=== PATIENT | female | born 1945 | race Caucasian/White ===

== ENCOUNTER 2017-03-22 11:34 | Inpatient (IN) ==
[2017-03-22] MEDS ORDERED: Naloxone 0.4 MG/ML INJ IVP PRN (14:52)
[2017-03-22] MEDS ORDERED: Lacri-Lube 3.5 GM TUBE BOTH EYES PRN (14:57)
[2017-03-22] MEDS ORDERED: D5% in Water 1,000 ML IVC PRN (15:07)
[2017-03-22] MEDS ORDERED: *HR* Dextrose 50 % in Water (Syg) 50 ML SYRINGE IVP PRN (15:07)
[2017-03-22] MEDS ORDERED: Dextrose Gel 15 GM/37.5 ML TUBE PO PRN ×2 (15:07)
[2017-03-22 15:11] LABS: ABG Base Excess 12 mEq/L (-2 to 3); ABG HCO3 41 mEq/L (21-27); ABG Oxygen Saturation 94 % (95-98); ABG PCO2 73 mmHg (35-45); ABG PH 7.36 pH Units (7.32-7.45); ABG PO2 76 mmHg (85-104); ABG TCO2 43 mEq/L (20-26); Blood Gas Modality ASSIST CONTROL; Blood Gas PEEP 5 cm H2O; Blood Gas Respiration Rate 14; Blood Gas VT 450 cc
[2017-03-22] MEDS: Lacri-Lube 3.5 GM TUBE BOTH EYES SCH ×3 (15:40→23:48)
[2017-03-22] MEDS: *HR* Heparin 5,000 UNIT/ML VIAL SQ SCH ×2 (15:40→23:48)
[2017-03-22] MEDS: methylPREDNISolone 125 MG/2 ML VIAL IVP SCH ×2 (15:40→23:48)
[2017-03-22] MEDS: Ringers Solution, Lactated 1,000 ML IVC SCH (15:43)
[2017-03-22] MEDS: FentaNYL (PF) 1,000 MCG in 0.9 % Sodium Chloride 80 ML IVC SCH (15:45)
--- NOTE | 2017-03-22 15:46 | Pulmonology History & Physical ---
Date of Encounter: 03/22/17 Time of Encounter: 14:50 Assessment and Plan (1) Acute and chronic respiratory failure Current visit: Yes Status: Acute Currently patient is stable on current ventilatory setting and there is evidence of hypoxia and hypercapnia but for the most part is corrected and I suspect with her underlying disease prognosis could be poor. Continue vent support with sedation until family is not available to obtain more history. Qualifiers: Respiratory failure complication: hypoxia and hypercapnia Qualified Code(s) : J96.21 - Acute and chronic respiratory failure with hypoxia; J96.22 - Acute and chronic respiratory failure with hypercapnia; J96.22 - Acute and chronic respiratory failure with hypercapnia; J96.22 - Acute and chronic respiratory failure with hypercapnia (2) Pulmonary interstitial fibrosis Current visit: Yes Status: Chronic It will be difficult from chest x-ray to know what type of pulmonary fibrosis and she will need a CAT scan hopefully when she is more stable and did not this is IPF exacerbation prognosis is very poor. (3) COPD with exacerbation Current visit: Yes Status: Acute Patient will be on systemic steroid with bronchodilators and vent support. (4) Sepsis Current visit: Yes Status: Acute Patient meets SIRS criteria and so this could be pneumonia and sepsis order initiated. She has received fluid and continue IV fluid for now. Qualifiers: Sepsis type: sepsis due to unspecified organism Qualified Code(s): A41.9 - Sepsis, unspecified organism (5) Decubital ulcer Current visit: Yes Status: Chronic This is presence on admission on the back pressure area seems to be stage I and about half centimeter. Qualifiers: Pressure ulcer location: foot, unspecified location Pressure ulcer stage: stage 1 Laterality: unspecified laterality Qualified Code(s): L89.891 - Pressure ulcer of other site, stage 1 History of Present Illness Chief complaint: Shortness of breath HPI: Ms. Benjamin is a 71 year old female who presented with chief complaint of shortness of breath to [facility] emergency department and this history is taken from the chart patient is on the ventilator and she is sedated and I am not able to reach her daughter. The shortness of breath is has been going on for 2-3 days and she has also cough which was not productive. Patient symptoms worsen with anxiety. It is not clear to me her underlying disease with history of COPD about oxygen use however is documented patient normally on 6 L oxygen for pulmonary fibrosis and when squad arrived they found her on 6 L and her oxygen saturation was 83-84%. Patient was found tachycardic and there is no history of any fevers or chills. Patient was supposed to see a legal specialist. Apparently patient was intubated for respiratory distress secondary was transferred to [facility]. In the ICU patient has been sedated and oxygen saturation is acceptable. I am not sure about social history regarding smoking and also her activity levels. Past Med Surg Social Fam HX - Past Medical History Medical history: GERD, hypertension, other - Social History Smoking Status: Never smoker Smokeless Tobacco Status: No Alcohol use: none Medications and Allergies Levothyroxine 11/14/16 [History] Omeprazole 11/14/16 [History] Pravastatin Sodium 11/14/16 [History] Tizanidine HCl 11/14/16 [History] Vitamin D 11/14/16 [History] 3 Allergy/AdvReac Type Severity Reaction Status Date / Time ciprofloxacin [From Cipro] Allergy Rash Verified 11/14/16 19:58 Hyoscyamine [From Urelle] Allergy Rash Verified 11/14/16 19:58 methenamine [From Urelle] Allergy Rash Verified 11/14/16 19:58 methylene blue [From Urelle] Allergy Rash Verified 11/14/16 19:58 phenazopyridine Allergy Rash Verified 11/14/16 19:58 [From Pyridium] salicylates [From Urelle] Allergy Rash Verified 11/14/16 19:58 Sodium Phosphate Allergy Rash Verified 11/14/16 19:58 [From Urelle] ROS unobtainable: due to mental status All Systems: A 10-system review of systems was performed and is negative for pertinent findings except as documented above in the HPI. Physical Examination Vital Signs: Vital Signs, Last 4 Hours Temp Pulse Resp BP Pulse Ox 03/22/17 15:00 97.4 F L 75 14 97/62 92 03/22/17 14:25 80 03/22/17 14:13 12 94 General appearance: no acute distress Eyes: nonicteric Neck: supple, no lymphadenopathy Effort: normal Inspection: other (Patients on the ventilator) Auscultation: bilateral: other (Crackles bilaterally) Percussion: bilateral: not dull Cardiovascular: regular rate and rhythm Gastrointestinal: normoactive bowel sounds, non-distended, other (Patient has colostomy bag) Extremities: no cyanosis, edema unable to assess due to mental status Results - Laboratory Findings ABG ABG pH 7.36 pH Units (7.32-7.45) 03/22/17 15:05 ABG pCO2 73 mmHg (35-45) H* 03/22/17 15:05 ABG pO2 76 mmHg (85-104) L 03/22/17 15:05 ABG O2 Saturation 94 % (95-98) L 03/22/17 15:05 Abnormal lab findings: Abnormal lab results ABG pCO2 73 mmHg (35-45) H* 03/22/17 15:05 ABG pO2 76 mmHg (85-104) L 03/22/17 15:05 ABG HCO3 41 mEq/L (21-27) H 03/22/17 15:05 ABG Total CO2 43 mEq/L (20-26) H 03/22/17 15:05 ABG O2 Saturation 94 % (95-98) L 03/22/17 15:05 ABG Base Excess 12 mEq/L (-2 to 3) H 03/22/17 15:05 - Diagnostic Findings Chest x-ray: report reviewed, image reviewed
[2017-03-22] MEDS ORDERED: Vancomycin 1,500 MG in D5% in Water 250 ML IVPB SCH (16:00)
[2017-03-22 16:24] LABS: Basophils % 0.1 %; Eosinophils % 0.1 %; Hematocrit 38.2 % (35.3-44.9); Immature Granulocytes % 0.4 % (0-4); Lymphocytes # 0.8 K/mcL (0.6-4.6); Lymphocytes % 7.2 %; Mean Corpuscular HGB Conc 31.4 g/dL (31.6-35.5); Mean Corpuscular Volume 95.5 fL (83.0-100.0); Mean Platelet Volume 9.9 fL (9.4-12.4); Monocytes # 0.1 K/mcL (0.0-1.3); Neutrophils # 10.7 K/mcL (1.6-8.9); Platelet Count 217 K/mcL (140-400); Red Cell Distribution Width 14.2 % (11.5-14.5); Segmented Neutrophils % 91.2 %
[2017-03-22 16:32] LABS: INR 1.3; Prothrombin Time 14.1 Seconds (9.4-12.1)
[2017-03-22 16:33] LABS: Albumin 2.8 g/dL (3.5-5.7); Bilirubin,Direct 0.2 mg/dL (0.0-0.2); Bilirubin,Indirect 0.5 mg/dL (0.0-1.2); Bilirubin,Total 0.7 mg/dL (0.3-1.0); Calcium 9.1 mg/dL (8.6-10.3); Carbon Dioxide 36 mEq/L (23-29); Chloride 96 mEq/L (98-107); Potassium 4.2 mEq/L (3.5-5.1); Sodium 136 mEq/L (136-145)
[2017-03-22 16:35] LABS: Activated Partial Thrombo Time 30.5 Seconds (26.0-36.0)
[2017-03-22 16:39] LABS: Alanine Aminotransferase 20 Units/L (7-52); Albumin/Globulin Ratio 0.8 (1.1-2.2); Alkaline Phosphatase 84 Units/L (34-104); Aspartate Amino Transferase 14 Units/L (13-39); BUN/Creatinine Ratio 29 (6-26); Blood Urea Nitrogen 14 mg/dL (8-23); Globulin 3.3 g/dL (2.4-3.5); Glucose 236 mg/dL (70-105); Osmolality,Calculated 290 (280-300); Total Protein 6.1 g/dL (6.4-8.9); eGFR For African Americans > 60 (> 60); eGFR For Non-African Americans > 60 (> 60)
[2017-03-22] MEDS: Insulin LISPRO 300 UNITS/3 ML VIAL SQ SCH (17:07)
[2017-03-22] MEDS: Chlorhexidine Rinse 15 ML MOUTHWASH MM SCH (21:18)
[2017-03-23] MEDS: Ringers Solution, Lactated 1,000 ML IVC SCH (03:49)
[2017-03-23] MEDS: Lacri-Lube 3.5 GM TUBE BOTH EYES SCH ×6 (03:50→23:32)
[2017-03-23 04:42] LABS: ABG Base Excess 13 mEq/L (-2 to 3); ABG HCO3 41 mEq/L (21-27); ABG Oxygen Saturation 98 % (95-98); ABG PCO2 72 mmHg (35-45); ABG PH 7.37 pH Units (7.32-7.45); ABG PO2 110 mmHg (85-104); ABG TCO2 43 mEq/L (20-26); Blood Gas Modality PRVC; Blood Gas PEEP 5 cm H2O; Blood Gas Respiration Rate 14; Blood Gas VT 450 cc
[2017-03-23 05:17] LABS: Basophils % 0.2 %; Hemoglobin 11.1 g/dL (11.5-15.4); Immature Granulocytes % 0.6 % (0-4); Lymphocytes % 10.7 %; Mean Corpuscular HGB Conc 30.8 g/dL (31.6-35.5); Mean Corpuscular Hemoglobin 29.2 pg (28.0-33.3); Mean Corpuscular Volume 94.7 fL (83.0-100.0); Mean Platelet Volume 9.9 fL (9.4-12.4); Monocytes # 0.3 K/mcL (0.0-1.3); Monocytes % 2.6 %; Neutrophils # 8.2 K/mcL (1.6-8.9); Platelet Count 198 K/mcL (140-400); Red Cell Distribution Width 14.2 % (11.5-14.5); Segmented Neutrophils % 85.9 %
[2017-03-23] MEDS: Insulin LISPRO 300 UNITS/3 ML VIAL SQ SCH ×5 (06:49→23:33)
[2017-03-23] MEDS: Levothyroxine 25 MCG TABLET PO SCH (06:49)
[2017-03-23] MEDS ORDERED: Aminoglycoside Consult 1 EACH MC ONE (08:17)
[2017-03-23] MEDS: Chlorhexidine Rinse 15 ML MOUTHWASH MM SCH ×2 (08:25→20:12)
[2017-03-23] MEDS: methylPREDNISolone 125 MG/2 ML VIAL IVP SCH ×3 (08:25→23:32)
[2017-03-23] MEDS: *HR* Heparin 5,000 UNIT/ML VIAL SQ SCH ×3 (08:25→23:32)
[2017-03-23] MEDS: Pantoprazole 40 MG VIAL IVP SCH (08:25)
--- NOTE | 2017-03-23 08:39 | Pulmonology Progress Note ---
<Raymond Sidhu - Last Filed: 03/23/17 12:03> Date of Encounter: 03/23/17 Time of Encounter: 08:15 Assessment and Plan (1) Acute and chronic respiratory failure Current Visit: Yes Status: Acute Stable on vent settings day 2, not tolerating CPAP weaning. On Vanc/Zosyn prophylaxis. CXR does show diffuse airspace disease likely pulmonary fibrosis over infectious etiology. Holding IV fluids, Giving bronchodilators, steroids, vent support Light diuresis, Creat low normal, Qualifiers: Respiratory failure complication: hypoxia and hypercapnia Qualified Code(s) : J96.21 - Acute and chronic respiratory failure with hypoxia; J96.22 - Acute and chronic respiratory failure with hypercapnia; J96.22 - Acute and chronic respiratory failure with hypercapnia; J96.22 - Acute and chronic respiratory failure with hypercapnia (2) Decubital ulcer Current Visit: Yes Status: Chronic Wound consult for stage 2 decubitous ulcer, 1/2 centimeter deep Qualifiers: Pressure ulcer location: foot, unspecified location Pressure ulcer stage: stage 1 Laterality: unspecified laterality Qualified Code(s): L89.891 - Pressure ulcer of other site, stage 1 (3) Pulmonary interstitial fibrosis Current Visit: Yes Status: Chronic Per medical decision making in (1). Subjective Principal diagnosis: Respiratory failure with hypoxia Interval history: Interval history: 71 year old female, non-smoker, lives at home with her presented 03/22/17 by mansi to [facility] for significant shortness of breath, normally on 4L O2 for pulmonary fibrosis. Squad found her on floor with 6L O2 sat in mid 80s. 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 ABG [place] pH 7.35 (7.32), PCO2 68.9 (77.1), while on BiPaP, prior to transfer to [facility], patient was intubated. ABG [facility] @1500 pH 7.36, PCO2 73. Currently patient is intubated/vent and sedated, stable, CXR shows diffuse airspace disease ddx pulm fibrosis versus consolidations from PNA. On day 2 vanc /zosyn. Sedated with propofol 3mcg/kg/min titration protocol to [place] scale of 4. *CPAP trial: 30 mins before increased work of breathing. Pending Doppler warm lower extremities R>L. Wound consult sacral decubitus ulcer stage 2. Objective PUL Vital signs: Last Vital Signs Temp 97.3 F L 03/23/17 08:25 Pulse 63 03/23/17 06:00 Resp 55 03/23/17 07:35 BP 104/67 03/23/17 07:35 Pulse Ox 96 03/23/17 07:35 General appearance: other (intubated and sedated) Eyes: nonicteric ENT: oropharynx moist Neck: supple Auscultation: bilateral: diminished breath sounds, rales Cardiovascular: regular rate and rhythm Gastrointestinal: soft, non-distended Integumentary: decubitus ulcer (coccygeal stage 2) Extremities: other (R>L lower extremity erythema with warmth) Ventilator Settings Ventilator Settings: Ventilator Settings, Last 8 Hours Ventilator Mode VC+ Ventilator Mode VC+ Ventilator Mode VC+ Ventilator Mode VC+ Ventilator Mode VC+ Ventilator Mode VC+ Ventilator Mode VC+ Ventilator Mode VC+ Ventilator Mode VC+ Ventilator Mode VC+ Ventilator Tidal Volume 450 Setting Ventilator Tidal Volume 450 Setting Ventilator Tidal Volume 450 Setting Ventilator Tidal Volume 450 Setting Ventilator Tidal Volume 451 Setting Ventilator Tidal Volume 451 Setting Ventilator Tidal Volume 450 Setting Ventilator Tidal Volume 450 Setting Ventilator Tidal Volume 450 Setting Ventilator Tidal Volume 450 Setting Ventilator Respiratory Rate 14 Setting Ventilator Respiratory Rate 14 Setting Ventilator Respiratory Rate 14 Setting Ventilator Respiratory Rate 14 Setting Ventilator Respiratory Rate 14 Setting Ventilator Respiratory Rate 14 Setting Ventilator Respiratory Rate 14 Setting Ventilator Respiratory Rate 14 Setting Ventilator Respiratory Rate 14 Setting Ventilator Respiratory Rate 14 Setting Actual Respiratory Rate 14 Actual Respiratory Rate 24 Actual Respiratory Rate 22 Actual Respiratory Rate 14 Actual Respiratory Rate 14 Actual Respiratory Rate 14 Actual Respiratory Rate 14 Actual Respiratory Rate 14 Actual Respiratory Rate 14 Positive End Expiratory 5 Pressure Positive End Expiratory 5 Pressure Positive End Expiratory 5 Pressure Positive End Expiratory 5 Pressure Positive End Expiratory 5 Pressure Positive End Expiratory 5 Pressure Positive End Expiratory 5 Pressure Positive End Expiratory 5 Pressure Positive End Expiratory 5 Pressure Positive End Expiratory 5 Pressure Peak Inspiratory Airway 37 Pressure Peak Inspiratory Airway 46 Pressure Peak Inspiratory Airway 42 Pressure Peak Inspiratory Airway 40 Pressure Peak Inspiratory Airway 38 Pressure Peak Inspiratory Airway 40 Pressure Peak Inspiratory Airway 35 Pressure Peak Inspiratory Airway 36 Pressure Peak Inspiratory Airway 36 Pressure Results - Laboratory Findings CBC and BMP: 03/23/17 05:05 03/22/17 16:12 ABG ABG pH 7.37 pH Units (7.32-7.45) 03/23/17 04:38 ABG pCO2 72 mmHg (35-45) H* 03/23/17 04:38 ABG pO2 110 mmHg (85-104) H 03/23/17 04:38 ABG O2 Saturation 98 % (95-98) 03/23/17 04:38 PT/INR, D-dimer PT 14.1 Seconds (9.4-12.1) H 03/22/17 16:12 Abnormal lab findings: Abnormal lab results RBC 3.80 M/mcL (3.82-4.97) L 03/23/17 05:05 Hgb 11.1 g/dL (11.5-15.4) L 03/23/17 05:05 MCHC 30.8 g/dL (31.6-35.5) L 03/23/17 05:05 PT 14.1 Seconds (9.4-12.1) H 03/22/17 16:12 ABG pCO2 72 mmHg (35-45) H* 03/23/17 04:38 ABG pO2 110 mmHg (85-104) H 03/23/17 04:38 ABG HCO3 41 mEq/L (21-27) H 03/23/17 04:38 ABG Total CO2 43 mEq/L (20-26) H 03/23/17 04:38 ABG Base Excess 13 mEq/L (-2 to 3) H 03/23/17 04:38 Chloride 96 mEq/L (98-107) L 03/22/17 16:12 Carbon Dioxide 36 mEq/L (23-29) H 03/22/17 16:12 Creatinine 0.49 mg/dL (0.60-1.20) L 03/22/17 16:12 BUN/Creatinine Ratio 29 (6-26) H 03/22/17 16:12 Glucose 236 mg/dL (70-105) H 03/22/17 16:12 POC Glucose 194 (58-89) H 03/22/17 23:16 Troponin I 0.04 ng/mL (< 0.04) H* 03/22/17 16:12 Serum Total Protein 6.1 g/dL (6.4-8.9) L 03/22/17 16:12 Albumin 2.8 g/dL (3.5-5.7) L 03/22/17 16:12 Albumin/Globulin Ratio 0.8 (1.1-2.2) L 03/22/17 16:12 - Microbiology Findings Microbiology Findings: Microbiology, Last 48 Hours 03/22/17 21:40 Sputum Culture - Preliminary Sputum - Clinical Findings Intake & Output: Intake & Output 03/22/17 03/23/17 03/23/17 23:59 07:59 15:59 Intake Total 457 / 457 1233 / 1233 458 / 458 Output Total 570 / 570 430 / 430 50 / 50 Balance -113 / -113 803 / 803 408 / 408 Weight 90.8 kg Consult Discharge Plan - Plan Referrals: NONE,PCP [Primary Care Provider] - <Isael Carrera - Last Filed: 03/23/17 12:10> Date of Encounter: 03/23/17 Assessment and Plan (1) Acute and chronic respiratory failure Current Visit: Yes Status: Acute Qualifiers: Respiratory failure complication: hypoxia and hypercapnia Qualified Code(s) : J96.21 - Acute and chronic respiratory failure with hypoxia; J96.22 - Acute and chronic respiratory failure with hypercapnia; J96.22 - Acute and chronic respiratory failure with hypercapnia; J96.22 - Acute and chronic respiratory failure with hypercapnia (2) Pulmonary interstitial fibrosis Current Visit: Yes Status: Chronic (3) COPD with exacerbation Current Visit: Yes Status: Acute (4) Sepsis Current Visit: Yes Status: Acute Qualifiers: Sepsis type: sepsis due to unspecified organism Qualified Code(s): A41.9 - Sepsis, unspecified organism (5) Decubital ulcer Current Visit: Yes Status: Chronic Qualifiers: Pressure ulcer location: foot, unspecified location Pressure ulcer stage: stage 1 Laterality: unspecified laterality Qualified Code(s): L89.891 - Pressure ulcer of other site, stage 1 Objective PUL Vital signs: Last Vital Signs Temp 98.0 F 03/23/17 11:55 Pulse 61 03/23/17 12:00 Resp 22 03/23/17 12:00 BP 107/63 03/23/17 12:00 Pulse Ox 97 03/23/17 12:00 Ventilator Settings Ventilator Settings: Ventilator Settings, Last 8 Hours Ventilator Mode VC+ Ventilator Mode VC+ Ventilator Mode VC+ Ventilator Mode VC+ Ventilator Mode VC+ Ventilator Mode VC+ Ventilator Mode VC+ Ventilator Mode VC+ Ventilator Mode VC+ Ventilator Mode VC+ Ventilator Tidal Volume 450 Setting Ventilator Tidal Volume 450 Setting Ventilator Tidal Volume 450 Setting Ventilator Tidal Volume 450 Setting Ventilator Tidal Volume 450 Setting Ventilator Tidal Volume 450 Setting Ventilator Tidal Volume 450 Setting Ventilator Tidal Volume 450 Setting Ventilator Tidal Volume 450 Setting Ventilator Tidal Volume 450 Setting Ventilator Respiratory Rate 14 Setting Ventilator Respiratory Rate 14 Setting Ventilator Respiratory Rate 14 Setting Ventilator Respiratory Rate 14 Setting Ventilator Respiratory Rate 14 Setting Ventilator Respiratory Rate 14 Setting Ventilator Respiratory Rate 14 Setting Ventilator Respiratory Rate 14 Setting Ventilator Respiratory Rate 14 Setting Ventilator Respiratory Rate 14 Setting Actual Respiratory Rate 22 Actual Respiratory Rate 14 Actual Respiratory Rate 24 Actual Respiratory Rate 14 Actual Respiratory Rate 14 Actual Respiratory Rate 14 Actual Respiratory Rate 14 Actual Respiratory Rate 24 Actual Respiratory Rate 22 Positive End Expiratory 5 Pressure Positive End Expiratory 5 Pressure Positive End Expiratory 5 Pressure Positive End Expiratory 5 Pressure Positive End Expiratory 5 Pressure Positive End Expiratory 5 Pressure Positive End Expiratory 5 Pressure Positive End Expiratory 5 Pressure Positive End Expiratory 5 Pressure Positive End Expiratory 5 Pressure Peak Inspiratory Airway 38 Pressure Peak Inspiratory Airway 38 Pressure Peak Inspiratory Airway 35 Pressure Peak Inspiratory Airway 39 Pressure Peak Inspiratory Airway 39 Pressure Peak Inspiratory Airway 39 Pressure Peak Inspiratory Airway 37 Pressure Peak Inspiratory Airway 46 Pressure Peak Inspiratory Airway 42 Pressure Results - Laboratory Findings CBC and BMP: 03/23/17 05:05 03/22/17 16:12 ABG ABG pH 7.37 pH Units (7.32-7.45) 03/23/17 04:38 ABG pCO2 72 mmHg (35-45) H* 03/23/17 04:38 ABG pO2 110 mmHg (85-104) H 03/23/17 04:38 ABG O2 Saturation 98 % (95-98) 03/23/17 04:38 PT/INR, D-dimer PT 14.1 Seconds (9.4-12.1) H 03/22/17 16:12 Abnormal lab findings: Abnormal lab results RBC 3.80 M/mcL (3.82-4.97) L 03/23/17 05:05 Hgb 11.1 g/dL (11.5-15.4) L 03/23/17 05:05 MCHC 30.8 g/dL (31.6-35.5) L 03/23/17 05:05 PT 14.1 Seconds (9.4-12.1) H 03/22/17 16:12 ABG pCO2 72 mmHg (35-45) H* 03/23/17 04:38 ABG pO2 110 mmHg (85-104) H 03/23/17 04:38 ABG HCO3 41 mEq/L (21-27) H 03/23/17 04:38 ABG Total CO2 43 mEq/L (20-26) H 03/23/17 04:38 ABG Base Excess 13 mEq/L (-2 to 3) H 03/23/17 04:38 Chloride 96 mEq/L (98-107) L 03/22/17 16:12 Carbon Dioxide 36 mEq/L (23-29) H 03/22/17 16:12 Creatinine 0.49 mg/dL (0.60-1.20) L 03/22/17 16:12 BUN/Creatinine Ratio 29 (6-26) H 03/22/17 16:12 Glucose 236 mg/dL (70-105) H 03/22/17 16:12 POC Glucose 194 (58-89) H 03/22/17 23:16 Troponin I 0.04 ng/mL (< 0.04) H* 03/22/17 16:12 Serum Total Protein 6.1 g/dL (6.4-8.9) L 03/22/17 16:12 Albumin 2.8 g/dL (3.5-5.7) L 03/22/17 16:12 Albumin/Globulin Ratio 0.8 (1.1-2.2) L 03/22/17 16:12 - Microbiology Findings Microbiology Findings: Microbiology, Last 48 Hours 03/22/17 21:40 Sputum Culture - Preliminary Sputum - Clinical Findings Intake & Output: Intake & Output 03/22/17 03/23/17 03/23/17 23:59 07:59 15:59 Intake Total 457 / 457 1233 / 1233 593 / 593 Output Total 570 / 570 430 / 430 300 / 300 Balance -113 / -113 803 / 803 293 / 293 Weight 90.8 kg 93.4 kg - Attending Attestation I examined this patient and my medical decision-making was reviewed with the Resident Physician. I agree with the documented findings, disposition and treatment plan as described except to the extent set forth below. Patient seen and examined. Labs, radiology, chart personally reviewed. 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 Pulmonary: Acceptable oxygenation and ventilation, patient failed spontaneous breathing trial and I suspect with her underlying pulmonary disease it might not be easy for patient to come off the ventilator. Diuresis as much as possible. Cardiovascular: stable GI: Nutrition per dietary and GI prophylaxis per routine Heme: DVT prophylaxis per routine ID: Continue antibiotics and plan to de-escalation Renal; urine out put and renal funtion reviewed Endorcine: blood glucose is monitored Lines: all lines checked and no evidence of infections Skin: skin care to prevent pressure ulcers per nursing routine care
[2017-03-23] MEDS ORDERED: D5% in Water 1,000 ML IVC PRN (09:35)
[2017-03-23] MEDS ORDERED: Furosemide 20 MG/2 ML VIAL IVP ONE (09:37)
[2017-03-23] MEDS: Budesonide/Formoterol 160/4.5 MDI IH SCH ×2 (09:43→21:45)
[2017-03-23] MEDS: FentaNYL (PF) 1,000 MCG in 0.9 % Sodium Chloride 80 ML IVC SCH (16:55)
[2017-03-24] MEDS: Lacri-Lube 3.5 GM TUBE BOTH EYES SCH ×6 (04:03→23:24)
[2017-03-24 04:23] LABS: Basophils % 0.1 %; Hematocrit 34.7 % (35.3-44.9); Hemoglobin 10.8 g/dL (11.5-15.4); Immature Granulocytes % 0.6 % (0-4); Lymphocytes # 0.6 K/mcL (0.6-4.6); Lymphocytes % 5.3 %; Mean Corpuscular HGB Conc 31.1 g/dL (31.6-35.5); Mean Corpuscular Hemoglobin 29.8 pg (28.0-33.3); Mean Corpuscular Volume 95.9 fL (83.0-100.0); Mean Platelet Volume 10.4 fL (9.4-12.4); Monocytes # 0.4 K/mcL (0.0-1.3); Monocytes % 3.7 %; Neutrophils # 10.2 K/mcL (1.6-8.9); Platelet Count 222 K/mcL (140-400); Red Blood Count 3.62 M/mcL (3.82-4.97); Segmented Neutrophils % 90.3 %
[2017-03-24 04:38] LABS: BUN/Creatinine Ratio 45 (6-26); Blood Urea Nitrogen 22 mg/dL (8-23); Calcium 8.5 mg/dL (8.6-10.3); Carbon Dioxide 34 mEq/L (23-29); Chloride 98 mEq/L (98-107); Glucose 269 mg/dL (70-105); Osmolality,Calculated 295 (280-300); Potassium 4.1 mEq/L (3.5-5.1); Sodium 136 mEq/L (136-145); eGFR For African Americans > 60 (> 60); eGFR For Non-African Americans > 60 (> 60)
[2017-03-24 04:47] LABS: ABG Base Excess 13 mEq/L (-2 to 3); ABG HCO3 41 mEq/L (21-27); ABG Oxygen Saturation 98 % (95-98); ABG PCO2 71 mmHg (35-45); ABG PH 7.37 pH Units (7.32-7.45); ABG PO2 107 mmHg (85-104); ABG TCO2 43 mEq/L (20-26); Blood Gas Modality ASSIST CONTROL; Blood Gas PEEP 5 cm H2O; Blood Gas Respiration Rate 14; Blood Gas VT 450 cc
[2017-03-24] MEDS: Levothyroxine 25 MCG TABLET PO SCH (04:57)
[2017-03-24] MEDS: Insulin LISPRO 300 UNITS/3 ML VIAL SQ SCH ×4 (05:02→23:23)
[2017-03-24] MEDS: methylPREDNISolone 125 MG/2 ML VIAL IVP SCH ×3 (07:17→23:21)
[2017-03-24] MEDS: *HR* Heparin 5,000 UNIT/ML VIAL SQ SCH ×3 (07:17→23:22)
[2017-03-24] MEDS: Chlorhexidine Rinse 15 ML MOUTHWASH MM SCH ×2 (07:18→19:53)
[2017-03-24] MEDS: Pantoprazole 40 MG VIAL IVP SCH (07:19)
--- NOTE | 2017-03-24 08:27 | Pulmonology Progress Note ---
<Raymond Sidhu - Last Filed: 03/24/17 08:27> Date of Encounter: 03/24/17 Assessment and Plan (1) Acute and chronic respiratory failure Current Visit: Yes Status: Acute Stable on vent settings day 2, not tolerating CPAP weaning. On Vanc/Zosyn prophylaxis. CXR does show diffuse airspace disease likely pulmonary fibrosis over infectious etiology. Holding IV fluids, Giving bronchodilators, steroids, vent support Light diuresis, Creat low normal, Qualifiers: Respiratory failure complication: hypoxia and hypercapnia Qualified Code(s) : J96.21 - Acute and chronic respiratory failure with hypoxia; J96.22 - Acute and chronic respiratory failure with hypercapnia; J96.22 - Acute and chronic respiratory failure with hypercapnia; J96.22 - Acute and chronic respiratory failure with hypercapnia (2) Decubital ulcer Current Visit: Yes Status: Chronic Wound consult for stage 2 decubitous ulcer, 1/2 centimeter deep Qualifiers: Pressure ulcer location: foot, unspecified location Pressure ulcer stage: stage 1 Laterality: unspecified laterality Qualified Code(s): L89.891 - Pressure ulcer of other site, stage 1 (3) Pulmonary interstitial fibrosis Current Visit: Yes Status: Chronic Per medical decision making in (1). Subjective Principal diagnosis: Respiratory failure with hypoxia Interval history: Interval history: 71 year old female, non-smoker, lives at home with her presented 03/22/17 by mansi to [facility] for significant shortness of breath, normally on 4L O2 for pulmonary fibrosis. Squad found her on floor with 6L O2 sat in mid 80s. 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 ABG [place] pH 7.35 (7.32), PCO2 68.9 (77.1), while on BiPaP, prior to transfer to [facility], patient was intubated. ABG [facility] @1500 pH 7.36, PCO2 73. Currently patient is intubated/vent and sedated, stable, CXR shows diffuse airspace disease ddx pulm fibrosis versus consolidations from PNA. On day 2 vanc /zosyn. Sedated with propofol 3mcg/kg/min titration protocol to [place] scale of 4. *CPAP trial: 30 mins before increased work of breathing. Pending Doppler warm lower extremities R>L. Wound consult sacral decubitus ulcer stage 2. Objective PUL Vital signs: Last Vital Signs Temp 97.3 F L 03/24/17 07:00 Pulse 50 03/24/17 07:30 Resp 14 03/24/17 07:00 BP 90/50 03/24/17 07:00 Pulse Ox 96 03/24/17 07:00 Ventilator Settings Ventilator Settings: Ventilator Settings, Last 8 Hours Ventilator Mode VC+ Ventilator Mode VC+ Ventilator Mode VC+ Ventilator Mode VC+ Ventilator Mode VC+ Ventilator Mode VC+ Ventilator Mode VC+ Ventilator Mode VC+ Ventilator Mode VC+ Ventilator Mode VC+ Ventilator Tidal Volume 450 Setting Ventilator Tidal Volume 450 Setting Ventilator Tidal Volume 450 Setting Ventilator Tidal Volume 450 Setting Ventilator Tidal Volume 450 Setting Ventilator Tidal Volume 450 Setting Ventilator Tidal Volume 450 Setting Ventilator Tidal Volume 450 Setting Ventilator Tidal Volume 450 Setting Ventilator Tidal Volume 450 Setting Ventilator Respiratory Rate 14 Setting Ventilator Respiratory Rate 14 Setting Ventilator Respiratory Rate 14 Setting Ventilator Respiratory Rate 14 Setting Ventilator Respiratory Rate 14 Setting Ventilator Respiratory Rate 14 Setting Ventilator Respiratory Rate 14 Setting Ventilator Respiratory Rate 14 Setting Ventilator Respiratory Rate 14 Setting Ventilator Respiratory Rate 14 Setting Actual Respiratory Rate 14 Actual Respiratory Rate 14 Actual Respiratory Rate 14 Actual Respiratory Rate 14 Actual Respiratory Rate 14 Actual Respiratory Rate 14 Actual Respiratory Rate 17 Actual Respiratory Rate 16 Actual Respiratory Rate 21 Positive End Expiratory 5 Pressure Positive End Expiratory 5 Pressure Positive End Expiratory 5 Pressure Positive End Expiratory 5 Pressure Positive End Expiratory 5 Pressure Positive End Expiratory 5 Pressure Positive End Expiratory 5 Pressure Positive End Expiratory 5 Pressure Positive End Expiratory 5 Pressure Positive End Expiratory 5 Pressure Peak Inspiratory Airway 37 Pressure Peak Inspiratory Airway 40 Pressure Peak Inspiratory Airway 40 Pressure Peak Inspiratory Airway 38 Pressure Peak Inspiratory Airway 35 Pressure Peak Inspiratory Airway 38 Pressure Peak Inspiratory Airway 39 Pressure Peak Inspiratory Airway 39 Pressure Peak Inspiratory Airway 39 Pressure Results - Laboratory Findings CBC and BMP: 03/24/17 04:00 03/24/17 04:00 ABG ABG pH 7.37 pH Units (7.32-7.45) 03/24/17 04:43 ABG pCO2 71 mmHg (35-45) H* 03/24/17 04:43 ABG pO2 107 mmHg (85-104) H 03/24/17 04:43 ABG O2 Saturation 98 % (95-98) 03/24/17 04:43 PT/INR, D-dimer PT 14.1 Seconds (9.4-12.1) H 03/22/17 16:12 Abnormal lab findings: Abnormal lab results WBC 11.3 K/mcL (4.3-11.1) H 03/24/17 04:00 RBC 3.62 M/mcL (3.82-4.97) L 03/24/17 04:00 Hgb 10.8 g/dL (11.5-15.4) L 03/24/17 04:00 Hct 34.7 % (35.3-44.9) L 03/24/17 04:00 MCHC 31.1 g/dL (31.6-35.5) L 03/24/17 04:00 Neutrophils # 10.2 K/mcL (1.6-8.9) H 03/24/17 04:00 PT 14.1 Seconds (9.4-12.1) H 03/22/17 16:12 ABG pCO2 71 mmHg (35-45) H* 03/24/17 04:43 ABG pO2 107 mmHg (85-104) H 03/24/17 04:43 ABG HCO3 41 mEq/L (21-27) H 03/24/17 04:43 ABG Total CO2 43 mEq/L (20-26) H 03/24/17 04:43 ABG Base Excess 13 mEq/L (-2 to 3) H 03/24/17 04:43 Carbon Dioxide 34 mEq/L (23-29) H 03/24/17 04:00 Creatinine 0.49 mg/dL (0.60-1.20) L 03/24/17 04:00 BUN/Creatinine Ratio 45 (6-26) H 03/24/17 04:00 Glucose 269 mg/dL (70-105) H 03/24/17 04:00 POC Glucose 267 (58-89) H 03/23/17 23:30 Calcium 8.5 mg/dL (8.6-10.3) L 03/24/17 04:00 Troponin I 0.04 ng/mL (< 0.04) H* 03/22/17 16:12 Serum Total Protein 6.1 g/dL (6.4-8.9) L 03/22/17 16:12 Albumin 2.8 g/dL (3.5-5.7) L 03/22/17 16:12 Albumin/Globulin Ratio 0.8 (1.1-2.2) L 03/22/17 16:12 - Microbiology Findings Microbiology Findings: Microbiology, Last 48 Hours 03/22/17 21:40 Sputum Culture - Preliminary Sputum Gram Negative Diego - Clinical Findings Intake & Output: Intake & Output 03/23/17 03/24/17 03/24/17 23:59 07:59 15:59 Intake Total 805 / 805 484 / 484 Output Total 600 / 600 100 / 100 Balance 205 / 205 384 / 384 Weight 89.5 kg 93.894 kg Consult Discharge Plan - Plan Referrals: NONE,PCP [Primary Care Provider] - <Isael Carrera - Last Filed: 03/24/17 09:48> Date of Encounter: 03/24/17 Time of Encounter: 07:00 Assessment and Plan (1) Acute and chronic respiratory failure Current Visit: Yes Status: Acute Qualifiers: Respiratory failure complication: hypoxia and hypercapnia Qualified Code(s) : J96.21 - Acute and chronic respiratory failure with hypoxia; J96.22 - Acute and chronic respiratory failure with hypercapnia; J96.22 - Acute and chronic respiratory failure with hypercapnia; J96.22 - Acute and chronic respiratory failure with hypercapnia (2) Pulmonary interstitial fibrosis Current Visit: Yes Status: Chronic (3) COPD with exacerbation Current Visit: Yes Status: Acute (4) Sepsis Current Visit: Yes Status: Acute Qualifiers: Sepsis type: sepsis due to unspecified organism Qualified Code(s): A41.9 - Sepsis, unspecified organism (5) Decubital ulcer Current Visit: Yes Status: Chronic Qualifiers: Pressure ulcer location: foot, unspecified location Pressure ulcer stage: stage 1 Laterality: unspecified laterality Qualified Code(s): L89.891 - Pressure ulcer of other site, stage 1 Objective PUL Vital signs: Last Vital Signs Temp 97.3 F L 03/24/17 07:00 Pulse 47 03/24/17 09:00 Resp 14 03/24/17 09:00 BP 89/76 03/24/17 09:00 Pulse Ox 96 03/24/17 09:00 Ventilator Settings Ventilator Settings: Ventilator Settings, Last 8 Hours Ventilator Mode VC+ Ventilator Mode VC+ Ventilator Mode A/C Ventilator Mode VC+ Ventilator Mode VC+ Ventilator Mode VC+ Ventilator Mode VC+ Ventilator Mode VC+ Ventilator Mode VC+ Ventilator Mode VC+ Ventilator Mode VC+ Ventilator Mode VC+ Ventilator Tidal Volume 450 Setting Ventilator Tidal Volume 450 Setting Ventilator Tidal Volume 450 Setting Ventilator Tidal Volume 450 Setting Ventilator Tidal Volume 450 Setting Ventilator Tidal Volume 450 Setting Ventilator Tidal Volume 450 Setting Ventilator Tidal Volume 450 Setting Ventilator Tidal Volume 450 Setting Ventilator Tidal Volume 450 Setting Ventilator Tidal Volume 450 Setting Ventilator Tidal Volume 450 Setting Ventilator Respiratory Rate 14 Setting Ventilator Respiratory Rate 14 Setting Ventilator Respiratory Rate 14 Setting Ventilator Respiratory Rate 14 Setting Ventilator Respiratory Rate 14 Setting Ventilator Respiratory Rate 14 Setting Ventilator Respiratory Rate 14 Setting Ventilator Respiratory Rate 14 Setting Ventilator Respiratory Rate 14 Setting Ventilator Respiratory Rate 14 Setting Ventilator Respiratory Rate 14 Setting Ventilator Respiratory Rate 14 Setting Actual Respiratory Rate 14 Actual Respiratory Rate 14 Actual Respiratory Rate 14 Actual Respiratory Rate 14 Actual Respiratory Rate 14 Actual Respiratory Rate 14 Actual Respiratory Rate 14 Actual Respiratory Rate 14 Actual Respiratory Rate 14 Actual Respiratory Rate 17 Actual Respiratory Rate 16 Positive End Expiratory 5 Pressure Positive End Expiratory 5 Pressure Positive End Expiratory 5 Pressure Positive End Expiratory 5 Pressure Positive End Expiratory 5 Pressure Positive End Expiratory 5 Pressure Positive End Expiratory 5 Pressure Positive End Expiratory 5 Pressure Positive End Expiratory 5 Pressure Positive End Expiratory 5 Pressure Positive End Expiratory 5 Pressure Positive End Expiratory 5 Pressure Peak Inspiratory Airway 36 Pressure Peak Inspiratory Airway 38 Pressure Peak Inspiratory Airway 35 Pressure Peak Inspiratory Airway 37 Pressure Peak Inspiratory Airway 40 Pressure Peak Inspiratory Airway 40 Pressure Peak Inspiratory Airway 38 Pressure Peak Inspiratory Airway 35 Pressure Peak Inspiratory Airway 38 Pressure Peak Inspiratory Airway 39 Pressure Peak Inspiratory Airway 39 Pressure Results - Laboratory Findings CBC and BMP: 03/24/17 04:00 03/24/17 04:00 ABG ABG pH 7.37 pH Units (7.32-7.45) 03/24/17 04:43 ABG pCO2 71 mmHg (35-45) H* 03/24/17 04:43 ABG pO2 107 mmHg (85-104) H 03/24/17 04:43 ABG O2 Saturation 98 % (95-98) 03/24/17 04:43 PT/INR, D-dimer PT 14.1 Seconds (9.4-12.1) H 03/22/17 16:12 Abnormal lab findings: Abnormal lab results WBC 11.3 K/mcL (4.3-11.1) H 03/24/17 04:00 RBC 3.62 M/mcL (3.82-4.97) L 03/24/17 04:00 Hgb 10.8 g/dL (11.5-15.4) L 03/24/17 04:00 Hct 34.7 % (35.3-44.9) L 03/24/17 04:00 MCHC 31.1 g/dL (31.6-35.5) L 03/24/17 04:00 Neutrophils # 10.2 K/mcL (1.6-8.9) H 03/24/17 04:00 PT 14.1 Seconds (9.4-12.1) H 03/22/17 16:12 ABG pCO2 71 mmHg (35-45) H* 03/24/17 04:43 ABG pO2 107 mmHg (85-104) H 03/24/17 04:43 ABG HCO3 41 mEq/L (21-27) H 03/24/17 04:43 ABG Total CO2 43 mEq/L (20-26) H 03/24/17 04:43 ABG Base Excess 13 mEq/L (-2 to 3) H 03/24/17 04:43 Carbon Dioxide 34 mEq/L (23-29) H 03/24/17 04:00 Creatinine 0.49 mg/dL (0.60-1.20) L 03/24/17 04:00 BUN/Creatinine Ratio 45 (6-26) H 03/24/17 04:00 Glucose 269 mg/dL (70-105) H 03/24/17 04:00 POC Glucose 267 (58-89) H 03/23/17 23:30 Calcium 8.5 mg/dL (8.6-10.3) L 03/24/17 04:00 Troponin I 0.04 ng/mL (< 0.04) H* 03/22/17 16:12 Serum Total Protein 6.1 g/dL (6.4-8.9) L 03/22/17 16:12 Albumin 2.8 g/dL (3.5-5.7) L 03/22/17 16:12 Albumin/Globulin Ratio 0.8 (1.1-2.2) L 03/22/17 16:12 - Microbiology Findings Microbiology Findings: Microbiology, Last 48 Hours 03/22/17 21:40 Sputum Culture - Preliminary Sputum Gram Negative Diego - Clinical Findings Intake & Output: Intake & Output 03/23/17 03/24/17 03/24/17 23:59 07:59 15:59 Intake Total 805 / 805 484 / 484 100 / 100 Output Total 600 / 600 100 / 100 100 / 100 Balance 205 / 205 384 / 384 0 / 0 Weight 89.5 kg 93.894 kg - Attending Attestation I examined this patient and my medical decision-making was reviewed with the Resident Physician. I agree with the documented findings, disposition and treatment plan as described except to the extent set forth below. Patient seen and examined. Labs, radiology, chart personally reviewed. Agree with resident's history and physical, assessment, plan with following comments: USED [employer] SALESPERSON: Patient sedated for mechanical invasive ventilation. Pulmonary: Acceptable oxygenation and ventilation on the ventilator, however she failed her spontaneous breathing trial which I suspect secondary to her underlying lung disease. I discussed with the family at the bedside. The history of fibrosis, but is not clear what type and she is on home oxygen and she uses wheelchair. We will have the CT chest and also diuresis as much as possible. Cardiovascular: stable GI: Nutrition per dietary and GI prophylaxis per routine Heme: DVT prophylaxis per routine ID: Continue antibiotics and plan to de-escalation Renal; urine out put and renal funtion reviewed Endorcine: blood glucose is monitored Lines: all lines checked and no evidence of infections Skin: skin care to prevent pressure ulcers per nursing routine care
[2017-03-24] MEDS: FentaNYL (PF) 1,000 MCG in 0.9 % Sodium Chloride 80 ML IVC SCH ×2 (08:40→17:43)
[2017-03-24] MEDS: Budesonide/Formoterol 160/4.5 MDI IH SCH ×2 (09:55→21:52)
[2017-03-24 11:15] LABS: Thyroid Stimulating Hormone 0.928 mcIU/mL (0.340-5.600)
[2017-03-24] MEDS ORDERED: 0.9 % Sodium Chloride 1,000 ML ONE (13:00)
[2017-03-24] MEDS ORDERED: 0.9 % Sodium Chloride 1,000 ML IVC ONE (13:00)
[2017-03-25] MEDS: FentaNYL (PF) 1,000 MCG in 0.9 % Sodium Chloride 80 ML IVC SCH ×3 (02:48→17:40)
[2017-03-25] MEDS: Lacri-Lube 3.5 GM TUBE BOTH EYES SCH ×5 (02:59→19:28)
[2017-03-25 04:27] LABS: ABG Base Excess 10 mEq/L (-2 to 3); ABG HCO3 39 mEq/L (21-27); ABG Oxygen Saturation 97 % (95-98); ABG PCO2 77 mmHg (35-45); ABG PH 7.32 pH Units (7.32-7.45); ABG PO2 98 mmHg (85-104); ABG TCO2 42 mEq/L (20-26)
[2017-03-25] MEDS: Insulin LISPRO 300 UNITS/3 ML VIAL SQ SCH ×3 (05:25→17:44)
[2017-03-25] MEDS: Levothyroxine 25 MCG TABLET PO SCH (05:25)
--- NOTE | 2017-03-25 05:31 | Pulmonology Progress Note ---
<Santino Chatman - Last Filed: 03/25/17 05:35> Date of Encounter: 03/25/17 Time of Encounter: 05:21 Assessment and Plan (1) Acute and chronic respiratory failure Current Visit: Yes Status: Acute Patient stable on vent setting day 3, not tolerating CPAP weaning. The patient did attempt CPAP trial yesterday at which time she was unable to tolerate it due to increased work of breathing and desaturation We will try another CPAP trial later this morning, with her daughter present The patient does indicate that she is feeling all right and is comfortable CT Scan 03/24: Pulmonary findings typical of IPF. Bibasilar honeycomb lung formation is noted. Continue on vent, bronchodilators and steroids Qualifiers: Respiratory failure complication: hypoxia and hypercapnia Qualified Code(s) : J96.21 - Acute and chronic respiratory failure with hypoxia; J96.22 - Acute and chronic respiratory failure with hypercapnia; J96.22 - Acute and chronic respiratory failure with hypercapnia; J96.22 - Acute and chronic respiratory failure with hypercapnia (2) Pulmonary interstitial fibrosis Current Visit: Yes Status: Chronic (3) Decubital ulcer Current Visit: Yes Status: Chronic Decubital ulcer, Likely stage 3 Wound care is consulted, recommends debridement with packing Qualifiers: Pressure ulcer location: foot, unspecified location Pressure ulcer stage: stage 2 Laterality: unspecified laterality Qualified Code(s): L89.892 - Pressure ulcer of other site, stage 2 (4) DVT prophylaxis Current Visit: Yes Status: Acute SQ Heparing q8h Subjective Principal diagnosis: Respiratory failure with hypoxia Objective PUL Vital signs: Last Vital Signs Temp 97.5 F L 03/25/17 00:26 Pulse 42 03/25/17 03:49 Resp 14 03/25/17 03:49 BP 127/71 03/25/17 03:49 Pulse Ox 95 03/25/17 03:49 Gen.: Vitals noted. No acute distress. Alert and responds to commands without hesitation or confusion. She cannot vocalize responses due to ET tube. HEENT: oropharynx clear, Normocephalic, atraumatic Neck: Supple. No adenopathy. Cardiac: RRR, no murmur, +S1/S2 Pulmonary: Diffuse crackles b/l L>R without obvious superimposed rhonchi or wheezes. Challenging to distinguish IPF vs Pulmonary edema on exam Abdomen: soft, nontender, BS noted, no guarding Extremities: 1+ b/l LE edema, nontender calf, no cyanosis or clubbing Neuro: Alert to verbal and responds appropriately to questions with nods, moves all extremities, no focal deficits Ventilator Settings Ventilator Settings: Ventilator Settings, Last 8 Hours Ventilator Mode A/C Ventilator Mode A/C Ventilator Mode A/C Ventilator Mode A/C Ventilator Mode A/C Ventilator Mode A/C Ventilator Mode A/C Ventilator Mode A/C Ventilator Mode A/C Ventilator Mode A/C Ventilator Mode A/C Ventilator Mode A/C Ventilator Tidal Volume 450 Setting Ventilator Tidal Volume 450 Setting Ventilator Tidal Volume 450 Setting Ventilator Tidal Volume 450 Setting Ventilator Tidal Volume 450 Setting Ventilator Tidal Volume 450 Setting Ventilator Tidal Volume 450 Setting Ventilator Tidal Volume 450 Setting Ventilator Tidal Volume 450 Setting Ventilator Tidal Volume 450 Setting Ventilator Tidal Volume 450 Setting Ventilator Tidal Volume 450 Setting Ventilator Respiratory Rate 14 Setting Ventilator Respiratory Rate 14 Setting Ventilator Respiratory Rate 14 Setting Ventilator Respiratory Rate 14 Setting Ventilator Respiratory Rate 14 Setting Ventilator Respiratory Rate 14 Setting Ventilator Respiratory Rate 14 Setting Ventilator Respiratory Rate 14 Setting Ventilator Respiratory Rate 14 Setting Ventilator Respiratory Rate 14 Setting Ventilator Respiratory Rate 14 Setting Ventilator Respiratory Rate 14 Setting Actual Respiratory Rate 14 Actual Respiratory Rate 14 Actual Respiratory Rate 14 Actual Respiratory Rate 14 Actual Respiratory Rate 14 Actual Respiratory Rate 14 Actual Respiratory Rate 14 Actual Respiratory Rate 14 Actual Respiratory Rate 14 Actual Respiratory Rate 14 Actual Respiratory Rate 14 Positive End Expiratory 5 Pressure Positive End Expiratory 5 Pressure Positive End Expiratory 5 Pressure Positive End Expiratory 5 Pressure Positive End Expiratory 5 Pressure Positive End Expiratory 5 Pressure Positive End Expiratory 5 Pressure Positive End Expiratory 5 Pressure Positive End Expiratory 5 Pressure Positive End Expiratory 5 Pressure Positive End Expiratory 5 Pressure Positive End Expiratory 5 Pressure Peak Inspiratory Airway 36 Pressure Peak Inspiratory Airway 38 Pressure Peak Inspiratory Airway 36 Pressure Peak Inspiratory Airway 36 Pressure Peak Inspiratory Airway 36 Pressure Peak Inspiratory Airway 36 Pressure Peak Inspiratory Airway 33 Pressure Peak Inspiratory Airway 33 Pressure Peak Inspiratory Airway 36 Pressure Peak Inspiratory Airway 40 Pressure Peak Inspiratory Airway 37 Pressure Results - Laboratory Findings CBC and BMP: 03/24/17 04:00 03/24/17 04:00 ABG ABG pH 7.32 pH Units (7.32-7.45) 03/25/17 04:14 ABG pCO2 77 mmHg (35-45) H* 03/25/17 04:14 ABG pO2 98 mmHg (85-104) 03/25/17 04:14 ABG O2 Saturation 97 % (95-98) 03/25/17 04:14 PT/INR, D-dimer PT 14.1 Seconds (9.4-12.1) H 03/22/17 16:12 Abnormal lab findings: Abnormal lab results WBC 11.3 K/mcL (4.3-11.1) H 03/24/17 04:00 RBC 3.62 M/mcL (3.82-4.97) L 03/24/17 04:00 Hgb 10.8 g/dL (11.5-15.4) L 03/24/17 04:00 Hct 34.7 % (35.3-44.9) L 03/24/17 04:00 MCHC 31.1 g/dL (31.6-35.5) L 03/24/17 04:00 Neutrophils # 10.2 K/mcL (1.6-8.9) H 03/24/17 04:00 PT 14.1 Seconds (9.4-12.1) H 03/22/17 16:12 ABG pCO2 77 mmHg (35-45) H* 03/25/17 04:14 ABG HCO3 39 mEq/L (21-27) H 03/25/17 04:14 ABG Total CO2 42 mEq/L (20-26) H 03/25/17 04:14 ABG Base Excess 10 mEq/L (-2 to 3) H 03/25/17 04:14 Carbon Dioxide 34 mEq/L (23-29) H 03/24/17 04:00 Creatinine 0.49 mg/dL (0.60-1.20) L 03/24/17 04:00 BUN/Creatinine Ratio 45 (6-26) H 03/24/17 04:00 Glucose 269 mg/dL (70-105) H 03/24/17 04:00 POC Glucose 295 (58-89) H 03/25/17 00:31 Calcium 8.5 mg/dL (8.6-10.3) L 03/24/17 04:00 Troponin I 0.04 ng/mL (< 0.04) H* 03/22/17 16:12 Serum Total Protein 6.1 g/dL (6.4-8.9) L 03/22/17 16:12 Albumin 2.8 g/dL (3.5-5.7) L 03/22/17 16:12 Albumin/Globulin Ratio 0.8 (1.1-2.2) L 03/22/17 16:12 - Microbiology Findings Microbiology Findings: Microbiology, Last 48 Hours 03/22/17 16:12 Blood Culture - Preliminary Peripheral Venipuncture No growth. 03/22/17 21:40 Sputum Culture - Preliminary Sputum Gram Negative Diego - Clinical Findings Intake & Output: Intake & Output 03/24/17 03/24/17 03/25/17 15:59 23:59 07:59 Intake Total 2539 / 2539 672 / 672 401 / 401 Output Total 275 / 275 300 / 300 100 / 100 Balance 2264 / 2264 372 / 372 301 / 301 Weight 94.1 kg Consult Discharge Plan - Plan Referrals: NONE,PCP [Primary Care Provider] - <Isael Carrera - Last Filed: 03/25/17 08:01> Date of Encounter: 03/25/17 Assessment and Plan (1) Acute and chronic respiratory failure Current Visit: Yes Status: Acute Qualifiers: Respiratory failure complication: hypoxia and hypercapnia Qualified Code(s) : J96.21 - Acute and chronic respiratory failure with hypoxia; J96.22 - Acute and chronic respiratory failure with hypercapnia; J96.22 - Acute and chronic respiratory failure with hypercapnia; J96.22 - Acute and chronic respiratory failure with hypercapnia (2) Pulmonary interstitial fibrosis Current Visit: Yes Status: Chronic (3) COPD with exacerbation Current Visit: Yes Status: Acute (4) Sepsis Current Visit: Yes Status: Acute Qualifiers: Sepsis type: sepsis due to unspecified organism Qualified Code(s): A41.9 - Sepsis, unspecified organism (5) Decubital ulcer Current Visit: Yes Status: Chronic Qualifiers: Pressure ulcer location: foot, unspecified location Pressure ulcer stage: stage 2 Laterality: unspecified laterality Qualified Code(s): L89.892 - Pressure ulcer of other site, stage 2 Objective PUL Vital signs: Last Vital Signs Temp 97.5 F L 03/25/17 05:42 Pulse 47 03/25/17 05:42 Resp 16 03/25/17 07:37 BP 109/63 03/25/17 07:37 Pulse Ox 98 03/25/17 07:37 Ventilator Settings Ventilator Settings: Ventilator Settings, Last 8 Hours Ventilator Mode A/C Ventilator Mode A/C Ventilator Mode A/C Ventilator Mode A/C Ventilator Mode A/C Ventilator Mode A/C Ventilator Mode A/C Ventilator Mode A/C Ventilator Mode A/C Ventilator Mode A/C Ventilator Mode A/C Ventilator Tidal Volume 450 Setting Ventilator Tidal Volume 450 Setting Ventilator Tidal Volume 450 Setting Ventilator Tidal Volume 450 Setting Ventilator Tidal Volume 450 Setting Ventilator Tidal Volume 450 Setting Ventilator Tidal Volume 450 Setting Ventilator Tidal Volume 450 Setting Ventilator Tidal Volume 450 Setting Ventilator Tidal Volume 450 Setting Ventilator Tidal Volume 450 Setting Ventilator Respiratory Rate 16 Setting Ventilator Respiratory Rate 16 Setting Ventilator Respiratory Rate 14 Setting Ventilator Respiratory Rate 14 Setting Ventilator Respiratory Rate 14 Setting Ventilator Respiratory Rate 14 Setting Ventilator Respiratory Rate 14 Setting Ventilator Respiratory Rate 14 Setting Ventilator Respiratory Rate 14 Setting Ventilator Respiratory Rate 14 Setting Ventilator Respiratory Rate 14 Setting Actual Respiratory Rate 16 Actual Respiratory Rate 23 Actual Respiratory Rate 14 Actual Respiratory Rate 14 Actual Respiratory Rate 14 Actual Respiratory Rate 14 Actual Respiratory Rate 14 Actual Respiratory Rate 14 Actual Respiratory Rate 14 Actual Respiratory Rate 14 Positive End Expiratory 5 Pressure Positive End Expiratory 5 Pressure Positive End Expiratory 5 Pressure Positive End Expiratory 5 Pressure Positive End Expiratory 5 Pressure Positive End Expiratory 5 Pressure Positive End Expiratory 5 Pressure Positive End Expiratory 5 Pressure Positive End Expiratory 5 Pressure Positive End Expiratory 5 Pressure Positive End Expiratory 5 Pressure Peak Inspiratory Airway 38 Pressure Peak Inspiratory Airway 40 Pressure Peak Inspiratory Airway 36 Pressure Peak Inspiratory Airway 36 Pressure Peak Inspiratory Airway 36 Pressure Peak Inspiratory Airway 38 Pressure Peak Inspiratory Airway 36 Pressure Peak Inspiratory Airway 36 Pressure Peak Inspiratory Airway 36 Pressure Peak Inspiratory Airway 36 Pressure Results - Laboratory Findings CBC and BMP: 03/25/17 05:45 03/25/17 05:45 ABG ABG pH 7.32 pH Units (7.32-7.45) 03/25/17 04:14 ABG pCO2 77 mmHg (35-45) H* 03/25/17 04:14 ABG pO2 98 mmHg (85-104) 03/25/17 04:14 ABG O2 Saturation 97 % (95-98) 03/25/17 04:14 PT/INR, D-dimer PT 14.1 Seconds (9.4-12.1) H 03/22/17 16:12 Abnormal lab findings: Abnormal lab results MCHC 30.3 g/dL (31.6-35.5) L 03/25/17 05:45 PT 14.1 Seconds (9.4-12.1) H 03/22/17 16:12 ABG pCO2 77 mmHg (35-45) H* 03/25/17 04:14 ABG HCO3 39 mEq/L (21-27) H 03/25/17 04:14 ABG Total CO2 42 mEq/L (20-26) H 03/25/17 04:14 ABG Base Excess 10 mEq/L (-2 to 3) H 03/25/17 04:14 Chloride 97 mEq/L (98-107) L 03/25/17 05:45 Carbon Dioxide 35 mEq/L (23-29) H 03/25/17 05:45 BUN 24 mg/dL (8-23) H 03/25/17 05:45 Creatinine 0.51 mg/dL (0.60-1.20) L 03/25/17 05:45 BUN/Creatinine Ratio 47 (6-26) H 03/25/17 05:45 Glucose 280 mg/dL (70-105) H 03/25/17 05:45 POC Glucose 295 (58-89) H 03/25/17 00:31 Troponin I 0.04 ng/mL (< 0.04) H* 03/22/17 16:12 Serum Total Protein 6.1 g/dL (6.4-8.9) L 03/22/17 16:12 Albumin 2.8 g/dL (3.5-5.7) L 03/22/17 16:12 Albumin/Globulin Ratio 0.8 (1.1-2.2) L 03/22/17 16:12 - Microbiology Findings Microbiology Findings: Microbiology, Last 48 Hours 03/22/17 21:40 Sputum Culture - Final Sputum Pseudomonas aeruginosa 03/22/17 16:12 Blood Culture - Preliminary Peripheral Venipuncture No growth. - Clinical Findings Intake & Output: Intake & Output 03/24/17 03/25/17 03/25/17 23:59 07:59 15:59 Intake Total 672 / 672 401 / 401 Output Total 300 / 300 100 / 100 Balance 372 / 372 301 / 301 Weight 94.1 kg - Attending Attestation I examined this patient and my medical decision-making was reviewed with the Resident Physician. I agree with the documented findings, disposition and treatment plan as described except to the extent set forth below. Patient seen and examined. Labs, radiology, chart personally reviewed. 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 Pulmonary: Acceptable oxygenation and ventilation on a ventilator and discussed with the daughter at the bedside that had a CAT scan shows extensive fibrosis and plan diuresis as much as possible and I also explained to her he might be difficult to get her off the ventilator due to her underlying lung disease. Cardiovascular: stable GI: Nutrition per dietary and GI prophylaxis per routine Heme: DVT prophylaxis per routine ID: Continue antibiotics and plan to de-escalation Renal; urine out put and renal funtion reviewed Endorcine: blood glucose is monitored Lines: all lines checked and no evidence of infections Skin: skin care to prevent pressure ulcers per nursing routine care
[2017-03-25 05:56] LABS: Basophils % 0.1 %; Hematocrit 41.2 % (35.3-44.9); Immature Granulocytes % 0.7 % (0-4); Lymphocytes # 0.8 K/mcL (0.6-4.6); Mean Corpuscular HGB Conc 30.3 g/dL (31.6-35.5); Mean Corpuscular Hemoglobin 29.7 pg (28.0-33.3); Mean Corpuscular Volume 97.9 fL (83.0-100.0); Mean Platelet Volume 10.2 fL (9.4-12.4); Monocytes # 0.4 K/mcL (0.0-1.3); Monocytes % 4.6 %; Neutrophils # 8.3 K/mcL (1.6-8.9); Platelet Count 216 K/mcL (140-400); Red Blood Count 4.21 M/mcL (3.82-4.97); Segmented Neutrophils % 86.6 %
[2017-03-25 05:59] LABS: Hemoglobin 12.5 g/dL (11.5-15.4)
[2017-03-25 06:25] LABS: BUN/Creatinine Ratio 47 (6-26); Blood Urea Nitrogen 24 mg/dL (8-23); Calcium 9.7 mg/dL (8.6-10.3); Carbon Dioxide 35 mEq/L (23-29); Chloride 97 mEq/L (98-107); Glucose 280 mg/dL (70-105); Osmolality,Calculated 296 (280-300); Potassium 4.9 mEq/L (3.5-5.1); Sodium 136 mEq/L (136-145); eGFR For African Americans > 60 (> 60); eGFR For Non-African Americans > 60 (> 60)
[2017-03-25] MEDS ORDERED: Furosemide 20 MG/2 ML VIAL IVP ONE ×2 (08:01→16:46)
[2017-03-25] MEDS: Chlorhexidine Rinse 15 ML MOUTHWASH MM SCH ×2 (08:10→19:28)
[2017-03-25] MEDS: Pantoprazole 40 MG VIAL IVP SCH (08:10)
[2017-03-25] MEDS: methylPREDNISolone 125 MG/2 ML VIAL IVP SCH ×2 (08:11→15:54)
[2017-03-25] MEDS: *HR* Heparin 5,000 UNIT/ML VIAL SQ SCH ×2 (08:11→15:54)
[2017-03-25] MEDS: Budesonide/Formoterol 160/4.5 MDI IH SCH ×2 (10:17→22:02)
[2017-03-25 15:36] LABS: BUN/Creatinine Ratio 45 (6-26); Blood Urea Nitrogen 25 mg/dL (8-23); Calcium 9.3 mg/dL (8.6-10.3); Carbon Dioxide 36 mEq/L (23-29); Chloride 97 mEq/L (98-107); Glucose 274 mg/dL (70-105); Osmolality,Calculated 302 (280-300); Potassium 4.3 mEq/L (3.5-5.1); Sodium 139 mEq/L (136-145); eGFR For African Americans > 60 (> 60); eGFR For Non-African Americans > 60 (> 60)
--- NOTE | 2017-03-25 21:28 | Internal Med Progress Note ---
<Delmar Collazo - Last Filed: 03/26/17 07:00> Date of Encounter: 03/26/17 Time of Encounter: 07:00 - Assessment and plan (1) Acute and chronic respiratory failure Current Visit: Yes Status: Acute Assessment and plan: In the setting of pulmonary interstitial fibrosis, puomonary edema, overlying pneumonia. Intubated, sedated. Day 4. CT Scan 03/24: Pulmonary findings typical of IPF. Bibasilar honeycomb lung formation is noted. Continue on vent, bronchodilators and steroids. Continue diuresis with spot dose Lasix, monitoring BMP. Qualifiers: Respiratory failure complication: hypoxia and hypercapnia Qualified Code(s) : J96.21 - Acute and chronic respiratory failure with hypoxia; J96.22 - Acute and chronic respiratory failure with hypercapnia; J96.22 - Acute and chronic respiratory failure with hypercapnia; J96.22 - Acute and chronic respiratory failure with hypercapnia (2) Pulmonary interstitial fibrosis Current Visit: Yes Status: Chronic Assessment and plan: Plan as above. (3) Decubital ulcer Current Visit: Yes Status: Chronic Assessment and plan: Stage 3. Consult wound care: Recommends debridement with packing. Qualifiers: Pressure ulcer location: foot, unspecified location Pressure ulcer stage: stage 2 Laterality: unspecified laterality Qualified Code(s): L89.892 - Pressure ulcer of other site, stage 2 (4) DVT prophylaxis Current Visit: Yes Status: Acute Assessment and plan: SQ heparin Q8hr. - Subjective Interval history: Hospital day 4 No acute events overnight. Patient remains intubated and sedated (day 4). She is not tolerating CPAP trials - increased work of breathing, desaturation. Patient is otherwise comfortable with no complaints. Overall working to diurese the patient while monitoring electrolytes and renal function. - Constitutional Vitals: Temp Pulse Resp BP Pulse Ox 97.5 F L 39 16 105/61 96 03/25/17 16:00 03/25/17 21:00 03/25/17 21:00 03/25/17 21:00 03/25/17 21:00 General appearance: Present: A&O X 3, no acute distress, answers questions appropriately (head nod/shake. No verbal secondary to ET tube.) - Head Head exam: Present: atraumatic, normal inspection - Eye Eye exam: Present: EOMI, PERRL, sclera anicteric - ENT ENT exam: Present: mucous membranes moist - Neck Neck exam general surgery: Present: normal inspection, supple - Expanded Respiratory Exam Location: rales: Left, Right, Upper, Lower - GI/Abdominal GI/Abdominal exam: Present: normal bowel sounds, soft. Absent: firm, guarding, tenderness - Neurological Exam Neurological exam: Present: alert, oriented X3, no focal deficits. Absent: motor sensory deficit Internal Medicine: Result - Labs CBC & Chem 7: 03/26/17 03:30 03/26/17 03:30 Labs: Short CBC 03/25/17 Range/Units 05:45 WBC 9.6 (4.3-11.1) K/mcL Hgb 12.5 D (11.5-15.4) g/dL Hct 41.2 (35.3-44.9) % Plt Count 216 (140-400) K/mcL Neutrophils # 8.3 (1.6-8.9) K/mcL BMP 03/25/17 03/25/17 05:45 13:40 Sodium 136 139 Potassium 4.9 4.3 Chloride 97 L 97 L Carbon Dioxide 35 H 36 H BUN 24 H 25 H Creatinine 0.51 L 0.55 L Glucose 280 H 274 H Calcium 9.7 9.3 - ABG Interpretation ABG results: ABG ABG pH 7.32 pH Units (7.32-7.45) 03/25/17 04:14 ABG pCO2 77 mmHg (35-45) H* 03/25/17 04:14 ABG pO2 98 mmHg (85-104) 03/25/17 04:14 ABG O2 Saturation 97 % (95-98) 03/25/17 04:14 PT/INR, D-dimer PT 14.1 Seconds (9.4-12.1) H 03/22/17 16:12 - VTE Documentation of Mechanical Device: Intermittent pneumatic compression device Consult Discharge Plan - Plan Referrals: NONE,PCP [Primary Care Provider] - <Isael Carrera - Last Filed: 03/26/17 09:52> Date of Encounter: 03/26/17 - Assessment and plan (1) Acute and chronic respiratory failure Current Visit: Yes Status: Acute Qualifiers: Respiratory failure complication: hypoxia and hypercapnia Qualified Code(s) : J96.21 - Acute and chronic respiratory failure with hypoxia; J96.22 - Acute and chronic respiratory failure with hypercapnia; J96.22 - Acute and chronic respiratory failure with hypercapnia; J96.22 - Acute and chronic respiratory failure with hypercapnia (2) Pulmonary interstitial fibrosis Current Visit: Yes Status: Chronic (3) COPD with exacerbation Current Visit: Yes Status: Acute (4) Sepsis Current Visit: Yes Status: Acute Qualifiers: Sepsis type: sepsis due to unspecified organism Qualified Code(s): A41.9 - Sepsis, unspecified organism (5) Decubital ulcer Current Visit: Yes Status: Chronic Qualifiers: Pressure ulcer location: foot, unspecified location Pressure ulcer stage: stage 2 Laterality: unspecified laterality Qualified Code(s): L89.892 - Pressure ulcer of other site, stage 2 - Constitutional Vitals: Temp Pulse Resp BP Pulse Ox 97.1 F L 37 16 148/77 98 03/26/17 08:07 03/26/17 09:00 03/26/17 09:11 03/26/17 09:11 03/26/17 09:11 Internal Medicine: Result - Labs CBC & Chem 7: 03/26/17 03:30 03/26/17 03:30 Labs: Short CBC 03/26/17 Range/Units 03:30 WBC 9.3 (4.3-11.1) K/mcL Hgb 11.8 (11.5-15.4) g/dL Hct 38.7 (35.3-44.9) % Plt Count 206 (140-400) K/mcL BMP 03/25/17 03/26/17 13:40 03:30 Sodium 139 139 Potassium 4.3 4.2 Chloride 97 L 96 L Carbon Dioxide 36 H 39 H BUN 25 H 27 H Creatinine 0.55 L 0.57 L Glucose 274 H 284 H Calcium 9.3 9.3 - ABG Interpretation ABG results: ABG ABG pH 7.39 pH Units (7.32-7.45) 03/26/17 03:58 ABG pCO2 70 mmHg (35-45) H* 03/26/17 03:58 ABG pO2 113 mmHg (85-104) H 03/26/17 03:58 ABG O2 Saturation 98 % (95-98) 03/26/17 03:58 PT/INR, D-dimer PT 14.1 Seconds (9.4-12.1) H 03/22/17 16:12 - Attending Attestation I examined this patient and my medical decision-making was reviewed with the Resident Physician. I agree with the documented findings, disposition and treatment plan as described except to the extent set forth below. Patient seen and examined. Labs, radiology, chart personally reviewed. 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 Continue diuresis. Cardiovascular: stable GI: Nutrition per dietary and GI prophylaxis per routine. Heme: DVT prophylaxis per routine ID: Continue antibiotics and plan to de-escalation Renal; urine out put and renal funtion reviewed Endorcine: blood glucose is monitored Lines: all lines checked and no evidence of infections Skin: skin care to prevent pressure ulcers per nursing routine care
[2017-03-26] MEDS: Insulin LISPRO 300 UNITS/3 ML VIAL SQ SCH ×5 (00:01→23:25)
[2017-03-26] MEDS: *HR* Heparin 5,000 UNIT/ML VIAL SQ SCH ×4 (00:01→23:24)
[2017-03-26] MEDS: Lacri-Lube 3.5 GM TUBE BOTH EYES SCH ×7 (00:02→23:26)
[2017-03-26] MEDS: FentaNYL (PF) 1,000 MCG in 0.9 % Sodium Chloride 80 ML IVC SCH ×4 (02:16→22:50)
[2017-03-26 03:42] LABS: Hematocrit 38.7 % (35.3-44.9); Hemoglobin 11.8 g/dL (11.5-15.4); Mean Corpuscular HGB Conc 30.5 g/dL (31.6-35.5); Mean Corpuscular Hemoglobin 29.5 pg (28.0-33.3); Mean Corpuscular Volume 96.8 fL (83.0-100.0); Mean Platelet Volume 10.5 fL (9.4-12.4); Platelet Count 206 K/mcL (140-400); Red Cell Distribution Width 13.9 % (11.5-14.5)
[2017-03-26 04:04] LABS: ABG Base Excess 14 mEq/L (-2 to 3); ABG HCO3 42 mEq/L (21-27); ABG Oxygen Saturation 98 % (95-98); ABG PCO2 70 mmHg (35-45); ABG PH 7.39 pH Units (7.32-7.45); ABG PO2 113 mmHg (85-104); ABG TCO2 44 mEq/L (20-26); Blood Gas Modality VC; Blood Gas PEEP 5 cm H2O; Blood Gas Respiration Rate 16; Blood Gas VT 450 cc
[2017-03-26 04:09] LABS: BUN/Creatinine Ratio 47 (6-26); Blood Urea Nitrogen 27 mg/dL (8-23); Calcium 9.3 mg/dL (8.6-10.3); Carbon Dioxide 39 mEq/L (23-29); Chloride 96 mEq/L (98-107); Glucose 284 mg/dL (70-105); Osmolality,Calculated 303 (280-300); Potassium 4.2 mEq/L (3.5-5.1); Sodium 139 mEq/L (136-145); eGFR For African Americans > 60 (> 60); eGFR For Non-African Americans > 60 (> 60)
[2017-03-26] MEDS: Levothyroxine 25 MCG TABLET PO SCH (05:43)
[2017-03-26] MEDS ORDERED: Furosemide 20 MG/2 ML VIAL IVP ONE ×2 (08:20→14:56)
[2017-03-26] MEDS ORDERED: Potassium Chloride 20 MEQ, Lidocaine 1% 2 ML in D5% in Water 250 ML IVPB ONE (08:21)
[2017-03-26] MEDS: Pantoprazole 40 MG VIAL IVP SCH (08:43)
[2017-03-26] MEDS: Chlorhexidine Rinse 15 ML MOUTHWASH MM SCH ×2 (08:43→20:05)
[2017-03-26] MEDS: methylPREDNISolone 125 MG/2 ML VIAL IVP SCH ×4 (08:43→23:24)
[2017-03-26] MEDS: Budesonide/Formoterol 160/4.5 MDI IH SCH ×2 (09:15→21:45)
[2017-03-26 17:55] LABS: Calcium 8.9 mg/dL (8.6-10.3); Carbon Dioxide 33 mEq/L (23-29); Chloride 97 mEq/L (98-107); Potassium 5.3 mEq/L (3.5-5.1); Sodium 137 mEq/L (136-145)
[2017-03-26 18:00] LABS: BUN/Creatinine Ratio 51 (6-26); Blood Urea Nitrogen 26 mg/dL (8-23); Glucose 286 mg/dL (70-105); Osmolality,Calculated 299 (280-300); eGFR For African Americans > 60 (> 60); eGFR For Non-African Americans > 60 (> 60)
[2017-03-27] MEDS: Lacri-Lube 3.5 GM TUBE BOTH EYES SCH ×6 (02:58→23:45)
[2017-03-27] MEDS ORDERED: Furosemide 20 MG/2 ML VIAL IVP ONE (03:05)
[2017-03-27 03:18] LABS: Basophils % 0.1 %; Hemoglobin 11.7 g/dL (11.5-15.4); Immature Granulocytes % 0.6 % (0-4); Lymphocytes # 0.6 K/mcL (0.6-4.6); Lymphocytes % 5.2 %; Mean Corpuscular HGB Conc 30.8 g/dL (31.6-35.5); Mean Corpuscular Hemoglobin 29.7 pg (28.0-33.3); Mean Corpuscular Volume 96.4 fL (83.0-100.0); Mean Platelet Volume 10.7 fL (9.4-12.4); Monocytes # 0.4 K/mcL (0.0-1.3); Monocytes % 3.2 %; Neutrophils # 9.9 K/mcL (1.6-8.9); Platelet Count 202 K/mcL (140-400); Red Blood Count 3.94 M/mcL (3.82-4.97); Red Cell Distribution Width 13.9 % (11.5-14.5); Segmented Neutrophils % 90.9 %
[2017-03-27 03:33] LABS: BUN/Creatinine Ratio 48 (6-26); Blood Urea Nitrogen 28 mg/dL (8-23); Calcium 8.9 mg/dL (8.6-10.3); Carbon Dioxide 41 mEq/L (23-29); Chloride 93 mEq/L (98-107); Glucose 322 mg/dL (70-105); Osmolality,Calculated 306 (280-300); Potassium 4.3 mEq/L (3.5-5.1); Sodium 139 mEq/L (136-145); eGFR For African Americans > 60 (> 60); eGFR For Non-African Americans > 60 (> 60)
[2017-03-27 04:13] LABS: ABG Base Excess 16 mEq/L (-2 to 3); ABG HCO3 45 mEq/L (21-27); ABG Oxygen Saturation 97 % (95-98); ABG PCO2 77 mmHg (35-45); ABG PH 7.38 pH Units (7.32-7.45); ABG PO2 100 mmHg (85-104); ABG TCO2 48 mEq/L (20-26); Blood Gas Modality VC; Blood Gas PEEP 5 cm H2O; Blood Gas Respiration Rate 16; Blood Gas VT 450 cc
[2017-03-27] MEDS: Insulin LISPRO 300 UNITS/3 ML VIAL SQ SCH (05:19)
[2017-03-27] MEDS: Levothyroxine 25 MCG TABLET PO SCH (05:24)
--- NOTE | 2017-03-27 05:26 | Pulmonology Progress Note ---
<Delmar Collazo - Last Filed: 03/27/17 08:00> Date of Encounter: 03/27/17 Time of Encounter: 08:01 Assessment and Plan (1) Acute and chronic respiratory failure Current Visit: Yes Status: Acute In the setting of pulmonary interstitial fibrosis, puomonary edema, overlying pneumonia. Intubated, sedated. Day 4. CT Scan 03/24: Pulmonary findings typical of IPF. Bibasilar honeycomb lung formation is noted. Continue on vent, bronchodilators and steroids. Continue diuresis with spot dose Lasix, monitoring BMP. Qualifiers: Respiratory failure complication: hypoxia and hypercapnia Qualified Code(s) : J96.21 - Acute and chronic respiratory failure with hypoxia; J96.22 - Acute and chronic respiratory failure with hypercapnia; J96.22 - Acute and chronic respiratory failure with hypercapnia; J96.22 - Acute and chronic respiratory failure with hypercapnia (2) Pulmonary interstitial fibrosis Current Visit: Yes Status: Chronic Plan as above. (3) Decubital ulcer Current Visit: Yes Status: Chronic Stage 3. Consult wound care: Recommends debridement with packing. Qualifiers: Pressure ulcer location: foot, unspecified location Pressure ulcer stage: stage 2 Laterality: unspecified laterality Qualified Code(s): L89.892 - Pressure ulcer of other site, stage 2 (4) DVT prophylaxis Current Visit: Yes Status: Acute SQ heparin Q8hr. Subjective Principal diagnosis: Respiratory failure with hypoxia Interval history: Hospital day 5 No acute events overnight. Patient remains intubated and sedated (day 5). She continues to not tolerate CPAP trials - increased work of breathing, desaturation. Patient is otherwise comfortable with no complaints. Overall working to diurese the patient with spot dose Lasix while monitoring electrolytes and renal function. Her ABG is in line with those previous on this admission; verly likely baseline for the patient. Objective PUL Vital signs: Last Vital Signs Temp 97.6 F 03/27/17 04:59 Pulse 54 03/27/17 05:00 Resp 16 03/27/17 05:00 BP 104/66 03/27/17 05:00 Pulse Ox 97 03/27/17 05:00 General appearance: no acute distress Eyes: nonicteric ENT: oropharynx moist Neck: supple Effort: normal Auscultation: bilateral: diminished breath sounds, other (pleural friction rub) Cardiovascular: regular rate and rhythm Gastrointestinal: normoactive bowel sounds, soft, non-tender, non-distended Integumentary: normal Extremities: no cyanosis, no edema, no clubbing, pink and warm, pulses normal Musculoskeletal: no deformities unable to assess due to mental status mood appropriate Ventilator Settings Ventilator Settings: Ventilator Settings, Last 8 Hours Ventilator Mode VC+ Ventilator Mode VC+ Ventilator Mode VC+ Ventilator Mode VC+ Ventilator Mode VC+ Ventilator Mode VC+ Ventilator Mode VC+ Ventilator Mode VC+ Ventilator Mode VC+ Ventilator Mode VC+ Ventilator Mode VC+ Ventilator Mode VC+ Ventilator Tidal Volume 450 Setting Ventilator Tidal Volume 450 Setting Ventilator Tidal Volume 450 Setting Ventilator Tidal Volume 450 Setting Ventilator Tidal Volume 450 Setting Ventilator Tidal Volume 450 Setting Ventilator Tidal Volume 450 Setting Ventilator Tidal Volume 450 Setting Ventilator Tidal Volume 450 Setting Ventilator Tidal Volume 450 Setting Ventilator Tidal Volume 450 Setting Ventilator Tidal Volume 450 Setting Ventilator Respiratory Rate 16 Setting Ventilator Respiratory Rate 16 Setting Ventilator Respiratory Rate 16 Setting Ventilator Respiratory Rate 16 Setting Ventilator Respiratory Rate 16 Setting Ventilator Respiratory Rate 16 Setting Ventilator Respiratory Rate 16 Setting Ventilator Respiratory Rate 16 Setting Ventilator Respiratory Rate 16 Setting Ventilator Respiratory Rate 16 Setting Ventilator Respiratory Rate 16 Setting Ventilator Respiratory Rate 16 Setting Actual Respiratory Rate 16 Actual Respiratory Rate 16 Actual Respiratory Rate 16 Actual Respiratory Rate 16 Actual Respiratory Rate 16 Actual Respiratory Rate 16 Actual Respiratory Rate 16 Actual Respiratory Rate 16 Actual Respiratory Rate 16 Actual Respiratory Rate 16 Actual Respiratory Rate 16 Positive End Expiratory 5 Pressure Positive End Expiratory 5 Pressure Positive End Expiratory 5 Pressure Positive End Expiratory 5 Pressure Positive End Expiratory 5 Pressure Positive End Expiratory 5 Pressure Positive End Expiratory 5 Pressure Positive End Expiratory 5 Pressure Positive End Expiratory 5 Pressure Positive End Expiratory 5 Pressure Positive End Expiratory 5 Pressure Positive End Expiratory 5 Pressure Peak Inspiratory Airway 37 Pressure Peak Inspiratory Airway 37 Pressure Peak Inspiratory Airway 37 Pressure Peak Inspiratory Airway 37 Pressure Peak Inspiratory Airway 37 Pressure Peak Inspiratory Airway 37 Pressure Peak Inspiratory Airway 37 Pressure Peak Inspiratory Airway 37 Pressure Peak Inspiratory Airway 37 Pressure Peak Inspiratory Airway 37 Pressure Peak Inspiratory Airway 37 Pressure Results - Laboratory Findings CBC and BMP: 03/27/17 03:00 03/27/17 03:00 ABG ABG pH 7.38 pH Units (7.32-7.45) 03/27/17 04:07 ABG pCO2 77 mmHg (35-45) H* 03/27/17 04:07 ABG pO2 100 mmHg (85-104) 03/27/17 04:07 ABG O2 Saturation 97 % (95-98) 03/27/17 04:07 PT/INR, D-dimer PT 14.1 Seconds (9.4-12.1) H 03/22/17 16:12 Abnormal lab findings: Abnormal lab results MCHC 30.8 g/dL (31.6-35.5) L 03/27/17 03:00 Neutrophils # 9.9 K/mcL (1.6-8.9) H 03/27/17 03:00 PT 14.1 Seconds (9.4-12.1) H 03/22/17 16:12 ABG pCO2 77 mmHg (35-45) H* 03/27/17 04:07 ABG HCO3 45 mEq/L (21-27) H 03/27/17 04:07 ABG Total CO2 48 mEq/L (20-26) H 03/27/17 04:07 ABG Base Excess 16 mEq/L (-2 to 3) H 03/27/17 04:07 Chloride 93 mEq/L (98-107) L 03/27/17 03:00 Carbon Dioxide 41 mEq/L (23-29) H* 03/27/17 03:00 BUN 28 mg/dL (8-23) H 03/27/17 03:00 Creatinine 0.58 mg/dL (0.60-1.20) L 03/27/17 03:00 BUN/Creatinine Ratio 48 (6-26) H 03/27/17 03:00 Glucose 322 mg/dL (70-105) H 03/27/17 03:00 POC Glucose 319 (58-89) H 03/26/17 23:23 Calculated Osmolality 306 (280-300) H 03/27/17 03:00 Troponin I 0.04 ng/mL (< 0.04) H* 03/22/17 16:12 Serum Total Protein 6.1 g/dL (6.4-8.9) L 03/22/17 16:12 Albumin 2.8 g/dL (3.5-5.7) L 03/22/17 16:12 Albumin/Globulin Ratio 0.8 (1.1-2.2) L 03/22/17 16:12 - Microbiology Findings Microbiology Findings: Microbiology, Last 48 Hours 03/22/17 21:40 Sputum Culture - Final Sputum Pseudomonas aeruginosa - Clinical Findings Intake & Output: Intake & Output 03/26/17 03/26/17 03/27/17 15:59 23:59 07:59 Intake Total 399 / 399 1169 / 1169 100 / 100 Output Total 1050 / 1050 1550 / 1550 300 / 300 Balance -651 / -651 -381 / -381 -200 / -200 - VTE Documentation of Mechanical Device: Intermittent pneumatic compression device Consult Discharge Plan - Plan Referrals: NONE,PCP [Primary Care Provider] - <Corey Meyer - Last Filed: 03/27/17 21:48> Date of Encounter: 03/27/17 Objective PUL Vital signs: Last Vital Signs Temp 97.8 F 03/27/17 15:59 Pulse 37 03/27/17 16:00 Resp 16 03/27/17 17:05 BP 122/70 03/27/17 17:05 Pulse Ox 96 03/27/17 17:05 Ventilator Settings Ventilator Settings: Ventilator Settings, Last 8 Hours Ventilator Mode VC+ Ventilator Mode VC+ Ventilator Mode VC+ Ventilator Mode VC+ Ventilator Mode VC+ Ventilator Mode VC+ Ventilator Mode VC+ Ventilator Tidal Volume 450 Setting Ventilator Tidal Volume 450 Setting Ventilator Tidal Volume 450 Setting Ventilator Tidal Volume 450 Setting Ventilator Tidal Volume 450 Setting Ventilator Tidal Volume 450 Setting Ventilator Tidal Volume 450 Setting Ventilator Respiratory Rate 16 Setting Ventilator Respiratory Rate 16 Setting Ventilator Respiratory Rate 16 Setting Ventilator Respiratory Rate 16 Setting Ventilator Respiratory Rate 16 Setting Ventilator Respiratory Rate 16 Setting Ventilator Respiratory Rate 16 Setting Actual Respiratory Rate 16 Actual Respiratory Rate 16 Actual Respiratory Rate 16 Actual Respiratory Rate 16 Actual Respiratory Rate 16 Actual Respiratory Rate 16 Actual Respiratory Rate 16 Actual Respiratory Rate 16 Actual Respiratory Rate 16 Actual Respiratory Rate 16 Actual Respiratory Rate 16 Actual Respiratory Rate 16 Positive End Expiratory 5 Pressure Positive End Expiratory 5 Pressure Positive End Expiratory 5 Pressure Positive End Expiratory 5 Pressure Positive End Expiratory 5 Pressure Positive End Expiratory 5 Pressure Positive End Expiratory 5 Pressure Positive End Expiratory 5 Pressure Positive End Expiratory 5 Pressure Positive End Expiratory 5 Pressure Positive End Expiratory 5 Pressure Positive End Expiratory 5 Pressure Peak Inspiratory Airway 40 Pressure Peak Inspiratory Airway 40 Pressure Peak Inspiratory Airway 39 Pressure Peak Inspiratory Airway 39 Pressure Peak Inspiratory Airway 40 Pressure Peak Inspiratory Airway 38 Pressure Peak Inspiratory Airway 39 Pressure Peak Inspiratory Airway 41 Pressure Peak Inspiratory Airway 37 Pressure Peak Inspiratory Airway 38 Pressure Peak Inspiratory Airway 38 Pressure Results - Laboratory Findings CBC and BMP: 03/27/17 03:00 03/27/17 03:00 ABG ABG pH 7.38 pH Units (7.32-7.45) 03/27/17 04:07 ABG pCO2 77 mmHg (35-45) H* 03/27/17 04:07 ABG pO2 100 mmHg (85-104) 03/27/17 04:07 ABG O2 Saturation 97 % (95-98) 03/27/17 04:07 PT/INR, D-dimer PT 14.1 Seconds (9.4-12.1) H 03/22/17 16:12 Abnormal lab findings: Abnormal lab results MCHC 30.8 g/dL (31.6-35.5) L 03/27/17 03:00 Neutrophils # 9.9 K/mcL (1.6-8.9) H 03/27/17 03:00 PT 14.1 Seconds (9.4-12.1) H 03/22/17 16:12 ABG pCO2 77 mmHg (35-45) H* 03/27/17 04:07 ABG HCO3 45 mEq/L (21-27) H 03/27/17 04:07 ABG Total CO2 48 mEq/L (20-26) H 03/27/17 04:07 ABG Base Excess 16 mEq/L (-2 to 3) H 03/27/17 04:07 Chloride 93 mEq/L (98-107) L 03/27/17 03:00 Carbon Dioxide 41 mEq/L (23-29) H* 03/27/17 03:00 BUN 28 mg/dL (8-23) H 03/27/17 03:00 Creatinine 0.58 mg/dL (0.60-1.20) L 03/27/17 03:00 BUN/Creatinine Ratio 48 (6-26) H 03/27/17 03:00 Glucose 322 mg/dL (70-105) H 03/27/17 03:00 POC Glucose 319 (58-89) H 03/26/17 23:23 Calculated Osmolality 306 (280-300) H 03/27/17 03:00 Troponin I 0.04 ng/mL (< 0.04) H* 03/22/17 16:12 Serum Total Protein 6.1 g/dL (6.4-8.9) L 03/22/17 16:12 Albumin 2.8 g/dL (3.5-5.7) L 03/22/17 16:12 Albumin/Globulin Ratio 0.8 (1.1-2.2) L 03/22/17 16:12 - Clinical Findings Intake & Output: Intake & Output 03/27/17 03/27/17 03/27/17 07:59 15:59 23:59 Intake Total 400 / 400 332.3 / 332.3 60 / 60 Output Total 300 / 300 850 / 850 Balance 100 / 100 -517.7 / -517.7 60 / 60 - Attending Attestation I saw and evaluated this patient and my medical decision-making was reviewed with the Resident Physician. I agree with the documented findings, disposition and treatment plan as described except to the extent set forth below. We independently had [id number] contact with the patient I spent 33 minutes of Critical Care time with this patient. It involved decision making of high complexity to assess, manipulate, and support vital organ system failure and/or to prevent further life threatening deterioration of the patient's condition. The time involved in the performance of separately reportable procedures was not counted toward critical care time. Patient seen and examined at bedside Labs, radiology, chart personally reviewed. Management was reviewed during multidisciplinary critical care rounds. GW[employer] [place]/[employer] INTELLIGENCE SUPPORT:Patient is intubated and sedated on and off she follows commands Pulm:Patient has extensive pulmonary fibrosis the imaging shows lot of ground glass opacities this can be due to exacerbation of IPF complicated by pneumonia . To continue antibiotics and steroids Cards:Hemodynamically stable . FEN-GI: To follow Nutrition recs Renal: Labs and UOP reviewed ID: Sputum growing pseudomonas aeruginosa to continue Zosyn . Heme/Onc:Labs reviewed Endo: Glucose Monitored Integ/MSK: Skin Care per routine ICU Nursing Protocol to prevent ulcers. Lines: All lines examined without evidence of infection : Dispo: Remains critically ill CODE:Had a brief discussion with the family .
[2017-03-27] MEDS: FentaNYL (PF) 1,000 MCG in 0.9 % Sodium Chloride 80 ML IVC SCH ×3 (08:43→22:51)
[2017-03-27] MEDS: Pantoprazole 40 MG VIAL IVP SCH (08:44)
[2017-03-27] MEDS: methylPREDNISolone 125 MG/2 ML VIAL IVP SCH ×3 (08:44→23:44)
[2017-03-27] MEDS: *HR* Heparin 5,000 UNIT/ML VIAL SQ SCH ×3 (08:44→23:44)
[2017-03-27] MEDS: Chlorhexidine Rinse 15 ML MOUTHWASH MM SCH ×2 (08:45→20:24)
[2017-03-27] MEDS: Budesonide/Formoterol 160/4.5 MDI IH SCH ×2 (09:56→21:38)
[2017-03-27] MEDS ORDERED: *HR* Dextrose 50 % in Water (Syg) 50 ML SYRINGE IVP PRN (11:18)
[2017-03-27] MEDS: Insulin Human Regular 100 UNIT in 0.9 % Sodium Chloride 100 ML IVC SCH (12:57)
[2017-03-28] MEDS: Lacri-Lube 3.5 GM TUBE BOTH EYES SCH ×5 (03:13→21:01)
[2017-03-28 03:19] LABS: Hematocrit 39.8 % (35.3-44.9); Hemoglobin 12.3 g/dL (11.5-15.4); Mean Corpuscular HGB Conc 30.9 g/dL (31.6-35.5); Mean Corpuscular Hemoglobin 29.9 pg (28.0-33.3); Mean Corpuscular Volume 96.6 fL (83.0-100.0); Mean Platelet Volume 10.9 fL (9.4-12.4); Platelet Count 197 K/mcL (140-400); Red Blood Count 4.12 M/mcL (3.82-4.97); Red Cell Distribution Width 13.8 % (11.5-14.5)
[2017-03-28 03:50] LABS: BUN/Creatinine Ratio 67 (6-26); Blood Urea Nitrogen 31 mg/dL (8-23); Carbon Dioxide 41 mEq/L (23-29); Chloride 95 mEq/L (98-107); Glucose 214 mg/dL (70-105); Osmolality,Calculated 305 (280-300); Potassium 4.2 mEq/L (3.5-5.1); Sodium 141 mEq/L (136-145); eGFR For African Americans > 60 (> 60); eGFR For Non-African Americans > 60 (> 60)
[2017-03-28] MEDS: Insulin Human Regular 100 UNIT in 0.9 % Sodium Chloride 100 ML IVC SCH (04:04)
[2017-03-28] MEDS: FentaNYL (PF) 1,000 MCG in 0.9 % Sodium Chloride 80 ML IVC SCH ×3 (04:47→17:22)
[2017-03-28] MEDS: Levothyroxine 25 MCG TABLET PO SCH (05:04)
[2017-03-28 05:34] LABS: ABG Base Excess 17 mEq/L (-2 to 3); ABG HCO3 45 mEq/L (21-27); ABG Oxygen Saturation 99 % (95-98); ABG PCO2 68 mmHg (35-45); ABG PH 7.43 pH Units (7.32-7.45); ABG PO2 118 mmHg (85-104); ABG TCO2 47 mEq/L (20-26); Blood Gas Modality VC; Blood Gas PEEP 5 cm H2O; Blood Gas Respiration Rate 16; Blood Gas VT 450 cc
[2017-03-28] MEDS: Pantoprazole 40 MG VIAL IVP SCH (07:58)
[2017-03-28] MEDS: methylPREDNISolone 125 MG/2 ML VIAL IVP SCH ×2 (07:58→15:14)
[2017-03-28] MEDS: *HR* Heparin 5,000 UNIT/ML VIAL SQ SCH ×2 (07:58→15:13)
[2017-03-28] MEDS: Chlorhexidine Rinse 15 ML MOUTHWASH MM SCH ×2 (07:58→20:31)
[2017-03-28] MEDS: Budesonide/Formoterol 160/4.5 MDI IH SCH ×2 (09:33→21:44)
--- NOTE | 2017-03-28 11:03 | Pulmonology Progress Note ---
<Raymond Sdihu - Last Filed: 03/28/17 13:51> Date of Encounter: 03/28/17 Time of Encounter: 08:45 Assessment and Plan (1) Acute and chronic respiratory failure Current Visit: Yes Status: Acute Stable on vent settings, not tolerating CPAP weaning. Continuing Zosyn; steroids. CXR does show diffuse airspace disease likely pulmonary fibrosis over infectious etiology. 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 The periwound skin is white and macerated 360%. Once the wound is debrided to reveal the entire wound, it will most likely measure 1cm x 1cm and be a deeper Stage 3. Will write orders to lightly pack with mesalt ribbon. Qualifiers: Pressure ulcer location: buttock Pressure ulcer stage: stage 2 Laterality : unspecified laterality Qualified Code(s): L89.302 - Pressure ulcer of unspecified buttock, stage 2 (3) Pulmonary interstitial fibrosis Current Visit: Yes Status: Chronic Per medical decision making in (1). Subjective Principal diagnosis: Respiratory failure with hypoxia Interval history: Pt continues to be intubated/vent and sedated, stable. Family discussion has been focused on explaining disease process of fibrosis, the challenges that chronic fibrosis creates in terms of recovery. No significant changes today. Objective PUL Vital signs: Last Vital Signs Temp 97.2 F L 03/28/17 08:00 Pulse 51 03/28/17 10:00 Resp 16 03/28/17 10:00 BP 119/72 03/28/17 10:00 Pulse Ox 97 03/28/17 10:04 General appearance: other (intubated and sedated) Eyes: nonicteric ENT: oropharynx moist Auscultation: bilateral: diminished breath sounds, wheezes Cardiovascular: other (HR in 60s, regular rhythm) Gastrointestinal: soft, non-distended Integumentary: normal Extremities: no cyanosis Musculoskeletal: no deformities Ventilator Settings Ventilator Settings: Ventilator Settings, Last 8 Hours Ventilator Mode VC+ Ventilator Mode VC+ Ventilator Mode VC+ Ventilator Mode VC+ Ventilator Mode VC+ Ventilator Mode VC+ Ventilator Mode VC+ Ventilator Mode VC+ Ventilator Mode VC+ Ventilator Mode VC+ Ventilator Tidal Volume 450 Setting Ventilator Tidal Volume 450 Setting Ventilator Tidal Volume 450 Setting Ventilator Tidal Volume 450 Setting Ventilator Tidal Volume 450 Setting Ventilator Tidal Volume 450 Setting Ventilator Tidal Volume 450 Setting Ventilator Tidal Volume 450 Setting Ventilator Tidal Volume 450 Setting Ventilator Tidal Volume 450 Setting Ventilator Respiratory Rate 16 Setting Ventilator Respiratory Rate 16 Setting Ventilator Respiratory Rate 16 Setting Ventilator Respiratory Rate 16 Setting Ventilator Respiratory Rate 16 Setting Ventilator Respiratory Rate 16 Setting Ventilator Respiratory Rate 16 Setting Ventilator Respiratory Rate 16 Setting Ventilator Respiratory Rate 16 Setting Ventilator Respiratory Rate 16 Setting Actual Respiratory Rate 16 Actual Respiratory Rate 16 Actual Respiratory Rate 16 Actual Respiratory Rate 16 Actual Respiratory Rate 16 Actual Respiratory Rate 16 Actual Respiratory Rate 16 Actual Respiratory Rate 16 Actual Respiratory Rate 16 Actual Respiratory Rate 16 Actual Respiratory Rate 16 Actual Respiratory Rate 17 Positive End Expiratory 5 Pressure Positive End Expiratory 5 Pressure Positive End Expiratory 5 Pressure Positive End Expiratory 5 Pressure Positive End Expiratory 5 Pressure Positive End Expiratory 5 Pressure Positive End Expiratory 5 Pressure Positive End Expiratory 5 Pressure Positive End Expiratory 5 Pressure Positive End Expiratory 5 Pressure Positive End Expiratory 5 Pressure Positive End Expiratory 5 Pressure Positive End Expiratory 5 Pressure Peak Inspiratory Airway 37 Pressure Peak Inspiratory Airway 38 Pressure Peak Inspiratory Airway 41 Pressure Peak Inspiratory Airway 37 Pressure Peak Inspiratory Airway 43 Pressure Peak Inspiratory Airway 41 Pressure Peak Inspiratory Airway 39 Pressure Peak Inspiratory Airway 42 Pressure Peak Inspiratory Airway 39 Pressure Peak Inspiratory Airway 36 Pressure Peak Inspiratory Airway 36 Pressure Peak Inspiratory Airway 37 Pressure Results - Laboratory Findings CBC and BMP: 03/28/17 03:04 03/28/17 03:04 ABG ABG pH 7.43 pH Units (7.32-7.45) 03/28/17 05:31 ABG pCO2 68 mmHg (35-45) H 03/28/17 05:31 ABG pO2 118 mmHg (85-104) H 03/28/17 05:31 ABG O2 Saturation 99 % (95-98) H 03/28/17 05:31 PT/INR, D-dimer PT 14.1 Seconds (9.4-12.1) H 03/22/17 16:12 Abnormal lab findings: Abnormal lab results WBC 14.0 K/mcL (4.3-11.1) H 03/28/17 03:04 MCHC 30.9 g/dL (31.6-35.5) L 03/28/17 03:04 Neutrophils # 9.9 K/mcL (1.6-8.9) H 03/27/17 03:00 PT 14.1 Seconds (9.4-12.1) H 03/22/17 16:12 ABG pCO2 68 mmHg (35-45) H 03/28/17 05:31 ABG pO2 118 mmHg (85-104) H 03/28/17 05:31 ABG HCO3 45 mEq/L (21-27) H 03/28/17 05:31 ABG Total CO2 47 mEq/L (20-26) H 03/28/17 05:31 ABG O2 Saturation 99 % (95-98) H 03/28/17 05:31 ABG Base Excess 17 mEq/L (-2 to 3) H 03/28/17 05:31 Chloride 95 mEq/L (98-107) L 03/28/17 03:04 Carbon Dioxide 41 mEq/L (23-29) H* 03/28/17 03:04 BUN 31 mg/dL (8-23) H 03/28/17 03:04 Creatinine 0.46 mg/dL (0.60-1.20) L 03/28/17 03:04 BUN/Creatinine Ratio 67 (6-26) H 03/28/17 03:04 Glucose 214 mg/dL (70-105) H 03/28/17 03:04 POC Glucose 130 (58-89) H 03/28/17 01:03 Calculated Osmolality 305 (280-300) H 03/28/17 03:04 Troponin I 0.04 ng/mL (< 0.04) H* 03/22/17 16:12 Serum Total Protein 6.1 g/dL (6.4-8.9) L 03/22/17 16:12 Albumin 2.8 g/dL (3.5-5.7) L 03/22/17 16:12 Albumin/Globulin Ratio 0.8 (1.1-2.2) L 03/22/17 16:12 - Microbiology Findings Microbiology Findings: Microbiology, Last 48 Hours 03/22/17 16:12 Blood Culture - Final Peripheral Venipuncture No growth. - Clinical Findings Intake & Output: Intake & Output 02/19/18 02/20/18 02/20/18 23:59 07:59 15:59 Intake Total 667 / 667 458.70 / 458.70 7 7 Output Total 175 / 175 325 / 325 Balance 492 / 492 133.70 / 133.70 Weight 94 kg - VTE Documentation of Mechanical Device: Intermittent pneumatic compression device Consult Discharge Plan - Plan Referrals: NONE,PCP [Primary Care Provider] - <Corey Meyer - Last Filed: 03/28/17 23:08> Date of Encounter: 03/28/17 Objective PUL Vital signs: Last Vital Signs Temp 98.2 F 03/28/17 15:00 Pulse 52 03/28/17 18:00 Resp 16 03/28/17 18:00 BP 93/57 03/28/17 18:00 Pulse Ox 93 03/28/17 18:00 Ventilator Settings Ventilator Settings: Ventilator Settings, Last 8 Hours Ventilator Mode VC+ Ventilator Mode VC+ Ventilator Mode VC+ Ventilator Mode VC+ Ventilator Mode VC+ Ventilator Mode VC+ Ventilator Tidal Volume 450 Setting Ventilator Tidal Volume 450 Setting Ventilator Tidal Volume 450 Setting Ventilator Tidal Volume 450 Setting Ventilator Tidal Volume 450 Setting Ventilator Tidal Volume 450 Setting Ventilator Respiratory Rate 16 Setting Ventilator Respiratory Rate 16 Setting Ventilator Respiratory Rate 16 Setting Ventilator Respiratory Rate 16 Setting Ventilator Respiratory Rate 16 Setting Ventilator Respiratory Rate 16 Setting Actual Respiratory Rate 16 Actual Respiratory Rate 16 Actual Respiratory Rate 16 Actual Respiratory Rate 16 Actual Respiratory Rate 16 Actual Respiratory Rate 16 Actual Respiratory Rate 28 Actual Respiratory Rate 18 Actual Respiratory Rate 16 Actual Respiratory Rate 16 Actual Respiratory Rate 23 Actual Respiratory Rate 16 Positive End Expiratory 5 Pressure Positive End Expiratory 5 Pressure Positive End Expiratory 5 Pressure Positive End Expiratory 5 Pressure Positive End Expiratory 5 Pressure Positive End Expiratory 5 Pressure Positive End Expiratory 5 Pressure Positive End Expiratory 5 Pressure Positive End Expiratory 5 Pressure Positive End Expiratory 5 Pressure Positive End Expiratory 5 Pressure Positive End Expiratory 5 Pressure Peak Inspiratory Airway 32 Pressure Peak Inspiratory Airway 32 Pressure Peak Inspiratory Airway 35 Pressure Peak Inspiratory Airway 35 Pressure Peak Inspiratory Airway 42 Pressure Peak Inspiratory Airway 45 Pressure Peak Inspiratory Airway 39 Pressure Peak Inspiratory Airway 38 Pressure Results - Laboratory Findings CBC and BMP: 03/28/17 03:04 03/28/17 03:04 ABG ABG pH 7.43 pH Units (7.32-7.45) 03/28/17 05:31 ABG pCO2 68 mmHg (35-45) H 03/28/17 05:31 ABG pO2 118 mmHg (85-104) H 03/28/17 05:31 ABG O2 Saturation 99 % (95-98) H 03/28/17 05:31 PT/INR, D-dimer PT 14.1 Seconds (9.4-12.1) H 03/22/17 16:12 Abnormal lab findings: Abnormal lab results WBC 14.0 K/mcL (4.3-11.1) H 03/28/17 03:04 MCHC 30.9 g/dL (31.6-35.5) L 03/28/17 03:04 Neutrophils # 9.9 K/mcL (1.6-8.9) H 03/27/17 03:00 PT 14.1 Seconds (9.4-12.1) H 03/22/17 16:12 ABG pCO2 68 mmHg (35-45) H 03/28/17 05:31 ABG pO2 118 mmHg (85-104) H 03/28/17 05:31 ABG HCO3 45 mEq/L (21-27) H 03/28/17 05:31 ABG Total CO2 47 mEq/L (20-26) H 03/28/17 05:31 ABG O2 Saturation 99 % (95-98) H 03/28/17 05:31 ABG Base Excess 17 mEq/L (-2 to 3) H 03/28/17 05:31 Chloride 95 mEq/L (98-107) L 03/28/17 03:04 Carbon Dioxide 41 mEq/L (23-29) H* 03/28/17 03:04 BUN 31 mg/dL (8-23) H 03/28/17 03:04 Creatinine 0.46 mg/dL (0.60-1.20) L 03/28/17 03:04 BUN/Creatinine Ratio 67 (6-26) H 03/28/17 03:04 Glucose 214 mg/dL (70-105) H 03/28/17 03:04 POC Glucose 130 (58-89) H 03/28/17 01:03 Calculated Osmolality 305 (280-300) H 03/28/17 03:04 Troponin I 0.04 ng/mL (< 0.04) H* 03/22/17 16:12 Serum Total Protein 6.1 g/dL (6.4-8.9) L 03/22/17 16:12 Albumin 2.8 g/dL (3.5-5.7) L 03/22/17 16:12 Albumin/Globulin Ratio 0.8 (1.1-2.2) L 03/22/17 16:12 - Microbiology Findings Microbiology Findings: Microbiology, Last 48 Hours 03/22/17 16:12 Blood Culture - Final Peripheral Venipuncture No growth. - Clinical Findings Intake & Output: Intake & Output 03/28/17 03/28/17 03/28/17 07:59 15:59 23:59 Intake Total 458.70 / 458.70 497 / 497 100 / 100 Output Total 325 / 325 300 / 300 Balance 133.70 / 133.70 197 / 197 100 / 100 Weight 94 kg - Attending Attestation I saw and evaluated this patient and my medical decision-making was reviewed with the Resident Physician. I agree with the documented findings, disposition and treatment plan as described except to the extent set forth below. We independently had [id number] contact with the patient Patient seen and examined at bedside Labs, radiology, chart personally reviewed. Management was reviewed during multidisciplinary critical care rounds. RETAIL DIRECTOR:Patient is intubated and sedated on and off she follows commands Pulm:Patient has extensive pulmonary fibrosis the imaging shows lot of ground glass opacities this can be due to exacerbation of IPF complicated by pneumonia . To continue antibiotics and steroids . Will start diuresing Cards:Hemodynamically stable . FEN-GI: To follow Nutrition recs Renal: Labs and UOP reviewed ID: Sputum growing pseudomonas aeruginosa to continue Zosyn . Heme/Onc:Labs reviewed Endo: Glucose Monitored Integ/MSK: Skin Care per routine ICU Nursing Protocol to prevent ulcers. Lines: All lines examined without evidence of infection : Dispo: Remains critically ill CODE:Had a brief discussion with the family .
[2017-03-28] MEDS: Insulin DETEMIR 100 UNIT/ML X5UNITS SQ SCH ×2 (12:03→20:31)
[2017-03-28] MEDS: Insulin LISPRO 300 UNITS/3 ML VIAL SQ SCH ×3 (12:03→20:32)
[2017-03-29] MEDS: *HR* Heparin 5,000 UNIT/ML VIAL SQ SCH ×4 (00:17→23:15)
[2017-03-29] MEDS: Insulin LISPRO 300 UNITS/3 ML VIAL SQ SCH ×6 (00:17→20:00)
[2017-03-29] MEDS: methylPREDNISolone 125 MG/2 ML VIAL IVP SCH ×4 (00:17→23:16)
[2017-03-29] MEDS: Lacri-Lube 3.5 GM TUBE BOTH EYES SCH ×7 (00:34→23:17)
[2017-03-29] MEDS: FentaNYL (PF) 1,000 MCG in 0.9 % Sodium Chloride 80 ML IVC SCH ×3 (00:57→18:02)
[2017-03-29 04:08] LABS: Hematocrit 39.1 % (35.3-44.9); Hemoglobin 12.2 g/dL (11.5-15.4); Mean Corpuscular HGB Conc 31.2 g/dL (31.6-35.5); Mean Corpuscular Hemoglobin 29.7 pg (28.0-33.3); Mean Corpuscular Volume 95.1 fL (83.0-100.0); Mean Platelet Volume 11.2 fL (9.4-12.4); Platelet Count 184 K/mcL (140-400); Red Blood Count 4.11 M/mcL (3.82-4.97); Red Cell Distribution Width 14.1 % (11.5-14.5)
[2017-03-29 04:23] LABS: BUN/Creatinine Ratio 85 (6-26); Blood Urea Nitrogen 39 mg/dL (8-23); Calcium 8.8 mg/dL (8.6-10.3); Carbon Dioxide 41 mEq/L (23-29); Chloride 96 mEq/L (98-107); Glucose 165 mg/dL (70-105); Osmolality,Calculated 307 (280-300); Potassium 4.2 mEq/L (3.5-5.1); Sodium 142 mEq/L (136-145); eGFR For African Americans > 60 (> 60); eGFR For Non-African Americans > 60 (> 60)
[2017-03-29 04:30] LABS: ABG Base Excess 19 mEq/L (-2 to 3); ABG HCO3 45 mEq/L (21-27); ABG Oxygen Saturation 97 % (95-98); ABG PCO2 60 mmHg (35-45); ABG PH 7.49 pH Units (7.32-7.45); ABG PO2 89 mmHg (85-104); ABG TCO2 47 mEq/L (20-26); Blood Gas Modality VC; Blood Gas PEEP 5 cm H2O; Blood Gas Respiration Rate 16; Blood Gas VT 450 cc
[2017-03-29] MEDS ORDERED: *HR* Metoprolol 5 MG/5 ML VIAL IVP ONE (06:49)
[2017-03-29] MEDS: Budesonide/Formoterol 160/4.5 MDI IH SCH ×2 (09:07→21:34)
[2017-03-29] MEDS: Insulin DETEMIR 100 UNIT/ML X5UNITS SQ SCH ×2 (09:36→20:01)
[2017-03-29] MEDS: Pantoprazole 40 MG VIAL IVP SCH (09:36)
[2017-03-29] MEDS: Levothyroxine 25 MCG TABLET PO SCH (09:37)
[2017-03-29] MEDS: Chlorhexidine Rinse 15 ML MOUTHWASH MM SCH ×2 (09:46→20:01)
--- NOTE | 2017-03-29 11:44 | Pulmonology Progress Note ---
<Raymond Sidhu - Last Filed: 03/29/17 12:32> Date of Encounter: 03/29/17 Time of Encounter: 09:00 Assessment and Plan (1) Acute and chronic respiratory failure Current Visit: Yes Status: Acute Stable on vent settings, not tolerating CPAP weaning, 30 minutes 03/29 Continuing Zosyn; steroids. Will discontinue Zosyn on Day 10. CXR does show diffuse airspace disease likely pulmonary fibrosis over infectious etiology. 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 The periwound skin is white and macerated 360%. Once the wound is debrided to reveal the entire wound, it will most likely measure 1cm x 1cm and be a deeper Stage 3. Will write orders to lightly pack with mesalt ribbon. Qualifiers: Pressure ulcer location: buttock Pressure ulcer stage: stage 2 Laterality : unspecified laterality Qualified Code(s): L89.302 - Pressure ulcer of unspecified buttock, stage 2 (3) Pulmonary interstitial fibrosis Current Visit: Yes Status: Chronic Per medical decision making in (1). Subjective Principal diagnosis: Respiratory failure with hypoxia Interval history: Pt continues to be intubated/vent and sedated, stable. Tolerated CPAP for around 30 minutes before trial stopped. Objective PUL Vital signs: Last Vital Signs Temp 98.7 F 03/29/17 10:00 Pulse 48 03/29/17 11:00 Resp 16 03/29/17 11:22 BP 95/61 03/29/17 11:22 Pulse Ox 92 03/29/17 11:22 General appearance: other (intubated and sedated, CPAP trial stopped at 30 minutes this AM) Eyes: nonicteric ENT: oropharynx moist Neck: supple Auscultation: bilateral: rales Cardiovascular: other (bradycardic) Gastrointestinal: soft, non-distended Integumentary: normal Extremities: no cyanosis Musculoskeletal: no deformities Ventilator Settings Ventilator Settings: Ventilator Settings, Last 8 Hours Ventilator Mode VC+ Ventilator Mode VC+ Ventilator Mode VC+ Ventilator Mode VC+ Ventilator Mode VC+ Ventilator Mode CPAP Ventilator Mode CPAP Ventilator Mode CPAP Ventilator Mode CPAP Ventilator Mode VC+ Ventilator Mode VC+ Ventilator Mode VC+ Ventilator Mode VC+ Ventilator Mode VC+ Ventilator Tidal Volume 450 Setting Ventilator Tidal Volume 450 Setting Ventilator Tidal Volume 450 Setting Ventilator Tidal Volume 450 Setting Ventilator Tidal Volume 450 Setting Ventilator Tidal Volume 450 Setting Ventilator Tidal Volume 450 Setting Ventilator Tidal Volume 450 Setting Ventilator Tidal Volume 450 Setting Ventilator Tidal Volume 450 Setting Ventilator Tidal Volume 450 Setting Ventilator Tidal Volume 450 Setting Ventilator Tidal Volume 450 Setting Ventilator Respiratory Rate 16 Setting Ventilator Respiratory Rate 16 Setting Ventilator Respiratory Rate 16 Setting Ventilator Respiratory Rate 16 Setting Ventilator Respiratory Rate 16 Setting Ventilator Respiratory Rate 16 Setting Ventilator Respiratory Rate 16 Setting Ventilator Respiratory Rate 16 Setting Ventilator Respiratory Rate 16 Setting Ventilator Respiratory Rate 16 Setting Ventilator Respiratory Rate 16 Setting Ventilator Respiratory Rate 16 Setting Ventilator Respiratory Rate 16 Setting Actual Respiratory Rate 16 Actual Respiratory Rate 16 Actual Respiratory Rate 16 Actual Respiratory Rate 16 Actual Respiratory Rate 16 Actual Respiratory Rate 16 Actual Respiratory Rate 16 Actual Respiratory Rate 16 Actual Respiratory Rate 30 Actual Respiratory Rate 16 Actual Respiratory Rate 17 Actual Respiratory Rate 16 Actual Respiratory Rate 16 Positive End Expiratory 5 Pressure Positive End Expiratory 5 Pressure Positive End Expiratory 5 Pressure Positive End Expiratory 5 Pressure Positive End Expiratory 5 Pressure Positive End Expiratory 5 Pressure Positive End Expiratory 5 Pressure Positive End Expiratory 5 Pressure Positive End Expiratory 5 Pressure Positive End Expiratory 5 Pressure Positive End Expiratory 5 Pressure Positive End Expiratory 5 Pressure Positive End Expiratory 5 Pressure Positive End Expiratory 5 Pressure Peak Inspiratory Airway 39 Pressure Peak Inspiratory Airway 39 Pressure Peak Inspiratory Airway 39 Pressure Peak Inspiratory Airway 38 Pressure Peak Inspiratory Airway 38 Pressure Peak Inspiratory Airway 38 Pressure Peak Inspiratory Airway 37 Pressure Peak Inspiratory Airway 37 Pressure Peak Inspiratory Airway 15 Pressure Peak Inspiratory Airway 15 Pressure Peak Inspiratory Airway 39 Pressure Results - Laboratory Findings CBC and BMP: 03/29/17 03:48 03/29/17 03:48 ABG ABG pH 7.49 pH Units (7.32-7.45) H 03/29/17 04:27 ABG pCO2 60 mmHg (35-45) H 03/29/17 04:27 ABG pO2 89 mmHg (85-104) 03/29/17 04:27 ABG O2 Saturation 97 % (95-98) 03/29/17 04:27 PT/INR, D-dimer PT 14.1 Seconds (9.4-12.1) H 03/22/17 16:12 Abnormal lab findings: Abnormal lab results WBC 13.1 K/mcL (4.3-11.1) H 03/29/17 03:48 MCHC 31.2 g/dL (31.6-35.5) L 03/29/17 03:48 Neutrophils # 9.9 K/mcL (1.6-8.9) H 03/27/17 03:00 PT 14.1 Seconds (9.4-12.1) H 03/22/17 16:12 ABG pH 7.49 pH Units (7.32-7.45) H 03/29/17 04:27 ABG pCO2 60 mmHg (35-45) H 03/29/17 04:27 ABG HCO3 45 mEq/L (21-27) H 03/29/17 04:27 ABG Total CO2 47 mEq/L (20-26) H 03/29/17 04:27 ABG Base Excess 19 mEq/L (-2 to 3) H 03/29/17 04:27 Chloride 96 mEq/L (98-107) L 03/29/17 03:48 Carbon Dioxide 41 mEq/L (23-29) H* 03/29/17 03:48 BUN 39 mg/dL (8-23) H 03/29/17 03:48 Creatinine 0.46 mg/dL (0.60-1.20) L 03/29/17 03:48 BUN/Creatinine Ratio 85 (6-26) H 03/29/17 03:48 Glucose 165 mg/dL (70-105) H 03/29/17 03:48 POC Glucose 244 (58-89) H 03/28/17 23:16 Calculated Osmolality 307 (280-300) H 03/29/17 03:48 Troponin I 0.04 ng/mL (< 0.04) H* 03/22/17 16:12 Serum Total Protein 6.1 g/dL (6.4-8.9) L 03/22/17 16:12 Albumin 2.8 g/dL (3.5-5.7) L 03/22/17 16:12 Albumin/Globulin Ratio 0.8 (1.1-2.2) L 03/22/17 16:12 - Microbiology Findings Microbiology Findings: Microbiology, Last 48 Hours 03/22/17 16:12 Blood Culture - Final Peripheral Venipuncture No growth. - Clinical Findings Intake & Output: Intake & Output 03/28/17 03/29/17 03/29/17 23:59 07:59 15:59 Intake Total 854 / 854 300 / 300 247 / 247 Output Total 275 / 275 375 / 375 Balance 579 / 579 -75 / -75 247 / 247 Weight 91.7 kg - VTE Documentation of Mechanical Device: Intermittent pneumatic compression device Consult Discharge Plan - Plan Referrals: NONE,PCP [Primary Care Provider] - <Corey Meyer - Last Filed: 03/29/17 23:46> Date of Encounter: 03/29/17 Objective PUL Vital signs: Last Vital Signs Temp 97.8 F 03/29/17 19:20 Pulse 61 03/29/17 23:00 Resp 19 03/29/17 23:21 BP 122/72 03/29/17 23:21 Pulse Ox 96 03/29/17 23:21 Ventilator Settings Ventilator Settings: Ventilator Settings, Last 8 Hours Ventilator Mode VC+ Ventilator Mode VC+ Ventilator Mode VC+ Ventilator Mode VC+ Ventilator Mode VC+ Ventilator Mode VC+ Ventilator Mode VC+ Ventilator Mode VC+ Ventilator Mode VC+ Ventilator Tidal Volume 375 Setting Ventilator Tidal Volume 375 Setting Ventilator Tidal Volume 375 Setting Ventilator Tidal Volume 375 Setting Ventilator Tidal Volume 375 Setting Ventilator Tidal Volume 375 Setting Ventilator Tidal Volume 375 Setting Ventilator Tidal Volume 375 Setting Ventilator Tidal Volume 375 Setting Ventilator Respiratory Rate 16 Setting Ventilator Respiratory Rate 16 Setting Ventilator Respiratory Rate 16 Setting Ventilator Respiratory Rate 16 Setting Ventilator Respiratory Rate 16 Setting Ventilator Respiratory Rate 16 Setting Ventilator Respiratory Rate 16 Setting Ventilator Respiratory Rate 16 Setting Ventilator Respiratory Rate 16 Setting Actual Respiratory Rate 19 Actual Respiratory Rate 17 Actual Respiratory Rate 17 Actual Respiratory Rate 18 Actual Respiratory Rate 19 Actual Respiratory Rate 20 Actual Respiratory Rate 18 Actual Respiratory Rate 21 Actual Respiratory Rate 24 Positive End Expiratory 5 Pressure Positive End Expiratory 5 Pressure Positive End Expiratory 5 Pressure Positive End Expiratory 5 Pressure Positive End Expiratory 5 Pressure Positive End Expiratory 5 Pressure Positive End Expiratory 5 Pressure Positive End Expiratory 5 Pressure Positive End Expiratory 5 Pressure Peak Inspiratory Airway 28 Pressure Peak Inspiratory Airway 22 Pressure Peak Inspiratory Airway 24 Pressure Peak Inspiratory Airway 29 Pressure Peak Inspiratory Airway 26 Pressure Peak Inspiratory Airway 26 Pressure Peak Inspiratory Airway 25 Pressure Peak Inspiratory Airway 31 Pressure Peak Inspiratory Airway 35 Pressure Results - Laboratory Findings CBC and BMP: 03/29/17 03:48 03/29/17 03:48 ABG ABG pH 7.49 pH Units (7.32-7.45) H 03/29/17 04:27 ABG pCO2 60 mmHg (35-45) H 03/29/17 04:27 ABG pO2 89 mmHg (85-104) 03/29/17 04:27 ABG O2 Saturation 97 % (95-98) 03/29/17 04:27 PT/INR, D-dimer PT 14.1 Seconds (9.4-12.1) H 03/22/17 16:12 Abnormal lab findings: Abnormal lab results WBC 13.1 K/mcL (4.3-11.1) H 03/29/17 03:48 MCHC 31.2 g/dL (31.6-35.5) L 03/29/17 03:48 Neutrophils # 9.9 K/mcL (1.6-8.9) H 03/27/17 03:00 PT 14.1 Seconds (9.4-12.1) H 03/22/17 16:12 ABG pH 7.49 pH Units (7.32-7.45) H 03/29/17 04:27 ABG pCO2 60 mmHg (35-45) H 03/29/17 04:27 ABG HCO3 45 mEq/L (21-27) H 03/29/17 04:27 ABG Total CO2 47 mEq/L (20-26) H 03/29/17 04:27 ABG Base Excess 19 mEq/L (-2 to 3) H 03/29/17 04:27 Chloride 96 mEq/L (98-107) L 03/29/17 03:48 Carbon Dioxide 41 mEq/L (23-29) H* 03/29/17 03:48 BUN 39 mg/dL (8-23) H 03/29/17 03:48 Creatinine 0.46 mg/dL (0.60-1.20) L 03/29/17 03:48 BUN/Creatinine Ratio 85 (6-26) H 03/29/17 03:48 Glucose 165 mg/dL (70-105) H 03/29/17 03:48 POC Glucose 244 (58-89) H 03/28/17 23:16 Calculated Osmolality 307 (280-300) H 03/29/17 03:48 Troponin I 0.04 ng/mL (< 0.04) H* 03/22/17 16:12 Serum Total Protein 6.1 g/dL (6.4-8.9) L 03/22/17 16:12 Albumin 2.8 g/dL (3.5-5.7) L 03/22/17 16:12 Albumin/Globulin Ratio 0.8 (1.1-2.2) L 03/22/17 16:12 - Microbiology Findings Microbiology Findings: Microbiology, Last 48 Hours 03/22/17 16:12 Blood Culture - Final Peripheral Venipuncture No growth. - Clinical Findings Intake & Output: Intake & Output 03/29/17 03/29/17 03/29/17 07:59 15:59 23:59 Intake Total 300 / 300 700 / 700 883 / 883 Output Total 375 / 375 125 / 125 325 / 325 Balance -75 / -75 575 / 575 558 / 558 Weight 91.7 kg - Attending Attestation - Attending Attestation I saw and evaluated this patient and my medical decision-making was reviewed with the Resident Physician. I agree with the documented findings, disposition and treatment plan as described except to the extent set forth below. We independently had [id number] contact with the patient Patient seen and examined at bedside Labs, radiology, chart personally reviewed. Management was reviewed during multidisciplinary critical care rounds. REGISTERED ROUTE ASSOCIATE:Patient is intubated and sedated on and off she follows commands Pulm:Patient has extensive pulmonary fibrosis the imaging shows lot of ground glass opacities this can be due to exacerbation of IPF complicated by pneumonia . To continue antibiotics and steroids . Will start diuresing Cards:Hemodynamically stable . FEN-GI: To follow Nutrition recs Renal: Labs and UOP reviewed ID: Sputum growing pseudomonas aeruginosa to continue Zosyn . Heme/Onc:Labs reviewed Endo: Glucose Monitored Integ/MSK: Skin Care per routine ICU Nursing Protocol to prevent ulcers. Lines: All lines examined without evidence of infection : Dispo: Remains critically ill CODE:Had a brief discussion with the family . Might need tracheostomy will try to bridge to BIPAP
[2017-03-30] MEDS: Insulin LISPRO 300 UNITS/3 ML VIAL SQ SCH ×6 (00:12→19:36)
[2017-03-30] MEDS ORDERED: Furosemide 40 MG/4 ML VIAL IVP ONE ×4 (00:18→18:20)
[2017-03-30] MEDS: FentaNYL (PF) 1,000 MCG in 0.9 % Sodium Chloride 80 ML IVC SCH ×2 (01:07→16:47)
--- NOTE | 2017-03-30 03:46 | Pulmonology Progress Note ---
<Santino Chatman - Last Filed: 03/30/17 03:43> Date of Encounter: 03/30/17 Time of Encounter: 03:44 Assessment and Plan (1) Acute and chronic respiratory failure Current Visit: Yes Status: Acute Stable on vent settings, not tolerating CPAP weaning, 30 minutes 03/29 Continuing Zosyn day 8; steroids. Will discontinue Zosyn on Day 10 CXR does show diffuse airspace disease likely pulmonary fibrosis over infectious etiology. Light diuresis, Creat low normal Did attempt 40mg IV Lasix overnight which was successful and well tolerated, will attempt one more dose Qualifiers: Respiratory failure complication: hypoxia and hypercapnia Qualified Code(s) : J96.21 - Acute and chronic respiratory failure with hypoxia; J96.22 - Acute and chronic respiratory failure with hypercapnia; J96.22 - Acute and chronic respiratory failure with hypercapnia; J96.22 - Acute and chronic respiratory failure with hypercapnia (2) Pulmonary interstitial fibrosis Current Visit: Yes Status: Chronic Per medical decision making in (1). (3) Decubital ulcer Current Visit: Yes Status: Chronic Per Wound Care: Wound is 100% yellow slough measuring 0.5cm x 0.5cm - 0.5cm deep. The periwound skin is white and macerated 360%. Once the wound is debrided to reveal the entire wound, it will most likely measure 1cm x 1cm and be a deeper Stage 3. Will write orders to lightly pack with mesalt ribbon. Qualifiers: Pressure ulcer location: buttock Pressure ulcer stage: stage 2 Laterality : unspecified laterality Qualified Code(s): L89.302 - Pressure ulcer of unspecified buttock, stage 2 (4) DVT prophylaxis Current Visit: Yes Status: Acute SQ Heparing q8h Subjective Principal diagnosis: Respiratory failure with hypoxia Interval history: No significant change from prior. Patient remains on vent and sedated. Continued CPAP tests daily. Objective PUL Vital signs: Last Vital Signs Temp 97.7 F 03/30/17 00:00 Pulse 64 03/30/17 03:00 Resp 19 03/30/17 03:36 BP 127/81 03/30/17 03:36 Pulse Ox 94 03/30/17 03:36 Ventilator Settings Ventilator Settings: Ventilator Settings, Last 8 Hours Ventilator Mode VC+ Ventilator Mode VC+ Ventilator Mode VC+ Ventilator Mode VC+ Ventilator Mode VC+ Ventilator Mode VC+ Ventilator Mode VC+ Ventilator Mode VC+ Ventilator Mode VC+ Ventilator Mode VC+ Ventilator Mode VC+ Ventilator Mode VC+ Ventilator Tidal Volume 375 Setting Ventilator Tidal Volume 375 Setting Ventilator Tidal Volume 375 Setting Ventilator Tidal Volume 375 Setting Ventilator Tidal Volume 375 Setting Ventilator Tidal Volume 375 Setting Ventilator Tidal Volume 375 Setting Ventilator Tidal Volume 375 Setting Ventilator Tidal Volume 375 Setting Ventilator Tidal Volume 375 Setting Ventilator Tidal Volume 375 Setting Ventilator Tidal Volume 375 Setting Ventilator Respiratory Rate 16 Setting Ventilator Respiratory Rate 16 Setting Ventilator Respiratory Rate 16 Setting Ventilator Respiratory Rate 16 Setting Ventilator Respiratory Rate 16 Setting Ventilator Respiratory Rate 16 Setting Ventilator Respiratory Rate 16 Setting Ventilator Respiratory Rate 16 Setting Ventilator Respiratory Rate 16 Setting Ventilator Respiratory Rate 16 Setting Ventilator Respiratory Rate 16 Setting Ventilator Respiratory Rate 16 Setting Actual Respiratory Rate 19 Actual Respiratory Rate 18 Actual Respiratory Rate 18 Actual Respiratory Rate 18 Actual Respiratory Rate 19 Actual Respiratory Rate 19 Actual Respiratory Rate 19 Actual Respiratory Rate 17 Actual Respiratory Rate 17 Actual Respiratory Rate 18 Actual Respiratory Rate 19 Actual Respiratory Rate 20 Positive End Expiratory 5 Pressure Positive End Expiratory 5 Pressure Positive End Expiratory 5 Pressure Positive End Expiratory 5 Pressure Positive End Expiratory 5 Pressure Positive End Expiratory 5 Pressure Positive End Expiratory 5 Pressure Positive End Expiratory 5 Pressure Positive End Expiratory 5 Pressure Positive End Expiratory 5 Pressure Positive End Expiratory 5 Pressure Positive End Expiratory 5 Pressure Peak Inspiratory Airway 20 Pressure Peak Inspiratory Airway 23 Pressure Peak Inspiratory Airway 21 Pressure Peak Inspiratory Airway 17 Pressure Peak Inspiratory Airway 24 Pressure Peak Inspiratory Airway 18 Pressure Peak Inspiratory Airway 28 Pressure Peak Inspiratory Airway 22 Pressure Peak Inspiratory Airway 24 Pressure Peak Inspiratory Airway 29 Pressure Peak Inspiratory Airway 26 Pressure Peak Inspiratory Airway 26 Pressure Results - Laboratory Findings CBC and BMP: 03/29/17 03:48 03/29/17 03:48 ABG ABG pH 7.49 pH Units (7.32-7.45) H 03/29/17 04:27 ABG pCO2 60 mmHg (35-45) H 03/29/17 04:27 ABG pO2 89 mmHg (85-104) 03/29/17 04:27 ABG O2 Saturation 97 % (95-98) 03/29/17 04:27 PT/INR, D-dimer PT 14.1 Seconds (9.4-12.1) H 03/22/17 16:12 Abnormal lab findings: Abnormal lab results WBC 13.1 K/mcL (4.3-11.1) H 03/29/17 03:48 MCHC 31.2 g/dL (31.6-35.5) L 03/29/17 03:48 Neutrophils # 9.9 K/mcL (1.6-8.9) H 03/27/17 03:00 PT 14.1 Seconds (9.4-12.1) H 03/22/17 16:12 ABG pH 7.49 pH Units (7.32-7.45) H 03/29/17 04:27 ABG pCO2 60 mmHg (35-45) H 03/29/17 04:27 ABG HCO3 45 mEq/L (21-27) H 03/29/17 04:27 ABG Total CO2 47 mEq/L (20-26) H 03/29/17 04:27 ABG Base Excess 19 mEq/L (-2 to 3) H 03/29/17 04:27 Chloride 96 mEq/L (98-107) L 03/29/17 03:48 Carbon Dioxide 41 mEq/L (23-29) H* 03/29/17 03:48 BUN 39 mg/dL (8-23) H 03/29/17 03:48 Creatinine 0.46 mg/dL (0.60-1.20) L 03/29/17 03:48 BUN/Creatinine Ratio 85 (6-26) H 03/29/17 03:48 Glucose 165 mg/dL (70-105) H 03/29/17 03:48 POC Glucose 208 (58-89) H 03/30/17 00:10 Calculated Osmolality 307 (280-300) H 03/29/17 03:48 Troponin I 0.04 ng/mL (< 0.04) H* 03/22/17 16:12 Serum Total Protein 6.1 g/dL (6.4-8.9) L 03/22/17 16:12 Albumin 2.8 g/dL (3.5-5.7) L 03/22/17 16:12 Albumin/Globulin Ratio 0.8 (1.1-2.2) L 03/22/17 16:12 - Microbiology Findings Microbiology Findings: Microbiology, Last 48 Hours 03/22/17 16:12 Blood Culture - Final Peripheral Venipuncture No growth. - Clinical Findings Intake & Output: Intake & Output 03/29/17 03/29/17 03/30/17 15:59 23:59 07:59 Intake Total 700 / 700 883 / 883 597 / 597 Output Total 125 / 125 325 / 325 300 / 300 Balance 575 / 575 558 / 558 297 / 297 Weight 92.7 kg - VTE Documentation of Mechanical Device: Intermittent pneumatic compression device Consult Discharge Plan - Plan Referrals: NONE,PCP [Primary Care Provider] - <Corey Meyer - Last Filed: 03/30/17 23:51> Date of Encounter: 03/30/17 Objective PUL Vital signs: Last Vital Signs Temp 99.1 F 03/30/17 20:00 Pulse 58 03/30/17 21:00 Resp 16 03/30/17 21:00 BP 108/70 03/30/17 21:00 Pulse Ox 93 03/30/17 21:00 Ventilator Settings Ventilator Settings: Ventilator Settings, Last 8 Hours Ventilator Mode VC+ Ventilator Mode VC+ Ventilator Mode VC+ Ventilator Mode VC+ Ventilator Mode VC+ Ventilator Mode VC+ Ventilator Mode VC+ Ventilator Mode VC+ Ventilator Tidal Volume 375 Setting Ventilator Tidal Volume 375 Setting Ventilator Tidal Volume 375 Setting Ventilator Tidal Volume 375 Setting Ventilator Tidal Volume 375 Setting Ventilator Tidal Volume 375 Setting Ventilator Tidal Volume 375 Setting Ventilator Tidal Volume 375 Setting Ventilator Respiratory Rate 16 Setting Ventilator Respiratory Rate 16 Setting Ventilator Respiratory Rate 16 Setting Ventilator Respiratory Rate 16 Setting Ventilator Respiratory Rate 16 Setting Ventilator Respiratory Rate 16 Setting Ventilator Respiratory Rate 16 Setting Ventilator Respiratory Rate 16 Setting Actual Respiratory Rate 16 Actual Respiratory Rate 24 Actual Respiratory Rate 17 Actual Respiratory Rate 16 Actual Respiratory Rate 20 Actual Respiratory Rate 20 Actual Respiratory Rate 23 Actual Respiratory Rate 23 Positive End Expiratory 5 Pressure Positive End Expiratory 5 Pressure Positive End Expiratory 5 Pressure Positive End Expiratory 5 Pressure Positive End Expiratory 5 Pressure Positive End Expiratory 5 Pressure Positive End Expiratory 5 Pressure Positive End Expiratory 5 Pressure Peak Inspiratory Airway 30 Pressure Peak Inspiratory Airway 24 Pressure Peak Inspiratory Airway 22 Pressure Peak Inspiratory Airway 18 Pressure Peak Inspiratory Airway 18 Pressure Peak Inspiratory Airway 18 Pressure Peak Inspiratory Airway 29 Pressure Peak Inspiratory Airway 29 Pressure Results - Laboratory Findings CBC and BMP: 03/30/17 03:40 03/30/17 03:40 ABG ABG pH 7.40 pH Units (7.32-7.45) 03/30/17 04:24 ABG pCO2 74 mmHg (35-45) H* 03/30/17 04:24 ABG pO2 88 mmHg (85-104) 03/30/17 04:24 ABG O2 Saturation 96 % (95-98) 03/30/17 04:24 PT/INR, D-dimer PT 14.1 Seconds (9.4-12.1) H 03/22/17 16:12 Abnormal lab findings: Abnormal lab results WBC 13.1 K/mcL (4.3-11.1) H 03/30/17 03:40 MCHC 30.6 g/dL (31.6-35.5) L 03/30/17 03:40 Neutrophils # 9.9 K/mcL (1.6-8.9) H 03/27/17 03:00 PT 14.1 Seconds (9.4-12.1) H 03/22/17 16:12 ABG pCO2 74 mmHg (35-45) H* 03/30/17 04:24 ABG HCO3 45 mEq/L (21-27) H 03/30/17 04:24 ABG Total CO2 48 mEq/L (20-26) H 03/30/17 04:24 ABG Base Excess 16 mEq/L (-2 to 3) H 03/30/17 04:24 Chloride 94 mEq/L (98-107) L 03/30/17 03:40 Carbon Dioxide 40 mEq/L (23-29) H* 03/30/17 03:40 BUN 37 mg/dL (8-23) H 03/30/17 03:40 Creatinine 0.48 mg/dL (0.60-1.20) L 03/30/17 03:40 BUN/Creatinine Ratio 77 (6-26) H 03/30/17 03:40 Glucose 233 mg/dL (70-105) H 03/30/17 03:40 POC Glucose 208 (58-89) H 03/30/17 00:10 Calculated Osmolality 304 (280-300) H 03/30/17 03:40 Troponin I 0.04 ng/mL (< 0.04) H* 03/22/17 16:12 Serum Total Protein 6.1 g/dL (6.4-8.9) L 03/22/17 16:12 Albumin 2.8 g/dL (3.5-5.7) L 03/22/17 16:12 Albumin/Globulin Ratio 0.8 (1.1-2.2) L 03/22/17 16:12 - Clinical Findings Intake & Output: Intake & Output 03/30/17 03/30/17 03/30/17 07:59 15:59 23:59 Intake Total 1291 / 1291 495 / 495 213 / 213 Output Total 300 / 300 1850 / 1850 1525 / 1525 Balance 991 / 991 -1355 / -1355 -1312 / -1312 Weight 92.7 kg - Attending Attestation - Attending Attestation I saw and evaluated this patient and my medical decision-making was reviewed with the Resident Physician. I agree with the documented findings, disposition and treatment plan as described except to the extent set forth below. We independently had [id number] contact with the patient Patient seen and examined at bedside Labs, radiology, chart personally reviewed. Management was reviewed during multidisciplinary critical care rounds. 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 To continue antibiotics and steroids . Will start diuresing Cards:Hemodynamically stable . FEN-GI: To follow Nutrition recs Renal: Labs and UOP reviewed ID: Sputum growing pseudomonas aeruginosa to continue Zosyn will descalate Heme/Onc:Labs reviewed Endo: Glucose Monitored Integ/MSK: Skin Care per routine ICU Nursing Protocol to prevent ulcers. Lines: All lines examined without evidence of infection : Dispo: Remains critically ill CODE:Had a brief discussion with the family . Might need tracheostomy will try to bridge to BIPAP
[2017-03-30 03:48] LABS: Hematocrit 41.8 % (35.3-44.9); Hemoglobin 12.8 g/dL (11.5-15.4); Mean Corpuscular HGB Conc 30.6 g/dL (31.6-35.5); Mean Corpuscular Hemoglobin 29.6 pg (28.0-33.3); Mean Corpuscular Volume 96.5 fL (83.0-100.0); Mean Platelet Volume 10.7 fL (9.4-12.4); Platelet Count 184 K/mcL (140-400); Red Blood Count 4.33 M/mcL (3.82-4.97)
[2017-03-30] MEDS: Lacri-Lube 3.5 GM TUBE BOTH EYES SCH ×5 (04:10→19:38)
[2017-03-30 04:31] LABS: ABG Base Excess 16 mEq/L (-2 to 3); ABG HCO3 45 mEq/L (21-27); ABG Oxygen Saturation 96 % (95-98); ABG PCO2 74 mmHg (35-45); ABG PO2 88 mmHg (85-104); ABG TCO2 48 mEq/L (20-26); Blood Gas Modality VC; Blood Gas PEEP 5 cm H2O; Blood Gas Respiration Rate 16; Blood Gas VT 375 cc
[2017-03-30 04:49] LABS: BUN/Creatinine Ratio 77 (6-26); Blood Urea Nitrogen 37 mg/dL (8-23); Calcium 8.7 mg/dL (8.6-10.3); Carbon Dioxide 40 mEq/L (23-29); Chloride 94 mEq/L (98-107); Glucose 233 mg/dL (70-105); Osmolality,Calculated 304 (280-300); Potassium 4.3 mEq/L (3.5-5.1); Sodium 139 mEq/L (136-145); eGFR For African Americans > 60 (> 60); eGFR For Non-African Americans > 60 (> 60)
[2017-03-30] MEDS: Levothyroxine 25 MCG TABLET PO SCH (05:43)
[2017-03-30] MEDS ORDERED: *HR* Metoprolol 5 MG/5 ML VIAL IVP ONE ×2 (07:26)
[2017-03-30] MEDS: Pantoprazole 40 MG VIAL IVP SCH (08:09)
[2017-03-30] MEDS: *HR* Heparin 5,000 UNIT/ML VIAL SQ SCH ×2 (08:09→16:46)
[2017-03-30] MEDS: Chlorhexidine Rinse 15 ML MOUTHWASH MM SCH ×2 (08:10→19:29)
[2017-03-30] MEDS: methylPREDNISolone 125 MG/2 ML VIAL IVP SCH (08:10)
[2017-03-30] MEDS: Insulin DETEMIR 100 UNIT/ML X5UNITS SQ SCH ×2 (08:14→19:29)
[2017-03-30] MEDS: Budesonide/Formoterol 160/4.5 MDI IH SCH ×2 (10:55→22:46)
--- NOTE | 2017-03-30 15:23 | Electrocardiograph Report ---
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
[2017-03-30] MEDS: MethylPREDNISolone 40 MG/ML VIAL IVP SCH (16:45)
[2017-03-31] MEDS: Lacri-Lube 3.5 GM TUBE BOTH EYES SCH ×6 (00:36→20:28)
[2017-03-31] MEDS: MethylPREDNISolone 40 MG/ML VIAL IVP SCH ×3 (00:36→15:52)
[2017-03-31] MEDS: Insulin LISPRO 300 UNITS/3 ML VIAL SQ SCH ×6 (00:36→20:31)
[2017-03-31] MEDS: *HR* Heparin 5,000 UNIT/ML VIAL SQ SCH ×3 (00:36→15:52)
[2017-03-31] MEDS: FentaNYL (PF) 1,000 MCG in 0.9 % Sodium Chloride 80 ML IVC SCH ×4 (00:39→23:15)
[2017-03-31] MEDS ORDERED: 0.9 % Sodium Chloride 1,000 ML IVC ONE (03:16)
[2017-03-31 03:51] LABS: Hematocrit 41.9 % (35.3-44.9); Hemoglobin 13.8 g/dL (11.5-15.4); Mean Corpuscular HGB Conc 32.9 g/dL (31.6-35.5); Mean Corpuscular Hemoglobin 31.2 pg (28.0-33.3); Mean Corpuscular Volume 94.6 fL (83.0-100.0); Mean Platelet Volume 11.1 fL (9.4-12.4); Platelet Count 178 K/mcL (140-400); Red Blood Count 4.43 M/mcL (3.82-4.97)
--- NOTE | 2017-03-31 03:56 | Pulmonology Progress Note ---
<Santino Chatman - Last Filed: 03/31/17 04:06> Date of Encounter: 03/31/17 Time of Encounter: 03:53 Assessment and Plan (1) Acute and chronic respiratory failure Current Visit: Yes Status: Acute Stable on vent settings, Tolerated CPAP trial well yesterday, >1.25 hour, developed afib. rvr after Continuing Zosyn day 9; steroids. Will discontinue Zosyn on Day 10 CXR does show diffuse airspace disease likely pulmonary fibrosis over infectious etiology. Continued diuresis is necessary, we will continue to give 40IV Lasix BID as tolerated, with intention to wean from vent ion next few days Did attempt 40mg IV Lasix overnight which was successful and well tolerated, will attempt one more dose Qualifiers: Respiratory failure complication: hypoxia and hypercapnia Qualified Code(s) : J96.21 - Acute and chronic respiratory failure with hypoxia; J96.22 - Acute and chronic respiratory failure with hypercapnia; J96.22 - Acute and chronic respiratory failure with hypercapnia; J96.22 - Acute and chronic respiratory failure with hypercapnia (2) Paroxysmal A-fib Current Visit: Yes Status: Acute PAF, seen on attempted CPAP trials Has required multiple doses of metoprolol to control Switched to atenolol yesterday with relatively positive results We will continue to monitor (3) Pulmonary interstitial fibrosis Current Visit: Yes Status: Chronic Per medical decision making in (1). (4) Decubital ulcer Current Visit: Yes Status: Chronic Per Wound Care: Wound is 100% yellow slough measuring 0.5cm x 0.5cm - 0.5cm deep. The periwound skin is white and macerated 360%. Once the wound is debrided to reveal the entire wound, it will most likely measure 1cm x 1cm and be a deeper Stage 3. Will write orders to lightly pack with mesalt ribbon. Qualifiers: Pressure ulcer location: buttock Pressure ulcer stage: stage 2 Laterality : unspecified laterality Qualified Code(s): L89.302 - Pressure ulcer of unspecified buttock, stage 2 (5) DVT prophylaxis Current Visit: Yes Status: Acute SQ Heparing q8h Subjective Principal diagnosis: Respiratory failure with hypoxia Interval history: No significant change from prior. Patient remains on vent and sedated. CPAP test from prior day was tolerated for significantly longer than prior trials. Continued CPAP tests daily. Diuresis continues to be successful. Objective PUL Vital signs: Last Vital Signs Temp 97.9 F 03/31/17 00:46 Pulse 75 03/31/17 03:00 Resp 16 03/31/17 03:00 BP 126/75 03/31/17 03:00 Pulse Ox 95 03/31/17 03:00 General appearance: no acute distress, asleep Eyes: nonicteric ENT: oropharynx moist Neck: supple Effort: normal (on vent) Auscultation: bilateral: rales (Significantly improved from prior) Cardiovascular: regular rate and rhythm Gastrointestinal: soft, non-tender, non-distended Integumentary: normal Extremities: no cyanosis, no clubbing, edema (1+ BLE) Musculoskeletal: no deformities, ROM normal non-focal exam, unable to assess due to mental status Ventilator Settings Ventilator Settings: Ventilator Settings, Last 8 Hours Ventilator Mode VC+ Ventilator Mode VC+ Ventilator Mode VC+ Ventilator Mode VC+ Ventilator Mode VC+ Ventilator Mode VC+ Ventilator Mode VC+ Ventilator Mode VC+ Ventilator Mode VC+ Ventilator Mode VC+ Ventilator Mode VC+ Ventilator Tidal Volume 375 Setting Ventilator Tidal Volume 375 Setting Ventilator Tidal Volume 375 Setting Ventilator Tidal Volume 375 Setting Ventilator Tidal Volume 375 Setting Ventilator Tidal Volume 375 Setting Ventilator Tidal Volume 375 Setting Ventilator Tidal Volume 375 Setting Ventilator Tidal Volume 375 Setting Ventilator Tidal Volume 375 Setting Ventilator Tidal Volume 375 Setting Ventilator Respiratory Rate 16 Setting Ventilator Respiratory Rate 16 Setting Ventilator Respiratory Rate 16 Setting Ventilator Respiratory Rate 16 Setting Ventilator Respiratory Rate 16 Setting Ventilator Respiratory Rate 16 Setting Ventilator Respiratory Rate 16 Setting Ventilator Respiratory Rate 16 Setting Ventilator Respiratory Rate 16 Setting Ventilator Respiratory Rate 16 Setting Ventilator Respiratory Rate 16 Setting Actual Respiratory Rate 16 Actual Respiratory Rate 20 Actual Respiratory Rate 16 Actual Respiratory Rate 16 Actual Respiratory Rate 21 Actual Respiratory Rate 16 Actual Respiratory Rate 16 Actual Respiratory Rate 18 Actual Respiratory Rate 16 Actual Respiratory Rate 16 Actual Respiratory Rate 24 Positive End Expiratory 5 Pressure Positive End Expiratory 5 Pressure Positive End Expiratory 5 Pressure Positive End Expiratory 5 Pressure Positive End Expiratory 5 Pressure Positive End Expiratory 5 Pressure Positive End Expiratory 5 Pressure Positive End Expiratory 5 Pressure Positive End Expiratory 5 Pressure Positive End Expiratory 5 Pressure Positive End Expiratory 5 Pressure Peak Inspiratory Airway 16 Pressure Peak Inspiratory Airway 23 Pressure Peak Inspiratory Airway 16 Pressure Peak Inspiratory Airway 15 Pressure Peak Inspiratory Airway 18 Pressure Peak Inspiratory Airway 16 Pressure Peak Inspiratory Airway 22 Pressure Peak Inspiratory Airway 21 Pressure Peak Inspiratory Airway 35 Pressure Peak Inspiratory Airway 30 Pressure Peak Inspiratory Airway 24 Pressure Results - Laboratory Findings CBC and BMP: 03/31/17 03:30 03/30/17 03:40 ABG ABG pH 7.40 pH Units (7.32-7.45) 03/30/17 04:24 ABG pCO2 74 mmHg (35-45) H* 03/30/17 04:24 ABG pO2 88 mmHg (85-104) 03/30/17 04:24 ABG O2 Saturation 96 % (95-98) 03/30/17 04:24 PT/INR, D-dimer PT 14.1 Seconds (9.4-12.1) H 03/22/17 16:12 Abnormal lab findings: Abnormal lab results WBC 13.1 K/mcL (4.3-11.1) H 03/30/17 03:40 MCHC 30.6 g/dL (31.6-35.5) L 03/30/17 03:40 Neutrophils # 9.9 K/mcL (1.6-8.9) H 03/27/17 03:00 PT 14.1 Seconds (9.4-12.1) H 03/22/17 16:12 ABG pCO2 74 mmHg (35-45) H* 03/30/17 04:24 ABG HCO3 45 mEq/L (21-27) H 03/30/17 04:24 ABG Total CO2 48 mEq/L (20-26) H 03/30/17 04:24 ABG Base Excess 16 mEq/L (-2 to 3) H 03/30/17 04:24 Chloride 94 mEq/L (98-107) L 03/30/17 03:40 Carbon Dioxide 40 mEq/L (23-29) H* 03/30/17 03:40 BUN 37 mg/dL (8-23) H 03/30/17 03:40 Creatinine 0.48 mg/dL (0.60-1.20) L 03/30/17 03:40 BUN/Creatinine Ratio 77 (6-26) H 03/30/17 03:40 Glucose 233 mg/dL (70-105) H 03/30/17 03:40 POC Glucose 221 (58-89) H 03/31/17 00:05 Calculated Osmolality 304 (280-300) H 03/30/17 03:40 Troponin I 0.04 ng/mL (< 0.04) H* 03/22/17 16:12 Serum Total Protein 6.1 g/dL (6.4-8.9) L 03/22/17 16:12 Albumin 2.8 g/dL (3.5-5.7) L 03/22/17 16:12 Albumin/Globulin Ratio 0.8 (1.1-2.2) L 03/22/17 16:12 - Clinical Findings Intake & Output: Intake & Output 03/30/17 03/30/17 03/31/17 15:59 23:59 07:59 Intake Total 495 / 495 513 / 513 390 / 390 Output Total 1850 / 1850 2525 / 2525 Balance -1355 / -1355 -2011 / 390 / 390 Weight 89.9 kg - VTE Documentation of Mechanical Device: Graduated compression elastic hosiery Consult Discharge Plan - Plan Referrals: NONE,PCP [Primary Care Provider] - <Corey Meyer - Last Filed: 03/31/17 23:57> Date of Encounter: 03/31/17 Objective PUL Vital signs: Last Vital Signs Temp 98.1 F 03/31/17 20:00 Pulse 73 03/31/17 23:00 Resp 17 03/31/17 23:16 BP 120/70 03/31/17 23:16 Pulse Ox 98 03/31/17 23:16 Ventilator Settings Ventilator Settings: Ventilator Settings, Last 8 Hours Ventilator Mode VC+ Ventilator Mode VC+ Ventilator Mode VC+ Ventilator Mode VC+ Ventilator Mode VC+ Ventilator Mode VC+ Ventilator Mode VC+ Ventilator Mode VC+ Ventilator Mode VC+ Ventilator Mode VC+ Ventilator Mode VC+ Ventilator Mode VC+ Ventilator Tidal Volume 375 Setting Ventilator Tidal Volume 375 Setting Ventilator Tidal Volume 375 Setting Ventilator Tidal Volume 375 Setting Ventilator Tidal Volume 375 Setting Ventilator Tidal Volume 375 Setting Ventilator Tidal Volume 375 Setting Ventilator Tidal Volume 375 Setting Ventilator Tidal Volume 375 Setting Ventilator Tidal Volume 375 Setting Ventilator Tidal Volume 375 Setting Ventilator Tidal Volume 375 Setting Ventilator Respiratory Rate 12 Setting Ventilator Respiratory Rate 12 Setting Ventilator Respiratory Rate 12 Setting Ventilator Respiratory Rate 12 Setting Ventilator Respiratory Rate 12 Setting Ventilator Respiratory Rate 12 Setting Ventilator Respiratory Rate 12 Setting Ventilator Respiratory Rate 12 Setting Ventilator Respiratory Rate 12 Setting Ventilator Respiratory Rate 12 Setting Ventilator Respiratory Rate 12 Setting Ventilator Respiratory Rate 12 Setting Actual Respiratory Rate 17 Actual Respiratory Rate 18 Actual Respiratory Rate 13 Actual Respiratory Rate 15 Actual Respiratory Rate 15 Actual Respiratory Rate 18 Actual Respiratory Rate 24 Actual Respiratory Rate 18 Actual Respiratory Rate 15 Actual Respiratory Rate 14 Actual Respiratory Rate 14 Actual Respiratory Rate 14 Positive End Expiratory 5 Pressure Positive End Expiratory 5 Pressure Positive End Expiratory 5 Pressure Positive End Expiratory 5 Pressure Positive End Expiratory 5 Pressure Positive End Expiratory 5 Pressure Positive End Expiratory 5 Pressure Positive End Expiratory 5 Pressure Positive End Expiratory 5 Pressure Positive End Expiratory 5 Pressure Positive End Expiratory 5 Pressure Positive End Expiratory 5 Pressure Peak Inspiratory Airway 15 Pressure Peak Inspiratory Airway 14 Pressure Peak Inspiratory Airway 15 Pressure Peak Inspiratory Airway 16 Pressure Peak Inspiratory Airway 16 Pressure Peak Inspiratory Airway 12 Pressure Peak Inspiratory Airway 28 Pressure Peak Inspiratory Airway 29 Pressure Peak Inspiratory Airway 11 Pressure Peak Inspiratory Airway 15 Pressure Peak Inspiratory Airway 17 Pressure Peak Inspiratory Airway 16 Pressure Results - Laboratory Findings CBC and BMP: 03/31/17 03:30 03/31/17 03:30 ABG ABG pH 7.42 pH Units (7.32-7.45) 03/31/17 04:06 ABG pCO2 79 mmHg (35-45) H* 03/31/17 04:06 ABG pO2 81 mmHg (85-104) L 03/31/17 04:06 ABG O2 Saturation 95 % (95-98) 03/31/17 04:06 PT/INR, D-dimer PT 14.1 Seconds (9.4-12.1) H 03/22/17 16:12 Abnormal lab findings: Abnormal lab results WBC 15.5 K/mcL (4.3-11.1) H 03/31/17 03:30 Neutrophils # 9.9 K/mcL (1.6-8.9) H 03/27/17 03:00 PT 14.1 Seconds (9.4-12.1) H 03/22/17 16:12 ABG pCO2 79 mmHg (35-45) H* 03/31/17 04:06 ABG pO2 81 mmHg (85-104) L 03/31/17 04:06 ABG HCO3 51 mEq/L (21-27) H 03/31/17 04:06 ABG Total CO2 53 mEq/L (20-26) H 03/31/17 04:06 ABG Base Excess 20 mEq/L (-2 to 3) H 03/31/17 04:06 Chloride 89 mEq/L (98-107) L 03/31/17 03:30 Carbon Dioxide 44 mEq/L (23-29) H* 03/31/17 03:30 BUN 35 mg/dL (8-23) H 03/31/17 03:30 Creatinine 0.47 mg/dL (0.60-1.20) L 03/31/17 03:30 BUN/Creatinine Ratio 74 (6-26) H 03/31/17 03:30 Glucose 215 mg/dL (70-105) H 03/31/17 03:30 POC Glucose 221 (58-89) H 03/31/17 00:05 Calculated Osmolality 302 (280-300) H 03/31/17 03:30 Troponin I 0.04 ng/mL (< 0.04) H* 03/22/17 16:12 Serum Total Protein 6.1 g/dL (6.4-8.9) L 03/22/17 16:12 Albumin 2.8 g/dL (3.5-5.7) L 03/22/17 16:12 Albumin/Globulin Ratio 0.8 (1.1-2.2) L 03/22/17 16:12 - Clinical Findings Intake & Output: Intake & Output 03/31/17 03/31/17 03/31/17 07:59 15:59 23:59 Intake Total 861 / 861 860 / 860 467 / 467 Output Total 475 / 475 275 / 275 950 / 950 Balance 386 / 386 585 / 585 -483 / -483 Weight 89.9 kg - Attending Attestation - Attending Attestation I saw and evaluated this patient and my medical decision-making was reviewed with the Resident Physician. I agree with the documented findings, disposition and treatment plan as described except to the extent set forth below. We independently had [id number] contact with the patient Patient seen and examined at bedside Labs, radiology, chart personally reviewed. Management was reviewed during multidisciplinary critical care rounds. SANDER AND BUFFER:Patient is intubated and sedated on and off she follows commands Pulm:Patient has extensive pulmonary fibrosis the imaging shows lot of ground glass opacities this can be due to exacerbation of IPF complicated by pneumonia . To continue antibiotics and steroids . started diuresing Cards:Hemodynamically stable . FEN-GI: To follow Nutrition recs Renal: Labs and UOP reviewed ID: Sputum growing pseudomonas aeruginosa to continue Zosyn will descalate Heme/Onc:Labs reviewed Endo: Glucose Monitored Integ/MSK: Skin Care per routine ICU Nursing Protocol to prevent ulcers. Lines: All lines examined without evidence of infection : Dispo: Remains critically ill CODE:Had a brief discussion with the family . Might need tracheostomy will try to bridge to BIPAP
[2017-03-31 04:07] LABS: BUN/Creatinine Ratio 74 (6-26); Blood Urea Nitrogen 35 mg/dL (8-23); Carbon Dioxide 44 mEq/L (23-29); Chloride 89 mEq/L (98-107); Glucose 215 mg/dL (70-105); Osmolality,Calculated 302 (280-300); Potassium 4.1 mEq/L (3.5-5.1); Sodium 139 mEq/L (136-145); eGFR For African Americans > 60 (> 60); eGFR For Non-African Americans > 60 (> 60)
[2017-03-31 04:12] LABS: ABG Base Excess 20 mEq/L (-2 to 3); ABG HCO3 51 mEq/L (21-27); ABG Oxygen Saturation 95 % (95-98); ABG PCO2 79 mmHg (35-45); ABG PH 7.42 pH Units (7.32-7.45); ABG PO2 81 mmHg (85-104); ABG TCO2 53 mEq/L (20-26); Blood Gas Modality VC; Blood Gas PEEP 5 cm H2O; Blood Gas Respiration Rate 16; Blood Gas VT 375 cc
[2017-03-31] MEDS: Levothyroxine 25 MCG TABLET PO SCH (06:09)
[2017-03-31] MEDS: Chlorhexidine Rinse 15 ML MOUTHWASH MM SCH ×2 (08:24→20:28)
[2017-03-31] MEDS: Insulin DETEMIR 100 UNIT/ML X5UNITS SQ SCH ×2 (08:24→20:28)
[2017-03-31] MEDS: Pantoprazole 40 MG VIAL IVP SCH (08:24)
[2017-03-31] MEDS: Budesonide/Formoterol 160/4.5 MDI IH SCH ×2 (11:15→21:35)
[2017-03-31] MEDS ORDERED: acetaZOLAMIDE 250 MG TABLET PO ONE (11:36)
[2017-04-01] MEDS: Insulin LISPRO 300 UNITS/3 ML VIAL SQ SCH ×7 (00:03→23:30)
[2017-04-01] MEDS: Lacri-Lube 3.5 GM TUBE BOTH EYES SCH ×7 (00:03→23:30)
[2017-04-01] MEDS: *HR* Heparin 5,000 UNIT/ML VIAL SQ SCH ×4 (00:11→23:29)
[2017-04-01] MEDS: MethylPREDNISolone 40 MG/ML VIAL IVP SCH ×4 (00:11→23:29)
[2017-04-01 03:58] LABS: Basophils % 0.1 %; Eosinophils % 0.2 %; Hematocrit 39.4 % (35.3-44.9); Immature Granulocytes % 1.2 % (0-4); Lymphocytes # 0.6 K/mcL (0.6-4.6); Lymphocytes % 4.1 %; Mean Corpuscular Hemoglobin 29.8 pg (28.0-33.3); Mean Corpuscular Volume 96.3 fL (83.0-100.0); Mean Platelet Volume 11.2 fL (9.4-12.4); Monocytes # 0.7 K/mcL (0.0-1.3); Monocytes % 4.5 %; Neutrophils # 13.3 K/mcL (1.6-8.9); Nucleated Red Blood Cells 0.1 /100 WBC (0); Platelet Count 151 K/mcL (140-400); Red Blood Count 4.09 M/mcL (3.82-4.97); Red Cell Distribution Width 13.7 % (11.5-14.5); Segmented Neutrophils % 89.9 %
[2017-04-01 04:05] LABS: Hemoglobin 12.2 g/dL (11.5-15.4)
[2017-04-01 04:39] LABS: BUN/Creatinine Ratio 69 (6-26); Blood Urea Nitrogen 27 mg/dL (8-23); Carbon Dioxide 41 mEq/L (23-29); Chloride 93 mEq/L (98-107); Glucose 147 mg/dL (70-105); Osmolality,Calculated 290 (280-300); Potassium 4.2 mEq/L (3.5-5.1); Sodium 136 mEq/L (136-145); eGFR For African Americans > 60 (> 60); eGFR For Non-African Americans > 60 (> 60)
[2017-04-01] MEDS: FentaNYL (PF) 1,000 MCG in 0.9 % Sodium Chloride 80 ML IVC SCH ×3 (04:40→18:22)
[2017-04-01] MEDS: Levothyroxine 25 MCG TABLET PO SCH (05:11)
[2017-04-01] MEDS ORDERED: *HR* Metoprolol 5 MG/5 ML VIAL IVP ONE ×4 (06:12→22:21)
[2017-04-01] MEDS: Pantoprazole 40 MG VIAL IVP SCH (07:48)
[2017-04-01] MEDS: Chlorhexidine Rinse 15 ML MOUTHWASH MM SCH ×2 (07:48→19:45)
[2017-04-01] MEDS ORDERED: Piperacillin/Tazobactam 3.375 GM in 0.9 % Sodium Chloride Mini Bag 100 ML IVPB SCH (08:00)
[2017-04-01] MEDS: Insulin DETEMIR 100 UNIT/ML X5UNITS SQ SCH ×2 (08:01→20:52)
[2017-04-01] MEDS ORDERED: Furosemide 40 MG/4 ML VIAL IVP ONE ×2 (08:52→10:46)
[2017-04-01] MEDS: Budesonide/Formoterol 160/4.5 MDI IH SCH ×2 (09:14→21:45)
[2017-04-01] MEDS: acetaZOLAMIDE 250 MG TABLET PO SCH ×2 (11:12→19:45)
--- NOTE | 2017-04-01 11:59 | Pulmonology Progress Note ---
<Raymond Sidhu - Last Filed: 04/01/17 12:32> Date of Encounter: 04/01/17 Time of Encounter: 08:00 Assessment and Plan (1) Acute and chronic respiratory failure Current Visit: Yes Status: Acute Stable on vent settings, CPAP weaning 58 minutes 04/01. Wt count without fever (97.6 04/01)--likely leukocytosis from steroids q8h. Will discontinue zosyn per plan to dc day 10. CXR does show diffuse airspace disease likely pulmonary fibrosis over infectious etiology. Light diuresis with acetazolamide (currently 250mg BID), Creat low normal. Qualifiers: Respiratory failure complication: hypoxia and hypercapnia Qualified Code(s) : J96.21 - Acute and chronic respiratory failure with hypoxia; J96.22 - Acute and chronic respiratory failure with hypercapnia; J96.22 - Acute and chronic respiratory failure with hypercapnia; J96.22 - Acute and chronic respiratory failure with hypercapnia (2) Decubital ulcer Current Visit: Yes Status: Chronic Per Wound Care: Wound is 100% yellow slough measuring 0.5cm x 0.5cm - 0.5cm deep. The periwound skin is white and macerated 360%. Once the wound is debrided to reveal the entire wound, it will most likely measure 1cm x 1cm and be a deeper Stage 3. Will write orders to lightly pack with mesalt ribbon. Qualifiers: Pressure ulcer location: buttock Pressure ulcer stage: stage 2 Laterality : unspecified laterality Qualified Code(s): L89.302 - Pressure ulcer of unspecified buttock, stage 2 (3) Pulmonary interstitial fibrosis Current Visit: Yes Status: Chronic Per medical decision making in (1). Subjective Principal diagnosis: Respiratory failure with hypoxia Interval history: Pt continues to be intubated/vent and sedated, stable. 58 minutes CPAP before trial stopped due to agitation/increased WOB. Objective PUL Vital signs: Last Vital Signs Temp 97.7 F 04/01/17 07:54 Pulse 53 04/01/17 10:00 Resp 12 04/01/17 10:00 BP 90/59 04/01/17 10:00 Pulse Ox 92 04/01/17 10:00 General appearance: other (intubated and sedated) Eyes: nonicteric ENT: oropharynx moist Neck: supple Auscultation: bilateral: diminished breath sounds Cardiovascular: other (no murmur, rub, regular rhythm, HR high 50s) Integumentary: normal Extremities: no cyanosis Musculoskeletal: no deformities Ventilator Settings Ventilator Settings: Ventilator Settings, Last 8 Hours Ventilator Mode VC+ Ventilator Mode VC+ Ventilator Mode VC+ Ventilator Mode VC+ Ventilator Mode VC+ Ventilator Mode VC+ Ventilator Mode VC+ Ventilator Mode CPAP Ventilator Mode CPAP Ventilator Mode VC+ Ventilator Tidal Volume 375 Setting Ventilator Tidal Volume 375 Setting Ventilator Tidal Volume 375 Setting Ventilator Tidal Volume 375 Setting Ventilator Tidal Volume 375 Setting Ventilator Tidal Volume 375 Setting Ventilator Tidal Volume 375 Setting Ventilator Tidal Volume 375 Setting Ventilator Respiratory Rate 12 Setting Ventilator Respiratory Rate 12 Setting Ventilator Respiratory Rate 12 Setting Ventilator Respiratory Rate 12 Setting Ventilator Respiratory Rate 12 Setting Ventilator Respiratory Rate 12 Setting Ventilator Respiratory Rate 12 Setting Ventilator Respiratory Rate 12 Setting Actual Respiratory Rate 13 Actual Respiratory Rate 13 Actual Respiratory Rate 13 Actual Respiratory Rate 22 Actual Respiratory Rate 22 Actual Respiratory Rate 22 Actual Respiratory Rate 14 Actual Respiratory Rate 20 Actual Respiratory Rate 24 Actual Respiratory Rate 14 Positive End Expiratory 5 Pressure Positive End Expiratory 5 Pressure Positive End Expiratory 5 Pressure Positive End Expiratory 5 Pressure Positive End Expiratory 5 Pressure Positive End Expiratory 5 Pressure Positive End Expiratory 5 Pressure Positive End Expiratory 5 Pressure Positive End Expiratory 5 Pressure Positive End Expiratory 5 Pressure Peak Inspiratory Airway 16 Pressure Peak Inspiratory Airway 16 Pressure Peak Inspiratory Airway 16 Pressure Peak Inspiratory Airway 19 Pressure Peak Inspiratory Airway 19 Pressure Peak Inspiratory Airway 19 Pressure Peak Inspiratory Airway 16 Pressure Peak Inspiratory Airway 12 Pressure Peak Inspiratory Airway 12 Pressure Peak Inspiratory Airway 12 Pressure Results - Laboratory Findings CBC and BMP: 04/01/17 03:50 04/01/17 03:50 ABG ABG pH 7.42 pH Units (7.32-7.45) 03/31/17 04:06 ABG pCO2 79 mmHg (35-45) H* 03/31/17 04:06 ABG pO2 81 mmHg (85-104) L 03/31/17 04:06 ABG O2 Saturation 95 % (95-98) 03/31/17 04:06 PT/INR, D-dimer PT 14.1 Seconds (9.4-12.1) H 03/22/17 16:12 Abnormal lab findings: Abnormal lab results WBC 14.8 K/mcL (4.3-11.1) H 04/01/17 03:50 MCHC 31.0 g/dL (31.6-35.5) L 04/01/17 03:50 Neutrophils # 13.3 K/mcL (1.6-8.9) H 04/01/17 03:50 Nucleated RBCs/100 WBC 0.1 /100 WBC (0) H 04/01/17 03:50 PT 14.1 Seconds (9.4-12.1) H 03/22/17 16:12 ABG pCO2 79 mmHg (35-45) H* 03/31/17 04:06 ABG pO2 81 mmHg (85-104) L 03/31/17 04:06 ABG HCO3 51 mEq/L (21-27) H 03/31/17 04:06 ABG Total CO2 53 mEq/L (20-26) H 03/31/17 04:06 ABG Base Excess 20 mEq/L (-2 to 3) H 03/31/17 04:06 Chloride 93 mEq/L (98-107) L 04/01/17 03:50 Carbon Dioxide 41 mEq/L (23-29) H* 04/01/17 03:50 BUN 27 mg/dL (8-23) H 04/01/17 03:50 Creatinine 0.39 mg/dL (0.60-1.20) L 04/01/17 03:50 BUN/Creatinine Ratio 69 (6-26) H 04/01/17 03:50 Glucose 147 mg/dL (70-105) H 04/01/17 03:50 POC Glucose 187 (58-89) H 03/31/17 23:54 Troponin I 0.04 ng/mL (< 0.04) H* 03/22/17 16:12 Serum Total Protein 6.1 g/dL (6.4-8.9) L 03/22/17 16:12 Albumin 2.8 g/dL (3.5-5.7) L 03/22/17 16:12 Albumin/Globulin Ratio 0.8 (1.1-2.2) L 03/22/17 16:12 - Clinical Findings Intake & Output: Intake & Output 03/31/17 04/01/17 04/01/17 23:59 07:59 15:59 Intake Total 767 / 767 1302 / 1302 86 / 86 Output Total 950 / 950 950 / 950 Balance -183 / -183 352 / 352 86 / 86 Weight 76.2 kg - VTE Documentation of Mechanical Device: Graduated compression elastic hosiery Consult Discharge Plan - Plan Referrals: NONE,PCP [Primary Care Provider] - <Corey Meyer - Last Filed: 04/01/17 22:35> Date of Encounter: 04/01/17 Objective PUL Vital signs: Last Vital Signs Temp 97.7 F 04/01/17 21:13 Pulse 124 04/01/17 22:00 Resp 13 04/01/17 22:00 BP 113/78 04/01/17 22:00 Pulse Ox 90 04/01/17 22:00 Ventilator Settings Ventilator Settings: Ventilator Settings, Last 8 Hours Ventilator Mode VC+ Ventilator Mode VC+ Ventilator Mode VC+ Ventilator Mode VC+ Ventilator Mode VC+ Ventilator Mode VC+ Ventilator Mode VC+ Ventilator Mode VC+ Ventilator Mode VC+ Ventilator Mode VC+ Ventilator Mode VC+ Ventilator Tidal Volume 375 Setting Ventilator Tidal Volume 375 Setting Ventilator Tidal Volume 375 Setting Ventilator Tidal Volume 375 Setting Ventilator Tidal Volume 375 Setting Ventilator Tidal Volume 375 Setting Ventilator Tidal Volume 375 Setting Ventilator Tidal Volume 375 Setting Ventilator Tidal Volume 375 Setting Ventilator Tidal Volume 375 Setting Ventilator Tidal Volume 375 Setting Ventilator Respiratory Rate 12 Setting Ventilator Respiratory Rate 12 Setting Ventilator Respiratory Rate 12 Setting Ventilator Respiratory Rate 12 Setting Ventilator Respiratory Rate 12 Setting Ventilator Respiratory Rate 12 Setting Ventilator Respiratory Rate 12 Setting Ventilator Respiratory Rate 12 Setting Ventilator Respiratory Rate 12 Setting Ventilator Respiratory Rate 12 Setting Ventilator Respiratory Rate 12 Setting Actual Respiratory Rate 13 Actual Respiratory Rate 12 Actual Respiratory Rate 13 Actual Respiratory Rate 20 Actual Respiratory Rate 12 Actual Respiratory Rate 18 Actual Respiratory Rate 13 Actual Respiratory Rate 13 Actual Respiratory Rate 13 Actual Respiratory Rate 13 Actual Respiratory Rate 13 Positive End Expiratory 5 Pressure Positive End Expiratory 5 Pressure Positive End Expiratory 5 Pressure Positive End Expiratory 5 Pressure Positive End Expiratory 5 Pressure Positive End Expiratory 5 Pressure Positive End Expiratory 5 Pressure Positive End Expiratory 5 Pressure Positive End Expiratory 5 Pressure Positive End Expiratory 5 Pressure Positive End Expiratory 5 Pressure Peak Inspiratory Airway 18 Pressure Peak Inspiratory Airway 18 Pressure Peak Inspiratory Airway 14 Pressure Peak Inspiratory Airway 21 Pressure Peak Inspiratory Airway 15 Pressure Peak Inspiratory Airway 16 Pressure Peak Inspiratory Airway 13 Pressure Peak Inspiratory Airway 13 Pressure Peak Inspiratory Airway 13 Pressure Peak Inspiratory Airway 13 Pressure Peak Inspiratory Airway 13 Pressure Results - Laboratory Findings CBC and BMP: 04/01/17 03:50 04/01/17 03:50 ABG ABG pH 7.42 pH Units (7.32-7.45) 03/31/17 04:06 ABG pCO2 79 mmHg (35-45) H* 03/31/17 04:06 ABG pO2 81 mmHg (85-104) L 03/31/17 04:06 ABG O2 Saturation 95 % (95-98) 03/31/17 04:06 PT/INR, D-dimer PT 14.1 Seconds (9.4-12.1) H 03/22/17 16:12 Abnormal lab findings: Abnormal lab results WBC 14.8 K/mcL (4.3-11.1) H 04/01/17 03:50 MCHC 31.0 g/dL (31.6-35.5) L 04/01/17 03:50 Neutrophils # 13.3 K/mcL (1.6-8.9) H 04/01/17 03:50 Nucleated RBCs/100 WBC 0.1 /100 WBC (0) H 04/01/17 03:50 PT 14.1 Seconds (9.4-12.1) H 03/22/17 16:12 ABG pCO2 79 mmHg (35-45) H* 03/31/17 04:06 ABG pO2 81 mmHg (85-104) L 03/31/17 04:06 ABG HCO3 51 mEq/L (21-27) H 03/31/17 04:06 ABG Total CO2 53 mEq/L (20-26) H 03/31/17 04:06 ABG Base Excess 20 mEq/L (-2 to 3) H 03/31/17 04:06 Chloride 93 mEq/L (98-107) L 04/01/17 03:50 Carbon Dioxide 41 mEq/L (23-29) H* 04/01/17 03:50 BUN 27 mg/dL (8-23) H 04/01/17 03:50 Creatinine 0.39 mg/dL (0.60-1.20) L 04/01/17 03:50 BUN/Creatinine Ratio 69 (6-26) H 04/01/17 03:50 Glucose 147 mg/dL (70-105) H 04/01/17 03:50 POC Glucose 187 (58-89) H 03/31/17 23:54 Troponin I 0.04 ng/mL (< 0.04) H* 03/22/17 16:12 Serum Total Protein 6.1 g/dL (6.4-8.9) L 03/22/17 16:12 Albumin 2.8 g/dL (3.5-5.7) L 03/22/17 16:12 Albumin/Globulin Ratio 0.8 (1.1-2.2) L 03/22/17 16:12 - Clinical Findings Intake & Output: Intake & Output 04/01/17 04/01/17 04/01/17 07:59 15:59 23:59 Intake Total 1302 / 1302 391 / 391 234 / 234 Output Total 950 / 950 1875 / 1875 450 / 450 Balance 352 / 352 -1484 / -1484 -216 / -216 Weight 76.2 kg - Attending Attestation - Attending Attestation I saw and evaluated this patient and my medical decision-making was reviewed with the Resident Physician. I agree with the documented findings, disposition and treatment plan as described except to the extent set forth below. We independently had [id number] contact with the patient Patient seen and examined at bedside Labs, radiology, chart personally reviewed. Management was reviewed during multidisciplinary critical care rounds. BIOSECURITY OFFICER:Patient is intubated and sedated on and off she follows commands Pulm:Patient has extensive pulmonary fibrosis the imaging shows lot of ground glass opacities this can be due to exacerbation of IPF complicated by pneumonia . To continue antibiotics and steroids . started diuresing Cards:Hemodynamically stable . FEN-GI: To follow Nutrition recs Renal: Labs and UOP reviewed ID: Sputum growing pseudomonas aeruginosa to continue Zosyn will stop tomorrow Heme/Onc:Labs reviewed Endo: Glucose Monitored Integ/MSK: Skin Care per routine ICU Nursing Protocol to prevent ulcers. Lines: All lines examined without evidence of infection : Dispo: Remains critically ill CODE:Had a brief discussion with the family . Might need tracheostomy will try to bridge to BIPAP
[2017-04-01] MEDS: Piperacillin/Tazobactam 3.375 GM in 0.9 % Sodium Chloride Mini Bag 100 ML IVPB SCH ×2 (15:52→23:29)
[2017-04-02] MEDS: FentaNYL (PF) 1,000 MCG in 0.9 % Sodium Chloride 80 ML IVC SCH ×3 (01:50→20:35)
--- NOTE | 2017-04-02 03:10 | Pulmonology Progress Note ---
<Santino Chatman - Last Filed: 04/02/17 03:07> Date of Encounter: 04/02/17 Time of Encounter: 03:07 Assessment and Plan (1) Acute and chronic respiratory failure Current Visit: Yes Status: Acute Stable on vent settings, continues to tolerate CPAP trials well, however develops afib. rvr after Continuing Zosyn day 10; steroids. Will discontinue Zosyn today CXR does show diffuse airspace disease likely pulmonary fibrosis over infectious etiology. Continued diuresis is necessary, we will continue to give 40IV Lasix BID as tolerated, with intention to wean from vent in next few days The patient continues to have diffuse crackles, likely secondary to pulmonary fibrosis We have had success with diuresis up until this point I/O [id number], B +[id number] Qualifiers: Respiratory failure complication: hypoxia and hypercapnia Qualified Code(s) : J96.21 - Acute and chronic respiratory failure with hypoxia; J96.22 - Acute and chronic respiratory failure with hypercapnia; J96.22 - Acute and chronic respiratory failure with hypercapnia; J96.22 - Acute and chronic respiratory failure with hypercapnia (2) Paroxysmal A-fib Current Visit: Yes Status: Acute PAF, seen on attempted CPAP trials Has required multiple doses of metoprolol to control Switched to atenolol with relatively positive results, however has required increased beta karthik use for paroxysms of a. fib We will continue to monitor (3) Pulmonary interstitial fibrosis Current Visit: Yes Status: Chronic Per medical decision making in (1). (4) Decubital ulcer Current Visit: Yes Status: Chronic Per Wound Care: Wound is 100% yellow slough measuring 0.5cm x 0.5cm - 0.5cm deep. The periwound skin is white and macerated 360%. Once the wound is debrided to reveal the entire wound, it will most likely measure 1cm x 1cm and be a deeper Stage 3. Will write orders to lightly pack with mesalt ribbon. Qualifiers: Pressure ulcer location: buttock Pressure ulcer stage: stage 2 Laterality : unspecified laterality Qualified Code(s): L89.302 - Pressure ulcer of unspecified buttock, stage 2 (5) DVT prophylaxis Current Visit: Yes Status: Acute SQ Heparing q8h Subjective Principal diagnosis: Respiratory failure with hypoxia Interval history: No significant change from prior. Patient remains on vent and sedated. CPAP test from prior day was tolerated for significantly longer than prior trials. Continued CPAP tests daily. Diuresis continues to be successful. Objective PUL Vital signs: Last Vital Signs Temp 98.0 F 04/02/17 00:00 Pulse 75 04/02/17 00:00 Resp 13 04/02/17 02:17 BP 117/74 04/02/17 00:00 Pulse Ox 61 04/02/17 02:17 General appearance: no acute distress, asleep Eyes: nonicteric Neck: supple Effort: normal Auscultation: right: wheezes, bilateral: rales, rhonchi Cardiovascular: regular rate and rhythm, irregular rhythm (intermittent runs of afib RVR) Gastrointestinal: normoactive bowel sounds, non-distended Integumentary: normal Extremities: no cyanosis, no clubbing, edema (Mild edema) Musculoskeletal: no deformities non-focal exam, pupils equal and round, unable to assess due to mental status Ventilator Settings Ventilator Settings: Ventilator Settings, Last 8 Hours Ventilator Mode VC+ Ventilator Mode VC+ Ventilator Mode VC+ Ventilator Mode VC+ Ventilator Mode VC+ Ventilator Mode VC+ Ventilator Mode VC+ Ventilator Mode VC+ Ventilator Mode VC+ Ventilator Tidal Volume 375 Setting Ventilator Tidal Volume 375 Setting Ventilator Tidal Volume 375 Setting Ventilator Tidal Volume 375 Setting Ventilator Tidal Volume 375 Setting Ventilator Tidal Volume 375 Setting Ventilator Tidal Volume 375 Setting Ventilator Tidal Volume 375 Setting Ventilator Tidal Volume 375 Setting Ventilator Respiratory Rate 12 Setting Ventilator Respiratory Rate 12 Setting Ventilator Respiratory Rate 12 Setting Ventilator Respiratory Rate 12 Setting Ventilator Respiratory Rate 12 Setting Ventilator Respiratory Rate 12 Setting Ventilator Respiratory Rate 12 Setting Ventilator Respiratory Rate 12 Setting Ventilator Respiratory Rate 12 Setting Actual Respiratory Rate 14 Actual Respiratory Rate 13 Actual Respiratory Rate 14 Actual Respiratory Rate 13 Actual Respiratory Rate 13 Actual Respiratory Rate 12 Actual Respiratory Rate 13 Actual Respiratory Rate 20 Actual Respiratory Rate 12 Positive End Expiratory 5 Pressure Positive End Expiratory 5 Pressure Positive End Expiratory 5 Pressure Positive End Expiratory 5 Pressure Positive End Expiratory 5 Pressure Positive End Expiratory 5 Pressure Positive End Expiratory 5 Pressure Positive End Expiratory 5 Pressure Positive End Expiratory 5 Pressure Peak Inspiratory Airway 22 Pressure Peak Inspiratory Airway 17 Pressure Peak Inspiratory Airway 23 Pressure Peak Inspiratory Airway 19 Pressure Peak Inspiratory Airway 18 Pressure Peak Inspiratory Airway 18 Pressure Peak Inspiratory Airway 14 Pressure Peak Inspiratory Airway 21 Pressure Peak Inspiratory Airway 15 Pressure Results - Laboratory Findings CBC and BMP: 04/01/17 03:50 04/01/17 03:50 ABG ABG pH 7.42 pH Units (7.32-7.45) 03/31/17 04:06 ABG pCO2 79 mmHg (35-45) H* 03/31/17 04:06 ABG pO2 81 mmHg (85-104) L 03/31/17 04:06 ABG O2 Saturation 95 % (95-98) 03/31/17 04:06 PT/INR, D-dimer PT 14.1 Seconds (9.4-12.1) H 03/22/17 16:12 Abnormal lab findings: Abnormal lab results WBC 14.8 K/mcL (4.3-11.1) H 04/01/17 03:50 MCHC 31.0 g/dL (31.6-35.5) L 04/01/17 03:50 Neutrophils # 13.3 K/mcL (1.6-8.9) H 04/01/17 03:50 Nucleated RBCs/100 WBC 0.1 /100 WBC (0) H 04/01/17 03:50 PT 14.1 Seconds (9.4-12.1) H 03/22/17 16:12 ABG pCO2 79 mmHg (35-45) H* 03/31/17 04:06 ABG pO2 81 mmHg (85-104) L 03/31/17 04:06 ABG HCO3 51 mEq/L (21-27) H 03/31/17 04:06 ABG Total CO2 53 mEq/L (20-26) H 03/31/17 04:06 ABG Base Excess 20 mEq/L (-2 to 3) H 03/31/17 04:06 Chloride 93 mEq/L (98-107) L 04/01/17 03:50 Carbon Dioxide 41 mEq/L (23-29) H* 04/01/17 03:50 BUN 27 mg/dL (8-23) H 04/01/17 03:50 Creatinine 0.39 mg/dL (0.60-1.20) L 04/01/17 03:50 BUN/Creatinine Ratio 69 (6-26) H 04/01/17 03:50 Glucose 147 mg/dL (70-105) H 04/01/17 03:50 POC Glucose 161 (58-89) H 04/01/17 23:21 Troponin I 0.04 ng/mL (< 0.04) H* 03/22/17 16:12 Serum Total Protein 6.1 g/dL (6.4-8.9) L 03/22/17 16:12 Albumin 2.8 g/dL (3.5-5.7) L 03/22/17 16:12 Albumin/Globulin Ratio 0.8 (1.1-2.2) L 03/22/17 16:12 - Clinical Findings Intake & Output: Intake & Output 04/01/17 04/01/17 04/02/17 15:59 23:59 07:59 Intake Total 391 / 391 831 / 831 Output Total 1875 / 1875 1050 / 1050 Balance -1484 / -1484 -219 / -219 Weight 76.5 kg - VTE Documentation of Mechanical Device: Graduated compression elastic hosiery Consult Discharge Plan - Plan Referrals: NONE,PCP [Primary Care Provider] - <Corey Meyer - Last Filed: 04/02/17 18:38> Date of Encounter: 04/02/17 Objective PUL Vital signs: Last Vital Signs Temp 97.8 F 04/02/17 16:00 Pulse 62 04/02/17 18:00 Resp 15 04/02/17 18:00 BP 121/66 04/02/17 18:00 Pulse Ox 95 04/02/17 18:00 Ventilator Settings Ventilator Settings: Ventilator Settings, Last 8 Hours Ventilator Mode VC+ Ventilator Mode VC+ Ventilator Mode CPAP Ventilator Mode CPAP Ventilator Mode VC+ Ventilator Mode CPAP Ventilator Mode VC+ Ventilator Mode CPAP Ventilator Tidal Volume 375 Setting Ventilator Tidal Volume 375 Setting Ventilator Tidal Volume 375 Setting Ventilator Tidal Volume 375 Setting Ventilator Tidal Volume 375 Setting Ventilator Tidal Volume 375 Setting Ventilator Respiratory Rate 12 Setting Ventilator Respiratory Rate 12 Setting Ventilator Respiratory Rate 12 Setting Ventilator Respiratory Rate 12 Setting Ventilator Respiratory Rate 12 Setting Ventilator Respiratory Rate 12 Setting Actual Respiratory Rate 15 Actual Respiratory Rate 14 Actual Respiratory Rate 14 Actual Respiratory Rate 14 Actual Respiratory Rate 18 Actual Respiratory Rate 18 Actual Respiratory Rate 17 Actual Respiratory Rate 25 Actual Respiratory Rate 19 Actual Respiratory Rate 18 Actual Respiratory Rate 33 Actual Respiratory Rate 24 Positive End Expiratory 5 Pressure Positive End Expiratory 5 Pressure Positive End Expiratory 5 Pressure Positive End Expiratory 5 Pressure Positive End Expiratory 5 Pressure Positive End Expiratory 5 Pressure Positive End Expiratory 5 Pressure Positive End Expiratory 5 Pressure Positive End Expiratory 5 Pressure Positive End Expiratory 5 Pressure Positive End Expiratory 5 Pressure Positive End Expiratory 5 Pressure Peak Inspiratory Airway 23 Pressure Peak Inspiratory Airway 27 Pressure Peak Inspiratory Airway 23 Pressure Peak Inspiratory Airway 28 Pressure Peak Inspiratory Airway 29 Pressure Peak Inspiratory Airway 28 Pressure Peak Inspiratory Airway 28 Pressure Peak Inspiratory Airway 29 Pressure Peak Inspiratory Airway 30 Pressure Peak Inspiratory Airway 33 Pressure Peak Inspiratory Airway 34 Pressure Peak Inspiratory Airway 14 Pressure Results - Laboratory Findings CBC and BMP: 04/02/17 03:45 04/02/17 03:45 ABG ABG pH 7.37 pH Units (7.32-7.45) 04/02/17 11:01 ABG pCO2 84 mmHg (35-45) H* 04/02/17 11:01 ABG pO2 110 mmHg (85-104) H 04/02/17 11:01 ABG O2 Saturation 98 % (95-98) 04/02/17 11:01 PT/INR, D-dimer PT 14.1 Seconds (9.4-12.1) H 03/22/17 16:12 Abnormal lab findings: Abnormal lab results WBC 15.9 K/mcL (4.3-11.1) H 04/02/17 03:45 MCHC 31.0 g/dL (31.6-35.5) L 04/02/17 03:45 Neutrophils # 13.3 K/mcL (1.6-8.9) H 04/01/17 03:50 Nucleated RBCs/100 WBC 0.1 /100 WBC (0) H 04/01/17 03:50 PT 14.1 Seconds (9.4-12.1) H 03/22/17 16:12 ABG pCO2 84 mmHg (35-45) H* 04/02/17 11:01 ABG pO2 110 mmHg (85-104) H 04/02/17 11:01 ABG HCO3 48 mEq/L (21-27) H 04/02/17 11:01 ABG Total CO2 51 mEq/L (20-26) H 04/02/17 11:01 ABG Base Excess 18 mEq/L (-2 to 3) H 04/02/17 11:01 Chloride 93 mEq/L (98-107) L 04/02/17 03:45 Carbon Dioxide 41 mEq/L (23-29) H* 04/02/17 03:45 BUN 31 mg/dL (8-23) H 04/02/17 03:45 Creatinine 0.43 mg/dL (0.60-1.20) L 04/02/17 03:45 BUN/Creatinine Ratio 72 (6-26) H 04/02/17 03:45 Glucose 206 mg/dL (70-105) H 04/02/17 03:45 POC Glucose 161 (58-89) H 04/01/17 23:21 Troponin I 0.04 ng/mL (< 0.04) H* 03/22/17 16:12 Serum Total Protein 6.1 g/dL (6.4-8.9) L 03/22/17 16:12 Albumin 2.8 g/dL (3.5-5.7) L 03/22/17 16:12 Albumin/Globulin Ratio 0.8 (1.1-2.2) L 03/22/17 16:12 - Clinical Findings Intake & Output: Intake & Output 04/02/17 04/02/17 04/02/17 07:59 15:59 23:59 Intake Total 457 / 457 800 / 800 191 / 191 Output Total 500 / 500 1275 / 1275 250 / 250 Balance -43 / -43 -475 / -475 -59 / -59 Weight 76.5 kg - Attending Attestation - Attending Attestation I saw and evaluated this patient and my medical decision-making was reviewed with the Resident Physician. I agree with the documented findings, disposition and treatment plan as described except to the extent set forth below. We independently had [id number] contact with the patient Patient seen and examined at bedside Labs, radiology, chart personally reviewed. Management was reviewed during multidisciplinary critical care rounds. SECOND CRUSHER:Patient is intubated and sedated but she is awake and follows commands Pulm:Patient has extensive pulmonary fibrosis the imaging shows lot of ground glass opacities this can be due to exacerbation of IPF complicated by pneumonia . To continue steroids . started diuresing . Attempted CPAP with PS of 8 patient this is the first day she did well at 4 hour [place] she got little tachypneic the ABG towards the end of the trial was little bit acidotic Paco2 around 80 not fully compensated Cards:Hemodynamically stable . FEN-GI: To follow Nutrition recs Renal: Labs and UOP reviewed ID: Sputum growing pseudomonas aeruginosa today is the last dose of Zosyn Heme/Onc:Labs reviewed Endo: Glucose Monitored Integ/MSK: Skin Care per routine ICU Nursing Protocol to prevent ulcers. Lines: All lines examined without evidence of infection : Dispo: Remains critically ill CODE:Had a brief discussion with the family . Might need tracheostomy will try to bridge to BIPAP most likely tomorrow will extubate to BIPAP .
[2017-04-02] MEDS: Insulin LISPRO 300 UNITS/3 ML VIAL SQ SCH ×5 (03:43→20:35)
[2017-04-02] MEDS: Lacri-Lube 3.5 GM TUBE BOTH EYES SCH ×5 (03:44→20:34)
[2017-04-02] MEDS ORDERED: Furosemide 40 MG/4 ML VIAL IVP ONE ×3 (04:00→21:31)
[2017-04-02 04:05] LABS: Hematocrit 40.6 % (35.3-44.9); Hemoglobin 12.6 g/dL (11.5-15.4); Mean Corpuscular Hemoglobin 30.1 pg (28.0-33.3); Mean Corpuscular Volume 97.1 fL (83.0-100.0); Mean Platelet Volume 11.5 fL (9.4-12.4); Platelet Count 161 K/mcL (140-400); Red Blood Count 4.18 M/mcL (3.82-4.97); Red Cell Distribution Width 13.8 % (11.5-14.5)
[2017-04-02 04:14] LABS: ABG Base Excess 14 mEq/L (-2 to 3); ABG HCO3 44 mEq/L (21-27); ABG Oxygen Saturation 98 % (95-98); ABG PCO2 80 mmHg (35-45); ABG PH 7.35 pH Units (7.32-7.45); ABG PO2 123 mmHg (85-104); ABG TCO2 46 mEq/L (20-26); Blood Gas Modality PRVC; Blood Gas PEEP 5 cm H2O; Blood Gas Respiration Rate 12; Blood Gas VT 375 cc
[2017-04-02] MEDS: Levalbuterol Neb 0.63 MG/3 ML IH SCH ×4 (04:17→22:02)
[2017-04-02 04:33] LABS: BUN/Creatinine Ratio 72 (6-26); Blood Urea Nitrogen 31 mg/dL (8-23); Carbon Dioxide 41 mEq/L (23-29); Chloride 93 mEq/L (98-107); Glucose 206 mg/dL (70-105); Osmolality,Calculated 297 (280-300); Potassium 4.3 mEq/L (3.5-5.1); Sodium 137 mEq/L (136-145); eGFR For African Americans > 60 (> 60); eGFR For Non-African Americans > 60 (> 60)
[2017-04-02] MEDS: Levothyroxine 25 MCG TABLET PO SCH (05:24)
[2017-04-02] MEDS: acetaZOLAMIDE 250 MG TABLET PO SCH ×2 (07:50→20:33)
[2017-04-02] MEDS: Insulin DETEMIR 100 UNIT/ML X5UNITS SQ SCH ×2 (07:50→20:33)
[2017-04-02] MEDS: Piperacillin/Tazobactam 3.375 GM in 0.9 % Sodium Chloride Mini Bag 100 ML IVPB SCH ×2 (07:50→15:49)
[2017-04-02] MEDS: *HR* Heparin 5,000 UNIT/ML VIAL SQ SCH ×3 (07:50→23:57)
[2017-04-02] MEDS: Chlorhexidine Rinse 15 ML MOUTHWASH MM SCH ×2 (07:50→20:33)
[2017-04-02] MEDS: MethylPREDNISolone 40 MG/ML VIAL IVP SCH ×3 (07:52→23:57)
[2017-04-02] MEDS: Pantoprazole 40 MG VIAL IVP SCH (07:52)
[2017-04-02] MEDS: Budesonide/Formoterol 160/4.5 MDI IH SCH ×2 (09:53→22:02)
[2017-04-02 11:08] LABS: ABG Base Excess 18 mEq/L (-2 to 3); ABG HCO3 48 mEq/L (21-27); ABG Oxygen Saturation 98 % (95-98); ABG PCO2 84 mmHg (35-45); ABG PH 7.37 pH Units (7.32-7.45); ABG PO2 110 mmHg (85-104); ABG TCO2 51 mEq/L (20-26); Blood Gas Modality CPAP/PS; Blood Gas PEEP 5 cm H2O; Blood Gas Pressure Support 8 cm H2O; Blood Gas Respiration Rate 17; Blood Gas VT 466 cc
[2017-04-03] MEDS ORDERED: *HR* Metoprolol 5 MG/5 ML VIAL IVP ONE (01:33)
[2017-04-03] MEDS: Lacri-Lube 3.5 GM TUBE BOTH EYES SCH ×7 (03:37→23:20)
[2017-04-03] MEDS: Levalbuterol Neb 0.63 MG/3 ML IH SCH ×4 (03:51→22:21)
[2017-04-03 03:58] LABS: Hemoglobin 12.9 g/dL (11.5-15.4); Mean Corpuscular HGB Conc 31.5 g/dL (31.6-35.5); Mean Corpuscular Hemoglobin 29.9 pg (28.0-33.3); Mean Corpuscular Volume 94.9 fL (83.0-100.0); Mean Platelet Volume 11.4 fL (9.4-12.4); Platelet Count 171 K/mcL (140-400); Red Blood Count 4.32 M/mcL (3.82-4.97); Red Cell Distribution Width 13.9 % (11.5-14.5)
[2017-04-03] MEDS: FentaNYL (PF) 1,000 MCG in 0.9 % Sodium Chloride 80 ML IVC SCH (04:15)
[2017-04-03 04:20] LABS: BUN/Creatinine Ratio 67 (6-26); Blood Urea Nitrogen 30 mg/dL (8-23); Calcium 9.3 mg/dL (8.6-10.3); Carbon Dioxide 42 mEq/L (23-29); Chloride 90 mEq/L (98-107); Glucose 219 mg/dL (70-105); Osmolality,Calculated 295 (280-300); Potassium 4.1 mEq/L (3.5-5.1); Sodium 136 mEq/L (136-145); eGFR For African Americans > 60 (> 60); eGFR For Non-African Americans > 60 (> 60)
[2017-04-03] MEDS: Insulin LISPRO 300 UNITS/3 ML VIAL SQ SCH ×7 (04:26→23:38)
[2017-04-03] MEDS: Levothyroxine 25 MCG TABLET PO SCH (05:15)
[2017-04-03 05:20] LABS: ABG Base Excess 16 mEq/L (-2 to 3); ABG HCO3 46 mEq/L (21-27); ABG Oxygen Saturation 97 % (95-98); ABG PCO2 80 mmHg (35-45); ABG PH 7.37 pH Units (7.32-7.45); ABG PO2 95 mmHg (85-104); ABG TCO2 49 mEq/L (20-26); Blood Gas Modality PRVC; Blood Gas PEEP 5 cm H2O; Blood Gas Respiration Rate 12; Blood Gas VT 375 cc
--- NOTE | 2017-04-03 05:31 | Pulmonology Progress Note ---
<Santino Chatman - Last Filed: 04/03/17 05:28> Date of Encounter: 04/03/17 Time of Encounter: 05:29 Assessment and Plan (1) Acute and chronic respiratory failure Current Visit: Yes Status: Acute Stable on vent settings, continues to tolerate CPAP trials well, however develops afib. rvr after CXR does show diffuse airspace disease likely pulmonary fibrosis over infectious etiology. Continued diuresis is necessary, we will continue to give 40IV Lasix BID as tolerated, with intention to wean from vent in next few days The patient continues to have diffuse crackles, likely secondary to pulmonary fibrosis We have had success with diuresis up until this point I/O [id number], B+[id number] Qualifiers: Respiratory failure complication: hypoxia and hypercapnia Qualified Code(s) : J96.21 - Acute and chronic respiratory failure with hypoxia; J96.22 - Acute and chronic respiratory failure with hypercapnia; J96.22 - Acute and chronic respiratory failure with hypercapnia; J96.22 - Acute and chronic respiratory failure with hypercapnia (2) Paroxysmal A-fib Current Visit: Yes Status: Acute PAF, occurring sporadically but self-converting or requiring lopressor push Has required multiple doses of metoprolol to control Switched to atenolol with relatively positive results, however has required increased beta karthik use for paroxysms of a. fib May require addition of cardizem We will continue to monitor (3) Pulmonary interstitial fibrosis Current Visit: Yes Status: Chronic Per medical decision making in (1). (4) Decubital ulcer Current Visit: Yes Status: Chronic Per Wound Care: Wound is 100% yellow slough measuring 0.5cm x 0.5cm - 0.5cm deep. The periwound skin is white and macerated 360%. Once the wound is debrided to reveal the entire wound, it will most likely measure 1cm x 1cm and be a deeper Stage 3. Will write orders to lightly pack with mesalt ribbon. Qualifiers: Pressure ulcer location: buttock Pressure ulcer stage: stage 2 Laterality : unspecified laterality Qualified Code(s): L89.302 - Pressure ulcer of unspecified buttock, stage 2 (5) DVT prophylaxis Current Visit: Yes Status: Acute SQ Heparing q8h Subjective Principal diagnosis: Respiratory failure with hypoxia Interval history: No significant change from prior. Patient remains on vent with less sedation, and will respond with nods as needed to questions. Patient continues to have episodes of atrial fibrillation with RVR, however has self converted for the most part. She has required at least one dose of IV metoprolol push overnight, however no significant change in clinical status as result. Objective PUL Vital signs: Last Vital Signs Temp 98.3 F 04/03/17 05:17 Pulse 95 04/03/17 05:10 Resp 24 04/03/17 05:10 BP 130/70 04/03/17 05:10 Pulse Ox 97 04/03/17 05:10 General appearance: no acute distress, alert (to verbal) Eyes: nonicteric ENT: oropharynx moist Neck: supple Effort: normal Auscultation: bilateral: rales (very mild rales) Cardiovascular: regular rate and rhythm (tachycardic, seemigly regular but aFib on monitor) Gastrointestinal: normoactive bowel sounds, non-distended Integumentary: normal Extremities: no cyanosis, no clubbing, edema (trace edema ble) Musculoskeletal: no deformities normal mental status, non-focal exam mood appropriate, affect normal Ventilator Settings Ventilator Settings: Ventilator Settings, Last 8 Hours Ventilator Mode VC+ Ventilator Mode VC+ Ventilator Mode VC+ Ventilator Mode VC+ Ventilator Mode VC+ Ventilator Mode VC+ Ventilator Mode VC+ Ventilator Mode VC+ Ventilator Mode VC+ Ventilator Mode VC+ Ventilator Mode VC+ Ventilator Mode VC+ Ventilator Tidal Volume 375 Setting Ventilator Tidal Volume 375 Setting Ventilator Tidal Volume 375 Setting Ventilator Tidal Volume 375 Setting Ventilator Tidal Volume 375 Setting Ventilator Tidal Volume 375 Setting Ventilator Tidal Volume 375 Setting Ventilator Tidal Volume 375 Setting Ventilator Tidal Volume 375 Setting Ventilator Tidal Volume 375 Setting Ventilator Tidal Volume 375 Setting Ventilator Tidal Volume 375 Setting Ventilator Respiratory Rate 12 Setting Ventilator Respiratory Rate 12 Setting Ventilator Respiratory Rate 12 Setting Ventilator Respiratory Rate 12 Setting Ventilator Respiratory Rate 12 Setting Ventilator Respiratory Rate 12 Setting Ventilator Respiratory Rate 12 Setting Ventilator Respiratory Rate 12 Setting Ventilator Respiratory Rate 12 Setting Ventilator Respiratory Rate 12 Setting Ventilator Respiratory Rate 12 Setting Ventilator Respiratory Rate 12 Setting Actual Respiratory Rate 24 Actual Respiratory Rate 20 Actual Respiratory Rate 19 Actual Respiratory Rate 18 Actual Respiratory Rate 13 Actual Respiratory Rate 16 Actual Respiratory Rate 16 Actual Respiratory Rate 15 Actual Respiratory Rate 14 Actual Respiratory Rate 14 Actual Respiratory Rate 17 Positive End Expiratory 5 Pressure Positive End Expiratory 5 Pressure Positive End Expiratory 5 Pressure Positive End Expiratory 5 Pressure Positive End Expiratory 5 Pressure Positive End Expiratory 5 Pressure Positive End Expiratory 5 Pressure Positive End Expiratory 5 Pressure Positive End Expiratory 5 Pressure Positive End Expiratory 5 Pressure Positive End Expiratory 5 Pressure Positive End Expiratory 5 Pressure Peak Inspiratory Airway 23 Pressure Peak Inspiratory Airway 22 Pressure Peak Inspiratory Airway 15 Pressure Peak Inspiratory Airway 21 Pressure Peak Inspiratory Airway 13 Pressure Peak Inspiratory Airway 16 Pressure Peak Inspiratory Airway 14 Pressure Peak Inspiratory Airway 15 Pressure Peak Inspiratory Airway 13 Pressure Peak Inspiratory Airway 14 Pressure Peak Inspiratory Airway 20 Pressure Results - Laboratory Findings CBC and BMP: 04/03/17 03:45 04/03/17 03:45 ABG ABG pH 7.37 pH Units (7.32-7.45) 04/03/17 05:15 ABG pCO2 80 mmHg (35-45) H* 04/03/17 05:15 ABG pO2 95 mmHg (85-104) 04/03/17 05:15 ABG O2 Saturation 97 % (95-98) 04/03/17 05:15 PT/INR, D-dimer PT 14.1 Seconds (9.4-12.1) H 03/22/17 16:12 Abnormal lab findings: Abnormal lab results WBC 16.9 K/mcL (4.3-11.1) H 04/03/17 03:45 MCHC 31.5 g/dL (31.6-35.5) L 04/03/17 03:45 Neutrophils # 13.3 K/mcL (1.6-8.9) H 04/01/17 03:50 Nucleated RBCs/100 WBC 0.1 /100 WBC (0) H 04/01/17 03:50 PT 14.1 Seconds (9.4-12.1) H 03/22/17 16:12 ABG pCO2 80 mmHg (35-45) H* 04/03/17 05:15 ABG HCO3 46 mEq/L (21-27) H 04/03/17 05:15 ABG Total CO2 49 mEq/L (20-26) H 04/03/17 05:15 ABG Base Excess 16 mEq/L (-2 to 3) H 04/03/17 05:15 Chloride 90 mEq/L (98-107) L 04/03/17 03:45 Carbon Dioxide 42 mEq/L (23-29) H* 04/03/17 03:45 BUN 30 mg/dL (8-23) H 04/03/17 03:45 Creatinine 0.45 mg/dL (0.60-1.20) L 04/03/17 03:45 BUN/Creatinine Ratio 67 (6-26) H 04/03/17 03:45 Glucose 219 mg/dL (70-105) H 04/03/17 03:45 POC Glucose 199 (58-89) H 04/02/17 23:59 Troponin I 0.04 ng/mL (< 0.04) H* 03/22/17 16:12 Serum Total Protein 6.1 g/dL (6.4-8.9) L 03/22/17 16:12 Albumin 2.8 g/dL (3.5-5.7) L 03/22/17 16:12 Albumin/Globulin Ratio 0.8 (1.1-2.2) L 03/22/17 16:12 - Clinical Findings Intake & Output: Intake & Output 04/02/17 04/02/17 04/03/17 15:59 23:59 07:59 Intake Total 800 / 800 1046 / 1046 651 / 651 Output Total 1275 / 1275 1300 / 1300 1000 / 1000 Balance -475 / -475 -254 / -254 -349 / -349 - VTE Documentation of Mechanical Device: Graduated compression elastic hosiery Consult Discharge Plan - Plan Referrals: NONE,PCP [Primary Care Provider] - <Isael Carrera - Last Filed: 04/03/17 11:12> Date of Encounter: 04/03/17 Assessment and Plan (1) Acute and chronic respiratory failure Current Visit: Yes Status: Acute Qualifiers: Respiratory failure complication: hypoxia and hypercapnia Qualified Code(s) : J96.21 - Acute and chronic respiratory failure with hypoxia; J96.22 - Acute and chronic respiratory failure with hypercapnia; J96.22 - Acute and chronic respiratory failure with hypercapnia; J96.22 - Acute and chronic respiratory failure with hypercapnia (2) Pulmonary interstitial fibrosis Current Visit: Yes Status: Chronic (3) COPD with exacerbation Current Visit: Yes Status: Acute (4) Sepsis Current Visit: Yes Status: Acute Qualifiers: Sepsis type: sepsis due to unspecified organism Qualified Code(s): A41.9 - Sepsis, unspecified organism (5) Decubital ulcer Current Visit: Yes Status: Chronic Qualifiers: Pressure ulcer location: buttock Pressure ulcer stage: stage 2 Laterality : unspecified laterality Qualified Code(s): L89.302 - Pressure ulcer of unspecified buttock, stage 2 Objective PUL Vital signs: Last Vital Signs Temp 98.0 F 04/03/17 08:00 Pulse 54 04/03/17 10:00 Resp 18 04/03/17 11:05 BP 123/72 04/03/17 11:05 Pulse Ox 95 04/03/17 11:05 Ventilator Settings Ventilator Settings: Ventilator Settings, Last 8 Hours Ventilator Mode CPAP Ventilator Mode VC+ Ventilator Mode VC+ Ventilator Mode VC+ Ventilator Mode VC+ Ventilator Mode VC+ Ventilator Mode VC+ Ventilator Mode VC+ Ventilator Mode VC+ Ventilator Tidal Volume 375 Setting Ventilator Tidal Volume 375 Setting Ventilator Tidal Volume 375 Setting Ventilator Tidal Volume 375 Setting Ventilator Tidal Volume 375 Setting Ventilator Tidal Volume 375 Setting Ventilator Tidal Volume 375 Setting Ventilator Tidal Volume 375 Setting Ventilator Respiratory Rate 12 Setting Ventilator Respiratory Rate 12 Setting Ventilator Respiratory Rate 12 Setting Ventilator Respiratory Rate 12 Setting Ventilator Respiratory Rate 12 Setting Ventilator Respiratory Rate 12 Setting Ventilator Respiratory Rate 12 Setting Ventilator Respiratory Rate 12 Setting Actual Respiratory Rate 21 Actual Respiratory Rate 15 Actual Respiratory Rate 16 Actual Respiratory Rate 15 Actual Respiratory Rate 15 Actual Respiratory Rate 15 Actual Respiratory Rate 19 Actual Respiratory Rate 17 Actual Respiratory Rate 24 Actual Respiratory Rate 20 Actual Respiratory Rate 19 Positive End Expiratory 5 Pressure Positive End Expiratory 5 Pressure Positive End Expiratory 5 Pressure Positive End Expiratory 5 Pressure Positive End Expiratory 5 Pressure Positive End Expiratory 5 Pressure Positive End Expiratory 5 Pressure Positive End Expiratory 5 Pressure Positive End Expiratory 5 Pressure Positive End Expiratory 5 Pressure Positive End Expiratory 5 Pressure Peak Inspiratory Airway 14 Pressure Peak Inspiratory Airway 11 Pressure Peak Inspiratory Airway 11 Pressure Peak Inspiratory Airway 12 Pressure Peak Inspiratory Airway 11 Pressure Peak Inspiratory Airway 24 Pressure Peak Inspiratory Airway 21 Pressure Peak Inspiratory Airway 23 Pressure Peak Inspiratory Airway 22 Pressure Peak Inspiratory Airway 15 Pressure Results - Laboratory Findings CBC and BMP: 04/03/17 03:45 04/03/17 03:45 ABG ABG pH 7.37 pH Units (7.32-7.45) 04/03/17 05:15 ABG pCO2 80 mmHg (35-45) H* 04/03/17 05:15 ABG pO2 95 mmHg (85-104) 04/03/17 05:15 ABG O2 Saturation 97 % (95-98) 04/03/17 05:15 PT/INR, D-dimer PT 14.1 Seconds (9.4-12.1) H 03/22/17 16:12 Abnormal lab findings: Abnormal lab results WBC 16.9 K/mcL (4.3-11.1) H 04/03/17 03:45 MCHC 31.5 g/dL (31.6-35.5) L 04/03/17 03:45 Neutrophils # 13.3 K/mcL (1.6-8.9) H 04/01/17 03:50 Nucleated RBCs/100 WBC 0.1 /100 WBC (0) H 04/01/17 03:50 PT 14.1 Seconds (9.4-12.1) H 03/22/17 16:12 ABG pCO2 80 mmHg (35-45) H* 04/03/17 05:15 ABG HCO3 46 mEq/L (21-27) H 04/03/17 05:15 ABG Total CO2 49 mEq/L (20-26) H 04/03/17 05:15 ABG Base Excess 16 mEq/L (-2 to 3) H 04/03/17 05:15 Chloride 90 mEq/L (98-107) L 04/03/17 03:45 Carbon Dioxide 42 mEq/L (23-29) H* 04/03/17 03:45 BUN 30 mg/dL (8-23) H 04/03/17 03:45 Creatinine 0.45 mg/dL (0.60-1.20) L 04/03/17 03:45 BUN/Creatinine Ratio 67 (6-26) H 04/03/17 03:45 Glucose 219 mg/dL (70-105) H 04/03/17 03:45 POC Glucose 199 (58-89) H 04/02/17 23:59 Troponin I 0.04 ng/mL (< 0.04) H* 03/22/17 16:12 Serum Total Protein 6.1 g/dL (6.4-8.9) L 03/22/17 16:12 Albumin 2.8 g/dL (3.5-5.7) L 03/22/17 16:12 Albumin/Globulin Ratio 0.8 (1.1-2.2) L 03/22/17 16:12 - Clinical Findings Intake & Output: Intake & Output 04/02/17 04/03/17 04/03/17 23:59 07:59 15:59 Intake Total 1046 / 1046 651 / 651 Output Total 1300 / 1300 1000 / 1000 200 / 200 Balance -254 / -254 -349 / -349 -200 / -200 - Attending Attestation I examined this patient and my medical decision-making was reviewed with the Resident Physician. I agree with the documented findings, disposition and treatment plan as described except to the extent set forth below. Patient seen and examined. Labs, radiology, chart personally reviewed. Agree with resident's history and physical, assessment, plan with following comments: [employer]: Patient follows commands, Pulmonary: Acceptable oxygenation and ventilation, however with cardiac arrhythmia patient was not able to do spontaneous breathing trial and this will be attempted to gain and need to discuss with the family regarding plan of care I have a suspicion may be able to tolerate BiPAP with marked diuresis. Cardiovascular: Check TSH and increase beta karthik for better rate control. GI: Nutrition per dietary and GI prophylaxis per routine Heme: DVT prophylaxis per routine ID: Continue antibiotics and plan to de-escalation Renal; urine out put and renal funtion reviewed Endorcine: blood glucose is monitored. Decreased systemic steroid Lines: all lines checked and no evidence of infections Skin: skin care to prevent pressure ulcers per nursing routine care Overall prognosis is poor
[2017-04-03] MEDS: MethylPREDNISolone 40 MG/ML VIAL IVP SCH (08:21)
[2017-04-03] MEDS: Insulin DETEMIR 100 UNIT/ML X5UNITS SQ SCH ×2 (08:21→19:39)
[2017-04-03] MEDS: Pantoprazole 40 MG VIAL IVP SCH (08:21)
[2017-04-03] MEDS: *HR* Heparin 5,000 UNIT/ML VIAL SQ SCH ×3 (08:21→23:24)
[2017-04-03] MEDS: Chlorhexidine Rinse 15 ML MOUTHWASH MM SCH ×2 (08:21→19:39)
[2017-04-03] MEDS: Budesonide/Formoterol 160/4.5 MDI IH SCH ×2 (11:10→22:21)
[2017-04-03] MEDS: Dexmedetomidine HCl 400 MCG/100 ML MLS IVC SCH (17:57)
[2017-04-04] MEDS ORDERED: *HR* Metoprolol 5 MG/5 ML VIAL IVP ONE ×2 (01:20→01:25)
[2017-04-04] MEDS ORDERED: *HR* FentaNYL (PF) 100 MCG/2 ML VIAL IVP ONE (03:01)
[2017-04-04] MEDS: Insulin LISPRO 300 UNITS/3 ML VIAL SQ SCH ×5 (03:31→21:09)
[2017-04-04] MEDS: Lacri-Lube 3.5 GM TUBE BOTH EYES SCH ×2 (03:31→08:06)
[2017-04-04] MEDS: Levalbuterol Neb 0.63 MG/3 ML IH SCH ×2 (03:53→09:27)
[2017-04-04 04:10] LABS: ABG Base Excess 18 mEq/L (-2 to 3); ABG HCO3 47 mEq/L (21-27); ABG Oxygen Saturation 98 % (95-98); ABG PCO2 72 mmHg (35-45); ABG PH 7.43 pH Units (7.32-7.45); ABG PO2 102 mmHg (85-104); ABG TCO2 50 mEq/L (20-26)
[2017-04-04 04:35] LABS: Hematocrit 41.1 % (35.3-44.9); Mean Corpuscular HGB Conc 31.6 g/dL (31.6-35.5); Mean Corpuscular Hemoglobin 29.7 pg (28.0-33.3); Mean Corpuscular Volume 94.1 fL (83.0-100.0); Mean Platelet Volume 11.2 fL (9.4-12.4); Platelet Count 187 K/mcL (140-400); Red Blood Count 4.37 M/mcL (3.82-4.97); Red Cell Distribution Width 14.2 % (11.5-14.5)
[2017-04-04 05:13] LABS: BUN/Creatinine Ratio 86 (6-26); Blood Urea Nitrogen 30 mg/dL (8-23); Calcium 9.4 mg/dL (8.6-10.3); Carbon Dioxide 43 mEq/L (23-29); Chloride 94 mEq/L (98-107); Glucose 102 mg/dL (70-105); Osmolality,Calculated 296 (280-300); Potassium 3.2 mEq/L (3.5-5.1); Sodium 140 mEq/L (136-145); eGFR For African Americans > 60 (> 60); eGFR For Non-African Americans > 60 (> 60)
[2017-04-04] MEDS ORDERED: *HR* LORazepam 2 MG/ML VIAL IVP ONE (05:48)
[2017-04-04] MEDS ORDERED: Potassium Chloride 40 MEQ, Lidocaine 1% 2 ML in D5% in Water 500 ML IVPB ONE (06:00)
[2017-04-04] MEDS: Levothyroxine 25 MCG TABLET PO SCH (06:52)
--- NOTE | 2017-04-04 07:42 | Pulmonology Progress Note ---
<Raymond Sidhu - Last Filed: 04/04/17 15:07> Date of Encounter: 04/04/17 Time of Encounter: 08:45 Assessment and Plan (1) Acute and chronic respiratory failure Current Visit: Yes Status: Acute Extubated 04/03 to bipap, has been on 12/6 fio2 40% and saturating well, comfortable. Wt count without fever (97.6 04/01)--likely leukocytosis from steroids q8h, decreased her steroid to qdaily. Maintaining euvolemia important in setting of her chronic pulm fibosis. Qualifiers: Respiratory failure complication: hypoxia and hypercapnia Qualified Code(s) : J96.21 - Acute and chronic respiratory failure with hypoxia; J96.22 - Acute and chronic respiratory failure with hypercapnia; J96.22 - Acute and chronic respiratory failure with hypercapnia; J96.22 - Acute and chronic respiratory failure with hypercapnia (2) Decubital ulcer Current Visit: Yes Status: Chronic Daily wound care per nursing, currently stable coccyx decubital ulcer at stage 3. Per Wound Care: Wound is 100% yellow slough measuring 0.5cm x 0.5cm - 0.5cm deep. The periwound skin is white and macerated 360%. Once the wound is debrided to reveal the entire wound, it will most likely measure 1cm x 1cm and be a deeper Stage 3. Will write orders to lightly pack with mesalt ribbon. Qualifiers: Pressure ulcer location: buttock Pressure ulcer stage: stage 2 Laterality : unspecified laterality Qualified Code(s): L89.302 - Pressure ulcer of unspecified buttock, stage 2 (3) Pulmonary interstitial fibrosis Current Visit: Yes Status: Chronic Per medical decision making in (1). Subjective Principal diagnosis: Respiratory failure with hypoxia Interval history: Pt tolerating bipap 12in/6out fio2 40% since extubation yesterday 04/03. She feels weak but is alert and conversant. No chest discomfort, abdominal pain, or shortness of breath. Objective PUL Vital signs: Last Vital Signs Temp 98.0 F 04/04/17 03:00 Pulse 75 04/04/17 06:00 Resp 28 04/04/17 06:00 BP 111/60 04/04/17 06:00 Pulse Ox 95 04/04/17 06:00 General appearance: no acute distress Eyes: nonicteric ENT: oropharynx moist Neck: supple Auscultation: bilateral: diminished breath sounds (on bipap) Cardiovascular: irregular rhythm (currently in 90s) Gastrointestinal: soft, non-tender Integumentary: decubitus ulcer (coccygeal, stage three, dressed) Extremities: no cyanosis Musculoskeletal: no deformities non-focal exam mood appropriate Results - Laboratory Findings CBC and BMP: 04/04/17 04:09 04/04/17 04:09 ABG ABG pH 7.43 pH Units (7.32-7.45) 04/04/17 03:52 ABG pCO2 72 mmHg (35-45) H* 04/04/17 03:52 ABG pO2 102 mmHg (85-104) 04/04/17 03:52 ABG O2 Saturation 98 % (95-98) 04/04/17 03:52 PT/INR, D-dimer PT 14.1 Seconds (9.4-12.1) H 03/22/17 16:12 Abnormal lab findings: Abnormal lab results WBC 14.1 K/mcL (4.3-11.1) H 04/04/17 04:09 Neutrophils # 13.3 K/mcL (1.6-8.9) H 04/01/17 03:50 Nucleated RBCs/100 WBC 0.1 /100 WBC (0) H 04/01/17 03:50 PT 14.1 Seconds (9.4-12.1) H 03/22/17 16:12 ABG pCO2 72 mmHg (35-45) H* 04/04/17 03:52 ABG HCO3 47 mEq/L (21-27) H 04/04/17 03:52 ABG Total CO2 50 mEq/L (20-26) H 04/04/17 03:52 ABG Base Excess 18 mEq/L (-2 to 3) H 04/04/17 03:52 Potassium 3.2 mEq/L (3.5-5.1) L 04/04/17 04:09 Chloride 94 mEq/L (98-107) L 04/04/17 04:09 Carbon Dioxide 43 mEq/L (23-29) H* 04/04/17 04:09 BUN 30 mg/dL (8-23) H 04/04/17 04:09 Creatinine 0.35 mg/dL (0.60-1.20) L 04/04/17 04:09 BUN/Creatinine Ratio 86 (6-26) H 04/04/17 04:09 POC Glucose 104 (58-89) H 04/04/17 00:45 Troponin I 0.04 ng/mL (< 0.04) H* 03/22/17 16:12 Serum Total Protein 6.1 g/dL (6.4-8.9) L 03/22/17 16:12 Albumin 2.8 g/dL (3.5-5.7) L 03/22/17 16:12 Albumin/Globulin Ratio 0.8 (1.1-2.2) L 03/22/17 16:12 - Clinical Findings Intake & Output: Intake & Output 04/03/17 04/03/17 04/04/17 15:59 23:59 07:59 Intake Total 340 / 340 0 / 0 0 / 0 Output Total 375 / 375 500 / 500 100 / 100 Balance -35 / -35 -500 / -500 -100 / -100 - VTE Documentation of Mechanical Device: Graduated compression elastic hosiery Consult Discharge Plan - Plan Referrals: NONE,PCP [Primary Care Provider] - <Isael Carrera M - Last Filed: 04/04/17 17:21> Date of Encounter: 04/04/17 Assessment and Plan (1) Acute and chronic respiratory failure Current Visit: Yes Status: Acute Qualifiers: Respiratory failure complication: hypoxia and hypercapnia Qualified Code(s) : J96.21 - Acute and chronic respiratory failure with hypoxia; J96.22 - Acute and chronic respiratory failure with hypercapnia; J96.22 - Acute and chronic respiratory failure with hypercapnia; J96.22 - Acute and chronic respiratory failure with hypercapnia (2) Pulmonary interstitial fibrosis Current Visit: Yes Status: Chronic (3) COPD with exacerbation Current Visit: Yes Status: Acute (4) Sepsis Current Visit: Yes Status: Acute Qualifiers: Sepsis type: sepsis due to unspecified organism Qualified Code(s): A41.9 - Sepsis, unspecified organism (5) Decubital ulcer Current Visit: Yes Status: Chronic Qualifiers: Pressure ulcer location: buttock Pressure ulcer stage: stage 2 Laterality : unspecified laterality Qualified Code(s): L89.302 - Pressure ulcer of unspecified buttock, stage 2 Objective PUL Vital signs: Last Vital Signs Temp 98.5 F 04/04/17 11:00 Pulse 88 04/04/17 16:00 Resp 35 04/04/17 16:00 BP 131/70 04/04/17 16:00 Pulse Ox 91 04/04/17 16:00 Results - Laboratory Findings CBC and BMP: 04/04/17 04:09 04/04/17 04:09 ABG ABG pH 7.43 pH Units (7.32-7.45) 04/04/17 03:52 ABG pCO2 72 mmHg (35-45) H* 04/04/17 03:52 ABG pO2 102 mmHg (85-104) 04/04/17 03:52 ABG O2 Saturation 98 % (95-98) 04/04/17 03:52 PT/INR, D-dimer PT 14.1 Seconds (9.4-12.1) H 03/22/17 16:12 Abnormal lab findings: Abnormal lab results WBC 14.1 K/mcL (4.3-11.1) H 04/04/17 04:09 Neutrophils # 13.3 K/mcL (1.6-8.9) H 04/01/17 03:50 Nucleated RBCs/100 WBC 0.1 /100 WBC (0) H 04/01/17 03:50 PT 14.1 Seconds (9.4-12.1) H 03/22/17 16:12 ABG pCO2 72 mmHg (35-45) H* 04/04/17 03:52 ABG HCO3 47 mEq/L (21-27) H 04/04/17 03:52 ABG Total CO2 50 mEq/L (20-26) H 04/04/17 03:52 ABG Base Excess 18 mEq/L (-2 to 3) H 04/04/17 03:52 Potassium 3.2 mEq/L (3.5-5.1) L 04/04/17 04:09 Chloride 94 mEq/L (98-107) L 04/04/17 04:09 Carbon Dioxide 43 mEq/L (23-29) H* 04/04/17 04:09 BUN 30 mg/dL (8-23) H 04/04/17 04:09 Creatinine 0.35 mg/dL (0.60-1.20) L 04/04/17 04:09 BUN/Creatinine Ratio 86 (6-26) H 04/04/17 04:09 POC Glucose 104 (58-89) H 04/04/17 00:45 Troponin I 0.04 ng/mL (< 0.04) H* 03/22/17 16:12 Serum Total Protein 6.1 g/dL (6.4-8.9) L 03/22/17 16:12 Albumin 2.8 g/dL (3.5-5.7) L 03/22/17 16:12 Albumin/Globulin Ratio 0.8 (1.1-2.2) L 03/22/17 16:12 - Clinical Findings Intake & Output: Intake & Output 04/04/17 04/04/17 04/04/17 07:59 15:59 23:59 Intake Total 0 / 0 Output Total 225 / 225 250 / 250 Balance -225 / -225 -250 / -250 - Attending Attestation I examined this patient and my medical decision-making was reviewed with the Resident Physician. I agree with the documented findings, disposition and treatment plan as described except to the extent set forth below. Patient seen and examined. Labs, radiology, chart personally reviewed. Agree with resident's history and physical, assessment, plan with following comments: [employer]NER: Patient follows commands, Pulmonary: Acceptable oxygenation and ventilation and patient I still feel prognosis is poor. Patient will remain in ICU for close monitoring. She has potential her respiratory status could deteriorate Cardiovascular: stable and increase beta karthik to have a better rate control. GI: Nutrition per dietary and GI prophylaxis per routine Heme: DVT prophylaxis per routine Renal; urine out put and renal funtion reviewed Endorcine: blood glucose is monitored Lines: all lines checked and no evidence of infections Skin: skin care to prevent pressure ulcers per nursing routine care
[2017-04-04] MEDS: MethylPREDNISolone 40 MG/ML VIAL IVP SCH (08:05)
[2017-04-04] MEDS: *HR* Heparin 5,000 UNIT/ML VIAL SQ SCH ×2 (08:05→16:35)
[2017-04-04] MEDS: Pantoprazole 40 MG VIAL IVP SCH (08:06)
[2017-04-04] MEDS: Insulin DETEMIR 100 UNIT/ML X5UNITS SQ SCH (08:06)
[2017-04-04] MEDS: Chlorhexidine Rinse 15 ML MOUTHWASH MM SCH (08:06)
[2017-04-04] MEDS: Budesonide/Formoterol 160/4.5 MDI IH SCH ×2 (09:27→23:28)
[2017-04-04] MEDS: *HR* Metoprolol 5 MG/5 ML VIAL IVP SCH ×2 (11:36→16:36)
[2017-04-04] MEDS: Levalbuterol Neb 1.25 MG/3 ML IH SCH ×2 (15:30→23:27)
[2017-04-04] MEDS: Dexmedetomidine HCl 400 MCG/100 ML MLS IVC SCH (21:07)
[2017-04-05] MEDS: *HR* Heparin 5,000 UNIT/ML VIAL SQ SCH ×4 (00:08→23:03)
[2017-04-05] MEDS: *HR* Metoprolol 5 MG/5 ML VIAL IVP SCH ×5 (00:08→18:27)
[2017-04-05] MEDS: Insulin LISPRO 300 UNITS/3 ML VIAL SQ SCH ×7 (00:10→23:03)
[2017-04-05] MEDS ORDERED: Acetaminophen 325 MG TABLET PO ONE (02:52)
[2017-04-05] MEDS: Levalbuterol Neb 1.25 MG/3 ML IH SCH ×4 (03:47→21:51)
[2017-04-05 04:07] LABS: Hematocrit 41.6 % (35.3-44.9); Hemoglobin 12.8 g/dL (11.5-15.4); Mean Corpuscular HGB Conc 30.8 g/dL (31.6-35.5); Mean Corpuscular Hemoglobin 29.5 pg (28.0-33.3); Mean Corpuscular Volume 95.9 fL (83.0-100.0); Mean Platelet Volume 10.8 fL (9.4-12.4); Platelet Count 168 K/mcL (140-400); Red Blood Count 4.34 M/mcL (3.82-4.97); Red Cell Distribution Width 14.4 % (11.5-14.5)
[2017-04-05 04:41] LABS: BUN/Creatinine Ratio 84 (6-26); Blood Urea Nitrogen 26 mg/dL (8-23); Calcium 9.5 mg/dL (8.6-10.3); Carbon Dioxide 38 mEq/L (23-29); Chloride 96 mEq/L (98-107); Glucose 161 mg/dL (70-105); Osmolality,Calculated 296 (280-300); Potassium 3.8 mEq/L (3.5-5.1); Sodium 139 mEq/L (136-145); eGFR For African Americans > 60 (> 60); eGFR For Non-African Americans > 60 (> 60)
[2017-04-05 04:50] LABS: ABG Base Excess 12 mEq/L (-2 to 3); ABG HCO3 39 mEq/L (21-27); ABG Oxygen Saturation 97 % (95-98); ABG PCO2 58 mmHg (35-45); ABG PH 7.43 pH Units (7.32-7.45); ABG PO2 93 mmHg (85-104); ABG TCO2 41 mEq/L (20-26)
[2017-04-05] MEDS: Levothyroxine 25 MCG TABLET PO SCH (04:54)
--- NOTE | 2017-04-05 09:07 | Pulmonology Progress Note ---
<Raymond Sidhu - Last Filed: 04/05/17 15:38> Date of Encounter: 04/05/17 Time of Encounter: 08:45 Assessment and Plan (1) Acute and chronic respiratory failure Current Visit: Yes Status: Acute Extubated 04/03 to bipap, and now transitioned to nasal cannula at 3L, comfortable and saturating in therapeutic range. Wt count without fever (97.6 04/01)--likely leukocytosis from steroids q8h, decreased her steroid to qdaily. Maintaining euvolemia important in setting of her chronic pulm fibosis: mildy negative fluid now -100 to -200 04/05. Qualifiers: Respiratory failure complication: hypoxia and hypercapnia Qualified Code(s) : J96.21 - Acute and chronic respiratory failure with hypoxia; J96.22 - Acute and chronic respiratory failure with hypercapnia; J96.22 - Acute and chronic respiratory failure with hypercapnia; J96.22 - Acute and chronic respiratory failure with hypercapnia (2) Decubital ulcer Current Visit: Yes Status: Chronic Daily wound care per nursing, currently stable coccyx decubital ulcer at stage 3. Risk Factor sedentary state; working with PT/OT/nutrition for reducing wound risk factors and improving nutrition supplementation. Started Vitamin C and Zinc. Per Wound Care: Wound is 100% yellow slough measuring 0.5cm x 0.5cm - 0.5cm deep. The periwound skin is white and macerated 360%. Once the wound is debrided to reveal the entire wound, it will most likely measure 1cm x 1cm and be a deeper Stage 3. Will write orders to lightly pack with mesalt ribbon. Qualifiers: Pressure ulcer location: buttock Pressure ulcer stage: stage 2 Laterality : unspecified laterality Qualified Code(s): L89.302 - Pressure ulcer of unspecified buttock, stage 2 (3) Pulmonary interstitial fibrosis Current Visit: Yes Status: Chronic Per medical decision making in (1). (4) Paroxysmal A-fib Current Visit: Yes Status: Acute On Metoprolol 5mg IVP q6. On SQ Heparin; does not take home anticoagulation. TSH euthyroid, ordering Free T4/T3; due to labile HR, have gone down temporarily on Synthroid from 25mcg to 12.5mcg. (5) DVT prophylaxis Current Visit: Yes Status: Acute SQ Heparin Subjective Principal diagnosis: Respiratory failure with hypoxia Interval history: Pt tolerating nasal cannula at 3L; extubation 2 days ago on 04/03. PT/OT working to improve patient's strength, was not able to get up from bed yesterday during her first PT/OT session. Objective PUL Vital signs: Last Vital Signs Temp 98.0 F 04/05/17 08:00 Pulse 92 04/05/17 08:40 Resp 33 04/05/17 08:38 BP 106/75 04/05/17 08:38 Pulse Ox 95 04/05/17 08:38 General appearance: no acute distress, lethargic Eyes: nonicteric ENT: oropharynx moist Neck: supple Effort: normal Auscultation: bilateral: diminished breath sounds, rales Cardiovascular: other (HR labile from mid 70s to 120s occasionally; average mid 80s) Gastrointestinal: soft, non-distended Integumentary: other (stage 3 coccygeal decubitous ulcer) Extremities: no cyanosis Musculoskeletal: no deformities Gait: other (bed-bound; PT/OT onboard) non-focal exam affect normal Results - Laboratory Findings CBC and BMP: 04/05/17 03:58 04/05/17 03:58 ABG ABG pH 7.43 pH Units (7.32-7.45) 04/05/17 04:47 ABG pCO2 58 mmHg (35-45) H 04/05/17 04:47 ABG pO2 93 mmHg (85-104) 04/05/17 04:47 ABG O2 Saturation 97 % (95-98) 04/05/17 04:47 PT/INR, D-dimer PT 14.1 Seconds (9.4-12.1) H 03/22/17 16:12 Abnormal lab findings: Abnormal lab results WBC 18.7 K/mcL (4.3-11.1) H 04/05/17 03:58 MCHC 30.8 g/dL (31.6-35.5) L 04/05/17 03:58 Neutrophils # 13.3 K/mcL (1.6-8.9) H 04/01/17 03:50 Nucleated RBCs/100 WBC 0.1 /100 WBC (0) H 04/01/17 03:50 PT 14.1 Seconds (9.4-12.1) H 03/22/17 16:12 ABG pCO2 58 mmHg (35-45) H 04/05/17 04:47 ABG HCO3 39 mEq/L (21-27) H 04/05/17 04:47 ABG Total CO2 41 mEq/L (20-26) H 04/05/17 04:47 ABG Base Excess 12 mEq/L (-2 to 3) H 04/05/17 04:47 Chloride 96 mEq/L (98-107) L 04/05/17 03:58 Carbon Dioxide 38 mEq/L (23-29) H 04/05/17 03:58 BUN 26 mg/dL (8-23) H 04/05/17 03:58 Creatinine 0.31 mg/dL (0.60-1.20) L 04/05/17 03:58 BUN/Creatinine Ratio 84 (6-26) H 04/05/17 03:58 Glucose 161 mg/dL (70-105) H 04/05/17 03:58 POC Glucose 126 (58-89) H 04/04/17 23:54 Troponin I 0.04 ng/mL (< 0.04) H* 03/22/17 16:12 Serum Total Protein 6.1 g/dL (6.4-8.9) L 03/22/17 16:12 Albumin 2.8 g/dL (3.5-5.7) L 03/22/17 16:12 Albumin/Globulin Ratio 0.8 (1.1-2.2) L 03/22/17 16:12 - Clinical Findings Intake & Output: Intake & Output 04/04/17 04/05/17 04/05/17 23:59 07:59 15:59 Intake Total 0 / 0 Output Total 100 / 100 200 / 200 50 / 50 Balance -100 / -100 -200 / -200 -50 / -50 Weight 80.5 kg - VTE Documentation of Mechanical Device: Graduated compression elastic hosiery Consult Discharge Plan - Plan Referrals: NONE,PCP [Primary Care Provider] - <Isael Carrera - Last Filed: 04/05/17 17:39> Date of Encounter: 04/05/17 Assessment and Plan (1) Acute and chronic respiratory failure Current Visit: Yes Status: Acute Qualifiers: Respiratory failure complication: hypoxia and hypercapnia Qualified Code(s) : J96.21 - Acute and chronic respiratory failure with hypoxia; J96.22 - Acute and chronic respiratory failure with hypercapnia; J96.22 - Acute and chronic respiratory failure with hypercapnia; J96.22 - Acute and chronic respiratory failure with hypercapnia (2) Pulmonary interstitial fibrosis Current Visit: Yes Status: Chronic (3) COPD with exacerbation Current Visit: Yes Status: Acute (4) Sepsis Current Visit: Yes Status: Acute Qualifiers: Sepsis type: sepsis due to unspecified organism Qualified Code(s): A41.9 - Sepsis, unspecified organism (5) Decubital ulcer Current Visit: Yes Status: Chronic Qualifiers: Pressure ulcer location: buttock Pressure ulcer stage: stage 2 Laterality : unspecified laterality Qualified Code(s): L89.302 - Pressure ulcer of unspecified buttock, stage 2 Objective PUL Vital signs: Last Vital Signs Temp 98.0 F 04/05/17 08:00 Pulse 90 04/05/17 12:12 Resp 42 04/05/17 12:12 BP 120/67 04/05/17 12:12 Pulse Ox 93 04/05/17 12:12 Results - Laboratory Findings CBC and BMP: 04/05/17 03:58 04/05/17 03:58 ABG ABG pH 7.43 pH Units (7.32-7.45) 04/05/17 04:47 ABG pCO2 58 mmHg (35-45) H 04/05/17 04:47 ABG pO2 93 mmHg (85-104) 04/05/17 04:47 ABG O2 Saturation 97 % (95-98) 04/05/17 04:47 PT/INR, D-dimer PT 14.1 Seconds (9.4-12.1) H 03/22/17 16:12 Abnormal lab findings: Abnormal lab results WBC 18.7 K/mcL (4.3-11.1) H 04/05/17 03:58 MCHC 30.8 g/dL (31.6-35.5) L 04/05/17 03:58 Neutrophils # 13.3 K/mcL (1.6-8.9) H 04/01/17 03:50 Nucleated RBCs/100 WBC 0.1 /100 WBC (0) H 04/01/17 03:50 PT 14.1 Seconds (9.4-12.1) H 03/22/17 16:12 ABG pCO2 58 mmHg (35-45) H 04/05/17 04:47 ABG HCO3 39 mEq/L (21-27) H 04/05/17 04:47 ABG Total CO2 41 mEq/L (20-26) H 04/05/17 04:47 ABG Base Excess 12 mEq/L (-2 to 3) H 04/05/17 04:47 Chloride 96 mEq/L (98-107) L 04/05/17 03:58 Carbon Dioxide 38 mEq/L (23-29) H 04/05/17 03:58 BUN 26 mg/dL (8-23) H 04/05/17 03:58 Creatinine 0.31 mg/dL (0.60-1.20) L 04/05/17 03:58 BUN/Creatinine Ratio 84 (6-26) H 04/05/17 03:58 Glucose 161 mg/dL (70-105) H 04/05/17 03:58 POC Glucose 126 (58-89) H 04/04/17 23:54 Troponin I 0.04 ng/mL (< 0.04) H* 03/22/17 16:12 Serum Total Protein 6.1 g/dL (6.4-8.9) L 03/22/17 16:12 Albumin 2.8 g/dL (3.5-5.7) L 03/22/17 16:12 Albumin/Globulin Ratio 0.8 (1.1-2.2) L 03/22/17 16:12 - Clinical Findings Intake & Output: Intake & Output 04/04/17 04/05/17 04/05/17 23:59 07:59 15:59 Intake Total 0 / 0 Output Total 100 / 100 200 / 200 50 / 50 Balance -100 / -100 -200 / -200 -50 / -50 Weight 80.5 kg - Attending Attestation I examined this patient and my medical decision-making was reviewed with the Resident Physician. I agree with the documented findings, disposition and treatment plan as described except to the extent set forth below. Patient seen and examined. Labs, radiology, chart personally reviewed. Agree with resident's history and physical, assessment, plan with following comments: TRAUMA DIRECTOR: Patient follows commands, Pulmonary: Acceptable oxygenation and ventilation continue noninvasive ventilation Cardiovascular: stable and continue diuresis as possible and adjusting Beta blockers GI: Nutrition per dietary and GI prophylaxis per routine Heme: DVT prophylaxis per routine ID: Continue antibiotics and plan to de-escalation Renal; urine out put and renal funtion reviewed Endorcine: blood glucose is monitored reduced her levothyroxine Lines: all lines checked and no evidence of infections Skin: skin care to prevent pressure ulcers per nursing routine care Continue monitoring in ICU for now and hopefully she can leave the next 1-2 days
[2017-04-05] MEDS: Budesonide/Formoterol 160/4.5 MDI IH SCH ×2 (09:51→21:52)
[2017-04-05] MEDS: MethylPREDNISolone 40 MG/ML VIAL IVP SCH (09:52)
[2017-04-05] MEDS: Pantoprazole 40 MG VIAL IVP SCH (09:52)
[2017-04-05] MEDS: Ascorbic Acid 500 MG TABLET PO SCH (12:46)
[2017-04-05] MEDS: Dexmedetomidine HCl 400 MCG/100 ML MLS IVC SCH (17:56)
[2017-04-05 20:04] LABS: Triiodothyronine (T3) Free 2.68 pg/mL (2.50-3.90)
[2017-04-06 03:34] LABS: Hematocrit 37.2 % (35.3-44.9); Hemoglobin 11.6 g/dL (11.5-15.4); Mean Corpuscular HGB Conc 31.2 g/dL (31.6-35.5); Mean Corpuscular Volume 96.1 fL (83.0-100.0); Mean Platelet Volume 11.2 fL (9.4-12.4); Platelet Count 159 K/mcL (140-400); Red Blood Count 3.87 M/mcL (3.82-4.97); Red Cell Distribution Width 14.6 % (11.5-14.5)
[2017-04-06 03:46] LABS: BUN/Creatinine Ratio 86 (6-26); Blood Urea Nitrogen 24 mg/dL (8-23); Calcium 9.3 mg/dL (8.6-10.3); Carbon Dioxide 38 mEq/L (23-29); Chloride 99 mEq/L (98-107); Glucose 148 mg/dL (70-105); Osmolality,Calculated 299 (280-300); Potassium 3.6 mEq/L (3.5-5.1); Sodium 141 mEq/L (136-145); eGFR For African Americans > 60 (> 60); eGFR For Non-African Americans > 60 (> 60)
[2017-04-06] MEDS: Insulin LISPRO 300 UNITS/3 ML VIAL SQ SCH ×4 (03:49→17:44)
[2017-04-06] MEDS: Levalbuterol Neb 1.25 MG/3 ML IH SCH ×4 (04:01→23:39)
[2017-04-06] MEDS ORDERED: *HR* Metoprolol 5 MG/5 ML VIAL IVP ONE ×2 (04:22→07:48)
[2017-04-06] MEDS ORDERED: Metoprolol XL (24 HR) Succ 50 MG TAB.ER.24H PO SCH ×2 (05:00→07:48)
[2017-04-06] MEDS ORDERED: *HR* LORazepam 2 MG/ML VIAL IVP ONE (06:08)
[2017-04-06] MEDS ORDERED: Levothyroxine 25 MCG TABLET PO SCH (06:30)
--- NOTE | 2017-04-06 06:38 | Event Note ---
<Gloria Zaldivar - Last Filed: 04/06/17 06:35> Date of Encounter: 04/06/17 Time of Encounter: 06:15 Code status changed to DNR CCA DNI. The patient reported to her nurse and then requested I come to bedside to discuss code status change. The patient reported that she did not want to be re- intubated or have chest compressions. Her daughter was at bedside who was an agreement. The patient was alert and oriented times 3 with full capacity. <Isael Carrera - Last Filed: 04/06/17 17:10> Date of Encounter: 04/06/17 I examined this patient and my medical decision-making was reviewed with the Resident Physician. I agree with the documented findings, disposition and treatment plan as described except to the extent set forth below. This is discussed with the patient as well as family
--- NOTE | 2017-04-06 07:59 | Pulmonology Progress Note ---
<Santino Chatman - Last Filed: 04/06/17 13:56> Date of Encounter: 04/06/17 Time of Encounter: 10:45 Assessment and Plan (1) Acute and chronic respiratory failure Current Visit: Yes Status: Acute Extubated 04/03 to bipap, and now transitioned to nasal cannula at 4L, comfortable and saturating in therapeutic range. Leukocytosis has resolved for the most part We will continue steroids on gradual slow taper by transitioning to 20mg PO Prednisone x 5d, then titrate down slowly as tolerated Maintaining euvolemia important in setting of her chronic pulm fibosis: +36mL balance now Palliative consult pending for discussion about hospice care Qualifiers: Respiratory failure complication: hypoxia and hypercapnia Qualified Code(s) : J96.21 - Acute and chronic respiratory failure with hypoxia; J96.22 - Acute and chronic respiratory failure with hypercapnia; J96.22 - Acute and chronic respiratory failure with hypercapnia; J96.22 - Acute and chronic respiratory failure with hypercapnia (2) Paroxysmal A-fib Current Visit: Yes Status: Acute PAF, occurring sporadically but self-converting or requiring lopressor push Has required multiple doses of metoprolol to control Increased Toprol XL to 75mg PO bid from 50mg PO BID, required 2.5mg IVP Lopressor to convert to sinus this morning (3) Pulmonary interstitial fibrosis Current Visit: Yes Status: Chronic Per medical decision making in (1). (4) Decubital ulcer Current Visit: Yes Status: Chronic Daily wound care per nursing, currently stable coccyx decubital ulcer at stage 3. Risk Factor sedentary state; working with PT/OT/nutrition for reducing wound risk factors and improving nutrition supplementation. Started Vitamin C and Zinc. Patient's daughter is concerned that she may require a different wheelchair because the one she has may have been responsible for the pressure that led to her development of the decubital ulcer. Per Wound Care: Wound is 100% yellow slough measuring 0.5cm x 0.5cm - 0.5cm deep. The periwound skin is white and macerated 360%. Once the wound is debrided to reveal the entire wound, it will most likely measure 1cm x 1cm and be a deeper Stage 3. Will write orders to lightly pack with mesalt ribbon. Qualifiers: Pressure ulcer location: buttock Pressure ulcer stage: stage 2 Laterality : unspecified laterality Qualified Code(s): L89.302 - Pressure ulcer of unspecified buttock, stage 2 (5) DVT prophylaxis Current Visit: Yes Status: Acute SQ Heparing q8h Subjective Principal diagnosis: Respiratory failure with hypoxia Interval history: The patient says that she is feeling alright overall. She does not have any specific complaints, although she does say that she's having significant pain from her decubital ulcer. Her daughter expressed concern for difficulty swallowing pills, however speech therapy cleared her for solids. I discussed with them both that PO meds are preferable to IV meds in the long lines operator, because we will not be able to do IV meds once she leaves. Objective PUL Vital signs: Last Vital Signs Temp 99.4 F 04/06/17 05:24 Pulse 105 04/06/17 06:00 Resp 42 04/06/17 06:00 BP 91/69 04/06/17 06:00 Pulse Ox 92 04/06/17 06:00 General appearance: no acute distress, alert Eyes: nonicteric ENT: oropharynx moist Mallampati (class): 2 Neck: supple Effort: normal Auscultation: bilateral: wheezes Cardiovascular: regular rate and rhythm (afib that is appropriately rate controlled) Gastrointestinal: normoactive bowel sounds, soft, non-distended Integumentary: normal Extremities: no cyanosis, no ischemia or petechiae, edema (Trace) Musculoskeletal: no deformities normal mental status, non-focal exam mood appropriate, affect normal Results - Laboratory Findings CBC and BMP: 04/06/17 03:10 04/06/17 03:10 ABG ABG pH 7.43 pH Units (7.32-7.45) 04/05/17 04:47 ABG pCO2 58 mmHg (35-45) H 04/05/17 04:47 ABG pO2 93 mmHg (85-104) 04/05/17 04:47 ABG O2 Saturation 97 % (95-98) 04/05/17 04:47 PT/INR, D-dimer PT 14.1 Seconds (9.4-12.1) H 03/22/17 16:12 Abnormal lab findings: Abnormal lab results WBC 11.2 K/mcL (4.3-11.1) H 04/06/17 03:10 MCHC 31.2 g/dL (31.6-35.5) L 04/06/17 03:10 RDW 14.6 % (11.5-14.5) H 04/06/17 03:10 Neutrophils # 13.3 K/mcL (1.6-8.9) H 04/01/17 03:50 Nucleated RBCs/100 WBC 0.1 /100 WBC (0) H 04/01/17 03:50 PT 14.1 Seconds (9.4-12.1) H 03/22/17 16:12 ABG pCO2 58 mmHg (35-45) H 04/05/17 04:47 ABG HCO3 39 mEq/L (21-27) H 04/05/17 04:47 ABG Total CO2 41 mEq/L (20-26) H 04/05/17 04:47 ABG Base Excess 12 mEq/L (-2 to 3) H 04/05/17 04:47 Carbon Dioxide 38 mEq/L (23-29) H 04/06/17 03:10 BUN 24 mg/dL (8-23) H 04/06/17 03:10 Creatinine 0.28 mg/dL (0.60-1.20) L 04/06/17 03:10 BUN/Creatinine Ratio 86 (6-26) H 04/06/17 03:10 Glucose 148 mg/dL (70-105) H 04/06/17 03:10 POC Glucose 144 (58-89) H 04/05/17 22:52 Troponin I 0.04 ng/mL (< 0.04) H* 03/22/17 16:12 Serum Total Protein 6.1 g/dL (6.4-8.9) L 03/22/17 16:12 Albumin 2.8 g/dL (3.5-5.7) L 03/22/17 16:12 Albumin/Globulin Ratio 0.8 (1.1-2.2) L 03/22/17 16:12 - Clinical Findings Intake & Output: Intake & Output 04/05/17 04/05/17 04/06/17 15:59 23:59 07:59 Intake Total 0 / 0 560 / 560 240 / 240 Output Total 175 / 175 425 / 425 100 / 100 Balance -175 / -175 135 / 135 140 / 140 Weight 87 kg - VTE Documentation of Mechanical Device: Graduated compression elastic hosiery Consult Discharge Plan - Plan Referrals: NONE,PCP [Primary Care Provider] - <NiecyjaylonmaddieIsael Ervin - Last Filed: 04/06/17 14:18> Date of Encounter: 04/06/17 Assessment and Plan (1) Acute and chronic respiratory failure Current Visit: Yes Status: Acute Qualifiers: Respiratory failure complication: hypoxia and hypercapnia Qualified Code(s) : J96.21 - Acute and chronic respiratory failure with hypoxia; J96.22 - Acute and chronic respiratory failure with hypercapnia; J96.22 - Acute and chronic respiratory failure with hypercapnia; J96.22 - Acute and chronic respiratory failure with hypercapnia (2) Pulmonary interstitial fibrosis Current Visit: Yes Status: Chronic (3) COPD with exacerbation Current Visit: Yes Status: Acute (4) Sepsis Current Visit: Yes Status: Acute Qualifiers: Sepsis type: sepsis due to unspecified organism Qualified Code(s): A41.9 - Sepsis, unspecified organism (5) Decubital ulcer Current Visit: Yes Status: Chronic Qualifiers: Pressure ulcer location: buttock Pressure ulcer stage: stage 2 Laterality : unspecified laterality Qualified Code(s): L89.302 - Pressure ulcer of unspecified buttock, stage 2 Objective PUL Vital signs: Last Vital Signs Temp 97.9 F 04/06/17 12:00 Pulse 84 04/06/17 13:00 Resp 26 04/06/17 13:00 BP 98/53 04/06/17 13:00 Pulse Ox 93 04/06/17 13:00 Results - Laboratory Findings CBC and BMP: 04/06/17 03:10 04/06/17 03:10 ABG ABG pH 7.43 pH Units (7.32-7.45) 04/05/17 04:47 ABG pCO2 58 mmHg (35-45) H 04/05/17 04:47 ABG pO2 93 mmHg (85-104) 04/05/17 04:47 ABG O2 Saturation 97 % (95-98) 04/05/17 04:47 PT/INR, D-dimer PT 14.1 Seconds (9.4-12.1) H 03/22/17 16:12 Abnormal lab findings: Abnormal lab results WBC 11.2 K/mcL (4.3-11.1) H 04/06/17 03:10 MCHC 31.2 g/dL (31.6-35.5) L 04/06/17 03:10 RDW 14.6 % (11.5-14.5) H 04/06/17 03:10 Neutrophils # 13.3 K/mcL (1.6-8.9) H 04/01/17 03:50 Nucleated RBCs/100 WBC 0.1 /100 WBC (0) H 04/01/17 03:50 PT 14.1 Seconds (9.4-12.1) H 03/22/17 16:12 ABG pCO2 58 mmHg (35-45) H 04/05/17 04:47 ABG HCO3 39 mEq/L (21-27) H 04/05/17 04:47 ABG Total CO2 41 mEq/L (20-26) H 04/05/17 04:47 ABG Base Excess 12 mEq/L (-2 to 3) H 04/05/17 04:47 Carbon Dioxide 38 mEq/L (23-29) H 04/06/17 03:10 BUN 24 mg/dL (8-23) H 04/06/17 03:10 Creatinine 0.28 mg/dL (0.60-1.20) L 04/06/17 03:10 BUN/Creatinine Ratio 86 (6-26) H 04/06/17 03:10 Glucose 148 mg/dL (70-105) H 04/06/17 03:10 POC Glucose 144 (58-89) H 04/05/17 22:52 Troponin I 0.04 ng/mL (< 0.04) H* 03/22/17 16:12 Serum Total Protein 6.1 g/dL (6.4-8.9) L 03/22/17 16:12 Albumin 2.8 g/dL (3.5-5.7) L 03/22/17 16:12 Albumin/Globulin Ratio 0.8 (1.1-2.2) L 03/22/17 16:12 - Clinical Findings Intake & Output: Intake & Output 04/05/17 04/06/17 04/06/17 23:59 07:59 15:59 Intake Total 560 / 560 240 / 240 Output Total 425 / 425 100 / 100 250 / 250 Balance 135 / 135 140 / 140 -250 / -250 Weight 87 kg - Attending Attestation I examined this patient and my medical decision-making was reviewed with the Resident Physician. I agree with the documented findings, disposition and treatment plan as described except to the extent set forth below. Patient seen and examined. Labs, radiology, chart personally reviewed. Agree with resident's history and physical, assessment, plan with following comments: CHIEF UNIT FORESTER: Patient follows commands, patient wanted to change her CODE STATUS and she is appropriate and palliative consult for hospice evaluation Pulmonary: Acceptable oxygenation and ventilation and to use noninvasive ventilation when necessary Cardiovascular: Patient continued to have paroxysmal A. fib and to increase beta blockers GI: Nutrition per dietary and GI prophylaxis per routine Heme: DVT prophylaxis per routine Renal; urine out put and renal funtion reviewed Endorcine: blood glucose is monitored Lines: all lines checked and no evidence of infections Skin: skin care to prevent pressure ulcers per nursing routine care Patient has multiple comorbidities and in my opinion is very appropriate to change CODE STATUS discussed this with her daughter at the bedside.
[2017-04-06] MEDS: *HR* Heparin 5,000 UNIT/ML VIAL SQ SCH ×2 (08:41→17:36)
[2017-04-06] MEDS: Ascorbic Acid 500 MG TABLET PO SCH (08:41)
[2017-04-06] MEDS: MethylPREDNISolone 40 MG/ML VIAL IVP SCH (08:42)
[2017-04-06] MEDS ORDERED: Zinc Sulfate 220 MG CAPSULE PO SCH (09:00)
[2017-04-06] MEDS: Budesonide/Formoterol 160/4.5 MDI IH SCH ×2 (10:56→23:39)
--- NOTE | 2017-04-06 13:02 | Palliative - Consult Note ---
Date of Encounter: 04/06/17 Time of Encounter: 12:10 - Assessment and Plan (1) Dyspnea Current Visit: Yes Status: Acute Assessment and plan: Continues with IV steroids/bronchodilators/oxygen support/bipap PRN. D/W pt briefly that if she would decide to transition to hospice care, additional medications for breathlessness could be added. Will continue to monitor Qualifiers: Dyspnea type: unspecified Qualified Code(s): R06.00 - Dyspnea, unspecified (2) Debility Current Visit: Yes Status: Acute Assessment and plan: Patient much weaker than her baseline. She is typically able to transfer self from bed to chair. PT/OT consulted and will follow recommendations. D/W social services analyst she may need acute rehab stay if aligned with goals of care. (3) Generalized pain Current Visit: Yes Status: Acute Assessment and plan: Currently this is relieved with repositioning. Will monitor and address if needed. (4) Counseling regarding advanced care planning and goals of care Current Visit: Yes Status: Acute Assessment and plan: Met with patient originally, and then daughter Ivy did arrive and participate in discussion. Discussed goals of care, pt does understand the severity of disease, and understands that it is a progressive illness. Daughter however, states that per her previous certified nurse practitioner stated her "scarring is old", but has new inflammation, and she stated that "no one has ever been able to explain what is causing the inflammation". She believes this is related to the [place] they [place]. Discussed discharge options including: home health , hospice, and rehab. She is eligible for hospice based on the extent of her fibrosis. They are leaning towards some type of rehab at this time however. D/W Kirk PRETTY, and he will be discussing further with pt/daughter. Will continue to follow. (5) Pulmonary interstitial fibrosis Current Visit: Yes Status: Chronic (6) COPD with exacerbation Current Visit: Yes Status: Acute (7) Decubital ulcer Current Visit: Yes Status: Chronic Qualifiers: Pressure ulcer location: buttock Pressure ulcer stage: stage 2 Laterality : unspecified laterality Qualified Code(s): L89.302 - Pressure ulcer of unspecified buttock, stage 2 Palliative-CN HPI - Data of Consult Consult date: 04/06/17 Requesting Physician: Corey Meyer MD Primary Care Provider: PCP NONE - Consult Narrative History of present illness: Ms. Benjamin is a 71 year old female with a history of pulmonary fibrosis who presented to [facility] for shortness of breath. She was intubated and transferred here to [place]. She was spent significant time in ICU ventilator receiving treatment for resp failure/pulmonary fibrosis. She was extubated on 04/03/17, and has used bipap intermittently. CT scan demonstrated Bibasilar honeycomb lung formation consistent with IPF. She states that her previous certified nurse practitioner has retired, states primary physician is Dr. Fitzpatrick. Patient resides at home with her , who is also debilitated and spends most of day in wheelchair. Patient also is primarily wheelchair bound. She was not receiving any outside services, but does utilized multiple DME's at home, including oxygen. Upon my visit, pt is on 4 L nasal cannula and appears in no distress. She does become dyspneic with conversation. Denies pain other than some leg discomfort and needed repositioned and turned in bed. She denies any anxiety, although does state she is "down" often and upset that she cannot do more for herself. States she plans on relocating to daughter's property soon, to assist with her and 's care. CC: Corey Meyer MD Past Med Surg Social Fam HX - Past Medical History Medical history: cancer (Colon Cancer), GERD, hypertension, other (Pulmonary fibrosis) - Past Surgical History Surgical History: , cholecystectomy, colostomy - Social History Smoking Status: Never smoker Smokeless Tobacco Status: No Alcohol use: none Medications and Allergies Benzonatate [Tessalon] 100 mg PO TID PRN 03/23/17 [History] Cholecalciferol (D-3) [Vitamin D] 2,000 unit PO DAILY 03/23/17 [History] Fluticasone Propionate Nasal [Flonase] 2 spr NS DAILY 03/23/17 [History] LORazepam [Ativan] 0.5 mg PO BID 03/23/17 [History] Levothyroxine Sodium [Levoxyl] 50 mcg PO DAILY 03/23/17 [History] Loratadine [Allergy Relief] 10 mg PO DAILY 03/23/17 [History] Magnesium Oxide [Magnesium] 400 mg PO DAILY 03/23/17 [History] Omeprazole [PriLOSEC] 40 mg PO DAILY 03/23/17 [History] Pravastatin Sodium [Pravachol] 40 mg PO DAILY 03/23/17 [History] Tizanidine HCl 4 mg PO BID 03/23/17 [History] predniSONE [PredniSONE] 20 mg PO DAILY 03/23/17 [History] 3 Allergy/AdvReac Type Severity Reaction Status Date / Time ciprofloxacin [From Cipro] Allergy Rash Verified 11/14/16 19:58 Hyoscyamine [From Urelle] Allergy Rash Verified 11/14/16 19:58 methenamine [From Urelle] Allergy Rash Verified 11/14/16 19:58 methylene blue [From Urelle] Allergy Rash Verified 11/14/16 19:58 phenazopyridine Allergy Rash Verified 11/14/16 19:58 [From Pyridium] salicylates [From Urelle] Allergy Rash Verified 11/14/16 19:58 Sodium Phosphate Allergy Rash Verified 11/14/16 19:58 [From Urelle] All systems: reviewed and no additional remarkable complaints except as stated ( Generalized weakness, decreased appetite, shortness of breath with no exertion, moist cough, decreased mobility,) Palliative Care-Exam - Constitutional Vitals: Temp Pulse Resp BP Pulse Ox 99.2 F 86 26 119/73 98 04/06/17 08:00 04/06/17 11:00 04/06/17 11:00 04/06/17 11:00 04/06/17 11:00 General appearance: Present: mild distress, obese - Head Head Exam: Present: normal inspection, normocephalic - Respiratory Additional comments: Course breath sounds throughout all lung baig, scattered expiratory wheezes - Cardiovascular Cardiovascular exam: Present: irregular rhythm - GI/Abdominal Exam GI/Abdominal exam: Present: distended, soft additional comments: Ostomy with mod amount soft stool - Extremities Exam Extremities exam: Present: normal capillary refill, normal inspection - Neurological Exam Neurological exam: Present: alert, oriented X3 Additional comments: Lower extremities with bilateral weakness. Able to move feet - unable to lift legs off bed. Bilateral upper extremities with equal hand grasps. - Psychiatric Psychiatric exam: Present: normal affect, normal mood - Skin Skin exam: Present: dry, warm Internal Medicine - CN: Reslt - Labs CBC & Chem 7: 04/06/17 03:10 04/06/17 03:10 Labs: Short CBC 03/01/18 Range/Units 03:10 WBC 11.2 H (4.3-11.1) K/mcL Hgb 11.6 (11.5-15.4) g/dL Hct 37.2 (35.3-44.9) % Plt Count 159 (140-400) K/mcL BMP 04/06/17 03:10 Sodium 141 Potassium 3.6 Chloride 99 Carbon Dioxide 38 H BUN 24 H Creatinine 0.28 L Glucose 148 H Calcium 9.3 - ABG Interpretation ABG results: ABG ABG pH 7.43 pH Units (7.32-7.45) 04/05/17 04:47 ABG pCO2 58 mmHg (35-45) H 04/05/17 04:47 ABG pO2 93 mmHg (85-104) 04/05/17 04:47 ABG O2 Saturation 97 % (95-98) 04/05/17 04:47 PT/INR, D-dimer PT 14.1 Seconds (9.4-12.1) H 03/22/17 16:12 Consult Discharge Plan - Plan Referrals: NONE,PCP [Primary Care Provider] - Palliative Quality Palliative Quality: Screen for Code Status: Yes, Screen for Goals of Care: Yes, Screen for Pain: Yes, If Pain Regimen Started, Initiate Bowel Regimen: NA, Screen for Nausea/Vomitting: Yes Code Status: 03/22/17 14:52 Resuscitation Status: Active [RES] Routine Comment: Resuscitation Status: Full Code Resuscitation Status: Active [RES] Routine Comment: Resuscitation Status: [id number]
[2017-04-06] MEDS ORDERED: Naloxone 0.4 MG/ML INJ IVP PRN (14:27)
[2017-04-06] MEDS ORDERED: D5% in Water 1,000 ML IVC PRN (14:27)
[2017-04-06] MEDS ORDERED: Dextrose Gel 15 GM/37.5 ML TUBE PO PRN ×2 (14:27)
[2017-04-06] MEDS ORDERED: *HR* Dextrose 50 % in Water (Syg) 50 ML SYRINGE IVP PRN (14:27)
[2017-04-07] MEDS: Insulin LISPRO 300 UNITS/3 ML VIAL SQ SCH ×7 (01:26→20:34)
[2017-04-07] MEDS: *HR* Heparin 5,000 UNIT/ML VIAL SQ SCH ×4 (01:32→22:47)
[2017-04-07] MEDS: Levalbuterol Neb 1.25 MG/3 ML IH SCH ×4 (04:15→21:45)
[2017-04-07] MEDS: Levothyroxine 25 MCG TABLET PO SCH (06:52)
[2017-04-07] MEDS ORDERED: Metoprolol XL (24 HR) Succ 50 MG TAB.ER.24H PO SCH (09:00)
[2017-04-07] MEDS ORDERED: predniSONE 20 MG TABLET PO SCH (09:00)
[2017-04-07] MEDS: Zinc Sulfate 220 MG CAPSULE PO SCH (09:03)
[2017-04-07] MEDS: Metoprolol XL (24 HR) Succ 50 MG TAB.ER.24H PO SCH (09:04)
[2017-04-07] MEDS: predniSONE 20 MG TABLET PO SCH (09:04)
[2017-04-07] MEDS: Ascorbic Acid 500 MG TABLET PO SCH (09:05)
--- NOTE | 2017-04-07 10:29 | Palliative Progress Note ---
Date of Encounter: 04/07/17 Time of Encounter: 10:25 - Assessment and plan (1) Dyspnea Current Visit: Yes Status: Acute Assessment and plan: Continues with Prednisone/bronchodilators/oxygen. Monitor Qualifiers: Dyspnea type: unspecified Qualified Code(s): R06.00 - Dyspnea, unspecified (2) Debility Current Visit: Yes Status: Acute Assessment and plan: Continue PT/OT, most likely need rehab (3) Generalized pain Current Visit: Yes Status: Acute (4) Counseling regarding advanced care planning and goals of care Current Visit: Yes Status: Acute Assessment and plan: Patient is considering rehab options - either swing bed or ECF. She has been informed that she is eligible for hospice care, however, not wanting to entertain that at this time. painting trades worker Kirk Shaw in to discuss with patient and she will consider rehab options. Palliative will F/U on Monday (5) Pulmonary interstitial fibrosis Current Visit: Yes Status: Chronic (6) COPD with exacerbation Current Visit: Yes Status: Acute (7) Decubital ulcer Current Visit: Yes Status: Chronic Qualifiers: Pressure ulcer location: buttock Pressure ulcer stage: stage 2 Laterality : unspecified laterality Qualified Code(s): L89.302 - Pressure ulcer of unspecified buttock, stage 2 - Time Spent With Patient Total time spent is greater than 50% in coordination of care (as documented) at patient's floor/unit and/or counseling patient: - Subjective Interval history: Patient alert and oriented. Daughter sleeping at bedside. Patient denies discomfort - still becomes short of breath with conversation. Has moved off ICU. - Constitutional Vitals: Abnormal lab results WBC 11.2 K/mcL (4.3-11.1) H 04/06/17 03:10 MCHC 31.2 g/dL (31.6-35.5) L 04/06/17 03:10 RDW 14.6 % (11.5-14.5) H 04/06/17 03:10 Neutrophils # 13.3 K/mcL (1.6-8.9) H 04/01/17 03:50 Nucleated RBCs/100 WBC 0.1 /100 WBC (0) H 04/01/17 03:50 PT 14.1 Seconds (9.4-12.1) H 03/22/17 16:12 ABG pCO2 58 mmHg (35-45) H 04/05/17 04:47 ABG HCO3 39 mEq/L (21-27) H 04/05/17 04:47 ABG Total CO2 41 mEq/L (20-26) H 04/05/17 04:47 ABG Base Excess 12 mEq/L (-2 to 3) H 04/05/17 04:47 Carbon Dioxide 38 mEq/L (23-29) H 04/06/17 03:10 BUN 24 mg/dL (8-23) H 04/06/17 03:10 Creatinine 0.28 mg/dL (0.60-1.20) L 04/06/17 03:10 BUN/Creatinine Ratio 86 (6-26) H 04/06/17 03:10 Glucose 148 mg/dL (70-105) H 04/06/17 03:10 POC Glucose 140 (58-89) H 04/07/17 01:05 Troponin I 0.04 ng/mL (< 0.04) H* 03/22/17 16:12 Serum Total Protein 6.1 g/dL (6.4-8.9) L 03/22/17 16:12 Albumin 2.8 g/dL (3.5-5.7) L 03/22/17 16:12 Albumin/Globulin Ratio 0.8 (1.1-2.2) L 03/22/17 16:12 General appearance: Present: no acute distress - Respiratory Respiratory exam: Present: decreased breath sounds, CTAB - Cardiovascular Cardiovascular exam: Present: irregular rhythm - GI/Abdominal GI/Abdominal exam: Present: normal bowel sounds, soft - Extremities Exam Extremities exam: Present: normal capillary refill, normal inspection - Neurological Exam Neurological exam: Present: alert, oriented X3, strengths equal and symetr throughout Additional comments: Generalized weakness to lower extremities - Skin Skin exam: Present: dry, pallor, warm Palliative Quality Palliative Quality: Screen for Code Status: Yes, Screen for Goals of Care: Yes, Screen for Pain: Yes, If Pain Regimen Started, Initiate Bowel Regimen: NA, Screen for Nausea/Vomitting: Yes Code Status: 03/22/17 14:52 Resuscitation Status: Active [RES] Routine Comment: Resuscitation Status: Full Code Resuscitation Status: Active [RES] Routine Comment: Resuscitation Status: [id number] - Labs CBC & Chem 7: 04/06/17 03:10 04/06/17 03:10 Labs: Laboratory Results - last 24 hr 04/06/17 04/06/17 04/06/17 04:13 07:30 12:59 POC Glucose 202 H 156 H 195 H 04/06/17 04/06/17 04/07/17 17:42 19:54 01:05 POC Glucose 224 H 176 H 140 H - ABG Interpretation ABG results: ABG ABG pH 7.43 pH Units (7.32-7.45) 04/05/17 04:47 ABG pCO2 58 mmHg (35-45) H 04/05/17 04:47 ABG pO2 93 mmHg (85-104) 04/05/17 04:47 ABG O2 Saturation 97 % (95-98) 04/05/17 04:47 PT/INR, D-dimer PT 14.1 Seconds (9.4-12.1) H 03/22/17 16:12 Consult Discharge Plan - Plan Referrals: NONE,PCP [Primary Care Provider] -
--- NOTE | 2017-04-07 10:39 | Discharge Summary ---
Date of Encounter: 04/07/17 Time of Encounter: 10:36 - Discharge Diagnosis (1) Acute and chronic respiratory failure Priority: Primary Status: Acute Comments: Acute chronic hypoxic hypercapnic respiratory failure secondary to Pseudomonas pneumonia and interstitial pulmonary fibrosis Extubated 04/03 to bipap, and now transitioned to nasal cannula at 4L, Qualifiers: Respiratory failure complication: hypoxia and hypercapnia Qualified Code(s) : J96.21 - Acute and chronic respiratory failure with hypoxia; J96.22 - Acute and chronic respiratory failure with hypercapnia; J96.22 - Acute and chronic respiratory failure with hypercapnia; J96.22 - Acute and chronic respiratory failure with hypercapnia (2) Paroxysmal A-fib Current Visit: Yes Status: Acute (3) Pulmonary interstitial fibrosis Current Visit: Yes Status: Chronic Per medical decision making in (1). (4) Decubital ulcer Current Visit: Yes Status: Chronic Qualifiers: Pressure ulcer location: buttock Pressure ulcer stage: stage 2 Laterality : unspecified laterality Qualified Code(s): L89.302 - Pressure ulcer of unspecified buttock, stage 2 Qualifiers: Respiratory failure complication: hypoxia and hypercapnia Qualified Code(s) : J96.21 - Acute and chronic respiratory failure with hypoxia; J96.22 - Acute and chronic respiratory failure with hypercapnia; J96.22 - Acute and chronic respiratory failure with hypercapnia; J96.22 - Acute and chronic respiratory failure with hypercapnia Hospital course: Ms. Benjamin is a 71 year old female with a past medical history of pulmonary fibrosis, GERD, hypertension who presented with chief complaint of shortness of breath to [facility] emergency department, transferred on a ventilator,sedated. The shortness of breath was going on for 2-3 days prior admission and she had also cough which was not productive. Patient symptoms worsen with anxiety. Was on 4 L oxygen for pulmonary fibrosis, when squad arrived they found her on 6 L and her oxygen saturation was 83-84%. Patient was found tachycardic and there is no history of any fevers or chills. Patient was supposed to see a budget specialist. Apparently patient was intubated for respiratory distress secondary was transferred to [facility]. In the ICU patient has been sedated and oxygen saturation is acceptable. . Completed [address] scan of the chest showed: 1. Pulmonary findings typical of IPF. Bibasilar honeycomb lung formation is noted. 2. Calcific atherosclerosis aorta and coronary arteries. 3. Life support appliances appear appropriately positioned. 4. Mild cardiomegaly. 5. Left lower quadrant colostomy with prominent peristomal hernia containing fat, portions of small bowel and colon without evidence of obstruction. 6. Focal soft tissue and small fluid collection presacral region is presumably postsurgical in nature. No gas formation is seen to suggest abscess, however abscess cannot be excluded. Extubated 04/03 to bipap, and now transitioned to nasal cannula at 4L, comfortable and saturating in therapeutic range. Leukocytosis has resolved We will continue steroids on gradual slow taper Palliative consulted, discussion about hospice care took care but the patient still wants treatment. PAF, occurring sporadically but self-converted or requiring lopressor push Has required multiple doses of metoprolol to control Increased Toprol XL to 75mg PO daily Daily wound care per nursing, currently stable coccyx decubital ulcer at stage 3. Risk Factor sedentary state; working with PT/OT/nutrition for reducing wound risk factors and improving nutrition supplementation. Started Vitamin C and Zinc. The patient mobilized at home on a wheelchair prior to admission Wound is 100% yellow slough measuring 0.5cm x 0.5cm - 0.5cm deep. The periwound skin is white and macerated 360%. Once the wound is debrided to reveal the entire wound, it will most likely measure 1cm x 1cm and be a deeper Stage 3. - Time Spent with Patient Total time spent providing and/or coordinating discharge services: Greater than 30 minutes (40 min) - Discharge Medications Prescriptions: LORazepam [Ativan] 0.5 mg PO BID PRN 7 Days #14 tablet PRN Reason: Anxiety Metoprolol XL (24 HR) Succ [Toprol Xl] 75 mg PO DAILY #30 tab.er.24h predniSONE [PredniSONE] 10 mg PO DAILY 20 Days tablet Home Medications: Benzonatate [Tessalon] 100 mg PO TID PRN 03/23/17 [History] Cholecalciferol (D-3) [Vitamin D] 2,000 unit PO DAILY 03/23/17 [History] Fluticasone Propionate Nasal [Flonase] 2 spr NS DAILY 03/23/17 [History] Levothyroxine Sodium [Levoxyl] 50 mcg PO DAILY 03/23/17 [History] Loratadine [Allergy Relief] 10 mg PO DAILY 03/23/17 [History] Magnesium Oxide [Magnesium] 400 mg PO DAILY 03/23/17 [History] Omeprazole [PriLOSEC] 40 mg PO DAILY 03/23/17 [History] Pravastatin Sodium [Pravachol] 40 mg PO DAILY 03/23/17 [History] Tizanidine HCl 4 mg PO BID 03/23/17 [History] Ascorbic Acid [Vitamin C] 500 mg PO DAILY tablet 04/07/17 [Rx] Budesonide/Formoterol 160/4.5 [Symbicort 160/4.5] 2 puff IH BIDR inhaler [Rx] LORazepam [Ativan] 0.5 mg PO BID PRN 7 Days #14 tablet 04/07/17 [Rx] Metoprolol XL (24 HR) Succ [Toprol Xl] 75 mg PO DAILY #30 tab.er.24h 04/07/17 [ Rx] Zinc Sulfate 220 mg PO DAILY capsule 04/07/17 [Rx] predniSONE [PredniSONE] 10 mg PO DAILY 20 Days tablet 04/07/17 [Rx] Allergies/Adverse Reactions: 3 Allergy/AdvReac Type Severity Reaction Status Date / Time ciprofloxacin [From Cipro] Allergy Rash Verified 11/14/16 19:58 Hyoscyamine [From Urelle] Allergy Rash Verified 11/14/16 19:58 methenamine [From Urelle] Allergy Rash Verified 11/14/16 19:58 methylene blue [From Urelle] Allergy Rash Verified 11/14/16 19:58 phenazopyridine Allergy Rash Verified 11/14/16 19:58 [From Pyridium] salicylates [From Urelle] Allergy Rash Verified 11/14/16 19:58 Sodium Phosphate Allergy Rash Verified 11/14/16 19:58 [From Urelle] Date of admission: 03/22/17 13:51 Primary care physician: PCP NONE Consults: 03/22/17 14:40 Consult to Nutrition [CONS] Routine Comment: Consulting Provider: NUTRITION Reason for Dietary Consult: Tube Feed Start & Manage 03/22/17 14:57 Consult to Nutrition [CONS] Routine Comment: Consulting Provider: NUTRITION Reason for Dietary Consult: Diet Education PO Supplementation 03/23/17 08:45 Consult to Wound Care [CONS] Routine Reason for Consult: stage 2 decubitous ulcer coccyx, 1/2 centimeter deep Call Completed: No 04/04/17 14:20 Consult to Occupational Therapy [CONS] Routine Comment: Evaluate, develop and implement POC Reason for Consult: admitted 03/22 acute resp failure 2/2 pulm fibrosis, extubated 04/03, on bipap, poor geodetic surveyor technologist strength bilaterally Consult to Physical Therapy [CONS] Routine Comment: Evaluate, develop and implement POC Reason for Consult: admitted 03/22 acute resp failure 2/ pulm fibrosis, extubated 04/03, on bipap, poor geodetic surveyor technologist strength bilaterally 04/04/17 14:24 Consult to Speech Therapy [CONS] Routine Comment: Evaluate, develop and implement POC Reason for Consult: admitted 03/22 acute resp failure / pulm fibrosis, extubated 04/03, difficulty swallowing Call Completed: No 04/06/17 08:16 Consult to Palliative Care [CONS] Routine Comment: Consulting Provider: Palliative Care Tracy Reason for Consult: Pulmonary fibrosis Call Completed: No - Constitutional Vitals: Temp Pulse Resp BP Pulse Ox 97.6 F 81 20 102/57 96 04/07/17 07:47 04/07/17 07:47 04/07/17 07:47 04/07/17 07:47 04/07/17 09:13 General appearance: Present: A&O X 3, no acute distress, answers questions appropriately (head nod/shake. No verbal secondary to ET tube.) Exam: Generalized weakness - Head Head exam: Present: atraumatic, normocephalic - Eye Eye exam: Present: PERRL, conjuntiva pink, sclera anicteric Pupils: Present: PERRL - Neck Neck exam general surgery: Present: supple, trachea midline. Absent: lymphadenopathy - Respiratory Respiratory exam: Present: CTAB. Absent: accessory muscle use, rales, rhonchi, wheezes - Cardiovascular Cardiovascular exam: Present: RRR, +S1, +S2. Absent: diastolic murmur, gallop, rubs, systolic murmur - GI/Abdominal GI/Abdominal exam: Present: normal bowel sounds, soft, no peritoneal signs. Absent: distended, tenderness - Extremities Exam Extremities exam: Present: warm, radial pulses palpable and symmetrical. Absent : calf tenderness, cyanotic, pedal edema Additional comments: Pressure sacral ulcer - Neurological Exam Neurological exam: Present: CN II-XII intact, oriented X3, no focal deficits. Absent: pronater drift, facial droop, speech deficit - Skin Skin exam: Present: dry, intact - Patient Status Disposition: Transfer SNF Condition: Fair Overall status at discharge: patient is progressing back to baseline - Discharge Instructions Follow Up With: NONE,PCP [Primary Care Provider] - Additional Instructions: Continue wound care. Taper prednisone. Fall precautions. - Diet and Activity Activity: wear oxygen at all times Diet: low fat, low cholesterol - VTE Documentation of Mechanical Device: Graduated compression elastic hosiery
[2017-04-07] MEDS: Budesonide/Formoterol 160/4.5 MDI IH SCH ×2 (10:54→21:44)
--- NOTE | 2017-04-07 11:06 | Physician Discharge Referral ---
ExtendedCare Referral Info Provider in Charge after Transfer: PCP Institutional Level of Care: Skilled - Diagnosis (1) Acute and chronic respiratory failure Status: Acute - Transfer Medications Prescriptions: LORazepam [Ativan] 0.5 mg PO BID PRN 7 Days #14 tablet PRN Reason: Anxiety Metoprolol XL (24 HR) Succ [Toprol Xl] 75 mg PO DAILY #30 tab.er.24h predniSONE [PredniSONE] 10 mg PO DAILY 20 Days tablet Home Medications: Benzonatate [Tessalon] 100 mg PO TID PRN 03/23/17 [History] Cholecalciferol (D-3) [Vitamin D] 2,000 unit PO DAILY 03/23/17 [History] Fluticasone Propionate Nasal [Flonase] 2 spr NS DAILY 03/23/17 [History] Levothyroxine Sodium [Levoxyl] 50 mcg PO DAILY 03/23/17 [History] Loratadine [Allergy Relief] 10 mg PO DAILY 03/23/17 [History] Magnesium Oxide [Magnesium] 400 mg PO DAILY 03/23/17 [History] Omeprazole [PriLOSEC] 40 mg PO DAILY 03/23/17 [History] Pravastatin Sodium [Pravachol] 40 mg PO DAILY 03/23/17 [History] Tizanidine HCl 4 mg PO BID 03/23/17 [History] Ascorbic Acid [Vitamin C] 500 mg PO DAILY tablet 04/07/17 [Rx] Budesonide/Formoterol 160/4.5 [Symbicort 160/4.5] 2 puff IH BIDR inhaler [Rx] LORazepam [Ativan] 0.5 mg PO BID PRN 7 Days #14 tablet 04/07/17 [Rx] Metoprolol XL (24 HR) Succ [Toprol Xl] 75 mg PO DAILY #30 tab.er.24h 04/07/17 [ Rx] Zinc Sulfate 220 mg PO DAILY capsule 04/07/17 [Rx] predniSONE [PredniSONE] 10 mg PO DAILY 20 Days tablet 04/07/17 [Rx] Allergies/Adverse Reactions: 3 Allergy/AdvReac Type Severity Reaction Status Date / Time ciprofloxacin [From Cipro] Allergy Rash Verified 11/14/16 19:58 Hyoscyamine [From Urelle] Allergy Rash Verified 11/14/16 19:58 methenamine [From Urelle] Allergy Rash Verified 11/14/16 19:58 methylene blue [From Urelle] Allergy Rash Verified 11/14/16 19:58 phenazopyridine Allergy Rash Verified 11/14/16 19:58 [From Pyridium] salicylates [From Urelle] Allergy Rash Verified 11/14/16 19:58 Sodium Phosphate Allergy Rash Verified 11/14/16 19:58 [From Urelle] - Respiratory Orders Smoking Cessation: Smoking cessation has been advised. For more information, call the [employer] Tobacco Quit Line at 0-702-SUOB-NOW. - Advance Directives Code Status: DNR-Arrest/Don't Intubate - Treatments List/Other: Continue wound care. Taper prednisone. Fall precautions. CERTIFICATION: I certify that the transfer of the above named patient to an Extended Care Facility is necessary for the continuing treatment of the diagnosis listed. The above information is true and accurate reflection of patient's current condition. Confidential - Redisclosure prohibited without a patient's written consent.
[2017-04-07] MEDS ORDERED: *HR* LORazepam 0.5 MG TABLET PO ONE (20:41)
[2017-04-08] MEDS: Insulin LISPRO 300 UNITS/3 ML VIAL SQ SCH (03:50)
[2017-04-08] MEDS: Levalbuterol Neb 1.25 MG/3 ML IH SCH ×4 (04:00→21:40)
[2017-04-08] MEDS: Levothyroxine 25 MCG TABLET PO SCH (05:37)
[2017-04-08] MEDS: *HR* Heparin 5,000 UNIT/ML VIAL SQ SCH ×3 (05:37→23:32)
--- NOTE | 2017-04-08 08:49 | Internal Med Progress Note ---
Date of Encounter: 04/08/17 Time of Encounter: 08:41 - Assessment and plan (1) Acute and chronic respiratory failure Current Visit: Yes Status: Acute Assessment and plan: Acute chronic hypoxic hypercapnic respiratory failure secondary to Pseudomonas pneumonia and interstitial pulmonary fibrosis In the setting of pulmonary interstitial fibrosis, puomonary edema, overlying pneumonia. Intubated, sedated. Day 4. CT Scan 03/24: Pulmonary findings typical of IPF. Bibasilar honeycomb lung formation is noted. Continue steroids/prednisone Extubated 04/03 to bipap, and now transitioned to nasal cannula at 4L Qualifiers: Respiratory failure complication: hypoxia and hypercapnia Qualified Code(s) : J96.21 - Acute and chronic respiratory failure with hypoxia; J96.22 - Acute and chronic respiratory failure with hypercapnia; J96.22 - Acute and chronic respiratory failure with hypercapnia; J96.22 - Acute and chronic respiratory failure with hypercapnia (2) Paroxysmal A-fib Current Visit: Yes Status: Acute PAF, occurring sporadically but self-converted or requiring lopressor push Has required multiple doses of metoprolol to control Increased Toprol XL to 75mg PO daily (3) Pulmonary interstitial fibrosis Current Visit: Yes Status: Chronic Per medical decision making in (1). (4) Decubital ulcer Current Visit: Yes Status: Chronic Daily wound care per nursing, currently stable coccyx decubital ulcer at stage 3. Risk Factor sedentary state; working with PT/OT/nutrition for reducing wound risk factors and improving nutrition supplementation. Started Vitamin C and Zinc. Wound care Patinet prefers to keep Jett , risk of infection explained, option of removing it was discussed and encouraged Order U/A Qualifiers: Respiratory failure complication: hypoxia and hypercapnia Qualified Code(s) : J96.21 - Acute and chronic respiratory failure with hypoxia; J96.22 - Acute and chronic respiratory failure with hypercapnia; J96.22 - Acute and chronic respiratory failure with hypercapnia; J96.22 - Acute and chronic respiratory failure with hypercapnia - Subjective Interval history: Feeling mildly short of breath, very weak, denies any chest pain, no abdominal pain, has complained of some urinary urgency, she has a Jett catheter: No fevers - Constitutional Vitals: Temp Pulse Resp BP Pulse Ox 98.1 F 82 39 91/57 99 04/08/17 07:57 04/08/17 07:57 04/08/17 07:57 04/08/17 07:57 04/08/17 07:57 General appearance: Present: A&O X 3, no acute distress, answers questions appropriately (head nod/shake. No verbal secondary to ET tube.) Exam: - Head Head exam: Present: atraumatic, normocephalic - Eye Eye exam: Present: PERRL, conjuntiva pink, sclera anicteric Pupils: Present: PERRL - Neck Neck exam general surgery: Present: supple, trachea midline. Absent: lymphadenopathy - Respiratory Respiratory exam: Present: CTAB. Absent: accessory muscle use, rales, rhonchi, wheezes - Cardiovascular Cardiovascular exam: Present: RRR, +S1, +S2. Absent: diastolic murmur, gallop, rubs, systolic murmur - GI/Abdominal GI/Abdominal exam: Present: normal bowel sounds, soft, no peritoneal signs. Absent: distended, tenderness - Extremities Exam Extremities exam: Present: warm, radial pulses palpable and symmetrical. Absent : calf tenderness, cyanotic, pedal edema Additional comments: Pressure sacral ulcer - Neurological Exam Neurological exam: Present: CN II-XII intact, oriented X3, no focal deficits. Absent: pronater drift, facial droop, speech deficit - Skin Skin exam: Present: dry, intact Internal Medicine: Result - Labs CBC & Chem 7: 04/06/17 03:10 04/06/17 03:10 - ABG Interpretation ABG results: ABG ABG pH 7.43 pH Units (7.32-7.45) 04/05/17 04:47 ABG pCO2 58 mmHg (35-45) H 04/05/17 04:47 ABG pO2 93 mmHg (85-104) 04/05/17 04:47 ABG O2 Saturation 97 % (95-98) 04/05/17 04:47 PT/INR, D-dimer PT 14.1 Seconds (9.4-12.1) H 03/22/17 16:12 - VTE Documentation of Mechanical Device: Graduated compression elastic hosiery Consult Discharge Plan - Plan Instructions: Metoprolol (By mouth), Lorazepam (By mouth), Prednisone (By mouth ), Atrial Fibrillation (DC), Chronic Obstructive Pulmonary Disease (DC) Additional Instructions: Continue wound care. Taper prednisone. Fall precautions. Referrals: NONE,PCP [Primary Care Provider] - Prescriptions: LORazepam [Ativan] 0.5 mg PO BID PRN 7 Days #14 tablet PRN Reason: Anxiety Metoprolol XL (24 HR) Succ [Toprol Xl] 75 mg PO DAILY #30 tab.er.24h predniSONE [PredniSONE] 10 mg PO DAILY 20 Days tablet
[2017-04-08] MEDS: predniSONE 20 MG TABLET PO SCH (08:56)
[2017-04-08] MEDS: Metoprolol XL (24 HR) Succ 50 MG TAB.ER.24H PO SCH (08:56)
[2017-04-08] MEDS: Zinc Sulfate 220 MG CAPSULE PO SCH (08:56)
[2017-04-08] MEDS: Ascorbic Acid 500 MG TABLET PO SCH (08:56)
[2017-04-08] MEDS: Budesonide/Formoterol 160/4.5 MDI IH SCH ×2 (09:46→21:40)
[2017-04-08 10:10] LABS: Bilirubin,Urine Negative (Negative); Blood,Urine Large (Negative); Clarity,Urine Turbid (Clear); Color,Urine Dark Yellow (Yellow); Glucose,Urine (UA) Normal (Normal); Ketones,Urine Negative (Negative); Leukocyte Esterase,Urine Large (Negative); Nitrite,Urine Negative (Negative); PH,Urine 6.5 pH Units (5.0-8.0); Protein,Urine 30 mg/dL (Neg-Trace); Specific Gravity,Urine 1.029 (1.010-1.025); Urobilinogen,Urine Normal (Normal)
[2017-04-08 10:13] LABS: Bacteria,Urine None Seen per hpf (None-Few); Squamous Epithelial Cell,Urine Many per lpf (None-Few); WBC,Urine TNTC per hpf (0-3)
[2017-04-08 10:48] LABS: Yeast,Urine Many per hpf (None Seen)
[2017-04-08] MEDS: *HR* LORazepam 0.5 MG TABLET PO PRN (13:42)
[2017-04-08] MEDS: tiZANidine 4 MG TABLET PO PRN (15:42)
[2017-04-08] MEDS: hydrOXYzine pamoate 25 MG CAPSULE PO PRN (18:53)
[2017-04-09] MEDS: Nystatin POWDER 30 GM BOTTLE TP SCH ×4 (03:27→23:16)
[2017-04-09] MEDS: *HR* LORazepam 0.5 MG TABLET PO PRN ×2 (03:47→23:16)
[2017-04-09] MEDS: hydrOXYzine pamoate 25 MG CAPSULE PO PRN ×2 (03:47→16:53)
[2017-04-09] MEDS: Levalbuterol Neb 1.25 MG/3 ML IH SCH ×4 (03:50→21:52)
[2017-04-09] MEDS: *HR* Heparin 5,000 UNIT/ML VIAL SQ SCH ×3 (07:32→22:11)
[2017-04-09] MEDS: Levothyroxine 25 MCG TABLET PO SCH (07:32)
[2017-04-09] MEDS: tiZANidine 4 MG TABLET PO PRN (08:42)
[2017-04-09] MEDS: Zinc Sulfate 220 MG CAPSULE PO SCH (08:42)
[2017-04-09] MEDS: Metoprolol XL (24 HR) Succ 50 MG TAB.ER.24H PO SCH (08:42)
[2017-04-09] MEDS: predniSONE 20 MG TABLET PO SCH (08:43)
[2017-04-09] MEDS: Ascorbic Acid 500 MG TABLET PO SCH (08:43)
[2017-04-09] MEDS: Budesonide/Formoterol 160/4.5 MDI IH SCH ×2 (10:08→21:52)
--- NOTE | 2017-04-09 10:41 | Internal Med Progress Note ---
Date of Encounter: 04/09/17 Time of Encounter: 10:40 - Assessment and plan (1) Acute and chronic respiratory failure Current Visit: Yes Status: Acute Assessment and plan: Acute chronic hypoxic hypercapnic respiratory failure secondary to Pseudomonas pneumonia and interstitial pulmonary fibrosis In the setting of pulmonary interstitial fibrosis, puomonary edema, overlying pneumonia. CT Scan 03/24: Pulmonary findings typical of IPF. Bibasilar honeycomb lung formation is noted. Continue steroids/ taper prednisone Extubated 04/03 to bipap, and now transitioned to nasal cannula at 4L Ordered Atarax for anxiety Qualifiers: Respiratory failure complication: hypoxia and hypercapnia Qualified Code(s) : J96.21 - Acute and chronic respiratory failure with hypoxia; J96.22 - Acute and chronic respiratory failure with hypercapnia; J96.22 - Acute and chronic respiratory failure with hypercapnia; J96.22 - Acute and chronic respiratory failure with hypercapnia (2) Paroxysmal A-fib Current Visit: Yes Status: Acute PAF, occurring sporadically but self-converted or requiring lopressor push Has required multiple doses of metoprolol to control Increased Toprol XL to 75mg PO daily (3) Pulmonary interstitial fibrosis Current Visit: Yes Status: Chronic Per medical decision making in (1). (4) Decubital ulcer Current Visit: Yes Status: Chronic Daily wound care per nursing, currently stable coccyx decubital ulcer at stage 3. Risk Factor sedentary state; working with PT/OT/nutrition for reducing wound risk factors and improving nutrition supplementation. Started Vitamin C and Zinc. Wound care Patinet prefers to keep Jett , risk of infection explained, option of removing it was discussed and encouraged Order U/A Qualifiers: Respiratory failure complication: hypoxia and hypercapnia Qualified Code(s) : J96.21 - Acute and chronic respiratory failure with hypoxia; J96.22 - Acute and chronic respiratory failure with hypercapnia; J96.22 - Acute and chronic respiratory failure with hypercapnia; J96.22 - Acute and chronic respiratory failure with hypercapnia - Subjective Interval history: Was anxious. No new complaints. Feeling mildly short of breath, very weak, denies any chest pain, no abdominal pain, has complained of some urinary urgency, she has a Jett catheter: No fevers - Constitutional Vitals: Temp Pulse Resp BP Pulse Ox 98.3 F 89 24 111/67 92 04/09/17 08:32 04/09/17 08:32 04/09/17 10:08 04/09/17 08:32 04/09/17 10:08 General appearance: Present: A&O X 3, no acute distress, answers questions appropriately (head nod/shake. No verbal secondary to ET tube.) Exam: - Head Head exam: Present: atraumatic, normocephalic - Eye Eye exam: Present: PERRL, conjuntiva pink, sclera anicteric Pupils: Present: PERRL - Neck Neck exam general surgery: Present: supple, trachea midline. Absent: lymphadenopathy - Respiratory Respiratory exam: Present: CTAB. Absent: accessory muscle use, rales, rhonchi, wheezes - Cardiovascular Cardiovascular exam: Present: RRR, +S1, +S2. Absent: diastolic murmur, gallop, rubs, systolic murmur - GI/Abdominal GI/Abdominal exam: Present: normal bowel sounds, soft, no peritoneal signs. Absent: distended, tenderness - Extremities Exam Extremities exam: Present: warm, radial pulses palpable and symmetrical. Absent : calf tenderness, cyanotic, pedal edema Additional comments: Pressure sacral ulcer - Neurological Exam Neurological exam: Present: CN II-XII intact, oriented X3, no focal deficits. Absent: pronater drift, facial droop, speech deficit - Skin Skin exam: Present: dry, intact Internal Medicine: Result - Labs CBC & Chem 7: 04/06/17 03:10 04/06/17 03:10 - ABG Interpretation ABG results: ABG ABG pH 7.43 pH Units (7.32-7.45) 04/05/17 04:47 ABG pCO2 58 mmHg (35-45) H 04/05/17 04:47 ABG pO2 93 mmHg (85-104) 04/05/17 04:47 ABG O2 Saturation 97 % (95-98) 04/05/17 04:47 PT/INR, D-dimer PT 14.1 Seconds (9.4-12.1) H 03/22/17 16:12 - VTE Documentation of Mechanical Device: Graduated compression elastic hosiery Consult Discharge Plan - Plan Instructions: Metoprolol (By mouth), Lorazepam (By mouth), Prednisone (By mouth ), Atrial Fibrillation (DC), Chronic Obstructive Pulmonary Disease (DC) Additional Instructions: Continue wound care. Taper prednisone. Fall precautions. Referrals: NONE,PCP [Primary Care Provider] - Prescriptions: LORazepam [Ativan] 0.5 mg PO BID PRN 7 Days #14 tablet PRN Reason: Anxiety Metoprolol XL (24 HR) Succ [Toprol Xl] 75 mg PO DAILY #30 tab.er.24h predniSONE [PredniSONE] 10 mg PO DAILY 20 Days tablet
[2017-04-10] MEDS: Levalbuterol Neb 1.25 MG/3 ML IH SCH ×4 (04:20→22:27)
[2017-04-10] MEDS: Levothyroxine 25 MCG TABLET PO SCH (05:18)
[2017-04-10] MEDS: *HR* Heparin 5,000 UNIT/ML VIAL SQ SCH ×3 (05:18→19:56)
[2017-04-10] MEDS: Metoprolol XL (24 HR) Succ 50 MG TAB.ER.24H PO SCH (07:58)
[2017-04-10] MEDS: Ascorbic Acid 500 MG TABLET PO SCH (07:59)
[2017-04-10] MEDS: predniSONE 20 MG TABLET PO SCH (07:59)
[2017-04-10] MEDS: *HR* OxyCODONE Immed Rel 5 MG TABLET PO PRN ×2 (07:59→19:55)
[2017-04-10] MEDS: Zinc Sulfate 220 MG CAPSULE PO SCH (07:59)
--- NOTE | 2017-04-10 09:42 | Event Note ---
Date of Encounter: 04/10/17 Time of Encounter: 09:20 Patient sleeping quietly - had pain medication earlier. Daughter at bedside. Daughter states that pt was without oxygen for a period of time yesterday, and that has "set her back and now she is requiring mask". Patient with tachypnea at rest, some low grade fever over weekend. Explained to daughter, code status remains DNR/DNI as her wishes in ICU. Palliative is following at a distance. sample worker working on discharge plan.
[2017-04-10] MEDS: Budesonide/Formoterol 160/4.5 MDI IH SCH ×2 (10:23→22:27)
[2017-04-10] MEDS ORDERED: Ondansetron 4 MG/2 ML VIAL IVP PRN (11:06)
--- NOTE | 2017-04-10 11:27 | Internal Med Progress Note ---
Date of Encounter: 04/10/17 Time of Encounter: 11:23 - Assessment and plan (1) Acute and chronic respiratory failure Current Visit: Yes Status: Acute Assessment and plan: Acute chronic hypoxic hypercapnic respiratory failure secondary to Pseudomonas pneumonia and interstitial pulmonary fibrosis In the setting of pulmonary interstitial fibrosis, puomonary edema, overlying pneumonia. CT Scan 03/24: Pulmonary findings typical of IPF. Bibasilar honeycomb lung formation is noted. Continue steroids/ taper prednisone Extubated 04/03 to bipap, and now transitioned to nasal cannula at 4L Ordered Atarax for anxiety Qualifiers: Respiratory failure complication: hypoxia and hypercapnia Qualified Code(s) : J96.21 - Acute and chronic respiratory failure with hypoxia; J96.22 - Acute and chronic respiratory failure with hypercapnia; J96.22 - Acute and chronic respiratory failure with hypercapnia; J96.22 - Acute and chronic respiratory failure with hypercapnia (2) Paroxysmal A-fib Current Visit: Yes Status: Acute PAF, occurring sporadically but self-converted or requiring lopressor push Has required multiple doses of metoprolol to control Increased Toprol XL to 75mg PO daily (3) Pulmonary interstitial fibrosis Current Visit: Yes Status: Chronic Per medical decision making in (1). (4) Decubital ulcer Current Visit: Yes Status: Chronic Daily wound care per nursing, currently stable coccyx decubital ulcer at stage 3. Risk Factor sedentary state; working with PT/OT/nutrition for reducing wound risk factors and improving nutrition supplementation. Started Vitamin C and Zinc. Wound care Patinet prefers to keep Jett , risk of infection explained, option of removing it was discussed and encouraged (4) UTI Current Visit: Yes Status: Acute Urine culture growing yeasts, unclear if this would be the source of her fever. Check CXR start Fluconazole IV Patient prefers to keep Jett , risk of infection explained, option of removing it was discussed and encouraged CANCEL DISCHARGE Qualifiers: Respiratory failure complication: hypoxia and hypercapnia Qualified Code(s) : J96.21 - Acute and chronic respiratory failure with hypoxia; J96.22 - Acute and chronic respiratory failure with hypercapnia; J96.22 - Acute and chronic respiratory failure with hypercapnia; J96.22 - Acute and chronic respiratory failure with hypercapnia - Subjective Interval history: Had a fever of 100 yesterday, felling nauseous , mild abdominal discomfort. Feeling mildly short of breath, very weak, denies any chest pain, no abdominal pain, has complained of some urinary urgency, she has a Jett catheter - Constitutional Vitals: Temp Pulse Resp BP Pulse Ox 98.2 F 95 18 116/73 93 04/10/17 08:55 04/10/17 08:55 04/10/17 10:25 04/10/17 08:55 04/10/17 10:25 General appearance: Present: A&O X 3, no acute distress, answers questions appropriately (head nod/shake. No verbal secondary to ET tube.) Exam: - Head Head exam: Present: atraumatic, normocephalic - Eye Eye exam: Present: PERRL, conjuntiva pink, sclera anicteric Pupils: Present: PERRL - Neck Neck exam general surgery: Present: supple, trachea midline. Absent: lymphadenopathy - Respiratory Respiratory exam: Present: CTAB. Absent: accessory muscle use, rales, rhonchi, wheezes - Cardiovascular Cardiovascular exam: Present: RRR, +S1, +S2. Absent: diastolic murmur, gallop, rubs, systolic murmur - GI/Abdominal GI/Abdominal exam: Present: normal bowel sounds, soft, no peritoneal signs. Absent: distended, tenderness - Extremities Exam Extremities exam: Present: warm, radial pulses palpable and symmetrical. Absent : calf tenderness, cyanotic, pedal edema Additional comments: Pressure sacral ulcer - Neurological Exam Neurological exam: Present: CN II-XII intact, oriented X3, no focal deficits. Absent: pronater drift, facial droop, speech deficit - Skin Skin exam: Present: dry, intact Internal Medicine: Result - Labs CBC & Chem 7: 04/06/17 03:10 04/06/17 03:10 - ABG Interpretation ABG results: ABG ABG pH 7.43 pH Units (7.32-7.45) 04/05/17 04:47 ABG pCO2 58 mmHg (35-45) H 04/05/17 04:47 ABG pO2 93 mmHg (85-104) 04/05/17 04:47 ABG O2 Saturation 97 % (95-98) 04/05/17 04:47 PT/INR, D-dimer PT 14.1 Seconds (9.4-12.1) H 03/22/17 16:12 - VTE Documentation of Mechanical Device: Graduated compression elastic hosiery Consult Discharge Plan - Plan Instructions: Metoprolol (By mouth), Lorazepam (By mouth), Prednisone (By mouth ), Atrial Fibrillation (DC), Chronic Obstructive Pulmonary Disease (DC) Additional Instructions: Continue wound care. Taper prednisone. Fall precautions. Referrals: NONE,PCP [Primary Care Provider] - Prescriptions: LORazepam [Ativan] 0.5 mg PO BID PRN 7 Days #14 tablet PRN Reason: Anxiety Metoprolol XL (24 HR) Succ [Toprol Xl] 75 mg PO DAILY #30 tab.er.24h predniSONE [PredniSONE] 10 mg PO DAILY 20 Days tablet
[2017-04-10] MEDS: Nystatin POWDER 30 GM BOTTLE TP SCH ×3 (11:37→19:56)
[2017-04-10 12:19] LABS: Basophils % 0.3 %; Eosinophils # 0.1 K/mcL (0.0-0.6); Hematocrit 35.8 % (35.3-44.9); Hemoglobin 11.2 g/dL (11.5-15.4); Immature Granulocytes % 0.1 % (0-4); Lymphocytes # 0.8 K/mcL (0.6-4.6); Mean Corpuscular HGB Conc 31.3 g/dL (31.6-35.5); Mean Corpuscular Hemoglobin 29.8 pg (28.0-33.3); Mean Corpuscular Volume 95.2 fL (83.0-100.0); Mean Platelet Volume 10.4 fL (9.4-12.4); Monocytes # 0.3 K/mcL (0.0-1.3); Monocytes % 4.2 %; Neutrophils # 5.8 K/mcL (1.6-8.9); Platelet Count 170 K/mcL (140-400); Red Blood Count 3.76 M/mcL (3.82-4.97); Red Cell Distribution Width 14.8 % (11.5-14.5); Segmented Neutrophils % 82.4 %
[2017-04-10 12:40] LABS: BUN/Creatinine Ratio 45 (6-26); Blood Urea Nitrogen 14 mg/dL (8-23); Calcium 9.1 mg/dL (8.6-10.3); Carbon Dioxide 29 mEq/L (23-29); Chloride 102 mEq/L (98-107); Glucose 237 mg/dL (70-105); Osmolality,Calculated 298 (280-300); Potassium 4.1 mEq/L (3.5-5.1); Sodium 140 mEq/L (136-145); eGFR For African Americans > 60 (> 60); eGFR For Non-African Americans > 60 (> 60)
[2017-04-10] MEDS: Fluconazole 100 MG/50 ML 100 MG/50 ML BAG IVPB SCH (13:07)
[2017-04-10] MEDS: hydrOXYzine pamoate 25 MG CAPSULE PO PRN ×2 (13:17→23:48)
[2017-04-10] MEDS: *HR* LORazepam 0.5 MG TABLET PO PRN (23:41)
[2017-04-11] MEDS: Levalbuterol Neb 1.25 MG/3 ML IH SCH ×4 (03:40→21:26)
[2017-04-11] MEDS: *HR* OxyCODONE Immed Rel 5 MG TABLET PO PRN ×3 (04:41→18:45)
[2017-04-11] MEDS: *HR* Heparin 5,000 UNIT/ML VIAL SQ SCH ×3 (05:27→22:09)
[2017-04-11] MEDS: Levothyroxine 25 MCG TABLET PO SCH (05:27)
[2017-04-11] MEDS: predniSONE 20 MG TABLET PO SCH (09:25)
[2017-04-11] MEDS: Zinc Sulfate 220 MG CAPSULE PO SCH (09:25)
[2017-04-11] MEDS: Metoprolol XL (24 HR) Succ 50 MG TAB.ER.24H PO SCH (09:25)
[2017-04-11] MEDS: hydrOXYzine pamoate 25 MG CAPSULE PO PRN (09:25)
[2017-04-11] MEDS: Ascorbic Acid 500 MG TABLET PO SCH (09:25)
[2017-04-11] MEDS: Fluconazole 100 MG/50 ML 100 MG/50 ML BAG IVPB SCH (09:26)
[2017-04-11] MEDS: Nystatin POWDER 30 GM BOTTLE TP SCH ×3 (09:26→22:27)
[2017-04-11] MEDS: Budesonide/Formoterol 160/4.5 MDI IH SCH ×2 (10:44→21:26)
[2017-04-11 11:34] LABS: Hematocrit 35.7 % (35.3-44.9); Hemoglobin 10.8 g/dL (11.5-15.4); Mean Corpuscular HGB Conc 30.3 g/dL (31.6-35.5); Mean Corpuscular Hemoglobin 29.6 pg (28.0-33.3); Mean Corpuscular Volume 97.8 fL (83.0-100.0); Mean Platelet Volume 10.7 fL (9.4-12.4); Platelet Count 174 K/mcL (140-400); Red Blood Count 3.65 M/mcL (3.82-4.97); Red Cell Distribution Width 14.9 % (11.5-14.5)
[2017-04-11 11:42] LABS: BUN/Creatinine Ratio 50 (6-26); Blood Urea Nitrogen 17 mg/dL (8-23); Calcium 8.9 mg/dL (8.6-10.3); Carbon Dioxide 34 mEq/L (23-29); Chloride 103 mEq/L (98-107); Glucose 176 mg/dL (70-105); Osmolality,Calculated 298 (280-300); Potassium 3.6 mEq/L (3.5-5.1); Sodium 141 mEq/L (136-145); eGFR For African Americans > 60 (> 60); eGFR For Non-African Americans > 60 (> 60)
[2017-04-11] MEDS: Furosemide 20 MG/2 ML VIAL IVP SCH ×2 (13:09→22:10)
--- NOTE | 2017-04-11 17:17 | Internal Med Progress Note ---
Date of Encounter: 04/11/17 Time of Encounter: 11:00 - Assessment and plan (1) Pseudomonas pneumonia Current Visit: Yes Status: Acute Assessment and plan: Completed 10 days of Zosyn from admission date on March 23 to April 02.. Qualifiers: Laterality: bilateral Lung location: unspecified part of lung Qualified Code(s): J15.1 - Pneumonia due to Pseudomonas (2) Sacral decubitus ulcer, stage III Current Visit: Yes Status: Acute Assessment and plan: Reconsult wound care. (3) Acute and chronic respiratory failure Current Visit: Yes Status: Acute Assessment and plan: 04/11/17: Secondary to pneumonia, COPD and pulmonary fibrosis. Continue with supplemental oxygen by Oxymizer mask, titrate to nasal cannula. Pulmonary toilet. Inhaled bronchodilators. Patient will require rehabilitation. Summary of hospital course assesment on date 04/10/17: Acute chronic hypoxic hypercapnic respiratory failure secondary to Pseudomonas pneumonia and interstitial pulmonary fibrosis In the setting of pulmonary interstitial fibrosis, puomonary edema, overlying pneumonia. CT Scan 03/24: Pulmonary findings typical of IPF. Bibasilar honeycomb lung formation is noted. Continue steroids/ taper prednisone Extubated 04/03 to bipap, and now transitioned to nasal cannula at 4L Ordered Atarax for anxiety Qualifiers: Respiratory failure complication: hypoxia and hypercapnia Qualified Code(s) : J96.21 - Acute and chronic respiratory failure with hypoxia; J96.22 - Acute and chronic respiratory failure with hypercapnia; J96.22 - Acute and chronic respiratory failure with hypercapnia; J96.22 - Acute and chronic respiratory failure with hypercapnia (2) Paroxysmal A-fib Current Visit: Yes Status: Acute PAF, occurring sporadically but self-converted or requiring lopressor push Has required multiple doses of metoprolol to control Increased Toprol XL to 75mg PO daily (3) Pulmonary interstitial fibrosis Current Visit: Yes Status: Chronic Per medical decision making in (1). (4) Decubital ulcer Current Visit: Yes Status: Chronic Daily wound care per nursing, currently stable coccyx decubital ulcer at stage 3. Risk Factor sedentary state; working with PT/OT/nutrition for reducing wound risk factors and improving nutrition supplementation. Started Vitamin C and Zinc. Wound care Patinet prefers to keep Jett , risk of infection explained, option of removing it was discussed and encouraged (4) UTI Current Visit: Yes Status: Acute Urine culture growing yeasts, unclear if this would be the source of her fever. Check CXR start Fluconazole IV Patient prefers to keep Jett , risk of infection explained, option of removing it was discussed and encouraged CANCEL DISCHARGE Qualifiers: Respiratory failure complication: hypoxia and hypercapnia Qualified Code(s) : J96.21 - Acute and chronic respiratory failure with hypoxia; J96.22 - Acute and chronic respiratory failure with hypercapnia; J96.22 - Acute and chronic respiratory failure with hypercapnia; J96.22 - Acute and chronic respiratory failure with hypercapnia (4) DVT prophylaxis Current Visit: Yes Status: Acute Assessment and plan: SQ heparin Q8hr. (5) Paroxysmal A-fib Current Visit: Yes Status: Acute (6) Pulmonary interstitial fibrosis Current Visit: Yes Status: Chronic Assessment and plan: Continue with prednisone 20 mg daily. Follow-up outpatient with pulmonology. Patient has advanced interstitial pulmonary fibrosis, has poor prognosis. She is hospice eligible and was evaluated by [facility] care service. At this time she was not interested in hospice. - Subjective Interval history: Patient reports mild to moderate shortness of breath at improved from yesterday , associated with dry cough. She had a episode of fever and tachypnea, tachycardia 2 days ago and her discharge was delayed due to that. She was started on fluconazole. Over the last 24 hours she had no subjective fevers and her breathing has improved. - Constitutional Vitals: Temp Pulse Resp BP Pulse Ox 98.8 F 69 20 157/81 98 04/11/17 15:43 04/11/17 15:43 04/11/17 15:43 04/11/17 15:43 04/11/17 15:43 General appearance: Present: A&O X 3, no acute distress, answers questions appropriately (head nod/shake. No verbal secondary to ET tube.) - Respiratory Respiratory exam: Present: rales. Absent: accessory muscle use, rhonchi, wheezes - Cardiovascular Cardiovascular exam: Present: RRR, +S1, +S2. Absent: diastolic murmur, gallop, rubs, systolic murmur - GI/Abdominal GI/Abdominal exam: Present: normal bowel sounds, soft, no peritoneal signs. Absent: distended, tenderness - Extremities Exam Extremities exam: Present: pedal edema, warm, radial pulses palpable and symmetrical. Absent: calf tenderness, cyanotic - Skin Skin exam: Present: dry. Absent: intact (Stage III sacral decubitus ulcer measuring 3.5 cm in diameter surrounded by a friable skin with superficial lacerations.) Internal Medicine: Result - Labs CBC & Chem 7: 04/11/17 10:27 04/11/17 10:27 Labs: Short CBC 04/11/17 Range/Units 10:27 WBC 6.6 (4.3-11.1) K/mcL Hgb 10.8 L (11.5-15.4) g/dL Hct 35.7 (35.3-44.9) % Plt Count 174 (140-400) K/mcL BMP 04/11/17 10:27 Sodium 141 Potassium 3.6 Chloride 103 Carbon Dioxide 34 H BUN 17 Creatinine 0.34 L Glucose 176 H Calcium 8.9 - ABG Interpretation ABG results: ABG ABG pH 7.43 pH Units (7.32-7.45) 04/05/17 04:47 ABG pCO2 58 mmHg (35-45) H 04/05/17 04:47 ABG pO2 93 mmHg (85-104) 04/05/17 04:47 ABG O2 Saturation 97 % (95-98) 04/05/17 04:47 PT/INR, D-dimer PT 14.1 Seconds (9.4-12.1) H 03/22/17 16:12 - Impressions Impressions Chest X-Ray 04/10/17 11:17 IMPRESSION: Bilateral multifocal pulmonary opacities suspicious for either pulmonary edema or pneumonia. Chronic pulmonary findings obscured due to superimposed acute pulmonary opacities. D/ / 04/10/2017 22:24:20 Aramis Campos MD / nieves Interpreting Provider: Aramis Campos MD - VTE Documentation of Mechanical Device: Graduated compression elastic hosiery Consult Discharge Plan - Plan Instructions: Metoprolol (By mouth), Lorazepam (By mouth), Prednisone (By mouth ), Atrial Fibrillation (DC), Chronic Obstructive Pulmonary Disease (DC) Additional Instructions: Continue wound care. Taper prednisone. Fall precautions. Referrals: NONE,PCP [Primary Care Provider] - Prescriptions: LORazepam [Ativan] 0.5 mg PO BID PRN 7 Days #14 tablet PRN Reason: Anxiety Metoprolol XL (24 HR) Succ [Toprol Xl] 75 mg PO DAILY #30 tab.er.24h predniSONE [PredniSONE] 10 mg PO DAILY 20 Days tablet
[2017-04-12] MEDS: *HR* OxyCODONE Immed Rel 5 MG TABLET PO PRN ×2 (02:42→09:31)
[2017-04-12] MEDS: Levalbuterol Neb 1.25 MG/3 ML IH SCH ×2 (03:29→10:36)
[2017-04-12] MEDS: Levothyroxine 25 MCG TABLET PO SCH (06:17)
[2017-04-12] MEDS: *HR* Heparin 5,000 UNIT/ML VIAL SQ SCH (06:17)
[2017-04-12] MEDS: Ascorbic Acid 500 MG TABLET PO SCH (08:42)
[2017-04-12] MEDS: Zinc Sulfate 220 MG CAPSULE PO SCH (08:42)
[2017-04-12] MEDS: Nystatin POWDER 30 GM BOTTLE TP SCH (08:42)
[2017-04-12] MEDS: Metoprolol XL (24 HR) Succ 50 MG TAB.ER.24H PO SCH (08:42)
[2017-04-12] MEDS ORDERED: predniSONE 20 MG TABLET PO SCH (08:42)
[2017-04-12] MEDS: Furosemide 20 MG/2 ML VIAL IVP SCH (08:42)
[2017-04-12] MEDS ORDERED: Fluconazole 100 MG TABLET PO SCH (09:00)
--- NOTE | 2017-04-12 09:45 | Event Note ---
Date of Encounter: 04/12/17 Time of Encounter: 09:30 Saw pt briefly - she will most likely be discharging to [facility] for rehab soon. Had changed code status to DNR/DNI in ICU - no state form was completed. Discussed that if remain her wishes, state form needs completed to be honored outside of this facility. Patient refused to discuss at this time and only wanted her nurse to get her pain medication. She asked I leave the form and she will review later. Palliative is following at a distance. Patient and daughter have been very reluctant to discuss the seriousness of her pulmonary fibrosis.
[2017-04-12 10:37] VITALS: BP 125/81
[2017-04-12] MEDS: Budesonide/Formoterol 160/4.5 MDI IH SCH (10:37)
--- NOTE | 2017-04-12 13:30 | Discharge Summary ---
Orders not resulted at time of discharge: Pending orders 04/10/17 11:47 Culture,Blood [] Stat Date of Encounter: 04/12/17 Time of Encounter: 09:45 - Discharge Diagnosis (1) Pseudomonas pneumonia Priority: Primary Status: Acute Qualifiers: Laterality: bilateral Lung location: unspecified part of lung Qualified Code(s): J15.1 - Pneumonia due to Pseudomonas (2) Acute and chronic respiratory failure Priority: Primary Status: Acute Qualifiers: Respiratory failure complication: hypoxia and hypercapnia Qualified Code(s) : J96.21 - Acute and chronic respiratory failure with hypoxia; J96.22 - Acute and chronic respiratory failure with hypercapnia; J96.22 - Acute and chronic respiratory failure with hypercapnia; J96.22 - Acute and chronic respiratory failure with hypercapnia (3) Counseling regarding advanced care planning and goals of care Priority: Primary Status: Acute (4) Debility Priority: Primary Status: Acute (5) Paroxysmal A-fib Priority: Secondary Status: Chronic (6) Sacral decubitus ulcer, stage III Priority: Secondary Status: Chronic (7) Pulmonary interstitial fibrosis Priority: Secondary Status: Chronic Hospital course: Ms. Benjamin is a 71 year old female with advanced pulmonary fibrosis and chronic respiratory failure, on home oxygen, was admitted to ICU with respiratory failure, after being intubated in the emergency room of [facility]. She was continued on ventilator support, IV steroids, bronchodilator nebulization treatments. CT chest showed pulmonary findings typical of IPF with by basilar honeycomb appearance. 2 sets of blood cultures remained negative. Sputum culture eventually grew pseudomonas aeruginosa and patient completed a 10 day course of IV Zosyn. She was gradually able to be liberated from ventilator to BiPAP support and is currently on 5 L/m supplemental oxygen via nasal cannula. She was also noted to have stage III sacral decubitus ulcer, wound care was consulted, instructions for wound care notes. She was being prepared for discharge when she developed low-grade fever spikes. Urine culture grows Mariela and patient has been started on fluconazole, to complete a 7 day course. She was also noted to have mild volume overload and received spot dosing of Lasix during this hospitalization. She was also noted to have paroxysmal atrial fibrillation, with self conversion, beta akrthik has been increased to 75 mg daily. Physical and occupational therapy evaluation was completed, recommended ECF placement. Patient continues to report generalized pain and weakness, not out of bed yet but hopeful to do so in the next few days. Jett catheter will be discontinued. Patient also refuses ECF placement, agreeable for inpatient swing bed. She is currently medically stable for this transfer. Discharge discussed with: patient, family - Time Spent with Patient Total time spent providing and/or coordinating discharge services: Greater than 30 minutes (55 min) - Discharge Medications Prescriptions: LORazepam [Ativan] 0.5 mg PO BID PRN 7 Days #14 tablet PRN Reason: Anxiety Metoprolol XL (24 HR) Succ [Toprol Xl] 75 mg PO DAILY #30 tab.er.24h predniSONE [PredniSONE] 10 mg PO DAILY 20 Days tablet Home Medications: Benzonatate [Tessalon] 100 mg PO TID PRN 03/23/17 [History] Cholecalciferol (D-3) [Vitamin D] 2,000 unit PO DAILY 03/23/17 [History] Fluticasone Propionate Nasal [Flonase] 2 spr NS DAILY 03/23/17 [History] Levothyroxine Sodium [Levoxyl] 50 mcg PO DAILY 03/23/17 [History] Loratadine [Allergy Relief] 10 mg PO DAILY 03/23/17 [History] Magnesium Oxide [Magnesium] 400 mg PO DAILY 03/23/17 [History] Omeprazole [PriLOSEC] 40 mg PO DAILY 03/23/17 [History] Pravastatin Sodium [Pravachol] 40 mg PO DAILY 03/23/17 [History] Tizanidine HCl 4 mg PO BID 03/23/17 [History] Ascorbic Acid [Vitamin C] 500 mg PO DAILY tablet 04/07/17 [Rx] Budesonide/Formoterol 160/4.5 [Symbicort 160/4.5] 2 puff IH BIDR inhaler [Rx] LORazepam [Ativan] 0.5 mg PO BID PRN 7 Days #14 tablet 04/07/17 [Rx] Metoprolol XL (24 HR) Succ [Toprol Xl] 75 mg PO DAILY #30 tab.er.24h 04/07/17 [ Rx] Zinc Sulfate 220 mg PO DAILY capsule 04/07/17 [Rx] predniSONE [PredniSONE] 10 mg PO DAILY 20 Days tablet 04/07/17 [Rx] Allergies/Adverse Reactions: 3 Allergy/AdvReac Type Severity Reaction Status Date / Time ciprofloxacin [From Cipro] Allergy Rash Verified 11/14/16 19:58 Hyoscyamine [From Urelle] Allergy Rash Verified 11/14/16 19:58 methenamine [From Urelle] Allergy Rash Verified 11/14/16 19:58 methylene blue [From Urelle] Allergy Rash Verified 11/14/16 19:58 phenazopyridine Allergy Rash Verified 11/14/16 19:58 [From Pyridium] salicylates [From Urelle] Allergy Rash Verified 11/14/16 19:58 Sodium Phosphate Allergy Rash Verified 11/14/16 19:58 [From Urelle] Date of admission: 03/22/17 13:51 Primary care physician: PCP NONE Consults: 03/22/17 14:40 Consult to Nutrition [CONS] Routine Comment: Consulting Provider: NUTRITION Reason for Dietary Consult: Tube Feed Start & Manage 03/22/17 14:57 Consult to Nutrition [CONS] Routine Comment: Consulting Provider: NUTRITION Reason for Dietary Consult: Diet Education PO Supplementation 03/23/17 08:45 Consult to Wound Care [CONS] Routine Reason for Consult: stage 2 decubitous ulcer coccyx, 1/2 centimeter deep Call Completed: No 04/04/17 14:20 Consult to Occupational Therapy [CONS] Routine Comment: Evaluate, develop and implement POC Reason for Consult: admitted 03/22 acute resp failure 2/2 pulm fibrosis, extubated 04/03, on bipap, 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 supervisor metal placing 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 bilaterally Consult to Physical Therapy [CONS] Routine Comment: Evaluate, develop and implement POC Reason for Consult: admitted 03/22 acute resp failure 2/2 pulm fibrosis, extubated 04/03, on bipap, poor supervisor metal placing strength bilaterally 04/04/17 14:24 Consult to Speech Therapy [CONS] Routine Comment: Evaluate, develop and implement POC Reason for Consult: admitted 03/22 acute resp failure 2/2 pulm fibrosis, extubated 04/03, difficulty swallowing Call Completed: No 04/06/17 08:16 Consult to Palliative Care [CONS] Routine Comment: Consulting Provider: Palliative Care Tracy Reason for Consult: Pulmonary fibrosis Call Completed: No 04/11/17 19:06 Consult to Wound Care [CONS] Routine Reason for Consult: non healing coccyx pressure injury Time Notified: 19:07 Call Completed: Yes Discharging clinician: Veronica Garcia Anticipated date of discharge: 04/12/17 - Constitutional Vitals: Temp Pulse Resp BP Pulse Ox 97.9 F 85 18 125/81 95 04/12/17 10:36 04/12/17 10:36 04/12/17 10:39 04/12/17 10:36 04/12/17 10:39 General appearance: Present: A&O X 3, no acute distress - Respiratory Respiratory exam: Present: CTAB (dry crackles diffusely B/L). Absent: accessory muscle use, rales, rhonchi, wheezes - Patient Status Disposition: Transfer Inpatient Rehab Fac Condition: Fair Functional capacity at discharge: bed bound Overall status at discharge: patient is progressing back to baseline - Discharge Instructions Instructions: Metoprolol (By mouth), Lorazepam (By mouth), Prednisone (By mouth ), Atrial Fibrillation (DC), Chronic Obstructive Pulmonary Disease (DC) Follow Up With: NONE,PCP [Primary Care Provider] - Additional Instructions: F/up with PCP in 1-2 weeks F/up with Pulmonology in 3-4 weeks - Diet and Activity Activity: as per physical therapy, wear oxygen at all times Diet: low fat, low cholesterol, low salt diet - VTE Documentation of Mechanical Device: Graduated compression elastic hosiery
--- NOTE | 2017-04-12 13:45 | Physician Discharge Referral ---
ExtendedCare Referral Info Transfer To: [facility] swing bed Provider in Charge: Veronica Garcia Provider in Charge after Transfer: PCP Institutional Level of Care: Intermediate - Diagnosis (1) Pseudomonas pneumonia Priority: Primary Status: Acute (2) Acute and chronic respiratory failure Priority: Primary Status: Acute (3) Counseling regarding advanced care planning and goals of care Priority: Primary Status: Acute (4) Debility Priority: Primary Status: Acute (5) Paroxysmal A-fib Priority: Secondary Status: Chronic (6) Sacral decubitus ulcer, stage III Priority: Secondary Status: Chronic (7) Pulmonary interstitial fibrosis Priority: Secondary Status: Chronic Expected Duration of Placement: 4 weeks Prognosis: Poor Aware of Diagnosis: Patient Aware of Prognosis: Patient - Transfer Medications Prescriptions: LORazepam [Ativan] 0.5 mg PO BID PRN 7 Days #14 tablet PRN Reason: Anxiety Metoprolol XL (24 HR) Succ [Toprol Xl] 75 mg PO DAILY #30 tab.er.24h predniSONE [PredniSONE] 10 mg PO DAILY 20 Days tablet Home Medications: Benzonatate [Tessalon] 100 mg PO TID PRN 03/23/17 [History] Cholecalciferol (D-3) [Vitamin D] 2,000 unit PO DAILY 03/23/17 [History] Fluticasone Propionate Nasal [Flonase] 2 spr NS DAILY 03/23/17 [History] Levothyroxine Sodium [Levoxyl] 50 mcg PO DAILY 03/23/17 [History] Loratadine [Allergy Relief] 10 mg PO DAILY 03/23/17 [History] Magnesium Oxide [Magnesium] 400 mg PO DAILY 03/23/17 [History] Omeprazole [PriLOSEC] 40 mg PO DAILY 03/23/17 [History] Pravastatin Sodium [Pravachol] 40 mg PO DAILY 03/23/17 [History] Tizanidine HCl 4 mg PO BID 03/23/17 [History] Ascorbic Acid [Vitamin C] 500 mg PO DAILY tablet 04/07/17 [Rx] Budesonide/Formoterol 160/4.5 [Symbicort 160/4.5] 2 puff IH BIDR inhaler [Rx] LORazepam [Ativan] 0.5 mg PO BID PRN 7 Days #14 tablet 04/07/17 [Rx] Metoprolol XL (24 HR) Succ [Toprol Xl] 75 mg PO DAILY #30 tab.er.24h 04/07/17 [ Rx] Zinc Sulfate 220 mg PO DAILY capsule 04/07/17 [Rx] predniSONE [PredniSONE] 10 mg PO DAILY 20 Days tablet 04/07/17 [Rx] Allergies/Adverse Reactions: 3 Allergy/AdvReac Type Severity Reaction Status Date / Time ciprofloxacin [From Cipro] Allergy Rash Verified 11/14/16 19:58 Hyoscyamine [From Urelle] Allergy Rash Verified 11/14/16 19:58 methenamine [From Urelle] Allergy Rash Verified 11/14/16 19:58 methylene blue [From Urelle] Allergy Rash Verified 11/14/16 19:58 phenazopyridine Allergy Rash Verified 11/14/16 19:58 [From Pyridium] salicylates [From Urelle] Allergy Rash Verified 11/14/16 19:58 Sodium Phosphate Allergy Rash Verified 11/14/16 19:58 [From Urelle] - Respiratory Orders Oxygen / L per min (4-5L/min via NC) Smoking Cessation: Smoking cessation has been advised. For more information, call the [place] Tobacco Quit Line at 4-776-OGLS-NOW. - Advance Directives Code Status: DNR-Arrest/Don't Intubate - Mobility Orders Ambulate - Rehabiliation Orders Rehab Potential: Fair Rehab Orders: ROM Exercises, Evaluation for Physical Therapy, Evaluation for Occupational Therapy - Diet Orders Cardiac CERTIFICATION: I certify that the transfer of the above named patient to an Extended Care Facility is necessary for the continuing treatment of the diagnosis listed. The above information is true and accurate reflection of patient's current condition. Confidential - Redisclosure prohibited without a patient's written consent.
[2017-04-12] MEDS: hydrOXYzine pamoate 25 MG CAPSULE PO PRN (14:00)
[2017-04-12] MEDS ORDERED: Furosemide 20 MG/2 ML VIAL IVP SCH (17:00)
== END 2017-04-12 15:30 | DRG 870 ==
LOC: ICNU 13:51 → SUATTDRO 13:51 → 2ANU 04-06 20:47
PROVIDERS: ADMIT Internal Medicine Pulmonary Disease; ATTEND Internal Medicine

== ENCOUNTER 2017-05-02 16:37 | Inpatient (IN) ==
[2017-05-02 19:31] LABS: ABG Base Excess 5 mEq/L (-2 to 3); ABG HCO3 35 mEq/L (21-27); ABG Oxygen Saturation 99 % (95-98); ABG PCO2 81 mmHg (35-45); ABG PH 7.25 pH Units (7.32-7.45); ABG PO2 149 mmHg (85-104); ABG TCO2 38 mEq/L (20-26)
[2017-05-02] MEDS ORDERED: Amiodarone Premix 360 MG/200 ML BAG IVC ONE (19:31)
[2017-05-02] MEDS ORDERED: Amiodarone 150 MG in D5% in Water 100 ML IVPB ONE (19:37)
[2017-05-02] MEDS ORDERED: Naloxone 0.4 MG/ML INJ IVP PRN (19:39)
[2017-05-02] MEDS ORDERED: 0.9 % Sodium Chloride 1,000 ML ONE (19:45)
[2017-05-02] MEDS ORDERED: Levalbuterol Neb 1.25 MG/3 ML IH PRN (19:46)
[2017-05-02 19:51] LABS: Basophils % 0.4 %; Hematocrit 39.7 % (35.3-44.9); Hemoglobin 11.9 g/dL (11.5-15.4); Immature Granulocytes % 0.5 % (0-4); Lymphocytes # 0.3 K/mcL (0.6-4.6); Lymphocytes % 3.9 %; Mean Corpuscular Hemoglobin 29.2 pg (28.0-33.3); Mean Corpuscular Volume 97.5 fL (83.0-100.0); Mean Platelet Volume 10.9 fL (9.4-12.4); Monocytes # 0.3 K/mcL (0.0-1.3); Monocytes % 3.3 %; Neutrophils # 7.9 K/mcL (1.6-8.9); Nucleated Red Blood Cells 0.2 /100 WBC (0); Platelet Count 160 K/mcL (140-400); Red Blood Count 4.07 M/mcL (3.82-4.97); Red Cell Distribution Width 14.9 % (11.5-14.5); Segmented Neutrophils % 91.9 %
--- NOTE | 2017-05-02 20:07 | Internal Med History&Physical ---
Date of Encounter: 05/02/17 Time of Encounter: 19:20 Assessment and Plan (1) Atrial fibrillation with RVR Current visit: Yes Status: Acute A Fib RVR on acute respiratory failure. Pt is not tolerate cardizem. Place pt on amiodarone drip and closely monitor pt. Pt is not on any AC in her home meds list. (2) Hospital acquired PNA Current visit: Yes Status: Acute CXR shows PNA in [place], consider HAP as pt develop PNA during hospitalization. - Place pt on vanco and zosyn - Follow up blood culture and sputum culture. (3) Hypothyroidism Current visit: Yes Status: Acute Resume home meds after resume diet. Qualifiers: Hypothyroidism type: acquired Qualified Code(s): E03.9 - Hypothyroidism, unspecified (4) Acute and chronic respiratory failure Current visit: No Status: Acute Pt has baseline end stage IPF and developped pneumonia. Pt's code status is DNR/ DNI - Cont supportive treatment with BiPAP - Steroid and bronchidilator - Pulmonology consult Pt is in critical condition, prognosis is highly guarded Qualifiers: Respiratory failure complication: hypoxia and hypercapnia Qualified Code(s) : J96.21 - Acute and chronic respiratory failure with hypoxia; J96.22 - Acute and chronic respiratory failure with hypercapnia; J96.22 - Acute and chronic respiratory failure with hypercapnia; J96.22 - Acute and chronic respiratory failure with hypercapnia (5) Pulmonary interstitial fibrosis Current visit: No Status: Chronic Management as above (6) DVT prophylaxis Current visit: No Status: Acute Heparin SC (7) Acute encephalopathy Current visit: Yes Status: Acute Possibly due to CO2 retention, cont BiPAP and f/u ABG. Internal Medicine - H&P: HPI Chief complaint: SOB Admitted From: Intrahospital Transfer Plans for Post Hospital Care: Home History of present illness: Ms. Benjamin is a 71 year old female with hx of end stage pulmonary fibrosis, PAF, hypothyroidism, rectal cancer s/p colostomy, transferred from [facility] for worsening SOB. Pt is not talking on arrival, family is not at bedside, Hx is obtained from transfer documentation. Pt has PF with baseline needs 6L oxygen to maintain SpO2. Pt was discharged from our hospital to [place] on 04/12/17. Her SOB getting worse on 04/30/17 with increased need of oxygen level to 15L. CXR shows extensive consolidative opacities in both lungs suggestive of severe pulmonary fibrosis with possible superimposed infiltrate can't be ruled out. Pt was treated with zosyn, nebulizer, lasix. Pt was put in BiPAP and transferred to our hospital for further management. On arrival to our hospital, pt's mental status was alterred. Pt open eyes on stimulation but cannot communicate. She is in acute respiratory distress with RR at 40s. A Fib RVR with HR 160s. BP at 110 by drop to 70s on 10mg cardizem ivp. Scatted ronchi on b/l lungs, no wheezes. Move 4 limbs on stimulation. ABG shows respiratory acidosis and CO2 retention with CO2 80s and PH 7.25. Per record in chart, pt is DNR/DNI. Past Med Surg Social Fam HX - Past Medical History Medical history: cancer (Colon Cancer), GERD, hypertension, other (Pulmonary fibrosis) - Past Surgical History Surgical History: , cholecystectomy, colostomy - Social History Smoking Status: Never smoker Smokeless Tobacco Status: No Alcohol use: none - Family History Mother History Unknown: Yes Internal Medicine - H&P: Meds Benzonatate [Tessalon] 100 mg PO TID PRN 03/23/17 [History] Cholecalciferol (D-3) [Vitamin D] 2,000 unit PO DAILY 03/23/17 [History] Fluticasone Propionate Nasal [Flonase] 2 spr NS DAILY 03/23/17 [History] Levothyroxine Sodium [Levoxyl] 50 mcg PO DAILY 03/23/17 [History] Loratadine [Allergy Relief] 10 mg PO DAILY 03/23/17 [History] Magnesium Oxide [Magnesium] 400 mg PO DAILY 03/23/17 [History] Omeprazole [PriLOSEC] 40 mg PO DAILY 03/23/17 [History] Pravastatin Sodium [Pravachol] 40 mg PO DAILY 03/23/17 [History] Tizanidine HCl 4 mg PO BID 03/23/17 [History] Ascorbic Acid [Vitamin C] 500 mg PO DAILY tablet 04/07/17 [Rx] Budesonide/Formoterol 160/4.5 [Symbicort 160/4.5] 2 puff IH BIDR inhaler [Rx] LORazepam [Ativan] 0.5 mg PO BID PRN 7 Days #14 tablet 04/07/17 [Rx] Metoprolol XL (24 HR) Succ [Toprol Xl] 75 mg PO DAILY #30 tab.er.24h 04/07/17 [ Rx] Zinc Sulfate 220 mg PO DAILY capsule 04/07/17 [Rx] predniSONE [PredniSONE] 10 mg PO DAILY 20 Days tablet 04/07/17 [Rx] Fluconazole [Diflucan] 100 mg PO DAILY #7 tablet 04/12/17 [Rx] Oxycodone HCl/Acetaminophen [Percocet 5-325 mg Tablet] 1 each PO Q6H 3 Days #5 tablet 04/12/17 [Rx] 3 Allergy/AdvReac Type Severity Reaction Status Date / Time ciprofloxacin [From Cipro] Allergy Rash Verified 11/14/16 19:58 Hyoscyamine [From Urelle] Allergy Rash Verified 11/14/16 19:58 methenamine [From Urelle] Allergy Rash Verified 11/14/16 19:58 methylene blue [From Urelle] Allergy Rash Verified 11/14/16 19:58 phenazopyridine Allergy Rash Verified 11/14/16 19:58 [From Pyridium] salicylates [From Urelle] Allergy Rash Verified 11/14/16 19:58 Sodium Phosphate Allergy Rash Verified 11/14/16 19:58 [From Urelle] All Systems PM: A 10-system review of systems was performed and is negative for pertinent findings except as documented above in the HPI. - Constitutional Vitals: Temp Pulse Resp BP Pulse Ox 97.9 F 157 40 111/68 94 05/02/17 19:20 05/02/17 19:20 05/02/17 19:20 05/02/17 19:20 05/02/17 19:20 General appearance: Present: A&O X 0, severe distress - Head Head exam: Present: atraumatic, normocephalic - Eye Eye exam: Present: PERRL, conjuntiva pink, sclera anicteric Pupils: Present: PERRL, unequal - Neck Neck exam general surgery: Present: supple, trachea midline. Absent: lymphadenopathy - Respiratory Respiratory exam: Present: CTAB, rhonchi (Scattered rhonchi b/l). Absent: accessory muscle use, rales, wheezes - Cardiovascular Cardiovascular exam: Present: irregular rhythm, +S1, +S2, tachycardia. Absent: diastolic murmur, gallop, rubs, systolic murmur - GI/Abdominal GI/Abdominal exam: Present: normal bowel sounds, soft, no peritoneal signs. Absent: distended, tenderness Additional comments: Colostomy bag on LLQ - Extremities Exam Extremities exam: Present: warm, radial pulses palpable and symmetrical. Absent : calf tenderness, cyanotic, pedal edema - Neurological Exam Neurological exam: Present: CN II-XII intact, oriented X3, no focal deficits. Absent: pronater drift, facial droop, speech deficit - Skin Skin exam: Present: dry, intact Internal Med - H&P Results - ABG Interpretation Interpretation: ABG interpreted by me ABG results: 05/02/17 19:27 ABG pH 7.25 L ABG pCO2 81 H* ABG pO2 149 H ABG HCO3 35 H ABG Total CO2 38 H ABG O2 Saturation 99 H ABG Base Excess 5 H Interpretation: respiratory acidosis - EKG Data -: EKG Interpreted by Myself Rate: tachycardia (A Fib RVR)
[2017-05-02] MEDS: 0.9 % Sodium Chloride 1,000 ML IVC SCH (20:15)
[2017-05-02 20:16] LABS: Alanine Aminotransferase 35 Units/L (7-52); Albumin/Globulin Ratio 0.8 (1.1-2.2); Alkaline Phosphatase 189 Units/L (34-104); Aspartate Amino Transferase 26 Units/L (13-39); BUN/Creatinine Ratio 33 (6-26); Bilirubin,Total 0.9 mg/dL (0.3-1.0); Blood Urea Nitrogen 35 mg/dL (8-23); Calcium 10.2 mg/dL (8.6-10.3); Carbon Dioxide 31 mEq/L (23-29); Chloride 103 mEq/L (98-107); Globulin 3.7 g/dL (2.4-3.5); Glucose 311 mg/dL (70-105); Osmolality,Calculated 320 (280-300); Potassium 4.1 mEq/L (3.5-5.1); Sodium 145 mEq/L (136-145); Total Protein 6.7 g/dL (6.4-8.9); eGFR For African Americans > 60 (> 60); eGFR For Non-African Americans 51 (> 60)
[2017-05-02 20:21] LABS: Troponin I 0.13 ng/mL (< 0.04)
[2017-05-02 20:23] LABS: Platelet Estimate Normal (Normal)
[2017-05-02] MEDS ORDERED: Amiodarone Premix 150 MG/100 ML BAG IVPB ONE ×2 (20:28→20:45)
[2017-05-02] MEDS: methylPREDNISolone 125 MG/2 ML VIAL IVP SCH (20:43)
[2017-05-02] MEDS: Levalbuterol Neb 1.25 MG/3 ML IH SCH (22:31)
[2017-05-03] MEDS: Piperacillin/Tazobactam 3.375 GM in 0.9 % Sodium Chloride Mini Bag 100 ML IVPB SCH ×2 (00:40→07:44)
[2017-05-03] MEDS: Pantoprazole 40 MG VIAL IVP SCH ×2 (00:41→07:44)
[2017-05-03] MEDS ORDERED: Amiodarone Premix 360 MG/200 ML BAG IVC SCH (01:00)
[2017-05-03] MEDS: methylPREDNISolone 125 MG/2 ML VIAL IVP SCH ×4 (04:05→20:08)
[2017-05-03] MEDS: 0.9 % Sodium Chloride 1,000 ML IVC SCH (04:05)
[2017-05-03] MEDS: Levalbuterol Neb 1.25 MG/3 ML IH SCH ×4 (04:38→21:36)
[2017-05-03] MEDS ORDERED: Haloperidol Lactate 5 MG/ML VIAL IVP ONE (04:46)
[2017-05-03 05:22] LABS: Basophils % 0.2 %; Hematocrit 36.7 % (35.3-44.9); Hemoglobin 10.8 g/dL (11.5-15.4); Immature Granulocytes % 0.8 % (0-4); Lymphocytes # 0.6 K/mcL (0.6-4.6); Lymphocytes % 11.5 %; Mean Corpuscular HGB Conc 29.4 g/dL (31.6-35.5); Mean Corpuscular Hemoglobin 28.6 pg (28.0-33.3); Mean Corpuscular Volume 97.3 fL (83.0-100.0); Mean Platelet Volume 10.5 fL (9.4-12.4); Monocytes # 0.2 K/mcL (0.0-1.3); Monocytes % 3.7 %; Neutrophils # 4.1 K/mcL (1.6-8.9); Platelet Count 144 K/mcL (140-400); Red Blood Count 3.77 M/mcL (3.82-4.97); Segmented Neutrophils % 83.8 %
[2017-05-03 05:27] LABS: INR 1.2; Prothrombin Time 12.6 Seconds (9.4-12.1)
[2017-05-03 05:40] LABS: Calcium 9.9 mg/dL (8.6-10.3); Potassium 3.6 mEq/L (3.5-5.1)
[2017-05-03 06:04] LABS: ABG Base Excess 6 mEq/L (-2 to 3); ABG HCO3 36 mEq/L (21-27); ABG Oxygen Saturation 96 % (95-98); ABG PCO2 77 mmHg (35-45); ABG PH 7.27 pH Units (7.32-7.45); ABG PO2 96 mmHg (85-104); ABG TCO2 38 mEq/L (20-26); Blood Gas Respiration Rate 12; Blood Gas VT 450 cc
[2017-05-03 06:19] LABS: Platelet Estimate Slight Decrease (Normal)
[2017-05-03] MEDS: *HR* Heparin 5,000 UNIT/ML VIAL SQ SCH ×2 (07:25→17:22)
--- NOTE | 2017-05-03 09:14 | Pulmonology Consult Note ---
Date of Encounter: 05/03/17 Time of Encounter: 08:00 Assessment and Plan (1) Acute and chronic respiratory failure Current Visit: No Status: Acute Patient has end stage pulmonary fibrosis with COPD looks like pneumonia leading exacerbation of pulmonary fibrosis .Patient is BIPAP dependent patient has overall poor prognosis very small likelihood she would come off BIPAP entirely , the gas exchange looks stable if she is off BIPAP her gas exchange will get worse. Qualifiers: Respiratory failure complication: hypoxia and hypercapnia Qualified Code(s) : J96.21 - Acute and chronic respiratory failure with hypoxia; J96.22 - Acute and chronic respiratory failure with hypercapnia; J96.22 - Acute and chronic respiratory failure with hypercapnia; J96.22 - Acute and chronic respiratory failure with hypercapnia (2) Pulmonary interstitial fibrosis Current Visit: Yes Status: Acute Looks like she is having exacerbation of fibrosis most likely incited due to pneumonia , will continue antibiotics and steroids . (3) Pneumonia Current Visit: Yes Status: Acute To continue broad spectrum antibiotics . Qualifiers: Pneumonia type: due to unspecified organism Lung location: unspecified part of lung Qualified Code(s): J18.9 - Pneumonia, unspecified organism (4) Goals of care, counseling/discussion Current Visit: Yes Status: Acute Had a lengthy conversation with the daughter patient will not be able to sustain due to worsening of fibrosis treating the reversible causes like pneumonia and fluid overload is not enough turn around the patient , counseled she is going to tire out , suggested according to her wishes we should concentrate on comfort care measures only . History of Present Illness Consult date: 05/03/17 Requesting physician: Alpesh Ramesh Reason for consult: pulmonary fibrosis Chief complaint: Shortness of breadth History of present illness: 71 year old female presenting with past medical history significant for end stage idiopathic pulmonary fibrosis comes with acute on chronic respiratory failure patient was admitted to [facility] treated for pneumonia was dependent on BIPAP throughout the hospital stay was not getting better was transferred to [facility] for further management . Patient is here BIPAP dependent , her FIO2 around 50% . Still very shortness of breadth still more somnolent not able to participate in review of systems . Past Med Surg Social Fam HX - Past Medical History Medical history: cancer (Colon Cancer), GERD, hypertension, other (Pulmonary fibrosis) - Past Surgical History Surgical History: , cholecystectomy, colostomy - Social History Smoking Status: Never smoker Smokeless Tobacco Status: No Alcohol use: none - Family History Mother History Unknown: Yes Medications and Allergies Benzonatate [Tessalon] 100 mg PO TID PRN 03/23/17 [History] Cholecalciferol (D-3) [Vitamin D] 2,000 unit PO DAILY 03/23/17 [History] Fluticasone Propionate Nasal [Flonase] 2 spr NS DAILY 03/23/17 [History] Levothyroxine Sodium [Levoxyl] 50 mcg PO DAILY 03/23/17 [History] Loratadine [Allergy Relief] 10 mg PO DAILY 03/23/17 [History] Magnesium Oxide [Magnesium] 400 mg PO DAILY 03/23/17 [History] Omeprazole [PriLOSEC] 40 mg PO DAILY 03/23/17 [History] Pravastatin Sodium [Pravachol] 40 mg PO DAILY 03/23/17 [History] Tizanidine HCl 4 mg PO BID 03/23/17 [History] Ascorbic Acid [Vitamin C] 500 mg PO DAILY tablet 04/07/17 [Rx] Budesonide/Formoterol 160/4.5 [Symbicort 160/4.5] 2 puff IH BIDR inhaler [Rx] LORazepam [Ativan] 0.5 mg PO BID PRN 7 Days #14 tablet 04/07/17 [Rx] Zinc Sulfate 220 mg PO DAILY capsule 04/07/17 [Rx] Fluconazole [Diflucan] 100 mg PO DAILY #7 tablet 04/12/17 [Rx] 3 Allergy/AdvReac Type Severity Reaction Status Date / Time ciprofloxacin [From Cipro] Allergy Rash Verified 11/14/16 19:58 Hyoscyamine [From Urelle] Allergy Rash Verified 11/14/16 19:58 methenamine [From Urelle] Allergy Rash Verified 11/14/16 19:58 methylene blue [From Urelle] Allergy Rash Verified 11/14/16 19:58 phenazopyridine Allergy Rash Verified 11/14/16 19:58 [From Pyridium] salicylates [From Urelle] Allergy Rash Verified 11/14/16 19:58 Sodium Phosphate Allergy Rash Verified 11/14/16 19:58 [From Urelle] ROS unobtainable: due to mental status All Systems: The remainder of the systems were reviewed and are negative Physical Examination Vital Signs: Vital Signs, Last 4 Hours Temp Pulse Resp BP Pulse Ox 05/03/17 07:57 35 94 05/03/17 07:54 70 05/03/17 06:57 98.0 F 70 61 105/62 95 General appearance: appears uncomfortable (due to respiratory distress) Effort: very labored Auscultation: bilateral: diminished breath sounds (basilar diminshed breadth sounds ), other (bilateral extensive end inspiratory velcro crackles ) unable to assess due to mental status Results - Laboratory Findings CBC and BMP: 05/03/17 04:00 05/03/17 04:00 ABG ABG pH 7.27 pH Units (7.32-7.45) L 05/03/17 05:59 ABG pCO2 77 mmHg (35-45) H* 05/03/17 05:59 ABG pO2 96 mmHg (85-104) 05/03/17 05:59 ABG O2 Saturation 96 % (95-98) 05/03/17 05:59 PT/INR, D-dimer PT 12.6 Seconds (9.4-12.1) H 05/03/17 04:00 Abnormal lab findings: Abnormal lab results RBC 3.77 M/mcL (3.82-4.97) L 05/03/17 04:00 Hgb 10.8 g/dL (11.5-15.4) L 05/03/17 04:00 MCHC 29.4 g/dL (31.6-35.5) L 05/03/17 04:00 RDW 15.0 % (11.5-14.5) H 05/03/17 04:00 Nucleated RBCs/100 WBC 0.2 /100 WBC (0) H 05/02/17 19:35 Platelet Estimate Slight Decrease (Normal) L 05/03/17 04:00 PT 12.6 Seconds (9.4-12.1) H 05/03/17 04:00 ABG pH 7.27 pH Units (7.32-7.45) L 05/03/17 05:59 ABG pCO2 77 mmHg (35-45) H* 05/03/17 05:59 ABG HCO3 36 mEq/L (21-27) H 05/03/17 05:59 ABG Total CO2 38 mEq/L (20-26) H 05/03/17 05:59 ABG Base Excess 6 mEq/L (-2 to 3) H 05/03/17 05:59 Sodium 147 mEq/L (136-145) H 05/03/17 04:00 Carbon Dioxide 33 mEq/L (23-29) H 05/03/17 04:00 BUN 39 mg/dL (8-23) H 05/03/17 04:00 Creatinine 1.21 mg/dL (0.60-1.20) H 05/03/17 04:00 Est GFR ( Amer) 53 (> 60) L 05/03/17 04:00 Est GFR (Non-Af Amer) 44 (> 60) L 05/03/17 04:00 BUN/Creatinine Ratio 32 (6-26) H 05/03/17 04:00 Glucose 326 mg/dL (70-105) H 05/03/17 04:00 Calculated Osmolality 326 (280-300) H 05/03/17 04:00 Alkaline Phosphatase 189 Units/L (34-104) H 05/02/17 19:35 Troponin I 0.09 ng/mL (< 0.04) H* 05/03/17 05:05 B-Natriuretic Peptide 244 pg/mL (Less than 100) H 05/02/17 19:35 Albumin 3.0 g/dL (3.5-5.7) L 05/02/17 19:35 Globulin 3.7 g/dL (2.4-3.5) H 05/02/17 19:35 Albumin/Globulin Ratio 0.8 (1.1-2.2) L 05/02/17 19:35 - Clinical Findings Intake & Output: Intake & Output 05/02/17 05/03/17 05/03/17 23:59 07:59 15:59 Intake Total 1100 / 1100 Output Total 300 / 300 Balance 800 / 800 Weight 83 kg Consult Discharge Plan - Plan Referrals: NONE,PCP [Primary Care Provider] -
[2017-05-03] MEDS ORDERED: 0.9 % Sodium Chloride 250 ML ONE (12:23)
[2017-05-03] MEDS: Dexmedetomidine HCl 400 MCG/100 ML MLS IVC SCH (12:29)
--- NOTE | 2017-05-03 13:17 | Palliative - Consult Note ---
Date of Encounter: 05/03/17 Time of Encounter: 13:15 - Assessment and Plan (1) Dyspnea Current Visit: No Status: Acute Assessment and plan: She has been on bipap since Monday - is receiving steroids/IV atb therapy/ bronchodilator therapy. Will follow closely - discussed with daughter that if we transition to comfort care, opioids can be added for air hunger. Qualifiers: Dyspnea type: unspecified Qualified Code(s): R06.00 - Dyspnea, unspecified (2) Debility Current Visit: No Status: Acute Assessment and plan: She had been at swing bed at [facility], I spoke with the physician there who states she was not making much progress and he met with family yesterday and recommended hospice care, which they refused. Doubt that family will be able to care for her, and she will need ECF placement if she survives. (3) Counseling regarding advanced care planning and goals of care Current Visit: No Status: Acute Assessment and plan: Patient is minimally responsive during my visit - daughter was at bedside asleep. I woke her at bedside to discuss pt care. She was sound asleep and appears to doze off intermittently even during our conversation. Discussed seriousness of pt condition - daughter states "I know my mom has a terminal condition, but if we can get her off the bipap and get her to eat and drink, she will feel better". Discussed that pt appears dependent on bipap, and if this is taken off, it is possible she may further deteriorate. Discussed that this is a short term option, and bipap ocean transportation intermediary is not feasible. She verbalized understanding. Discussed that if we transition to comfort care - we would focus on medications to help with air hunger, and when pt more comfortable , could remove bipap, but she ultimately may pass away. Daughter states "I need to sleep because I haven't slept in june, and after I will sleep, we can talk more about this". She did disclose brother Mina phone number ( [phone]), and father Mina room at rehab ([phone]). I spoke with both of them and updated on pt situation. Patient's Mina did seem to understand the pt condition, but states since [facility] is the closest one involved and knows all her health history, he will leave decisions to her. Patient's other son Mina states that he feels that [facility] is not accepting that pt is doing poorly and does not want to "let her go". He plans on visiting later today or tomorrow. Will f/u and check on pt status later this afternoon. (4) Hospital acquired PNA Current Visit: Yes Status: Acute (5) Acute and chronic respiratory failure Current Visit: No Status: Acute Qualifiers: Respiratory failure complication: hypoxia and hypercapnia Qualified Code(s) : J96.21 - Acute and chronic respiratory failure with hypoxia; J96.22 - Acute and chronic respiratory failure with hypercapnia; J96.22 - Acute and chronic respiratory failure with hypercapnia; J96.22 - Acute and chronic respiratory failure with hypercapnia (6) Pulmonary interstitial fibrosis Current Visit: No Status: Chronic Palliative-CN HPI - Data of Consult Requesting Physician: Ziggy Wheeler MD Primary Care Provider: PCP NONE - Consult Narrative History of present illness: Ms. Benjamin is a 71 year old female with a history of pulmonary fibrosis who presented from [place], where she was receiving rehab, for shortness of breath. She had been on bipap since Monday. She was at [place] recently, and known to the palliative care team from that visit, where she was spent significant time in ICU ventilator receiving treatment for resp failure/ pulmonary fibrosis. She had prolonged hospital stay at that time. She states that her previous fancy sewer has retired, states primary physician is Dr. Fitzpatrick. She is currently receiving IV atb/steroids/bronchodilators. Had A fib/RVR on admission, but this has improved with treatment, and IV Amiodarone has been discontinued. CXR demonstrated extensive consolidative opacities in both lungs suggestive of severe pulmonary fibrosis with possible superimposed infiltrate. She is quite lethargic today - did receive Haloperidol around 5am this morning. Respirations appear quite labored on bipap - rate over 50/min. Daughter is at bedside asleep. CC: Ziggy Wheeler MD Past Med Surg Social Fam HX - Past Medical History Medical history: cancer (Colon Cancer), GERD, hypertension, other (Pulmonary fibrosis) - Past Surgical History Surgical History: , cholecystectomy, colostomy - Social History Smoking Status: Never smoker Smokeless Tobacco Status: No Alcohol use: none - Family History Mother History Unknown: Yes Medications and Allergies Benzonatate [Tessalon] 100 mg PO TID PRN 03/23/17 [History] Cholecalciferol (D-3) [Vitamin D] 2,000 unit PO DAILY 03/23/17 [History] Fluticasone Propionate Nasal [Flonase] 2 spr NS DAILY 03/23/17 [History] Levothyroxine Sodium [Levoxyl] 50 mcg PO DAILY 03/23/17 [History] Loratadine [Allergy Relief] 10 mg PO DAILY 03/23/17 [History] Magnesium Oxide [Magnesium] 400 mg PO DAILY 03/23/17 [History] Omeprazole [PriLOSEC] 40 mg PO DAILY 03/23/17 [History] Pravastatin Sodium [Pravachol] 40 mg PO DAILY 03/23/17 [History] Tizanidine HCl 4 mg PO BID 03/23/17 [History] Ascorbic Acid [Vitamin C] 500 mg PO DAILY tablet 04/07/17 [Rx] Budesonide/Formoterol 160/4.5 [Symbicort 160/4.5] 2 puff IH BIDR inhaler [Rx] LORazepam [Ativan] 0.5 mg PO BID PRN 7 Days #14 tablet 04/07/17 [Rx] Zinc Sulfate 220 mg PO DAILY capsule 04/07/17 [Rx] Fluconazole [Diflucan] 100 mg PO DAILY #7 tablet 04/12/17 [Rx] 3 Allergy/AdvReac Type Severity Reaction Status Date / Time ciprofloxacin [From Cipro] Allergy Rash Verified 11/14/16 19:58 Hyoscyamine [From Urelle] Allergy Rash Verified 11/14/16 19:58 methenamine [From Urelle] Allergy Rash Verified 11/14/16 19:58 methylene blue [From Urelle] Allergy Rash Verified 11/14/16 19:58 phenazopyridine Allergy Rash Verified 11/14/16 19:58 [From Pyridium] salicylates [From Urelle] Allergy Rash Verified 11/14/16 19:58 Sodium Phosphate Allergy Rash Verified 11/14/16 19:58 [From Urelle] ROS unobtainable: due to mental status Palliative Care-Exam - Constitutional Vitals: Temp Pulse Resp BP Pulse Ox 96.8 F L 81 65 100/63 95 05/03/17 11:16 05/03/17 12:50 05/03/17 12:35 05/03/17 12:50 05/03/17 11:16 General appearance: Present: severe distress - Head Head Exam: Present: normal inspection, normocephalic - Eye Eye exam: Present: normal appearance, PERRL - Respiratory Respiratory exam: Present: accessory muscle use, decreased breath sounds, tachypnea Additional comments: Remains on BIPAP - Cardiovascular Cardiovascular exam: Present: +S1, +S2 - GI/Abdominal Exam GI/Abdominal exam: Present: normal bowel sounds, soft additional comments: Multiple bruises to abdomen. Colostomy intact - Extremities Exam Extremities exam: Present: normal capillary refill, normal inspection - Neurological Exam Neurological exam: Present: altered - Skin Skin exam: Present: dry, pallor, warm Internal Medicine - CN: Reslt - Labs CBC & Chem 7: 05/03/17 04:00 05/03/17 04:00 Labs: Short CBC 05/02/17 05/03/17 Range/Units 19:35 04:00 WBC 8.6 4.9 (4.3-11.1) K/mcL Hgb 11.9 10.8 L (11.5-15.4) g/dL Hct 39.7 36.7 (35.3-44.9) % Plt Count 160 144 (140-400) K/mcL Neutrophils # 7.9 4.1 (1.6-8.9) K/mcL BMP 05/02/17 05/03/17 19:35 04:00 Sodium 145 147 H Potassium 4.1 3.6 Chloride 103 106 Carbon Dioxide 31 H 33 H BUN 35 H 39 H Creatinine 1.06 1.21 H Glucose 311 H 326 H Calcium 10.2 9.9 Cardiac Enzymes 05/02/17 05/03/17 Range/Units 19:35 05:05 Troponin I 0.13 H* 0.09 H* (< 0.04) ng/mL Liver Function 05/02/17 Range/Units 19:35 Total Bilirubin 0.9 (0.3-1.0) mg/dL AST 26 (13-39) Units/L ALT 35 (7-52) Units/L Alkaline Phosphatase 189 H (34-104) Units/L Albumin 3.0 L (3.5-5.7) g/dL - ABG Interpretation ABG results: ABG ABG pH 7.27 pH Units (7.32-7.45) L 05/03/17 05:59 ABG pCO2 77 mmHg (35-45) H* 05/03/17 05:59 ABG pO2 96 mmHg (85-104) 05/03/17 05:59 ABG O2 Saturation 96 % (95-98) 05/03/17 05:59 PT/INR, D-dimer PT 12.6 Seconds (9.4-12.1) H 05/03/17 04:00 - Impressions Impressions Chest X-Ray 05/02/17 19:38 IMPRESSION: Marked diffuse bilateral interstitial opacities compatible with pulmonary fibrosis with superimposed pulmonary edema or multifocal pneumonia. D/ / Roni Sheffield MD / Roni Sheffield MD Interpreting Provider: Roni Sheffield MD Consult Discharge Plan - Plan Referrals: NONE,PCP [Primary Care Provider] - Palliative Quality Palliative Quality: Screen for Code Status: Yes, Screen for Goals of Care: Yes, Screen for Pain: Yes, If Pain Regimen Started, Initiate Bowel Regimen: NA, Screen for Nausea/Vomitting: Yes Code Status: 05/02/17 19:39 Resuscitation Status: Active [RES] Routine Comment: Resuscitation Status: [id number]
[2017-05-03] MEDS ORDERED: *HR* Morphine 2 MG/ML SYRINGE IVP ONE (14:51)
[2017-05-03] MEDS: *HR* Digoxin 0.5 MG/2 ML AMPUL IVP SCH (14:59)
[2017-05-03] MEDS: Furosemide 40 MG/4 ML VIAL IVP SCH ×2 (14:59→20:09)
--- NOTE | 2017-05-03 15:00 | Internal Med Progress Note ---
<Sergio Dia - Last Filed: 05/03/17 18:26> Date of Encounter: 05/03/17 Time of Encounter: 17:13 - Assessment and plan (1) Pulmonary interstitial fibrosis Current Visit: Yes Status: Acute Assessment and plan: Patient at end-stage interstitial pulmonary fibrosis. Prognosis is poor at this time. There was extensive discussion with family at bedside with the palliative care team as well as the medicine team. Patient's daughter still has her. She wishes to continue antibiotic therapy at this time for coverage of hospital acquired pneumonia. Chest x-ray reveals most evidence of worsening of her interstitial pulmonary fibrosis. Patient's condition is very critical. She requires BiPAP. We have placed her on Precedex at one time today to help with her agitation. We have also removed for BiPAP mask to help with comfort. Patient was still very tachypnic with shallow breaths. We have given the patient 2 mg of morphine to help with her shallow breaths. This has appeared to help. We will continue this every 6 hours. Patient has poor creatinine function so we want to be cautious in administration of the morphine. Nursing staff has been instructed to monitor the patient to ensure that this is not occurring. Condition remains critical. Patient's heart rate began to creep up. We had patient on amiodarone drip but stopped it as this was added to the fluid overload that she has. We instituted digoxin. However, after administration with digoxin, patient's atrial fibrillation with RVR is return to the 150s. We will provide amiodarone bolus as well as an amiodarone drip again with goal to keep heart rate under 90. (2) Acute encephalopathy Current Visit: Yes Status: Acute Assessment and plan: Due to patient's hypercarbia. This has improved some as patient does respond with head nods. Continue to monitor. (3) Atrial fibrillation with RVR Current Visit: Yes Status: Acute Assessment and plan: See above. (4) Hospital acquired PNA Current Visit: Yes Status: Acute Assessment and plan: Was on vancomycin and Zosyn. We have stopped Zosyn and have switched to cefepime instead for pseudomonal coverage that is not as nephrotoxic. (5) Acute and chronic respiratory failure Current Visit: No Status: Acute Assessment and plan: See above Qualifiers: Respiratory failure complication: hypoxia and hypercapnia Qualified Code(s) : J96.21 - Acute and chronic respiratory failure with hypoxia; J96.22 - Acute and chronic respiratory failure with hypercapnia; J96.22 - Acute and chronic respiratory failure with hypercapnia; J96.22 - Acute and chronic respiratory failure with hypercapnia (6) Hypothyroidism Current Visit: Yes Status: Acute Assessment and plan: April 03 shows a TSH of 2.023 which is within normal limits. Patient has been off her levothyroxine. We will resume 25 g IV starting tomorrow. Qualifiers: Hypothyroidism type: acquired Qualified Code(s): E03.9 - Hypothyroidism, unspecified (7) Counseling regarding advanced care planning and goals of care Current Visit: No Status: Acute Assessment and plan: Extensive discussion with the palliative care team was made with patient at bedside with myself, Dr. Wheeler, Dr. Rich Wills, as well as Dr. Meyer. We are attempting to make patient as comfortable as possible while also treating her medically at this time. (8) DVT prophylaxis Current Visit: No Status: Acute Assessment and plan: Heparin 5000 units subcutaneous every 12 hours. - Subjective Interval history: Ms. Benjamin is a 71 year old female with hx of end stage pulmonary fibrosis, PAF, hypothyroidism, rectal cancer s/p colostomy, transferred from [facility] for worsening SOB. Hx is obtained from transfer documentation. Pt has PF with baseline needs 6L oxygen to maintain SpO2. Pt was discharged from our hospital to [place] on 04/12/17. Her SOB getting worse on 04/30 with increased need of oxygen level to 15L. CXR shows extensive consolidative opacities in both lungs suggestive of severe pulmonary fibrosis. Pt was treated with zosyn, nebulizer, lasix. Pt was put in BiPAP and transferred to our hospital for further management. Overnight, the patient's heart rate responded to amiodarone drip. Currently in the 70s to 80s in sinus rhythm. Patient however, has been on BiPAP overnight. She has been on BiPAP last few days. I spoke with pulmonology regarding the case and they are stating that patient is at end-stage interstitial pulmonary fibrosis and her condition has worsened tremendously. They are recommending DNR comfort care at this point. There was extensive discussions with family regarding this and they still have code. They want to continue IV antibiotics if there was any suspicion of possible pneumonia. Patient is currently on vancomycin and Zosyn. We have switched to vancomycin and cefepime. Palliative care team to patient at room at bedside with my attending Dr. Wheeler, Dr. Rich Wills, and myself. Patient's terminal condition was explained with daughter at bedside in great length. Daughter states that she still has hope and wants her mom for at least have a few good days. We explained that patient has been dependent on BiPAP. Patient has an acute kidney injury here with a creatinine of 1.18. Her normal creatinine normally in the 0.3-0.4 range. - Constitutional Vitals: Temp Pulse Resp BP Pulse Ox 96.8 F L 73 36 95/58 95 05/03/17 11:16 05/03/17 13:45 05/03/17 13:00 05/03/17 13:45 05/03/17 11:16 General appearance: Present: severe distress (Severe respiratory distress, tachypnea with a respiratory rate in the 60s.) Exam: Patient lying in bed with quick, shallow breaths. It appears to be in severe respiratory distress. - Head Head exam: Present: atraumatic, normal inspection, normocephalic - Neck Neck exam general surgery: Present: supple, trachea midline - Cardiovascular Cardiovascular exam: Present: RRR. Absent: JVD - GI/Abdominal GI/Abdominal exam: Present: soft. Absent: distended, firm, rebound - Extremities Exam Extremities exam: Present: pedal edema (1+ bilaterally) - Neurological Exam Additional comments: Patient response to pain. Answers with head nods. Internal Medicine: Result - Labs CBC & Chem 7: 05/03/17 04:00 05/03/17 04:00 Labs: Short CBC 05/02/17 05/03/17 Range/Units 19:35 04:00 WBC 8.6 4.9 (4.3-11.1) K/mcL Hgb 11.9 10.8 L (11.5-15.4) g/dL Hct 39.7 36.7 (35.3-44.9) % Plt Count 160 144 (140-400) K/mcL Neutrophils # 7.9 4.1 (1.6-8.9) K/mcL BMP 05/02/17 05/03/17 19:35 04:00 Sodium 145 147 H Potassium 4.1 3.6 Chloride 103 106 Carbon Dioxide 31 H 33 H BUN 35 H 39 H Creatinine 1.06 1.21 H Glucose 311 H 326 H Calcium 10.2 9.9 Cardiac Enzymes 05/02/17 05/03/17 05/03/17 Range/Units 19:35 05:05 12:30 Troponin I 0.13 H* 0.09 H* 0.08 H* (< 0.04) ng/mL Liver Function 05/02/17 Range/Units 19:35 Total Bilirubin 0.9 (0.3-1.0) mg/dL AST 26 (13-39) Units/L ALT 35 (7-52) Units/L Alkaline Phosphatase 189 H (34-104) Units/L Albumin 3.0 L (3.5-5.7) g/dL - ABG Interpretation ABG results: ABG ABG pH 7.27 pH Units (7.32-7.45) L 05/03/17 05:59 ABG pCO2 77 mmHg (35-45) H* 05/03/17 05:59 ABG pO2 96 mmHg (85-104) 05/03/17 05:59 ABG O2 Saturation 96 % (95-98) 05/03/17 05:59 PT/INR, D-dimer PT 12.6 Seconds (9.4-12.1) H 05/03/17 04:00 - Impressions Impressions Chest X-Ray 05/02/17 19:38 IMPRESSION: Marked diffuse bilateral interstitial opacities compatible with pulmonary fibrosis with superimposed pulmonary edema or multifocal pneumonia. D/ / Roni Sheffield MD / Roni Sheffield MD Interpreting Provider: Roni Sheffield MD Consult Discharge Plan - Plan Referrals: NONE,PCP [Primary Care Provider] - <Ziggy Wheeler - Last Filed: 05/04/17 07:52> Date of Encounter: 05/03/17 - Constitutional Vitals: Temp Pulse Resp BP Pulse Ox 97.3 F L 92 27 104/60 95 05/04/17 07:21 05/04/17 07:21 05/04/17 07:21 05/04/17 07:21 05/04/17 07:21 Internal Medicine: Result - Labs CBC & Chem 7: 05/04/17 04:42 05/04/17 04:42 Labs: Short CBC 05/04/17 Range/Units 04:42 WBC 7.0 (4.3-11.1) K/mcL Hgb 11.3 L (11.5-15.4) g/dL Hct 38.2 (35.3-44.9) % Plt Count 150 (140-400) K/mcL Neutrophils # 6.1 (1.6-8.9) K/mcL BMP 05/04/17 04:42 Sodium 150 H Potassium 3.2 L Chloride 107 Carbon Dioxide 33 H BUN 48 H Creatinine 1.47 H Glucose 291 H Calcium 10.3 Cardiac Enzymes 05/03/17 Range/Units 12:30 Troponin I 0.08 H* (< 0.04) ng/mL Liver Function 05/04/17 Range/Units 04:42 Total Bilirubin 0.5 (0.3-1.0) mg/dL AST 18 (13-39) Units/L ALT 27 (7-52) Units/L Alkaline Phosphatase 161 H (34-104) Units/L Albumin 3.0 L (3.5-5.7) g/dL Urine 05/03/17 Range/Units 15:10 Urine Color Yellow (Yellow) Urine Clarity Turbid A (Clear) Urine pH 5.0 (5.0-8.0) pH Units Ur Specific [place] > 1.030 H (1.010-1.025) Urine Protein 30 H (Neg-Trace) mg/dL Urine Glucose (UA) Normal (Normal) mg/dL - ABG Interpretation ABG results: ABG ABG pH 7.27 pH Units (7.32-7.45) L 05/03/17 05:59 ABG pCO2 77 mmHg (35-45) H* 05/03/17 05:59 ABG pO2 96 mmHg (85-104) 05/03/17 05:59 ABG O2 Saturation 96 % (95-98) 05/03/17 05:59 PT/INR, D-dimer PT 12.6 Seconds (9.4-12.1) H 05/03/17 04:00 - Attending Attestation This is a late entry note for date of service 05/03/2017 I performed a [id number] diagnostic evaluation of this patient and my medical decision-making was reviewed with the Resident Physician, Dr Sergio Dia. I agree with the documented findings, disposition and treatment plan as described except to the extent set forth below. Patient is ill-appearing and tachypneic while on BiPAP. Heart is tachycardic with regular S1-S2. Lung auscultation reveals diffuse crackles and rhonchi. Abdomen is soft and nontender. There is 1+ lower extremity pitting edema. Laboratory data and imaging studies reviewed. Creatinine is elevated from baseline at 1.12. Chest x-ray personally reviewed shows diffuse pulmonary fibrosis pattern with possible infiltrates and vascular congestion. Assessment: End-stage pulmonary fibrosis with superimposed pneumonia versus pulmonary edema. Plan: We will switch antibiotics from vancomycin and Zosyn to vancomycin and cefepime to cover healthcare associated pneumonia. Per chart review she had a recent episode of pneumonia with Pseudomonas sensitive to cefepime. Clinically she appears mildly fluid overloaded. We will give a trial of Lasix. Strict I & os more monitoring. Patient has a Jett catheter. Respiratory distress with acute hypoxic respiratory failure secondary to pneumonia and pulmonary fibrosis: Continue with BiPAP, allow for BiPAP breaks with oxygen mask. Patient is DNR/DNI. Patient's respiratory rate is averaging 40-50. At times she is breathing 70 times a minute. I ordered 2 mg of morphine IV to treat air hunger and observed a good response and respiratory rate. Oxygenation remains in the low 90s. I have had a long discussion regarding patient's condition and prognosis with the patient's daughter at the bedside. And understand that patient has a very poor prognosis. The high probability of emergent and significant clinical decompensation with potential impairment of cardiovascular and respiratory function required my full attention and presence at the bedside. I personally spent 50 minutes of critical care time which involved decision making of high complexity to assess, manipulate, and support vital organ system, in order to prevent further life threatening deterioration of the patient's condition. The critical care time was spent in the patient's room and involved obtaining updated history from the patient's daughter, examining the patient, reviewing telemetry tracing imaging studies and laboratory data, ordering medications and laboratory studies, and reevaluating for clinical response. The time spent teaching or performing any procedures was not included in the critical care time stated above. Ziggy Wheeler MD
[2017-05-03 15:43] LABS: Sodium, Urine 30.8 mEq/L
[2017-05-03] MEDS ORDERED: Dextrose Gel 15 GM/37.5 ML TUBE PO PRN ×2 (15:55)
[2017-05-03] MEDS ORDERED: *HR* Dextrose 50 % in Water (Syg) 50 ML SYRINGE IVP PRN (15:55)
[2017-05-03] MEDS ORDERED: D5% in Water 1,000 ML IVC PRN (15:55)
[2017-05-03] MEDS ORDERED: *HR* Digoxin 0.5 MG/2 ML AMPUL IVP ONE (17:08)
[2017-05-03] MEDS: Cefepime HCl 2,000 MG in Water for inj. (sterile) 20 ML 20 ML IVP SCH (17:22)
[2017-05-03] MEDS: Insulin LISPRO 300 UNITS/3 ML VIAL SQ SCH (17:23)
[2017-05-03 17:40] LABS: Bilirubin,Urine Negative (Negative); Blood,Urine Small (Negative); Clarity,Urine Turbid (Clear); Color,Urine Yellow (Yellow); Glucose,Urine (UA) Normal (Normal); Ketones,Urine Negative (Negative); Leukocyte Esterase,Urine Trace (Negative); Nitrite,Urine Negative (Negative); Protein,Urine 30 mg/dL (Neg-Trace); Specific Gravity,Urine > 1.030 (1.010-1.025); Urobilinogen,Urine Normal (Normal)
[2017-05-03 17:42] LABS: Squamous Epithelial Cell,Urine Many per lpf (None-Few); WBC,Urine TNTC per hpf (0-3)
[2017-05-03 17:55] LABS: Bacteria,Urine Many per hpf (None-Few); Granular Casts,Urine Few per lpf (None Seen); Hyaline Casts,Urine None Seen per lpf (None-Few); Yeast,Urine Many per hpf (None Seen)
[2017-05-03] MEDS ORDERED: Amiodarone Premix 360 MG/200 ML BAG IVC ONE (18:01)
[2017-05-03] MEDS ORDERED: Amiodarone Premix 150 MG/100 ML BAG IVPB ONE (18:10)
[2017-05-03] MEDS: *HR* Morphine 2 MG/ML SYRINGE IVP SCH ×2 (20:09→23:48)
[2017-05-03] MEDS: Amiodarone Premix 360 MG/200 ML BAG IVC SCH (23:50)
[2017-05-04] MEDS: Insulin LISPRO 300 UNITS/3 ML VIAL SQ SCH ×4 (00:50→18:02)
[2017-05-04] MEDS: *HR* Morphine 2 MG/ML SYRINGE IVP SCH ×2 (04:21→08:33)
[2017-05-04] MEDS: methylPREDNISolone 125 MG/2 ML VIAL IVP SCH ×4 (04:22→20:32)
[2017-05-04] MEDS: Levalbuterol Neb 1.25 MG/3 ML IH SCH ×4 (04:25→22:32)
[2017-05-04 05:02] LABS: Basophils % 0.1 %; Hematocrit 38.2 % (35.3-44.9); Hemoglobin 11.3 g/dL (11.5-15.4); Immature Granulocytes % 1.1 % (0-4); Lymphocytes # 0.5 K/mcL (0.6-4.6); Lymphocytes % 7.3 %; Mean Corpuscular HGB Conc 29.6 g/dL (31.6-35.5); Mean Corpuscular Hemoglobin 28.8 pg (28.0-33.3); Mean Corpuscular Volume 97.2 fL (83.0-100.0); Mean Platelet Volume 10.8 fL (9.4-12.4); Monocytes # 0.3 K/mcL (0.0-1.3); Monocytes % 4.7 %; Nucleated Red Blood Cells 0.4 /100 WBC (0); Platelet Count 150 K/mcL (140-400); Red Blood Count 3.93 M/mcL (3.82-4.97); Red Cell Distribution Width 15.2 % (11.5-14.5); Segmented Neutrophils % 86.8 %
[2017-05-04 05:13] LABS: Neutrophils # 6.1 K/mcL (1.6-8.9)
[2017-05-04 05:16] LABS: Albumin/Globulin Ratio 0.9 (1.1-2.2); Bilirubin,Total 0.5 mg/dL (0.3-1.0); Calcium 10.3 mg/dL (8.6-10.3); Globulin 3.5 g/dL (2.4-3.5); Phosphorous 5.6 mg/dL (2.7-4.5); Potassium 3.2 mEq/L (3.5-5.1); Total Protein 6.5 g/dL (6.4-8.9)
[2017-05-04 05:40] LABS: Platelet Estimate Normal (Normal)
[2017-05-04] MEDS: Cefepime HCl 2,000 MG in Water for inj. (sterile) 20 ML 20 ML IVP SCH ×2 (06:15→18:01)
[2017-05-04] MEDS: *HR* Heparin 5,000 UNIT/ML VIAL SQ SCH ×2 (06:17→18:01)
--- NOTE | 2017-05-04 06:37 | Electrocardiograph Report ---
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
[2017-05-04] MEDS: Levothyroxine Sodium 100 MCG VIAL IVP SCH (08:33)
[2017-05-04] MEDS: Pantoprazole 40 MG VIAL IVP SCH (08:33)
[2017-05-04] MEDS: Furosemide 40 MG/4 ML VIAL IVP SCH ×2 (08:33→20:32)
[2017-05-04] MEDS: *HR* Digoxin 0.5 MG/2 ML AMPUL IVP SCH (08:34)
[2017-05-04] MEDS ORDERED: *HR* Morphine 2 MG/ML SYRINGE IVP PRN (08:51)
[2017-05-04] MEDS ORDERED: Potassium Chloride 10 MEQ in 0.9 % Sodium Chloride 100 ML IVPB SCH (09:15)
[2017-05-04] MEDS ORDERED: Aminoglycoside Consult 1 EACH MC ONE (09:20)
--- NOTE | 2017-05-04 09:26 | Internal Med Progress Note ---
<Sergio Dia - Last Filed: 05/04/17 13:23> Date of Encounter: 05/04/17 Time of Encounter: 13:00 - Assessment and plan (1) Pulmonary interstitial fibrosis Current Visit: Yes Status: Acute Assessment and plan: Patient at end-stage interstitial pulmonary fibrosis. Prognosis is poor at this time. There was extensive discussion with family at bedside with the palliative care team as well as the medicine team yesterday. Spoke with daughter again regarding patient's worsening condition and worsening prognosis. Daughter understands that patient may not have much longer to live. (2) Metabolic encephalopathy Current Visit: Yes Status: Acute Assessment and plan: Patient is arousable, but will not answer questions. Is multifactorial in nature. Patient is currently on 2 mg IV every 4 hours. We will decrease this to 2 mg IV every 6 hours as needed as her renal function is declining. Patient does appear more comfortable at this time, however. (3) Atrial fibrillation with RVR Current Visit: Yes Status: Acute Assessment and plan: Patient currently on amiodarone drip. Digoxin stopped at this time. Heart rate ranging from the 90s to 120s. Continue to monitor telemetry. (4) Hospital acquired PNA Current Visit: Yes Status: Acute Assessment and plan: Continue IV vancomycin and cefepime. (5) Acute and chronic respiratory failure Current Visit: No Status: Acute Assessment and plan: See above Qualifiers: Respiratory failure complication: hypoxia and hypercapnia Qualified Code(s) : J96.21 - Acute and chronic respiratory failure with hypoxia; J96.22 - Acute and chronic respiratory failure with hypercapnia; J96.22 - Acute and chronic respiratory failure with hypercapnia; J96.22 - Acute and chronic respiratory failure with hypercapnia (6) Hypothyroidism Current Visit: Yes Status: Acute Assessment and plan: April 03 shows a TSH of 2.023 which is within normal limits. Currently on 25 g IV Qualifiers: Hypothyroidism type: acquired Qualified Code(s): E03.9 - Hypothyroidism, unspecified (7) Counseling regarding advanced care planning and goals of care Current Visit: No Status: Acute Assessment and plan: See above. Spoke with daughter this morning about worsening condition. (8) DVT prophylaxis Current Visit: No Status: Acute Assessment and plan: Heparin 5000 units subcutaneous every 12 hours. - Subjective Interval history: Ms. Benjamin is a 71 year old female with hx of end stage pulmonary fibrosis, PAF, hypothyroidism, rectal cancer s/p colostomy, transferred from [facility] for worsening SOB. Hx is obtained from transfer documentation. Pt has PF with baseline needs 6L oxygen to maintain SpO2. Pt was discharged from our hospital to [place] on 04/12/17. Her SOB getting worse on 04/30 with increased need of oxygen level to 15L. CXR shows extensive consolidative opacities in both lungs suggestive of severe pulmonary fibrosis. Pt was treated with zosyn, nebulizer, lasix. Pt was put in BiPAP and transferred to our hospital for further management. Overnight, the patient's heart rate responded to amiodarone drip. However, heart rate is beginning to increase. This now in the 90s-120s. Discussed with family that creatinine has worsened. It is now 1.47. Patient, however, appears comfortable after administration of morphine. We will giving 2 mg IV every 4 hours. She appears a little more somnolent and becomes alert after stimulation. However, she does not respond to any questions. - Constitutional Vitals: Temp Pulse Resp BP Pulse Ox 97.3 F L 92 27 104/60 95 05/04/17 07:21 05/04/17 07:21 05/04/17 07:21 05/04/17 07:21 05/04/17 07:21 General appearance: Present: severe distress (Severe respiratory distress tachypnea with respiratory rate in the 30s. Slower from yesterday) - Head Head exam: Present: atraumatic, normal inspection - Respiratory Additional comments: End inspiratory crackles - Cardiovascular Cardiovascular exam: Present: irregular rhythm, tachycardia. Absent: JVD Additional comments: Telemetry: Irregular rate and rhythm ranging from the 130s to 150s. Internal Medicine: Result - Labs CBC & Chem 7: 05/04/17 04:42 05/04/17 04:42 Labs: Short CBC 05/04/17 Range/Units 04:42 WBC 7.0 (4.3-11.1) K/mcL Hgb 11.3 L (11.5-15.4) g/dL Hct 38.2 (35.3-44.9) % Plt Count 150 (140-400) K/mcL Neutrophils # 6.1 (1.6-8.9) K/mcL BMP 05/04/17 04:42 Sodium 150 H Potassium 3.2 L Chloride 107 Carbon Dioxide 33 H BUN 48 H Creatinine 1.47 H Glucose 291 H Calcium 10.3 Cardiac Enzymes 05/03/17 Range/Units 12:30 Troponin I 0.08 H* (< 0.04) ng/mL Liver Function 05/04/17 Range/Units 04:42 Total Bilirubin 0.5 (0.3-1.0) mg/dL AST 18 (13-39) Units/L ALT 27 (7-52) Units/L Alkaline Phosphatase 161 H (34-104) Units/L Albumin 3.0 L (3.5-5.7) g/dL Urine 05/03/17 Range/Units 15:10 Urine Color Yellow (Yellow) Urine Clarity Turbid A (Clear) Urine pH 5.0 (5.0-8.0) pH Units Ur Specific [place] > 1.030 H (1.010-1.025) Urine Protein 30 H (Neg-Trace) mg/dL Urine Glucose (UA) Normal (Normal) mg/dL - ABG Interpretation ABG results: ABG ABG pH 7.27 pH Units (7.32-7.45) L 05/03/17 05:59 ABG pCO2 77 mmHg (35-45) H* 05/03/17 05:59 ABG pO2 96 mmHg (85-104) 05/03/17 05:59 ABG O2 Saturation 96 % (95-98) 05/03/17 05:59 PT/INR, D-dimer PT 12.6 Seconds (9.4-12.1) H 05/03/17 04:00 Consult Discharge Plan - Plan Referrals: NONE,PCP [Primary Care Provider] - <Ziggy Wheeler - Last Filed: 05/04/17 18:39> Date of Encounter: 05/04/17 - Constitutional Vitals: Temp Pulse Resp BP Pulse Ox 97.0 F L 94 30 110/61 94 05/04/17 16:14 05/04/17 16:14 05/04/17 16:26 05/04/17 16:14 05/04/17 16:26 Internal Medicine: Result - Labs CBC & Chem 7: 05/04/17 04:42 05/04/17 04:42 Labs: Short CBC 05/04/17 Range/Units 04:42 WBC 7.0 (4.3-11.1) K/mcL Hgb 11.3 L (11.5-15.4) g/dL Hct 38.2 (35.3-44.9) % Plt Count 150 (140-400) K/mcL Neutrophils # 6.1 (1.6-8.9) K/mcL BMP 05/04/17 04:42 Sodium 150 H Potassium 3.2 L Chloride 107 Carbon Dioxide 33 H BUN 48 H Creatinine 1.47 H Glucose 291 H Calcium 10.3 Liver Function 05/04/17 Range/Units 04:42 Total Bilirubin 0.5 (0.3-1.0) mg/dL AST 18 (13-39) Units/L ALT 27 (7-52) Units/L Alkaline Phosphatase 161 H (34-104) Units/L Albumin 3.0 L (3.5-5.7) g/dL - ABG Interpretation ABG results: ABG ABG pH 7.27 pH Units (7.32-7.45) L 05/03/17 05:59 ABG pCO2 77 mmHg (35-45) H* 05/03/17 05:59 ABG pO2 96 mmHg (85-104) 05/03/17 05:59 ABG O2 Saturation 96 % (95-98) 05/03/17 05:59 PT/INR, D-dimer PT 12.6 Seconds (9.4-12.1) H 05/03/17 04:00 - Attending Attestation I performed a [id number] diagnostic evaluation of this patient and my medical decision-making was reviewed with the Resident Physician, Dr Sergio Dia. I agree with the documented findings, disposition and treatment plan as described except to the extent set forth below. Patient is sedated, tachypneic Lung exam reveals rapid shallow breaths with bilateral rails and crackles. Heart is irregular and tachycardic. Plan: Continue diuresis with Lasix. Broad spectrum IV antibiotic for pneumonia. I discussed some care at length with the family members at the bedside they understand that she has a very poor prognosis. They would like to continue with medical measures short of intubation, pressors and CPR. Ziggy Wheeler MD
--- NOTE | 2017-05-04 10:01 | Palliative Progress Note ---
Date of Encounter: 05/04/17 Time of Encounter: 09:00 - Assessment and plan (1) Dyspnea Current Visit: No Status: Acute Assessment and plan: Off bipap - still quite tachypneic. Remains on IV atb/steroids/bronchodilators/ diuretics. Low dose Morphine which she appears to have tolerated well. Has received x5 last 24 hours. Nursing reports help some with air hunger. Qualifiers: Dyspnea type: unspecified Qualified Code(s): R06.00 - Dyspnea, unspecified (2) Debility Current Visit: No Status: Acute (3) Counseling regarding advanced care planning and goals of care Current Visit: No Status: Acute Assessment and plan: Daughter at bedside, does not wish to discuss goals of care at this time. States, "we are keeping every thing the same, thinking positive, and taking things hour by hour". Asked for something for patient's mouth, ordered oral moisturizer. Will continue to follow. (4) Hospital acquired PNA Current Visit: Yes Status: Acute (5) Acute and chronic respiratory failure Current Visit: No Status: Acute Qualifiers: Respiratory failure complication: hypoxia and hypercapnia Qualified Code(s) : J96.21 - Acute and chronic respiratory failure with hypoxia; J96.22 - Acute and chronic respiratory failure with hypercapnia; J96.22 - Acute and chronic respiratory failure with hypercapnia; J96.22 - Acute and chronic respiratory failure with hypercapnia (6) Pulmonary interstitial fibrosis Current Visit: Yes Status: Acute - Time Spent With Patient Total time spent is greater than 50% in coordination of care (as documented) at patient's floor/unit and/or counseling patient: 25 - 35 minutes - Subjective Interval history: Patient has remained off bipap, but did have increased heart rate last pm and back on amiodarone drip. Remains on mask at 15L. Opens eyes when name called and can shake head yes/no to questions. Denies pain or discomfort. Still tachypneic with respiratory rate in 40's. Daughter at bedside on phone - Constitutional Vitals: Abnormal lab results Hgb 11.3 g/dL (11.5-15.4) L 05/04/17 04:42 MCHC 29.6 g/dL (31.6-35.5) L 05/04/17 04:42 RDW 15.2 % (11.5-14.5) H 05/04/17 04:42 Lymphocytes # 0.5 K/mcL (0.6-4.6) L 05/04/17 04:42 Nucleated RBCs/100 WBC 0.4 /100 WBC (0) H 05/04/17 04:42 PT 12.6 Seconds (9.4-12.1) H 05/03/17 04:00 ABG pH 7.27 pH Units (7.32-7.45) L 05/03/17 05:59 ABG pCO2 77 mmHg (35-45) H* 05/03/17 05:59 ABG HCO3 36 mEq/L (21-27) H 05/03/17 05:59 ABG Total CO2 38 mEq/L (20-26) H 05/03/17 05:59 ABG Base Excess 6 mEq/L (-2 to 3) H 05/03/17 05:59 Sodium 150 mEq/L (136-145) H 05/04/17 04:42 Potassium 3.2 mEq/L (3.5-5.1) L 05/04/17 04:42 Carbon Dioxide 33 mEq/L (23-29) H 05/04/17 04:42 BUN 48 mg/dL (8-23) H 05/04/17 04:42 Creatinine 1.47 mg/dL (0.60-1.20) H 05/04/17 04:42 Est GFR ( Amer) 43 (> 60) L 05/04/17 04:42 Est GFR (Non-Af Amer) 35 (> 60) L 05/04/17 04:42 BUN/Creatinine Ratio 33 (6-26) H 05/04/17 04:42 Glucose 291 mg/dL (70-105) H 05/04/17 04:42 POC Glucose 249 (58-89) H 05/04/17 01:05 Calculated Osmolality 333 (280-300) H 05/04/17 04:42 Phosphorus 5.6 mg/dL (2.7-4.5) H 05/04/17 04:42 Alkaline Phosphatase 161 Units/L (34-104) H 05/04/17 04:42 Troponin I 0.08 ng/mL (< 0.04) H* 05/03/17 12:30 B-Natriuretic Peptide 244 pg/mL (Less than 100) H 05/02/17 19:35 Albumin 3.0 g/dL (3.5-5.7) L 05/04/17 04:42 Albumin/Globulin Ratio 0.9 (1.1-2.2) L 05/04/17 04:42 Urine Clarity Turbid (Clear) A 05/03/17 15:10 Ur Specific [place] > 1.030 (1.010-1.025) H 05/03/17 15:10 Urine Protein 30 mg/dL (Neg-Trace) H 05/03/17 15:10 Urine Blood Small (Negative) H 05/03/17 15:10 Ur Leukocyte Esterase Trace (Negative) H 05/03/17 15:10 Urine Microscopic RBC 5-15 per hpf (0-3) H 05/03/17 15:10 Urine Microscopic WBC TNTC per hpf (0-3) H 05/03/17 15:10 Ur Squamous Epith Cells Many per lpf (None-Few) H 05/03/17 15:10 Urine Bacteria Many per hpf (None-Few) H 05/03/17 15:10 Granular Casts Few per lpf (None Seen) H 05/03/17 15:10 Urine Yeast Many per hpf (None Seen) H 05/03/17 15:10 General appearance: Present: severe distress - Respiratory Additional comments: Inspiratory crackles throughout all lung baig - Cardiovascular Cardiovascular exam: Present: +S1, +S2 - GI/Abdominal GI/Abdominal exam: Present: hypoactive bowel sounds, soft Additional comments: No output from colostomy within the last few days. Abd soft - does have bowel sounds present - Extremities Exam Additional comments: Generalized edema to upper and lower extremities. Bruising to bilateral upper extremities - Neurological Exam Additional comments: Patient does awaken when name called and shakes head yes/no to questions. - Skin Skin exam: Present: dry, pallor, warm Palliative Quality Palliative Quality: Screen for Code Status: Yes, Screen for Goals of Care: Yes, Screen for Pain: Yes, If Pain Regimen Started, Initiate Bowel Regimen: NA, Screen for Nausea/Vomitting: Yes Code Status: 05/02/17 19:39 Resuscitation Status: Active [RES] Routine Comment: Resuscitation Status: [id number] - Labs CBC & Chem 7: 05/04/17 04:42 03/29/18 04:42 Labs: Laboratory Results - last 24 hr 05/03/17 05/03/17 05/03/17 09:26 12:30 12:30 WBC RBC Hgb Hct MCV MCH MCHC RDW Plt Count MPV Immature Gran % Seg Neutrophils % Lymphocytes % Monocytes % Eosinophils % Basophils % Neutrophils # Lymphocytes # Monocytes # Eosinophils # Basophils # Nucleated RBCs/100 WBC Platelet Estimate Sodium Potassium Chloride Carbon Dioxide BUN Creatinine Est GFR ( Amer) Est GFR (Non-Af Amer) BUN/Creatinine Ratio Glucose POC Glucose Calculated Osmolality Calcium Phosphorus Total Bilirubin AST ALT Alkaline Phosphatase Troponin I 0.08 H* Serum Total Protein Albumin Globulin Albumin/Globulin Ratio TSH Urine Color Urine Clarity Urine pH Ur Specific [place] Urine Protein Urine Glucose (UA) Urine Ketones Urine Blood Urine Nitrite Urine Bilirubin Urine Urobilinogen Ur Leukocyte Esterase Urine Microscopic RBC Urine Microscopic WBC Ur Squamous Epith Cells Urine Bacteria Hyaline Casts Granular Casts Urine Yeast Ur Culture Indicated? Urine Osmolality 474 Urine Creatinine Urine Sodium Random Vancomycin 20.5 05/03/17 05/03/17 05/03/17 15:10 15:10 17:17 WBC RBC Hgb Hct MCV MCH MCHC RDW Plt Count MPV Immature Gran % Seg Neutrophils % Lymphocytes % Monocytes % Eosinophils % Basophils % Neutrophils # Lymphocytes # Monocytes # Eosinophils # Basophils # Nucleated RBCs/100 WBC Platelet Estimate Sodium Potassium Chloride Carbon Dioxide BUN Creatinine Est GFR ( Amer) Est GFR (Non-Af Amer) BUN/Creatinine Ratio Glucose POC Glucose 269 H Calculated Osmolality Calcium Phosphorus Total Bilirubin AST ALT Alkaline Phosphatase Troponin I Serum Total Protein Albumin Globulin Albumin/Globulin Ratio TSH Urine Color Yellow Urine Clarity Turbid A Urine pH 5.0 Ur Specific [place] > 1.030 H Urine Protein 30 H Urine Glucose (UA) Normal Urine Ketones Negative Urine Blood Small H Urine Nitrite Negative Urine Bilirubin Negative Urine Urobilinogen Normal Ur Leukocyte Esterase Trace H Urine Microscopic RBC 5-15 H Urine Microscopic WBC TNTC H Ur Squamous Epith Cells Many H Urine Bacteria Many H Hyaline Casts None Seen Granular Casts Few H Urine Yeast Many H Ur Culture Indicated? NO. Urine Osmolality Urine Creatinine 68 Urine Sodium 30.8 Random Vancomycin 05/03/17 05/04/17 05/04/17 21:42 01:05 04:42 WBC RBC Hgb Hct MCV MCH MCHC RDW Plt Count MPV Immature Gran % Seg Neutrophils % Lymphocytes % Monocytes % Eosinophils % Basophils % Neutrophils # Lymphocytes # Monocytes # Eosinophils # Basophils # Nucleated RBCs/100 WBC Platelet Estimate Sodium Potassium Chloride Carbon Dioxide BUN Creatinine Est GFR ( Amer) Est GFR (Non-Af Amer) BUN/Creatinine Ratio Glucose POC Glucose 241 H 249 H Calculated Osmolality Calcium Phosphorus Total Bilirubin AST ALT Alkaline Phosphatase Troponin I Serum Total Protein Albumin Globulin Albumin/Globulin Ratio TSH 1.369 Urine Color Urine Clarity Urine pH Ur Specific [place] Urine Protein Urine Glucose (UA) Urine Ketones Urine Blood Urine Nitrite Urine Bilirubin Urine Urobilinogen Ur Leukocyte Esterase Urine Microscopic RBC Urine Microscopic WBC Ur Squamous Epith Cells Urine Bacteria Hyaline Casts Granular Casts Urine Yeast Ur Culture Indicated? Urine Osmolality Urine Creatinine Urine Sodium Random Vancomycin 05/04/17 05/04/17 04:42 04:42 WBC 7.0 RBC 3.93 Hgb 11.3 L Hct 38.2 MCV 97.2 MCH 28.8 MCHC 29.6 L RDW 15.2 H Plt Count 150 MPV 10.8 Immature Gran % 1.1 Seg Neutrophils % 86.8 Lymphocytes % 7.3 Monocytes % 4.7 Eosinophils % 0.0 Basophils % 0.1 Neutrophils # 6.1 Lymphocytes # 0.5 L Monocytes # 0.3 Eosinophils # 0.0 Basophils # 0.0 Nucleated RBCs/100 WBC 0.4 H Platelet Estimate Normal Sodium 150 H Potassium 3.2 L Chloride 107 Carbon Dioxide 33 H BUN 48 H Creatinine 1.47 H Est GFR ( Amer) 43 L Est GFR (Non-Af Amer) 35 L BUN/Creatinine Ratio 33 H Glucose 291 H POC Glucose Calculated Osmolality 333 H Calcium 10.3 Phosphorus 5.6 H Total Bilirubin 0.5 AST 18 ALT 27 Alkaline Phosphatase 161 H Troponin I Serum Total Protein 6.5 Albumin 3.0 L Globulin 3.5 Albumin/Globulin Ratio 0.9 L TSH Urine Color Urine Clarity Urine pH Ur Specific [place] Urine Protein Urine Glucose (UA) Urine Ketones Urine Blood Urine Nitrite Urine Bilirubin Urine Urobilinogen Ur Leukocyte Esterase Urine Microscopic RBC Urine Microscopic WBC Ur Squamous Epith Cells Urine Bacteria Hyaline Casts Granular Casts Urine Yeast Ur Culture Indicated? Urine Osmolality Urine Creatinine Urine Sodium Random Vancomycin - ABG Interpretation ABG results: ABG ABG pH 7.27 pH Units (7.32-7.45) L 05/03/17 05:59 ABG pCO2 77 mmHg (35-45) H* 05/03/17 05:59 ABG pO2 96 mmHg (85-104) 05/03/17 05:59 ABG O2 Saturation 96 % (95-98) 05/03/17 05:59 PT/INR, D-dimer PT 12.6 Seconds (9.4-12.1) H 05/03/17 04:00 Consult Discharge Plan - Plan Referrals: NONE,PCP [Primary Care Provider] -
[2017-05-04] MEDS: Amiodarone Premix 360 MG/200 ML BAG IVC SCH ×2 (12:00→22:45)
[2017-05-04] MEDS: Dexmedetomidine HCl 400 MCG/100 ML MLS IVC SCH (12:28)
--- NOTE | 2017-05-04 13:30 | Pulmonology Progress Note ---
Date of Encounter: 05/04/17 Time of Encounter: 11:00 Assessment and Plan (1) Acute and chronic respiratory failure Current Visit: No Status: Acute Secondary to End stage pulmonary fibrosis and emphysema patient is in terminal stage patient didnt want to use BIPAP . Patient is stuporous secondary to worsening hypercarbia and secondary to medication Qualifiers: Respiratory failure complication: hypoxia and hypercapnia Qualified Code(s) : J96.21 - Acute and chronic respiratory failure with hypoxia; J96.22 - Acute and chronic respiratory failure with hypercapnia; J96.22 - Acute and chronic respiratory failure with hypercapnia; J96.22 - Acute and chronic respiratory failure with hypercapnia (2) Pulmonary interstitial fibrosis Current Visit: Yes Status: Acute To continue with bronchodilators and steroids (3) Pneumonia Current Visit: Yes Status: Acute To continue broad spectrum antibiotics to start descalating the antibiotics i dont think infection is predominant driving process . Qualifiers: Pneumonia type: due to unspecified organism Lung location: unspecified part of lung Qualified Code(s): J18.9 - Pneumonia, unspecified organism (4) Goals of care, counseling/discussion Current Visit: Yes Status: Acute Spoke with Daughter as Mom is suffering a lot according to wishes and goals of i counseled the family to keep her comfortable with comfort measures as goal . Subjective Principal diagnosis: Pulmonary Fibrosis Interval history: Patient is off BIPAP , patient is stuporous , deosnt want any BIPAP interventions , patient opted for [id number] Patient could not participate for interview . Objective PUL Vital signs: Last Vital Signs Temp 97.4 F L 05/04/17 11:13 Pulse 132 05/04/17 11:13 Resp 30 05/04/17 11:23 BP 106/63 05/04/17 11:13 Pulse Ox 90 05/04/17 11:23 Auscultation: bilateral: rales, other Cardiovascular: irregular rhythm Results - Laboratory Findings CBC and BMP: 05/04/17 04:42 05/04/17 04:42 ABG ABG pH 7.27 pH Units (7.32-7.45) L 05/03/17 05:59 ABG pCO2 77 mmHg (35-45) H* 05/03/17 05:59 ABG pO2 96 mmHg (85-104) 05/03/17 05:59 ABG O2 Saturation 96 % (95-98) 05/03/17 05:59 PT/INR, D-dimer PT 12.6 Seconds (9.4-12.1) H 05/03/17 04:00 Abnormal lab findings: Abnormal lab results Hgb 11.3 g/dL (11.5-15.4) L 05/04/17 04:42 MCHC 29.6 g/dL (31.6-35.5) L 05/04/17 04:42 RDW 15.2 % (11.5-14.5) H 05/04/17 04:42 Lymphocytes # 0.5 K/mcL (0.6-4.6) L 05/04/17 04:42 Nucleated RBCs/100 WBC 0.4 /100 WBC (0) H 05/04/17 04:42 PT 12.6 Seconds (9.4-12.1) H 05/03/17 04:00 ABG pH 7.27 pH Units (7.32-7.45) L 05/03/17 05:59 ABG pCO2 77 mmHg (35-45) H* 05/03/17 05:59 ABG HCO3 36 mEq/L (21-27) H 05/03/17 05:59 ABG Total CO2 38 mEq/L (20-26) H 05/03/17 05:59 ABG Base Excess 6 mEq/L (-2 to 3) H 05/03/17 05:59 Sodium 150 mEq/L (136-145) H 05/04/17 04:42 Potassium 3.2 mEq/L (3.5-5.1) L 05/04/17 04:42 Carbon Dioxide 33 mEq/L (23-29) H 05/04/17 04:42 BUN 48 mg/dL (8-23) H 05/04/17 04:42 Creatinine 1.47 mg/dL (0.60-1.20) H 05/04/17 04:42 Est GFR ( Amer) 43 (> 60) L 05/04/17 04:42 Est GFR (Non-Af Amer) 35 (> 60) L 05/04/17 04:42 BUN/Creatinine Ratio 33 (6-26) H 05/04/17 04:42 Glucose 291 mg/dL (70-105) H 05/04/17 04:42 POC Glucose 220 mg/dL (58-89) H 05/04/17 11:16 Calculated Osmolality 333 (280-300) H 05/04/17 04:42 Phosphorus 5.6 mg/dL (2.7-4.5) H 05/04/17 04:42 Alkaline Phosphatase 161 Units/L (34-104) H 05/04/17 04:42 Troponin I 0.08 ng/mL (< 0.04) H* 05/03/17 12:30 B-Natriuretic Peptide 244 pg/mL (Less than 100) H 05/02/17 19:35 Albumin 3.0 g/dL (3.5-5.7) L 05/04/17 04:42 Albumin/Globulin Ratio 0.9 (1.1-2.2) L 05/04/17 04:42 Urine Clarity Turbid (Clear) A 05/03/17 15:10 Ur Specific [place] > 1.030 (1.010-1.025) H 05/03/17 15:10 Urine Protein 30 mg/dL (Neg-Trace) H 05/03/17 15:10 Urine Blood Small (Negative) H 05/03/17 15:10 Ur Leukocyte Esterase Trace (Negative) H 05/03/17 15:10 Urine Microscopic RBC 5-15 per hpf (0-3) H 05/03/17 15:10 Urine Microscopic WBC TNTC per hpf (0-3) H 05/03/17 15:10 Ur Squamous Epith Cells Many per lpf (None-Few) H 05/03/17 15:10 Urine Bacteria Many per hpf (None-Few) H 05/03/17 15:10 Granular Casts Few per lpf (None Seen) H 05/03/17 15:10 Urine Yeast Many per hpf (None Seen) H 05/03/17 15:10 - Microbiology Findings Microbiology Findings: Microbiology, Last 48 Hours 05/02/17 20:36 Blood Culture - Preliminary Peripheral Venipuncture No growth. - Clinical Findings Intake & Output: Intake & Output 05/03/17 05/04/17 05/04/17 23:59 07:59 15:59 Intake Total 106 / 106 400 / 400 Output Total 1000 / 1000 300 / 300 500 / 500 Balance -894 / -894 -300 / -300 -100 / -100 Weight 87.5 kg Consult Discharge Plan - Plan Referrals: NONE,PCP [Primary Care Provider] -
--- NOTE | 2017-05-04 15:29 | Event Note ---
Date of Encounter: 05/04/17 Time of Encounter: 15:27 There was an extensive discussion with family today regarding the use of amiodarone as a rhythm but most importatnly, rate control medication with patient's atrial fibrillation with RVR in the 150s. Amiodarone has a known adverse effect of causing pulmonary fibrosis. Patient is at end-stage interstitial pulmonary fibrosis. Family is aware of that and that her prognosis was very poor prior to administration of the amiodarone. The use of amiodarone and this case is strictly to help with patient care. There were other considerations made to help lower her heart rate as beta blockers and Cardizem would potentially drop her labile blood pressures. Cardizem was attempted previously by another physician and had this response. We attempted to use to Digoxin yesterday for rate control, and this was unsuccessful. Patient continued to have atrial fibrillation with rapid ventricular response in the 150s. 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 Patient is currently on steroids at this time. Careful consideration was made, but we feel that the use of amiodarone outweighs the risk of worsening her pulmonary fibrosis. Family understands and are aware of this. They are agreeable to continue the use of the current medication to help the patient's be comfortable without the rapid heartrate.
[2017-05-05] MEDS: Insulin LISPRO 300 UNITS/3 ML VIAL SQ SCH ×6 (00:42→18:10)
[2017-05-05] MEDS: methylPREDNISolone 125 MG/2 ML VIAL IVP SCH ×4 (01:42→20:07)
[2017-05-05] MEDS: Levalbuterol Neb 1.25 MG/3 ML IH SCH ×4 (03:50→22:08)
[2017-05-05 04:40] LABS: Basophils % 0.2 %; Hematocrit 38.4 % (35.3-44.9); Hemoglobin 11.5 g/dL (11.5-15.4); Immature Granulocytes % 1.8 % (0-4); Lymphocytes % 5.6 %; Mean Corpuscular HGB Conc 29.9 g/dL (31.6-35.5); Mean Corpuscular Hemoglobin 29.3 pg (28.0-33.3); Mean Platelet Volume 11.2 fL (9.4-12.4); Monocytes % 4.8 %; Platelet Count 156 K/mcL (140-400); Red Blood Count 3.92 M/mcL (3.82-4.97); Red Cell Distribution Width 15.6 % (11.5-14.5); Segmented Neutrophils % 87.6 %
[2017-05-05 04:41] LABS: Lymphocytes # 0.4 K/mcL (0.6-4.6); Monocytes # 0.3 K/mcL (0.0-1.3); Neutrophils # 5.5 K/mcL (1.6-8.9); Nucleated Red Blood Cells 0.8 /100 WBC (0)
[2017-05-05 04:58] LABS: Calcium 10.4 mg/dL (8.6-10.3); Potassium 3.1 mEq/L (3.5-5.1)
[2017-05-05] MEDS: *HR* Heparin 5,000 UNIT/ML VIAL SQ SCH ×2 (06:04→18:10)
[2017-05-05] MEDS: Pantoprazole 40 MG VIAL IVP SCH (08:52)
[2017-05-05] MEDS: Levothyroxine Sodium 100 MCG VIAL IVP SCH (08:52)
--- NOTE | 2017-05-05 09:06 | Palliative Progress Note ---
Date of Encounter: 05/05/17 Time of Encounter: 08:50 - Assessment and plan (1) Dyspnea Current Visit: No Status: Acute Assessment and plan: Continues with supportive oxygen/intermittent bipap, atb, although Vancomycin has been discontinued r/t renal function, steroids and bronchodilators. She does appear in less respiratory distress today. IV Morphine has been discontinued r/t mental status. Monitor Qualifiers: Dyspnea type: unspecified Qualified Code(s): R06.00 - Dyspnea, unspecified (2) Debility Current Visit: No Status: Acute Assessment and plan: Remains very weak - speech therapy in to eval this am, but pt too lethargic to participate. If she improves/stabilized, will eventually need PT/OT (3) Counseling regarding advanced care planning and goals of care Current Visit: No Status: Acute Assessment and plan: Daughter at bedside feels her mother is improving and desires to stay the course with current therapy. Thinks "once she wakes up", she will get strong enough to eat and drink soon. Discussed this may or may not happen. Daughter verbalized understanding. Palliative still following to provide supportive care to pt and daughter. Will f/u on clinical course Monday. (4) Hospital acquired PNA Current Visit: Yes Status: Acute (5) Acute and chronic respiratory failure Current Visit: No Status: Acute Qualifiers: Respiratory failure complication: hypoxia and hypercapnia Qualified Code(s) : J96.21 - Acute and chronic respiratory failure with hypoxia; J96.22 - Acute and chronic respiratory failure with hypercapnia; J96.22 - Acute and chronic respiratory failure with hypercapnia; J96.22 - Acute and chronic respiratory failure with hypercapnia (6) Pulmonary interstitial fibrosis Current Visit: Yes Status: Acute - Time Spent With Patient Total time spent is greater than 50% in coordination of care (as documented) at patient's floor/unit and/or counseling patient: 25 - 35 minutes - Subjective Interval history: Patient currently on Precedex, IV Morphine has been discontinued. She remains on oxygen via mask, did utilize bipap some last night. Sodium increased to 153 , BUN/Cr increasing 59/1.61, K+3.1. She is resting quietly, appears in less respiratory distress today. Resp rate currently 38. Lethargic, but does arouse with stimulation. Can follow brief one step commands, but does fall back to sleep quickly. Daughter at bedside, and feels she is doing much better. Expresses that she is hoping the "morphine gets out of her system", and she will be more alert. - Constitutional Vitals: Abnormal lab results MCHC 29.9 g/dL (31.6-35.5) L 05/05/17 04:00 RDW 15.6 % (11.5-14.5) H 05/05/17 04:00 Lymphocytes # 0.4 K/mcL (0.6-4.6) L 05/05/17 04:00 Nucleated RBCs/100 WBC 0.8 /100 WBC (0) H 05/05/17 04:00 PT 12.6 Seconds (9.4-12.1) H 05/03/17 04:00 ABG pH 7.27 pH Units (7.32-7.45) L 05/03/17 05:59 ABG pCO2 77 mmHg (35-45) H* 05/03/17 05:59 ABG HCO3 36 mEq/L (21-27) H 05/03/17 05:59 ABG Total CO2 38 mEq/L (20-26) H 05/03/17 05:59 ABG Base Excess 6 mEq/L (-2 to 3) H 05/03/17 05:59 Sodium 153 mEq/L (136-145) H 05/05/17 04:00 Potassium 3.1 mEq/L (3.5-5.1) L 05/05/17 04:00 Chloride 109 mEq/L (98-107) H 05/05/17 04:00 Carbon Dioxide 36 mEq/L (23-29) H 05/05/17 04:00 BUN 59 mg/dL (8-23) H 05/05/17 04:00 Creatinine 1.61 mg/dL (0.60-1.20) H 05/05/17 04:00 Est GFR ( Amer) 38 (> 60) L 05/05/17 04:00 Est GFR (Non-Af Amer) 32 (> 60) L 05/05/17 04:00 BUN/Creatinine Ratio 37 (6-26) H 05/05/17 04:00 Glucose 241 mg/dL (70-105) H 05/05/17 04:00 POC Glucose 221 mg/dL (58-89) H 05/04/17 17:32 Calculated Osmolality 340 (280-300) H 05/05/17 04:00 Calcium 10.4 mg/dL (8.6-10.3) H 05/05/17 04:00 Phosphorus 5.6 mg/dL (2.7-4.5) H 05/04/17 04:42 Alkaline Phosphatase 161 Units/L (34-104) H 05/04/17 04:42 Troponin I 0.08 ng/mL (< 0.04) H* 05/03/17 12:30 B-Natriuretic Peptide 244 pg/mL (Less than 100) H 05/02/17 19:35 Albumin 3.0 g/dL (3.5-5.7) L 05/04/17 04:42 Albumin/Globulin Ratio 0.9 (1.1-2.2) L 05/04/17 04:42 Urine Clarity Turbid (Clear) A 05/03/17 15:10 Ur Specific [place] > 1.030 (1.010-1.025) H 05/03/17 15:10 Urine Protein 30 mg/dL (Neg-Trace) H 05/03/17 15:10 Urine Blood Small (Negative) H 05/03/17 15:10 Ur Leukocyte Esterase Trace (Negative) H 05/03/17 15:10 Urine Microscopic RBC 5-15 per hpf (0-3) H 05/03/17 15:10 Urine Microscopic WBC TNTC per hpf (0-3) H 05/03/17 15:10 Ur Squamous Epith Cells Many per lpf (None-Few) H 05/03/17 15:10 Urine Bacteria Many per hpf (None-Few) H 05/03/17 15:10 Granular Casts Few per lpf (None Seen) H 05/03/17 15:10 Urine Yeast Many per hpf (None Seen) H 05/03/17 15:10 Vancomycin Trough 25.4 mcg/mL (10-20) H* 05/05/17 04:00 General appearance: Present: mild distress - Respiratory Respiratory exam: Present: decreased breath sounds Additional comments: Inspiratory crackles throughout anterior lung baig - Cardiovascular Cardiovascular exam: Present: +S1, +S2 - GI/Abdominal GI/Abdominal exam: Present: diminished bowel sounds, soft Additional comments: Colostomy intact. Still no output. - Additional comments: Jett catheter with clear yellow urine - Extremities Exam Additional comments: Generalized edema to all extremities. Scattered bruising to upper extremities bilaterally - Neurological Exam Additional comments: Opens eyes with stimulation and name calling. Attempts to follow simple one step commands. Nonverbal, shakes head yes/no to questions. - Skin Skin exam: Present: dry, pallor, warm Palliative Quality Palliative Quality: Screen for Code Status: Yes, Screen for Goals of Care: Yes, Screen for Pain: Yes, If Pain Regimen Started, Initiate Bowel Regimen: NA, Screen for Nausea/Vomitting: Yes Code Status: 05/02/17 19:39 Resuscitation Status: Active [RES] Routine Comment: Resuscitation Status: [id number] - Labs CBC & Chem 7: 05/05/17 04:00 05/05/17 04:00 Labs: Laboratory Results - last 24 hr 05/04/17 05/04/17 05/04/17 05:44 11:16 16:18 WBC RBC Hgb Hct MCV MCH MCHC RDW Plt Count MPV Immature Gran % Seg Neutrophils % Lymphocytes % Monocytes % Eosinophils % Basophils % Neutrophils # Lymphocytes # Monocytes # Eosinophils # Basophils # Nucleated RBCs/100 WBC Sodium Potassium Chloride Carbon Dioxide BUN Creatinine Est GFR ( Amer) Est GFR (Non-Af Amer) BUN/Creatinine Ratio Glucose POC Glucose 265 H 220 H 218 H Calculated Osmolality Calcium Vancomycin Trough 05/04/17 05/04/17 05/05/17 17:32 20:40 04:00 WBC 6.2 RBC 3.92 Hgb 11.5 Hct 38.4 MCV 98.0 MCH 29.3 MCHC 29.9 L RDW 15.6 H Plt Count 156 MPV 11.2 Immature Gran % 1.8 Seg Neutrophils % 87.6 Lymphocytes % 5.6 Monocytes % 4.8 Eosinophils % 0.0 Basophils % 0.2 Neutrophils # 5.5 Lymphocytes # 0.4 L Monocytes # 0.3 Eosinophils # 0.0 Basophils # 0.0 Nucleated RBCs/100 WBC 0.8 H Sodium Potassium Chloride Carbon Dioxide BUN Creatinine Est GFR ( Amer) Est GFR (Non-Af Amer) BUN/Creatinine Ratio Glucose POC Glucose 221 H Calculated Osmolality Calcium Vancomycin Trough 25.4 H* 05/05/17 05/05/17 04:00 04:00 WBC RBC Hgb Hct MCV MCH MCHC RDW Plt Count MPV Immature Gran % Seg Neutrophils % Lymphocytes % Monocytes % Eosinophils % Basophils % Neutrophils # Lymphocytes # Monocytes # Eosinophils # Basophils # Nucleated RBCs/100 WBC Sodium 153 H Potassium 3.1 L Chloride 109 H Carbon Dioxide 36 H BUN 59 H Creatinine 1.61 H Est GFR ( Amer) 38 L Est GFR (Non-Af Amer) 32 L BUN/Creatinine Ratio 37 H Glucose 241 H POC Glucose Calculated Osmolality 340 H Calcium 10.4 H Vancomycin Trough 25.4 H* - ABG Interpretation ABG results: ABG ABG pH 7.27 pH Units (7.32-7.45) L 05/03/17 05:59 ABG pCO2 77 mmHg (35-45) H* 05/03/17 05:59 ABG pO2 96 mmHg (85-104) 05/03/17 05:59 ABG O2 Saturation 96 % (95-98) 05/03/17 05:59 PT/INR, D-dimer PT 12.6 Seconds (9.4-12.1) H 05/03/17 04:00 Consult Discharge Plan - Plan Referrals: NONE,PCP [Primary Care Provider] -
[2017-05-05] MEDS ORDERED: D5% in Water 500 ML IVC SCH (09:30)
--- NOTE | 2017-05-05 10:15 | Internal Med Progress Note ---
<Sergio Dia - Last Filed: 05/05/17 10:12> Date of Encounter: 05/05/17 Time of Encounter: 10:12 - Assessment and plan (1) Pulmonary interstitial fibrosis Current Visit: Yes Status: Acute Assessment and plan: Patient at end-stage interstitial pulmonary fibrosis. Prognosis is poor at this time. There was extensive discussion with family at bedside with the palliative care team as well as the medicine team yesterday. Spoke with daughter again regarding patient's worsening condition and worsening prognosis. Daughter understands that patient may not have much longer to live. Patient's sodium was 153 today. Creatinine has slightly worsened. Patient has a free water deficit of 4.0 L We will give patient free water with D5 at this time. He 25 mils per hour for a 500 mL. We have stopped Lasix at this time as patient's osmolality continues to increase. We will replace slowly and continue to monitor (2) Metabolic encephalopathy Current Visit: Yes Status: Acute Assessment and plan: Patient is arousable, but will not answer questions. Is multifactorial in nature. Most likely due to hypercapnia. Patient got agitated last night was placed on Precedex drip. We have stopped this today. We have also stopped morphine administration as there was some concern that this was causing patient to have worsening mental status. Patient does appear more comfortable at this time with the morphine, however, and is breathing deeper and slower.. (3) Atrial fibrillation with RVR Current Visit: Yes Status: Acute Assessment and plan: Currently on amiodarone. Heart rate within normal limits. Telemetry: A. fib in the 80s. (4) Hospital acquired PNA Current Visit: Yes Status: Acute Assessment and plan: We will stop vancomycin today. Continue cefepime for pseudomonal coverage. Attempting to remove all nephrotoxins as patient's creatinine is worsening. (5) Acute and chronic respiratory failure Current Visit: No Status: Acute Assessment and plan: See above Qualifiers: Respiratory failure complication: hypoxia and hypercapnia Qualified Code(s) : J96.21 - Acute and chronic respiratory failure with hypoxia; J96.22 - Acute and chronic respiratory failure with hypercapnia; J96.22 - Acute and chronic respiratory failure with hypercapnia; J96.22 - Acute and chronic respiratory failure with hypercapnia (6) Hypothyroidism Current Visit: Yes Status: Acute Assessment and plan: April 03 shows a TSH of 2.023 which is within normal limits. Currently on 25 g IV Qualifiers: Hypothyroidism type: acquired Qualified Code(s): E03.9 - Hypothyroidism, unspecified (7) Counseling regarding advanced care planning and goals of care Current Visit: No Status: Acute Assessment and plan: See above. Spoke with daughter this morning about worsening condition. (8) DVT prophylaxis Current Visit: No Status: Acute Assessment and plan: Heparin 5000 units subcutaneous every 12 hours. - Subjective Interval history: Ms. Benjamin is a 71 year old female with hx of end stage pulmonary fibrosis, PAF, hypothyroidism, rectal cancer s/p colostomy, transferred from [facility] for worsening SOB. Hx is obtained from transfer documentation. Pt has PF with baseline needs 6L oxygen to maintain SpO2. Pt was discharged from our hospital to [place] on 04/12/17. Her SOB getting worse on 04/30 with increased need of oxygen level to 15L. CXR shows extensive consolidative opacities in both lungs suggestive of severe pulmonary fibrosis. Pt was treated with zosyn, nebulizer, lasix. Pt was put in BiPAP and transferred to our hospital for further management. Overnight, patient became agitated. Patient was placed on Precedex drip. There was some concern by daughter as well as Dr. Meyer that morphine was contributing to patient being stuperous. Morphine was stopped. Creatinine is slightly worsening. Patient's sodium is 153. Blood pressures have been more labile. Heart rate, on the other hand is in the 70s. Patient opens her eyes to verbal stimulus. However, she does not respond to questions. - Constitutional Vitals: Temp Pulse Resp BP Pulse Ox 96.4 F L 76 20 99/63 95 05/05/17 07:20 05/05/17 07:20 05/05/17 09:47 05/05/17 07:20 05/05/17 09:47 Exam: Moderate distress on oxygen mask. Breaths are deeper than yesterday. Breathing about 30 bpm - Head Head exam: Present: atraumatic - ENT ENT exam: Present: mucous membranes dry - Neck Neck exam general surgery: Present: supple, trachea midline - Respiratory Additional comments: End inspiratory rhonchi throughout - Cardiovascular Cardiovascular exam: Present: irregular rhythm. Absent: JVD Additional comments: Telemetry: A. fib in the 80s. - Extremities Exam Extremities exam: Present: pedal edema (1+ bilaterally) - Neurological Exam Additional comments: Responds to verbal stimuli. Does not follow commands. Does not answer questions. Internal Medicine: Result - Labs CBC & Chem 7: 05/05/17 04:00 05/05/17 04:00 Labs: Short CBC 05/05/17 Range/Units 04:00 WBC 6.2 (4.3-11.1) K/mcL Hgb 11.5 (11.5-15.4) g/dL Hct 38.4 (35.3-44.9) % Plt Count 156 (140-400) K/mcL Neutrophils # 5.5 (1.6-8.9) K/mcL BMP 05/05/17 04:00 Sodium 153 H Potassium 3.1 L Chloride 109 H Carbon Dioxide 36 H BUN 59 H Creatinine 1.61 H Glucose 241 H Calcium 10.4 H - ABG Interpretation ABG results: ABG ABG pH 7.27 pH Units (7.32-7.45) L 05/03/17 05:59 ABG pCO2 77 mmHg (35-45) H* 05/03/17 05:59 ABG pO2 96 mmHg (85-104) 05/03/17 05:59 ABG O2 Saturation 96 % (95-98) 05/03/17 05:59 PT/INR, D-dimer PT 12.6 Seconds (9.4-12.1) H 05/03/17 04:00 Consult Discharge Plan - Plan Referrals: Amirah Lizarraga [Primary Care Provider] - <Ziggy Wheeler - Last Filed: 05/05/17 19:16> Date of Encounter: 05/05/17 - Constitutional Vitals: Temp Pulse Resp BP Pulse Ox 97.3 F L 82 33 123/74 97 05/05/17 15:30 05/05/17 15:30 05/05/17 15:30 05/05/17 15:30 05/05/17 15:30 Internal Medicine: Result - Labs CBC & Chem 7: 05/05/17 04:00 05/05/17 04:00 Labs: Short CBC 05/05/17 Range/Units 04:00 WBC 6.2 (4.3-11.1) K/mcL Hgb 11.5 (11.5-15.4) g/dL Hct 38.4 (35.3-44.9) % Plt Count 156 (140-400) K/mcL Neutrophils # 5.5 (1.6-8.9) K/mcL BMP 05/05/17 04:00 Sodium 153 H Potassium 3.1 L Chloride 109 H Carbon Dioxide 36 H BUN 59 H Creatinine 1.61 H Glucose 241 H Calcium 10.4 H - ABG Interpretation ABG results: ABG ABG pH 7.27 pH Units (7.32-7.45) L 05/03/17 05:59 ABG pCO2 77 mmHg (35-45) H* 05/03/17 05:59 ABG pO2 96 mmHg (85-104) 05/03/17 05:59 ABG O2 Saturation 96 % (95-98) 05/03/17 05:59 PT/INR, D-dimer PT 12.6 Seconds (9.4-12.1) H 05/03/17 04:00 - Attending Attestation I performed a [id number] diagnostic evaluation of this patient and my medical decision-making was reviewed with the Resident Physician, Dr Sergio Dia. I agree with the documented findings, disposition and treatment plan as described except to the extent set forth below. Physical exam: Gen: NAD, sedated Heart: Tachycardic, irregular, no murmurs Lungs: Bilateral rales and wheezes. Abdomen: S, NT, + bowel sounds Plan: Continue with broad-spectrum IV antibiotics. Stop vancomycin as it does not provide any significant benefit. I have very low suspicion of MRSA infection. Continue steroids. BiPAP when necessary. Oxygen by nasal cannula. New problem hypernatremia. Start IV dextrose. Monitor sodium closely. Overall the patient has very poor prognosis. The family understands but they would like to try everything short of resuscitation. Ziggy Wheeler MD
[2017-05-05] MEDS: Amiodarone Premix 360 MG/200 ML BAG IVC SCH ×2 (10:45→22:43)
[2017-05-05] MEDS ORDERED: *HR* Morphine 2 MG/ML SYRINGE IVP PRN (13:13)
[2017-05-05] MEDS: Cefepime HCl 2,000 MG in Water for inj. (sterile) 20 ML 20 ML IVP SCH (18:10)
[2017-05-05 23:20] LABS: Calcium 10.4 mg/dL (8.6-10.3); Potassium 3.8 mEq/L (3.5-5.1)
[2017-05-06] MEDS: Insulin LISPRO 300 UNITS/3 ML VIAL SQ SCH ×7 (00:32→17:09)
[2017-05-06] MEDS: methylPREDNISolone 125 MG/2 ML VIAL IVP SCH ×4 (02:55→19:43)
[2017-05-06 03:25] LABS: Basophils % 0.2 %; Hematocrit 38.3 % (35.3-44.9); Lymphocytes % 5.4 %; Nucleated Red Blood Cells 0.5 /100 WBC (0); Red Cell Distribution Width 15.7 % (11.5-14.5)
[2017-05-06 03:27] LABS: Hemoglobin 11.3 g/dL (11.5-15.4); Immature Granulocytes % 4.4 % (0-4); Immature Platelets 3.9 % (1.1-6.1); Lymphocytes # 0.4 K/mcL (0.6-4.6); Mean Corpuscular HGB Conc 29.5 g/dL (31.6-35.5); Mean Corpuscular Hemoglobin 29.4 pg (28.0-33.3); Mean Corpuscular Volume 99.7 fL (83.0-100.0); Monocytes # 0.3 K/mcL (0.0-1.3); Monocytes % 4.7 %; Neutrophils # 5.7 K/mcL (1.6-8.9); Platelet Count 152 K/mcL (140-400); Red Blood Count 3.84 M/mcL (3.82-4.97); Segmented Neutrophils % 85.3 %
[2017-05-06] MEDS: *HR* Morphine 2 MG/ML SYRINGE IVP PRN (04:01)
[2017-05-06 04:16] LABS: Hypochromasia Present (Not Present); Platelet Estimate Normal (Normal)
[2017-05-06] MEDS: Levalbuterol Neb 1.25 MG/3 ML IH SCH ×4 (04:29→22:08)
[2017-05-06] MEDS: *HR* Heparin 5,000 UNIT/ML VIAL SQ SCH ×2 (05:57→17:10)
[2017-05-06 06:06] LABS: Calcium 10.4 mg/dL (8.6-10.3); Potassium 3.8 mEq/L (3.5-5.1)
[2017-05-06] MEDS: Pantoprazole 40 MG VIAL IVP SCH (08:26)
[2017-05-06] MEDS: Levothyroxine Sodium 100 MCG VIAL IVP SCH (08:26)
--- NOTE | 2017-05-06 12:35 | Internal Med Progress Note ---
<Ran Wills - Last Filed: 05/06/17 15:16> Date of Encounter: 05/06/17 Time of Encounter: 12:15 - Assessment and plan (1) Pulmonary interstitial fibrosis Current Visit: Yes Status: Acute Assessment and plan: Patient with end-stage interstitial pulmonary fibrosis Prognosis is poor at this time There was extensive discussion with family at bedside with the palliative care team as well as the medicine team yesterday The family is where the patient might not have much longer to live Want to keep patient as DNR CCA/DNI and not transition to comfort care or hospice Patient's sodium was 153 today Creatinine remained stable and slightly elevated Patient has a significant free water deficit We will provide gentle fluids at 50 mL an hour of D5/0.45 saline for 10 hours Evidence of dehydration We will slowly monitor fluid status did not finding overload We will continue with breathing treatments with Xopenex Continue steroids at 80 mg Solu-Medrol IV every 6 hours We will continue antibiotics with cefepime (2) Metabolic encephalopathy Current Visit: Yes Status: Acute Assessment and plan: Metabolic encephalopathy likely multifactorial in nature due to hypoxia, hypercapnia, some medications possibly contributing We will continue morphine 2 mg IV every 6 hours when necessary for patient discomfort and anxiety (3) Acute and chronic respiratory failure Current Visit: Yes Status: Acute Assessment and plan: Due to end-stage pulmonary fibrosis Plan as above Qualifiers: Respiratory failure complication: hypoxia and hypercapnia Qualified Code(s) : J96.21 - Acute and chronic respiratory failure with hypoxia; J96.22 - Acute and chronic respiratory failure with hypercapnia; J96.22 - Acute and chronic respiratory failure with hypercapnia; J96.22 - Acute and chronic respiratory failure with hypercapnia (4) Atrial fibrillation with RVR Current Visit: Yes Status: Acute Assessment and plan: Currently on amiodarone Telemetry has shown A. fib with RVR for most a day Likely due to dehydration We will continue amiodarone drip We will start gentle fluids at 500 mL an hour (5) Hospital acquired PNA Current Visit: Yes Status: Acute Assessment and plan: Vancomycin stopper previously Continue cefepime for pseudomonal coverage ttempting to remove all nephrotoxins as patient's creatinine is worsening. (6) Hypothyroidism Current Visit: Yes Status: Acute Assessment and plan: April 03 shows a TSH of 2.023 which is within normal limits. Currently on 25 g levothyroxine Qualifiers: Hypothyroidism type: acquired Qualified Code(s): E03.9 - Hypothyroidism, unspecified (7) Counseling regarding advanced care planning and goals of care Current Visit: No Status: Acute Assessment and plan: As above Care following (8) DVT prophylaxis Current Visit: No Status: Acute Assessment and plan: Heparin subcutaneous Twice a day (9) KAREN (acute kidney injury) Current Visit: Yes Status: Acute Assessment and plan: Slightly worsened renal function Stable since yesterday Likely due to dehydration We will give gentle fluids at 50 mils an hour - Subjective Interval history: Patient in bed with BiPAP in place. Arousable to verbal and light physical stimuli. Patient has continued tachypnea and tachycardia. Sodium is slightly elevated at 153 today with kidney function remaining stable. - Constitutional Vitals: Temp Pulse Resp BP Pulse Ox 96.4 F L 79 28 129/63 94 05/06/17 11:12 05/06/17 11:12 05/06/17 11:12 05/06/17 11:12 05/06/17 11:12 General appearance: Present: severe distress (Severe respiratory distress tachypnea with respiratory rate in the 30s. Slower from yesterday) Exam: General: Patient tachypneic with BiPAP in place, opens eyes to verbal stimuli, appears in significant distress HEENT: Normocephalic, atraumatic,Conjunctiva pink, sclera anicteric Respiratory: Difficult auscultation due to BiPAP, Rales and rhonchi throughout Cardiovascular: Tachycardia and irregular rhythm GI/abdominal: Nondistended, nontender, soft, normal bowel sounds, no peritoneal signs Extremities: No calf tenderness, no pedal edema appreciated, warm, lower extremity pulses palpable and symmetrical Neurological: no facial droop, no focal deficits Skin: Dry, intact, normal color Internal Medicine: Result - Labs CBC & Chem 7: 05/06/17 03:15 05/06/17 03:15 Labs: Short CBC 05/06/17 Range/Units 03:15 WBC 6.7 (4.3-11.1) K/mcL Hgb 11.3 L (11.5-15.4) g/dL Hct 38.3 (35.3-44.9) % Plt Count 152 (140-400) K/mcL Neutrophils # 5.7 (1.6-8.9) K/mcL BMP 05/05/17 05/06/17 21:11 03:15 Sodium 151 H 153 H Potassium 3.8 3.8 Chloride 110 H 112 H Carbon Dioxide 33 H 34 H BUN 68 H 68 H Creatinine 1.84 H 1.85 H Glucose 234 H 188 H Calcium 10.4 H 10.4 H - ABG Interpretation ABG results: ABG ABG pH 7.27 pH Units (7.32-7.45) L 05/03/17 05:59 ABG pCO2 77 mmHg (35-45) H* 05/03/17 05:59 ABG pO2 96 mmHg (85-104) 05/03/17 05:59 ABG O2 Saturation 96 % (95-98) 05/03/17 05:59 PT/INR, D-dimer PT 12.6 Seconds (9.4-12.1) H 05/03/17 04:00 Consult Discharge Plan - Plan Referrals: Amirah Lizarraga [Primary Care Provider] - <Ziggy Wheeler - Last Filed: 05/06/17 17:16> Date of Encounter: 05/06/17 - Constitutional Vitals: Temp Pulse Resp BP Pulse Ox 96.9 F L 80 30 134/61 97 05/06/17 16:22 05/06/17 16:22 05/06/17 16:22 05/06/17 16:22 05/06/17 16:22 Internal Medicine: Result - Labs CBC & Chem 7: 05/06/17 03:15 05/06/17 03:15 Labs: Short CBC 05/06/17 Range/Units 03:15 WBC 6.7 (4.3-11.1) K/mcL Hgb 11.3 L (11.5-15.4) g/dL Hct 38.3 (35.3-44.9) % Plt Count 152 (140-400) K/mcL Neutrophils # 5.7 (1.6-8.9) K/mcL BMP 05/05/17 05/06/17 21:11 03:15 Sodium 151 H 153 H Potassium 3.8 3.8 Chloride 110 H 112 H Carbon Dioxide 33 H 34 H BUN 68 H 68 H Creatinine 1.84 H 1.85 H Glucose 234 H 188 H Calcium 10.4 H 10.4 H - ABG Interpretation ABG results: ABG ABG pH 7.27 pH Units (7.32-7.45) L 05/03/17 05:59 ABG pCO2 77 mmHg (35-45) H* 05/03/17 05:59 ABG pO2 96 mmHg (85-104) 05/03/17 05:59 ABG O2 Saturation 96 % (95-98) 05/03/17 05:59 PT/INR, D-dimer PT 12.6 Seconds (9.4-12.1) H 05/03/17 04:00 - Attending Attestation I performed a [id number] diagnostic evaluation of this patient and my medical decision-making was reviewed with the Resident Physician, Dr Rich Wills. I agree with the documented findings, disposition and treatment plan as described except to the extent set forth below. Physical exam: Gen: Sedated, arousable, nonverbal Heart: Tachycardic and irregularly irregular Lungs: Tachypneic, diffuse Rales and crackles Abdomen: S, NT, + bowel sounds Patient is nonverbal. I had a long discussion with the patient's 3 daughters and 1 son about the cause of care. They continued to want all available medical measures short of resuscitation and mechanical ventilation. I explained that she has not showing a positive response to Lasix and antibiotics and that the prognosis is poor. We will continue to address transition to comfort measures only. Ziggy Wheeler MD
[2017-05-06] MEDS: D5% in Water 500 ML IVC SCH (13:13)
[2017-05-06] MEDS: Cefepime HCl 2,000 MG in Water for inj. (sterile) 20 ML 20 ML IVP SCH (17:09)
[2017-05-06] MEDS: Amiodarone Premix 360 MG/200 ML BAG IVC SCH (22:25)
[2017-05-07] MEDS: Insulin LISPRO 300 UNITS/3 ML VIAL SQ SCH ×7 (00:57→17:31)
[2017-05-07] MEDS: methylPREDNISolone 125 MG/2 ML VIAL IVP SCH ×4 (02:34→20:06)
[2017-05-07] MEDS: Levalbuterol Neb 1.25 MG/3 ML IH SCH ×4 (03:27→22:46)
[2017-05-07 05:23] LABS: Basophils % 0.2 %; Hematocrit 35.8 % (35.3-44.9); Hemoglobin 10.7 g/dL (11.5-15.4); Immature Granulocytes % 2.1 % (0-4); Lymphocytes # 0.3 K/mcL (0.6-4.6); Lymphocytes % 4.3 %; Mean Corpuscular HGB Conc 29.9 g/dL (31.6-35.5); Mean Corpuscular Hemoglobin 29.3 pg (28.0-33.3); Mean Corpuscular Volume 98.1 fL (83.0-100.0); Mean Platelet Volume 11.4 fL (9.4-12.4); Monocytes # 0.2 K/mcL (0.0-1.3); Monocytes % 2.9 %; Nucleated Red Blood Cells 0.5 /100 WBC (0); Platelet Count 130 K/mcL (140-400); Red Blood Count 3.65 M/mcL (3.82-4.97); Red Cell Distribution Width 15.7 % (11.5-14.5); Segmented Neutrophils % 90.5 %
[2017-05-07 05:38] LABS: Calcium 10.1 mg/dL (8.6-10.3); Potassium 3.7 mEq/L (3.5-5.1)
[2017-05-07] MEDS: *HR* Heparin 5,000 UNIT/ML VIAL SQ SCH ×2 (05:51→17:30)
[2017-05-07] MEDS: D5% in Water 500 ML IVC SCH ×2 (07:26→10:18)
[2017-05-07] MEDS: Levothyroxine Sodium 100 MCG VIAL IVP SCH (07:34)
[2017-05-07] MEDS: Pantoprazole 40 MG VIAL IVP SCH (07:34)
--- NOTE | 2017-05-07 10:08 | Internal Med Progress Note ---
<Ran Wills - Last Filed: 05/07/17 10:05> Date of Encounter: 05/07/17 Time of Encounter: 09:30 - Assessment and plan (1) Pulmonary interstitial fibrosis Current Visit: Yes Status: Acute Assessment and plan: Patient with end-stage interstitial pulmonary fibrosis Prognosis is poor at this time There was extensive discussion with family at bedside with the palliative care team as well as the medicine team yesterday The family is where the patient might not have much longer to live Want to keep patient as DNR CCA/DNI and not transition to comfort care or hospice Patient's sodium was 151 today Creatinine remained stable and slightly elevated Patient has a significant free water deficit We will provide gentle fluids at 50 mL an hour of D5/0.45 saline for 10 hours again today Evidence of dehydration We will slowly monitor fluid status did not finding overload We will continue with breathing treatments with Xopenex Continue steroids at 80 mg Solu-Medrol IV every 6 hours We will continue antibiotics with cefepime (2) Metabolic encephalopathy Current Visit: Yes Status: Acute Assessment and plan: Metabolic encephalopathy likely multifactorial in nature due to hypoxia, hypercapnia, some medications possibly contributing We will continue morphine 2 mg IV every 6 hours when necessary for patient discomfort and anxiety (3) Acute and chronic respiratory failure Current Visit: Yes Status: Acute Assessment and plan: Due to end-stage pulmonary fibrosis Plan as above Qualifiers: Respiratory failure complication: hypoxia and hypercapnia Qualified Code(s) : J96.21 - Acute and chronic respiratory failure with hypoxia; J96.22 - Acute and chronic respiratory failure with hypercapnia; J96.22 - Acute and chronic respiratory failure with hypercapnia; J96.22 - Acute and chronic respiratory failure with hypercapnia (4) Atrial fibrillation with RVR Current Visit: Yes Status: Acute Assessment and plan: Currently on amiodarone Improvement in heart rate seen today We will continue gentle fluids for additional 10 hours We will continue amiodarone drip We will start gentle fluids at 500 mL an hour (5) Hospital acquired PNA Current Visit: Yes Status: Acute Assessment and plan: Vancomycin stopped previously Continue cefepime for pseudomonal coverage ttempting to remove all nephrotoxins as patient's creatinine is worsening (6) Hypothyroidism Current Visit: Yes Status: Acute Assessment and plan: April 03 shows a TSH of 2.023 which is within normal limits. Currently on 25 g levothyroxine Qualifiers: Hypothyroidism type: acquired Qualified Code(s): E03.9 - Hypothyroidism, unspecified (7) Counseling regarding advanced care planning and goals of care Current Visit: No Status: Acute Assessment and plan: As above Palliative Care following (8) DVT prophylaxis Current Visit: No Status: Acute Assessment and plan: Heparin subcutaneous Twice a day (9) KAREN (acute kidney injury) Current Visit: Yes Status: Acute Assessment and plan: Slightly worsened renal function Stable since yesterday Likely due to dehydration We will give gentle fluids at 50 mils an hour - Subjective Interval history: Patient in bed breathing slightly fast with oxygen mask in place. Vaguely opens eyes to physical and verbal stimuli. Tachycardia has resolved. Mild improvement in serum sodium seen today with slightly worsened renal function - Constitutional Vitals: Temp Pulse Resp BP Pulse Ox 97.4 F L 87 32 132/78 91 05/07/17 07:21 05/07/17 07:21 05/07/17 09:07 05/07/17 07:21 05/07/17 07:21 Exam: General: Patient tachypneic with BiPAP in place, opens eyes to verbal stimuli, appears in distress HEENT: Normocephalic, atraumatic,Conjunctiva pink, sclera anicteric Respiratory: Difficult auscultation due to BiPAP, Rales and rhonchi throughout Cardiovascular: irregular rhythm GI/abdominal: Nondistended, nontender, soft, normal bowel sounds, no peritoneal signs Extremities: No calf tenderness, no pedal edema appreciated, warm, lower extremity pulses palpable and symmetrical Neurological: no facial droop, no focal deficits Skin: Dry, intact, normal color Internal Medicine: Result - Labs CBC & Chem 7: 05/07/17 04:14 05/07/17 04:14 Labs: Short CBC 05/07/17 Range/Units 04:14 WBC 6.6 (4.3-11.1) K/mcL Hgb 10.7 L (11.5-15.4) g/dL Hct 35.8 (35.3-44.9) % Plt Count 130 L (140-400) K/mcL Neutrophils # 6.0 (1.6-8.9) K/mcL BMP 05/07/17 04:14 Sodium 151 H Potassium 3.7 Chloride 110 H Carbon Dioxide 33 H BUN 80 H Creatinine 1.91 H Glucose 236 H Calcium 10.1 - ABG Interpretation ABG results: ABG ABG pH 7.27 pH Units (7.32-7.45) L 05/03/17 05:59 ABG pCO2 77 mmHg (35-45) H* 05/03/17 05:59 ABG pO2 96 mmHg (85-104) 05/03/17 05:59 ABG O2 Saturation 96 % (95-98) 05/03/17 05:59 PT/INR, D-dimer PT 12.6 Seconds (9.4-12.1) H 05/03/17 04:00 Consult Discharge Plan - Plan Referrals: Amirah Lizarraga [Primary Care Provider] - <Ziggy Wheeler - Last Filed: 05/07/17 19:56> Date of Encounter: 05/07/17 - Constitutional Vitals: Temp Pulse Resp BP Pulse Ox 97.3 F L 79 39 148/87 95 05/07/17 11:50 05/07/17 15:27 05/07/17 16:14 05/07/17 16:14 05/07/17 16:14 Internal Medicine: Result - Labs CBC & Chem 7: 05/07/17 04:14 05/07/17 04:14 Labs: Short CBC 05/07/17 Range/Units 04:14 WBC 6.6 (4.3-11.1) K/mcL Hgb 10.7 L (11.5-15.4) g/dL Hct 35.8 (35.3-44.9) % Plt Count 130 L (140-400) K/mcL Neutrophils # 6.0 (1.6-8.9) K/mcL BMP 05/07/17 04:14 Sodium 151 H Potassium 3.7 Chloride 110 H Carbon Dioxide 33 H BUN 80 H Creatinine 1.91 H Glucose 236 H Calcium 10.1 - ABG Interpretation ABG results: ABG ABG pH 7.27 pH Units (7.32-7.45) L 05/03/17 05:59 ABG pCO2 77 mmHg (35-45) H* 05/03/17 05:59 ABG pO2 96 mmHg (85-104) 05/03/17 05:59 ABG O2 Saturation 96 % (95-98) 05/03/17 05:59 PT/INR, D-dimer PT 12.6 Seconds (9.4-12.1) H 05/03/17 04:00 - Attending Attestation I performed a [id number] diagnostic evaluation of this patient and my medical decision-making was reviewed with the Resident Physician, Dr Rich Wills. I agree with the documented findings, disposition and treatment plan as described except to the extent set forth below. Physical exam: Gen: Lethargic, ill-appearing Heart: Irregularly irregular, S1S2, no murmurs Lungs: Bilateral rales and wheezes Abdomen: Colostomy bag noted Extremities: 2+ lower extremity pitting edema. Assessment and plan: Patient with end-stage pulmonary fibrosis and pneumonia: We will continue with IV steroids, inhaled bronchodilators, IV antibiotics, supplemental oxygen. Continue follow-up with palliative care service for goals of care. Worsening problem today acute renal failure. We will stop Lasix and start gentle IV fluid hydration. Ziggy Wheeler MD
[2017-05-07] MEDS: Cefepime HCl 2,000 MG in Water for inj. (sterile) 20 ML 20 ML IVP SCH (17:29)
[2017-05-08] MEDS: Insulin LISPRO 300 UNITS/3 ML VIAL SQ SCH ×7 (00:14→18:04)
[2017-05-08] MEDS: methylPREDNISolone 125 MG/2 ML VIAL IVP SCH ×3 (03:19→13:12)
[2017-05-08 04:52] LABS: Calcium 10.4 mg/dL (8.6-10.3); Potassium 3.6 mEq/L (3.5-5.1)
[2017-05-08] MEDS: Levalbuterol Neb 1.25 MG/3 ML IH SCH ×4 (04:56→21:59)
[2017-05-08] MEDS: *HR* Heparin 5,000 UNIT/ML VIAL SQ SCH ×2 (05:58→18:04)
[2017-05-08] MEDS: Levothyroxine Sodium 100 MCG VIAL IVP SCH (08:41)
[2017-05-08] MEDS: Pantoprazole 40 MG VIAL IVP SCH (08:46)
[2017-05-08] MEDS: *HR* Morphine 2 MG/ML SYRINGE IVP PRN (08:47)
--- NOTE | 2017-05-08 10:09 | Internal Med Progress Note ---
<Ramirez Hanson R - Last Filed: 05/08/17 15:40> Date of Encounter: 05/08/17 - Constitutional Vitals: Temp Pulse Resp BP Pulse Ox 96.8 F L 91 28 132/80 96 05/08/17 12:45 05/08/17 12:45 05/08/17 12:45 05/08/17 12:45 05/08/17 12:45 Internal Medicine: Result - Labs CBC & Chem 7: 05/07/17 04:14 05/08/17 04:17 Labs: BMP 05/08/17 04:17 Sodium 154 H Potassium 3.6 Chloride 112 H Carbon Dioxide 34 H BUN 81 H Creatinine 1.83 H Glucose 208 H Calcium 10.4 H - ABG Interpretation ABG results: ABG ABG pH 7.27 pH Units (7.32-7.45) L 05/03/17 05:59 ABG pCO2 77 mmHg (35-45) H* 05/03/17 05:59 ABG pO2 96 mmHg (85-104) 05/03/17 05:59 ABG O2 Saturation 96 % (95-98) 05/03/17 05:59 PT/INR, D-dimer PT 12.6 Seconds (9.4-12.1) H 05/03/17 04:00 Consult Discharge Plan - Plan Referrals: Amirah Lizarraga [Primary Care Provider] - - Attending Attestation I performed an independent interview and exam of this patient. I agree with the findings, assessment, and plan of Dr. Wills, internal medicine resident. Patient unfortunately is unable to take orals presently due to mental status. We will place an NG tube to allow for enteral nutrition, also free water replacement (as she is having a significant free water deficit and associated hypernatremia), and medication.. Will need to have this discussion with the daughter when she is present. Likewise she continues on amiodarone drip and will hopefully changes to oral soon. All else as outlined above. Exam: Gen - tachypneic, sleeping, arouses to verbal stimuli Given warm and dry Oral pharynx dry him and no thrush Heart -Irregular rhythm: Lungs coarse bilaterally Abdomen benign Extremities warm and dry Neurological no gross focal deficits <Ran Wills - Last Filed: 05/08/17 16:36> Date of Encounter: 05/08/17 Time of Encounter: 09:55 - Assessment and plan (1) Pulmonary interstitial fibrosis Current Visit: Yes Status: Acute Assessment and plan: Patient with end-stage interstitial pulmonary fibrosis Prognosis is poor at this time There was extensive discussion with family at bedside with the palliative care team as well as the medicine team yesterday The family is where the patient might not have much longer to live Want to keep patient as DNR CCA/DNI and not transition to comfort care or hospice Patient's sodium was 154 today Creatinine remained stable and slightly elevated Patient has a significant free water deficit We will provide gentle fluids at 100 mL an hour of D5-water for 10 hours again today Evidence of dehydration Closely Monitor fluid status did not finding overload We will continue with breathing treatments with Xopenex Transition patient to by mouth steroids We will discuss placing postpyloric Dobbhoff for free water and medications, to discuss possible tomorrow Continue antibiotics with cefepime Final dose of cefepime tomorrow (2) Metabolic encephalopathy Current Visit: Yes Status: Acute Assessment and plan: Metabolic encephalopathy likely multifactorial in nature due to hypoxia, hypercapnia, hospital delirium some medications possibly contributing We will continue morphine 2 mg IV every 6 hours when necessary for patient discomfort and anxiety (3) Acute and chronic respiratory failure Current Visit: Yes Status: Acute Assessment and plan: Due to end-stage pulmonary fibrosis Plan as above Qualifiers: Respiratory failure complication: hypoxia and hypercapnia Qualified Code(s) : J96.21 - Acute and chronic respiratory failure with hypoxia; J96.22 - Acute and chronic respiratory failure with hypercapnia; J96.22 - Acute and chronic respiratory failure with hypercapnia; J96.22 - Acute and chronic respiratory failure with hypercapnia (4) Atrial fibrillation with RVR Current Visit: Yes Status: Acute Assessment and plan: Currently on amiodarone Improvement in heart rate seen We will continue gentle fluids for additional 10 hours We will continue amiodarone drip We will start gentle fluids as above (5) Hospital acquired PNA Current Visit: Yes Status: Suspected Assessment and plan: Vancomycin stopped previously Continue cefepime for pseudomonal coverage ttempting to remove all nephrotoxins as patient's creatinine is worsening (6) Hypothyroidism Current Visit: Yes Status: Acute Assessment and plan: April 03 shows a TSH of 2.023 which is within normal limits. Currently on 25 g levothyroxine We will transition to by mouth when able Qualifiers: Hypothyroidism type: acquired Qualified Code(s): E03.9 - Hypothyroidism, unspecified (7) Counseling regarding advanced care planning and goals of care Current Visit: No Status: Acute Assessment and plan: As above Palliative Care following (8) DVT prophylaxis Current Visit: No Status: Acute Assessment and plan: Heparin subcutaneous Twice a day (9) KAREN (acute kidney injury) Current Visit: Yes Status: Acute Assessment and plan: Slightly worsened renal function Stable since yesterday Likely due to dehydration We will give gentle fluids at 100 mils an hour as above - Subjective Interval history: Patient in bed breathing slightly fast with oxygen mask in place. Vaguely opens eyes to physical and verbal stimuli. Tachycardia has resolved. Patient labs suggestive of dehydration. - Constitutional Vitals: Temp Pulse Resp BP Pulse Ox 96.8 F L 81 30 150/100 96 05/08/17 07:19 05/08/17 07:19 05/08/17 07:19 05/08/17 07:19 05/08/17 07:19 Exam: General: Patient tachypneic with BiPAP in place, opens eyes to verbal stimuli, appears in distress HEENT: Normocephalic, atraumatic,Conjunctiva pink, sclera anicteric Respiratory: Difficult auscultation due to BiPAP, Rales and rhonchi throughout Cardiovascular: Irregularly irregular rhythm GI/abdominal: Nondistended, nontender, soft, normal bowel sounds, no peritoneal signs Extremities: No calf tenderness, no pedal edema appreciated, warm, lower extremity pulses palpable and symmetrical Neurological: no facial droop, no focal deficits Skin: Dry, intact, normal color Internal Medicine: Result - Labs CBC & Chem 7: 05/07/17 04:14 05/08/17 04:17 Labs: BMP 05/08/17 04:17 Sodium 154 H Potassium 3.6 Chloride 112 H Carbon Dioxide 34 H BUN 81 H Creatinine 1.83 H Glucose 208 H Calcium 10.4 H - ABG Interpretation ABG results: ABG ABG pH 7.27 pH Units (7.32-7.45) L 05/03/17 05:59 ABG pCO2 77 mmHg (35-45) H* 05/03/17 05:59 ABG pO2 96 mmHg (85-104) 05/03/17 05:59 ABG O2 Saturation 96 % (95-98) 05/03/17 05:59 PT/INR, D-dimer PT 12.6 Seconds (9.4-12.1) H 05/03/17 04:00
--- NOTE | 2017-05-08 11:35 | Palliative Progress Note ---
Date of Encounter: 05/08/17 Time of Encounter: 11:30 - Assessment and plan (1) Dyspnea Current Visit: No Status: Acute Assessment and plan: Continues on high flow oxygen per oxymask/bipap PRN/ Steroids/aerosols. Has low dose Morphine and has received once this am. Qualifiers: Dyspnea type: unspecified Qualified Code(s): R06.00 - Dyspnea, unspecified (2) Debility Current Visit: No Status: Acute (3) Counseling regarding advanced care planning and goals of care Current Visit: No Status: Acute Assessment and plan: Overall, pt has not improved much clinically. She remains lethargic, has not had po intake since admission, remains on IV amiodarone, and still requiring frequent bipap, oxygen has not been able to be weaned down. 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 I was very arnold with daughter that intermediate designer, it is likely that her mother will not improve enough to get to rehabilitation, and at this point, she may not leave the hospital. Daughter states, "well I am taking one day at a time", "maybe tomorrow will be better than today". Will continue to follow. (4) Hospital acquired PNA Current Visit: Yes Status: Acute (5) Acute and chronic respiratory failure Current Visit: Yes Status: Acute Qualifiers: Respiratory failure complication: hypoxia and hypercapnia Qualified Code(s) : J96.21 - Acute and chronic respiratory failure with hypoxia; J96.22 - Acute and chronic respiratory failure with hypercapnia; J96.22 - Acute and chronic respiratory failure with hypercapnia; J96.22 - Acute and chronic respiratory failure with hypercapnia (6) Pulmonary interstitial fibrosis Current Visit: Yes Status: Acute - Time Spent With Patient Total time spent is greater than 50% in coordination of care (as documented) at patient's floor/unit and/or counseling patient: 25 - 35 minutes - Subjective Interval history: Patient lethargic this am, I could only get her to open eyes with stimulation. Daughter remains at the bedside. Reviewed weekend events. Has utilized bipap significantly, but currently on mask. - Constitutional Vitals: Abnormal lab results RBC 3.65 M/mcL (3.82-4.97) L 05/07/17 04:14 Hgb 10.7 g/dL (11.5-15.4) L 05/07/17 04:14 MCHC 29.9 g/dL (31.6-35.5) L 05/07/17 04:14 RDW 15.7 % (11.5-14.5) H 05/07/17 04:14 Plt Count 130 K/mcL (140-400) L 05/07/17 04:14 Lymphocytes # 0.3 K/mcL (0.6-4.6) L 05/07/17 04:14 Nucleated RBCs/100 WBC 0.5 /100 WBC (0) H 05/07/17 04:14 Hypochromasia Present (Not Present) A 05/06/17 03:15 PT 12.6 Seconds (9.4-12.1) H 05/03/17 04:00 ABG pH 7.27 pH Units (7.32-7.45) L 05/03/17 05:59 ABG pCO2 77 mmHg (35-45) H* 05/03/17 05:59 ABG HCO3 36 mEq/L (21-27) H 05/03/17 05:59 ABG Total CO2 38 mEq/L (20-26) H 05/03/17 05:59 ABG Base Excess 6 mEq/L (-2 to 3) H 05/03/17 05:59 Sodium 154 mEq/L (136-145) H 05/08/17 04:17 Chloride 112 mEq/L (98-107) H 05/08/17 04:17 Carbon Dioxide 34 mEq/L (23-29) H 05/08/17 04:17 BUN 81 mg/dL (8-23) H 05/08/17 04:17 Creatinine 1.83 mg/dL (0.60-1.20) H 05/08/17 04:17 Est GFR ( Amer) 33 (> 60) L 05/08/17 04:17 Est GFR (Non-Af Amer) 27 (> 60) L 05/08/17 04:17 BUN/Creatinine Ratio 44 (6-26) H 05/08/17 04:17 Glucose 208 mg/dL (70-105) H 05/08/17 04:17 POC Glucose 178 mg/dL (58-89) H 05/08/17 03:28 Calculated Osmolality 348 (280-300) H 05/08/17 04:17 Calcium 10.4 mg/dL (8.6-10.3) H 05/08/17 04:17 Phosphorus 5.6 mg/dL (2.7-4.5) H 05/04/17 04:42 Alkaline Phosphatase 161 Units/L (34-104) H 05/04/17 04:42 Troponin I 0.08 ng/mL (< 0.04) H* 05/03/17 12:30 B-Natriuretic Peptide 244 pg/mL (Less than 100) H 05/02/17 19:35 Albumin 3.0 g/dL (3.5-5.7) L 05/04/17 04:42 Albumin/Globulin Ratio 0.9 (1.1-2.2) L 05/04/17 04:42 Urine Clarity Turbid (Clear) A 05/03/17 15:10 Ur Specific [place] > 1.030 (1.010-1.025) H 05/03/17 15:10 Urine Protein 30 mg/dL (Neg-Trace) H 05/03/17 15:10 Urine Blood Small (Negative) H 05/03/17 15:10 Ur Leukocyte Esterase Trace (Negative) H 05/03/17 15:10 Urine Microscopic RBC 5-15 per hpf (0-3) H 05/03/17 15:10 Urine Microscopic WBC TNTC per hpf (0-3) H 05/03/17 15:10 Ur Squamous Epith Cells Many per lpf (None-Few) H 05/03/17 15:10 Urine Bacteria Many per hpf (None-Few) H 05/03/17 15:10 Granular Casts Few per lpf (None Seen) H 05/03/17 15:10 Urine Yeast Many per hpf (None Seen) H 05/03/17 15:10 Vancomycin Trough 25.4 mcg/mL (10-20) H* 05/05/17 04:00 - Respiratory Additional comments: Inspiratory crackles throughout anterior lung baig. - Cardiovascular Cardiovascular exam: Present: irregular rhythm, tachycardia - GI/Abdominal GI/Abdominal exam: Present: diminished bowel sounds, distended Additional comments: Ostomy with no output - Additional comments: Jett with clear yellow urine - Extremities Exam Extremities exam: Present: normal capillary refill, normal inspection - Neurological Exam Additional comments: Patient opened eyes with tactile/verbal stimulation. Did not follow other commands for me - Skin Skin exam: Present: dry, pallor, warm Palliative Quality Palliative Quality: Screen for Code Status: Yes, Screen for Goals of Care: Yes, Screen for Pain: Yes, If Pain Regimen Started, Initiate Bowel Regimen: NA, Screen for Nausea/Vomitting: Yes Code Status: 05/02/17 19:39 Resuscitation Status: Active [RES] Routine Comment: Resuscitation Status: [id number] - Labs CBC & Chem 7: 05/07/17 04:14 05/08/17 04:17 Labs: Laboratory Results - last 24 hr 05/07/17 05/07/17 05/07/17 03:58 07:24 20:12 Sodium Potassium Chloride Carbon Dioxide BUN Creatinine Est GFR ( Amer) Est GFR (Non-Af Amer) BUN/Creatinine Ratio Glucose POC Glucose 200 H 187 H 179 H Calculated Osmolality Calcium 05/07/17 05/08/17 05/08/17 23:49 03:28 04:17 Sodium 154 H Potassium 3.6 Chloride 112 H Carbon Dioxide 34 H BUN 81 H Creatinine 1.83 H Est GFR ( Amer) 33 L Est GFR (Non-Af Amer) 27 L BUN/Creatinine Ratio 44 H Glucose 208 H POC Glucose 172 H 178 H Calculated Osmolality 348 H Calcium 10.4 H - ABG Interpretation ABG results: ABG ABG pH 7.27 pH Units (7.32-7.45) L 05/03/17 05:59 ABG pCO2 77 mmHg (35-45) H* 05/03/17 05:59 ABG pO2 96 mmHg (85-104) 05/03/17 05:59 ABG O2 Saturation 96 % (95-98) 05/03/17 05:59 PT/INR, D-dimer PT 12.6 Seconds (9.4-12.1) H 05/03/17 04:00 Consult Discharge Plan - Plan Referrals: Amirah Lizarraga [Primary Care Provider] -
[2017-05-08] MEDS: D5% in Water 1,000 ML IVC SCH ×2 (12:15→19:29)
[2017-05-08] MEDS: D5% in Water 500 ML IVC SCH (14:21)
[2017-05-08] MEDS: Leptospermum Honey Paste 44 ML TUBE TP SCH ×2 (18:00→20:55)
[2017-05-08] MEDS: Cefepime HCl 2,000 MG in Water for inj. (sterile) 20 ML 20 ML IVP SCH (18:05)
[2017-05-08] MEDS: Amiodarone Premix 360 MG/200 ML BAG IVC SCH (20:55)
[2017-05-09] MEDS: Insulin LISPRO 300 UNITS/3 ML VIAL SQ SCH ×7 (00:31→23:28)
[2017-05-09] MEDS: Levalbuterol Neb 1.25 MG/3 ML IH SCH ×4 (04:19→23:07)
[2017-05-09] MEDS: *HR* Morphine 2 MG/ML SYRINGE IVP PRN (04:33)
[2017-05-09 05:24] LABS: Basophils % 0.2 %; Hematocrit 38.3 % (35.3-44.9); Hemoglobin 11.3 g/dL (11.5-15.4); Immature Granulocytes % 1.3 % (0-4); Lymphocytes # 0.5 K/mcL (0.6-4.6); Lymphocytes % 3.9 %; Mean Corpuscular HGB Conc 29.5 g/dL (31.6-35.5); Mean Corpuscular Hemoglobin 28.4 pg (28.0-33.3); Mean Corpuscular Volume 96.2 fL (83.0-100.0); Mean Platelet Volume 11.9 fL (9.4-12.4); Monocytes # 0.4 K/mcL (0.0-1.3); Neutrophils # 11.7 K/mcL (1.6-8.9); Nucleated Red Blood Cells 0.2 /100 WBC (0); Platelet Count 150 K/mcL (140-400); Red Blood Count 3.98 M/mcL (3.82-4.97); Red Cell Distribution Width 15.5 % (11.5-14.5); Segmented Neutrophils % 91.6 %
[2017-05-09] MEDS: *HR* Heparin 5,000 UNIT/ML VIAL SQ SCH ×2 (06:55→16:54)
[2017-05-09 06:59] LABS: Calcium 10.4 mg/dL (8.6-10.3); Potassium 3.4 mEq/L (3.5-5.1)
[2017-05-09] MEDS: Pantoprazole 40 MG VIAL IVP SCH (08:28)
[2017-05-09] MEDS: Levothyroxine Sodium 100 MCG VIAL IVP SCH (08:28)
[2017-05-09] MEDS ORDERED: predniSONE 20 MG TABLET PO SCH (09:00)
[2017-05-09] MEDS: MethylPREDNISolone 40 MG/ML VIAL IVP SCH (10:09)
[2017-05-09] MEDS: Amiodarone Premix 360 MG/200 ML BAG IVC SCH ×2 (10:09→22:14)
[2017-05-09] MEDS: Leptospermum Honey Paste 44 ML TUBE TP SCH ×2 (10:10→20:29)
--- NOTE | 2017-05-09 13:03 | Internal Med Progress Note ---
<Ramirez Hanson R - Last Filed: 05/09/17 15:15> Date of Encounter: 05/09/17 - Constitutional Vitals: Temp Pulse Resp BP Pulse Ox 96.8 F L 91 32 135/84 95 05/09/17 14:56 05/09/17 14:56 05/09/17 14:56 05/09/17 14:56 05/09/17 14:56 Internal Medicine: Result - Labs CBC & Chem 7: 05/09/17 05:00 05/09/17 06:28 Labs: Short CBC 05/09/17 Range/Units 05:00 WBC 12.8 H D (4.3-11.1) K/mcL Hgb 11.3 L (11.5-15.4) g/dL Hct 38.3 (35.3-44.9) % Plt Count 150 (140-400) K/mcL Neutrophils # 11.7 H (1.6-8.9) K/mcL BMP 05/09/17 06:28 Sodium 149 H Potassium 3.4 L Chloride 109 H Carbon Dioxide 32 H BUN 81 H Creatinine 1.76 H Glucose 221 H Calcium 10.4 H - ABG Interpretation ABG results: ABG ABG pH 7.27 pH Units (7.32-7.45) L 05/03/17 05:59 ABG pCO2 77 mmHg (35-45) H* 05/03/17 05:59 ABG pO2 96 mmHg (85-104) 05/03/17 05:59 ABG O2 Saturation 96 % (95-98) 05/03/17 05:59 PT/INR, D-dimer PT 12.6 Seconds (9.4-12.1) H 05/03/17 04:00 - Impressions Impressions K[facility] X-Ray 05/09/17 13:44 IMPRESSION: Feeding tube tip in the left lung base. Recommend replacement and chest x-ray to assess for pneumothorax. D/ / Dre Ford MD / Dre Ford MD Interpreting Provider: Dre Ford MD Chest X-Ray 05/09/17 14:03 IMPRESSION: Interval removal of the feeding tube with no pneumothorax. D/ / Dre Ford MD / Dre Ford MD Interpreting Provider: Dre Ford MD Consult Discharge Plan - Plan Referrals: Amirah Lizarraga [Primary Care Provider] - - Attending Attestation I performed an independent interview and exam of this patient. I agree with the findings, assessment, and plan of Dr. Dia, Internal medicine resident. Very difficult situation. We discussed the case in detail as a team and with the daughter. Patient needs nutrition and unfortunately we were unable to successfully place a [place]. We will ask interventional radiology to see if they are capable of doing this for us. Our primary concern is respiratory compromise with any attempt of placing enteral feeding tube. Do not believe patient would tolerate placement of a PEG tube given her tenuous respiratory status. Would prefer to avoid TPN if possible. Daughter would like to pursue with feeding despite our counseling her on the risks associated with each modality. We did have a long discussion regarding patient's severity of illness. We did briefly discuss hospice as an option but the daughter states the patient would not be interested in hospice. The patient however is unable to communicate with us. She remains on an amiodarone drip for her atrial fibrillation. We will attempt to rate control her with alternative medications. Pt does complete cefepime today for suspected pneumonia. All else as outlined above. <Sergio Dia - Last Filed: 05/09/17 16:45> Date of Encounter: 05/09/17 Time of Encounter: 16:39 - Assessment and plan (1) Pulmonary interstitial fibrosis Current Visit: Yes Status: Acute Assessment and plan: End stage. Patient currently requiring more BiPAP administration. Patient has not been able to eat secondary to her confusion, hypercapnia, need for BiPAP. We will attempt to place Dobbhoff tomorrow via fluoroscopy at 8 AM for feeds. (2) Metabolic encephalopathy Current Visit: Yes Status: Acute Assessment and plan: Patient is hypercapnic due to her reduced pulmonary function. Patient currently on BiPAP. We will attempt BiPAP breaks when possible. (3) Atrial fibrillation with RVR Current Visit: Yes Status: Acute Assessment and plan: Rate currently controlled with IV amiodarone. (4) Hospital acquired PNA Current Visit: Yes Status: Suspected Assessment and plan: Final day of cefepime. Pulmonary function has decreased most likely to the interstitial pulmonary fibrosis and pneumonia and was not as likely. (5) Acute and chronic respiratory failure Current Visit: Yes Status: Acute Assessment and plan: See above Qualifiers: Respiratory failure complication: hypoxia and hypercapnia Qualified Code(s) : J96.21 - Acute and chronic respiratory failure with hypoxia; J96.22 - Acute and chronic respiratory failure with hypercapnia; J96.22 - Acute and chronic respiratory failure with hypercapnia; J96.22 - Acute and chronic respiratory failure with hypercapnia (6) Hypothyroidism Current Visit: Yes Status: Acute Assessment and plan: April 03 shows a TSH of 2.023 which is within normal limits. Currently on 25 g IV Qualifiers: Hypothyroidism type: acquired Qualified Code(s): E03.9 - Hypothyroidism, unspecified (7) Counseling regarding advanced care planning and goals of care Current Visit: No Status: Acute Assessment and plan: See above. Spoke with daughter this morning about worsening condition. (8) DVT prophylaxis Current Visit: No Status: Acute Assessment and plan: Heparin 5000 units subcutaneous every 12 hours. - Subjective Interval history: Patient has been on BiPAP more often. Breaks from BiPAP are less frequent. Still confused and somnolent. Dobhoff placement was attempted today and was placed in lung. After seeing that on chest x-ray, I manually removed. I also obtain a repeat chest x-ray and did not see a pneumothorax. Oxygen saturation is stable on BiPAP. Consideration for placement of Dobbhoff via fluoroscopy tomorrow KUB X-Ray 05/09/17 13:44 IMPRESSION: Feeding tube tip in the left lung base. Recommend replacement and chest x-ray to assess for pneumothorax. D/ / Dre Ford MD / Dre Ford MD Interpreting Provider: Dre Ford MD Chest X-Ray 05/09/17 14:03 IMPRESSION: Interval removal of the feeding tube with no pneumothorax. D/ / Dre Ford MD / Dre Ford MD Interpreting Provider: Dre Ford MD . - Constitutional Vitals: Temp Pulse Resp BP Pulse Ox 97.9 F 88 31 120/77 94 05/09/17 11:00 05/09/17 11:00 05/09/17 11:00 05/09/17 11:00 05/09/17 11:00 General appearance: Present: A&O X 0, severe distress (Severe respiratory distress tachypnea with respiratory rate in the 30s. Slower from yesterday) - Head Head exam: Present: atraumatic, normal inspection - ENT ENT exam: Present: mucous membranes moist - Neck Neck exam general surgery: Present: supple, trachea midline - Respiratory Additional comments: End inspiratory crackles - Cardiovascular Cardiovascular exam: Present: irregular rhythm, +S1, +S2. Absent: JVD - GI/Abdominal GI/Abdominal exam: Present: no peritoneal signs. Absent: firm, rebound, rigid - Extremities Exam Extremities exam: Present: pedal edema (1+) Internal Medicine: Result - Labs CBC & Chem 7: 05/09/17 05:00 05/09/17 06:28 Labs: Short CBC 05/09/17 Range/Units 05:00 WBC 12.8 H D (4.3-11.1) K/mcL Hgb 11.3 L (11.5-15.4) g/dL Hct 38.3 (35.3-44.9) % Plt Count 150 (140-400) K/mcL Neutrophils # 11.7 H (1.6-8.9) K/mcL BMP 05/09/17 06:28 Sodium 149 H Potassium 3.4 L Chloride 109 H Carbon Dioxide 32 H BUN 81 H Creatinine 1.76 H Glucose 221 H Calcium 10.4 H - ABG Interpretation ABG results: ABG ABG pH 7.27 pH Units (7.32-7.45) L 05/03/17 05:59 ABG pCO2 77 mmHg (35-45) H* 05/03/17 05:59 ABG pO2 96 mmHg (85-104) 05/03/17 05:59 ABG O2 Saturation 96 % (95-98) 05/03/17 05:59 PT/INR, D-dimer PT 12.6 Seconds (9.4-12.1) H 05/03/17 04:00
[2017-05-09] MEDS: Cefepime HCl 2,000 MG in Water for inj. (sterile) 20 ML 20 ML IVP SCH (16:54)
[2017-05-10] MEDS: Levalbuterol Neb 1.25 MG/3 ML IH SCH ×4 (03:31→22:28)
[2017-05-10] MEDS: Leptospermum Honey Paste 44 ML TUBE TP SCH (05:00)
[2017-05-10] MEDS: Insulin LISPRO 300 UNITS/3 ML VIAL SQ SCH ×4 (05:16→21:31)
[2017-05-10] MEDS: *HR* Heparin 5,000 UNIT/ML VIAL SQ SCH ×2 (05:20→17:14)
[2017-05-10 06:29] LABS: Basophils % 0.1 %; Eosinophils % 0.1 %; Hematocrit 40.9 % (35.3-44.9); Hemoglobin 12.3 g/dL (11.5-15.4); Immature Granulocytes % 1.3 % (0-4); Lymphocytes # 0.7 K/mcL (0.6-4.6); Lymphocytes % 4.8 %; Mean Corpuscular HGB Conc 30.1 g/dL (31.6-35.5); Mean Corpuscular Hemoglobin 29.3 pg (28.0-33.3); Mean Corpuscular Volume 97.4 fL (83.0-100.0); Mean Platelet Volume 12.7 fL (9.4-12.4); Monocytes # 0.4 K/mcL (0.0-1.3); Monocytes % 2.6 %; Nucleated Red Blood Cells 0.3 /100 WBC (0); Platelet Count 156 K/mcL (140-400); Red Cell Distribution Width 15.8 % (11.5-14.5); Segmented Neutrophils % 91.1 %
[2017-05-10 07:00] LABS: Calcium 10.6 mg/dL (8.6-10.3); Potassium 3.8 mEq/L (3.5-5.1)
[2017-05-10] MEDS: MethylPREDNISolone 40 MG/ML VIAL IVP SCH (09:02)
[2017-05-10] MEDS: Pantoprazole 40 MG VIAL IVP SCH (09:03)
[2017-05-10] MEDS: Levothyroxine Sodium 100 MCG VIAL IVP SCH (09:03)
[2017-05-10] MEDS: *HR* Morphine 2 MG/ML SYRINGE IVP PRN (09:04)
--- NOTE | 2017-05-10 10:36 | Internal Med Progress Note ---
<Sergio Dia - Last Filed: 05/10/17 14:42> Date of Encounter: 05/10/17 Time of Encounter: 10:36 - Assessment and plan (1) Pulmonary interstitial fibrosis Current Visit: Yes Status: Acute Assessment and plan: End stage. Patient currently requiring more BiPAP administration. Patient has not been able to eat secondary to her confusion, hypercapnia, need for BiPAP. Did not take patient to fluoroscopy for Dobbhoff placement as patient was not significantly more distress today. Dobbhoff was attempted yesterday and went into the left lung. Risk for pneumothorax was too high to reattempt. PICC line was placed. Total peripheral nutrition will be started that way. Patient is currently on electrolyte protocol. We will have to pay close attention to her hyperglycemia she is a type II diabetic who is receiving steroids. (2) Metabolic encephalopathy Current Visit: Yes Status: Acute Assessment and plan: Patient is hypercapnic due to her reduced pulmonary function. Patient currently on BiPAP. We will attempt BiPAP breaks when possible. (3) Atrial fibrillation with RVR Current Visit: Yes Status: Acute Assessment and plan: Patient had atrial fibrillation with RVR in the 140s today. Patient was restless. This could have certainly contributed to her heart rate. Amiodarone. Today. Cardizem was started as blood pressures were normal. Patient's heart rate has been reduced into the 90s. (4) Hospital acquired PNA Current Visit: Yes Status: Suspected Assessment and plan: Patient's leukocytosis has been increasing. We will restart cefepime. (5) Acute and chronic respiratory failure Current Visit: Yes Status: Acute Assessment and plan: See above Qualifiers: Respiratory failure complication: hypoxia and hypercapnia Qualified Code(s) : J96.21 - Acute and chronic respiratory failure with hypoxia; J96.22 - Acute and chronic respiratory failure with hypercapnia; J96.22 - Acute and chronic respiratory failure with hypercapnia; J96.22 - Acute and chronic respiratory failure with hypercapnia (6) Hypothyroidism Current Visit: Yes Status: Acute Assessment and plan: April 03 shows a TSH of 2.023 which is within normal limits. Currently on 25 g IV Qualifiers: Hypothyroidism type: acquired Qualified Code(s): E03.9 - Hypothyroidism, unspecified (7) Counseling regarding advanced care planning and goals of care Current Visit: No Status: Acute Assessment and plan: See above regarding administration nutrition (8) DVT prophylaxis Current Visit: No Status: Acute Assessment and plan: Heparin 5000 units subcutaneous every 12 hours. - Subjective Interval history: Patient has been on BiPAP overnight. More agitated this morning. Patient not looking is comfortable. Last dose of morphine was yesterday at 4 AM. Patient was given 2 mg of morphine. Patient was becoming more tachycardic and more tachypnic. Amiodarone was stopped. Blood pressures were within normal limits so Cardizem drip was started. PICC line was placed for total peripheral nutrition. - Constitutional Vitals: Temp Pulse Resp BP Pulse Ox 98.7 F 115 40 98/77 94 05/10/17 07:24 05/10/17 09:27 05/10/17 10:13 05/10/17 09:27 05/10/17 10:13 General appearance: Present: A&O X 0, severe distress (Severe respiratory distress tachypnea with respiratory rate in the 30s. Slower from yesterday) - Head Head exam: Present: atraumatic, normal inspection - ENT ENT exam: Present: mucous membranes dry - Neck Neck exam general surgery: Present: supple, trachea midline - Respiratory Additional comments: And inspiratory crackles - Cardiovascular Cardiovascular exam: Present: irregular rhythm, tachycardia - GI/Abdominal GI/Abdominal exam: Present: soft, no peritoneal signs. Absent: rebound, rigid, tenderness - Extremities Exam Extremities exam: Present: pedal edema (1+ bilaterally) Internal Medicine: Result - Labs CBC & Chem 7: 05/10/17 04:00 05/10/17 04:00 Labs: Short CBC 05/10/17 Range/Units 04:00 WBC 14.3 H (4.3-11.1) K/mcL Hgb 12.3 (11.5-15.4) g/dL Hct 40.9 (35.3-44.9) % Plt Count 156 (140-400) K/mcL Neutrophils # 13.0 H (1.6-8.9) K/mcL BMP 05/10/17 04:00 Sodium 153 H Potassium 3.8 Chloride 112 H Carbon Dioxide 32 H BUN 81 H Creatinine 1.77 H Glucose 127 H Calcium 10.6 H - ABG Interpretation ABG results: ABG ABG pH 7.27 pH Units (7.32-7.45) L 05/03/17 05:59 ABG pCO2 77 mmHg (35-45) H* 05/03/17 05:59 ABG pO2 96 mmHg (85-104) 05/03/17 05:59 ABG O2 Saturation 96 % (95-98) 05/03/17 05:59 PT/INR, D-dimer PT 12.6 Seconds (9.4-12.1) H 05/03/17 04:00 - Impressions Impressions KUB X-Ray 05/09/17 13:44 IMPRESSION: Feeding tube tip in the left lung base. Recommend replacement and chest x-ray to assess for pneumothorax. D/ / Dre Ford MD / rDe Ford MD Interpreting Provider: Dre Ford MD Chest X-Ray 05/09/17 14:03 IMPRESSION: Interval removal of the feeding tube with no pneumothorax. D/ / Dre Ford MD / Dre Ford MD Interpreting Provider: Dre Ford MD Consult Discharge Plan - Plan Referrals: Amirah Lizarraga [Primary Care Provider] - <Ramirez Hanson - Last Filed: 05/10/17 15:36> Date of Encounter: 05/10/17 - Constitutional Vitals: Temp Pulse Resp BP Pulse Ox 98.5 F 101 42 117/66 96 05/10/17 11:40 05/10/17 11:40 05/10/17 11:40 05/10/17 11:40 05/10/17 11:40 Internal Medicine: Result - Labs CBC & Chem 7: 05/10/17 04:00 05/10/17 04:00 Labs: Short CBC 05/10/17 Range/Units 04:00 WBC 14.3 H (4.3-11.1) K/mcL Hgb 12.3 (11.5-15.4) g/dL Hct 40.9 (35.3-44.9) % Plt Count 156 (140-400) K/mcL Neutrophils # 13.0 H (1.6-8.9) K/mcL BMP 05/10/17 04:00 Sodium 153 H Potassium 3.8 Chloride 112 H Carbon Dioxide 32 H BUN 81 H Creatinine 1.77 H Glucose 127 H Calcium 10.6 H - ABG Interpretation ABG results: ABG ABG pH 7.27 pH Units (7.32-7.45) L 05/03/17 05:59 ABG pCO2 77 mmHg (35-45) H* 05/03/17 05:59 ABG pO2 96 mmHg (85-104) 05/03/17 05:59 ABG O2 Saturation 96 % (95-98) 05/03/17 05:59 PT/INR, D-dimer PT 12.6 Seconds (9.4-12.1) H 05/03/17 04:00 - Impressions Impressions Chest X-Ray 05/10/17 11:14 IMPRESSION: Left PICC in superior vena cava. D/ / 05/10/2017 11:44:06 El Cox MD / [facility] Interpreting Provider: El Cox MD - Attending Attestation I performed an independent interview and exam of this patient. I agree with the findings, assessment, and plan of Dr. Musa, internal medicine sports team marketing intern. I was present in the room during multiple discussions with the patient's daughter. Unfortunately due to patient's tenuous respiratory status, our only option at the moment for nutrition is TPN. She will be started today. She is also hypernatremic and we are replacing her free water loss. Patient now has no elevation in her white blood cell count and we will continue cefepime for suspected pneumonia. Patient is not doing well and we have discussed hospice with the daughter. Exam: Vitals reviewed Patient is tachypneic with increased work of breathing. She will open her eyes when spoken to but not following any commands Lungs show increased work of breathing, tachypnea with coarse breath sounds bilaterally Heart is tachycardic with a regular rhythm Abdomen is benign Extremities show trace edema
[2017-05-10] MEDS ORDERED: Lidocaine -MPF 1% 5 ML AMPUL INFILT ONE (11:42)
[2017-05-10] MEDS ORDERED: D10% in Water 500 ML IVC PRN (11:48)
[2017-05-10 12:02] LABS: Magnesium 2.6 mg/dL (1.6-2.6); Phosphorous 3.3 mg/dL (2.7-4.5)
[2017-05-10] MEDS: Thiamine (B-1) 100 MG in D5% in Water 50 ML IVPB SCH (15:08)
[2017-05-10] MEDS ORDERED: Clinimix E 5%-15% SOLUTION 2,000 ML with MVI, adult with vitamin K 10 ML IVC SCH (17:00)
[2017-05-10] MEDS: Cefepime HCl 2,000 MG in Water for inj. (sterile) 20 ML 20 ML IVP SCH (17:14)
[2017-05-10 17:46] LABS: Potassium 4.1 mEq/L (3.5-5.1)
[2017-05-11] MEDS: Leptospermum Honey Paste 44 ML TUBE TP SCH ×3 (00:05→21:32)
[2017-05-11] MEDS: Insulin LISPRO 300 UNITS/3 ML VIAL SQ SCH ×6 (00:56→21:10)
[2017-05-11] MEDS: Levalbuterol Neb 1.25 MG/3 ML IH SCH ×4 (04:53→22:01)
[2017-05-11 06:03] LABS: Calcium 9.9 mg/dL (8.6-10.3); Magnesium 2.6 mg/dL (1.6-2.6); Phosphorous 3.2 mg/dL (2.7-4.5); Potassium 3.4 mEq/L (3.5-5.1)
[2017-05-11 06:03] LABS: VBG Ionized Calcium 1.38 mmol/L (1.15-1.35)
[2017-05-11] MEDS: *HR* Heparin 5,000 UNIT/ML VIAL SQ SCH ×2 (06:45→17:39)
[2017-05-11] MEDS: MethylPREDNISolone 40 MG/ML VIAL IVP SCH (07:53)
[2017-05-11] MEDS: Levothyroxine Sodium 100 MCG VIAL IVP SCH (07:53)
[2017-05-11] MEDS: Pantoprazole 40 MG VIAL IVP SCH (07:53)
[2017-05-11] MEDS ORDERED: Furosemide 40 MG/4 ML VIAL IVP ONE ×2 (08:21→18:32)
[2017-05-11] MEDS ORDERED: Potassium Chloride 40 MEQ/200 ML BAG IVPB PRN (08:30)
[2017-05-11] MEDS ORDERED: Potassium Phosphate 44 MEQ in 0.9 % Sodium Chloride 250 ML IVPB PRN (08:30)
--- NOTE | 2017-05-11 10:47 | Internal Med Progress Note ---
<Sergio Dia - Last Filed: 05/11/17 14:37> Date of Encounter: 05/11/17 Time of Encounter: 10:47 - Assessment and plan (1) Pulmonary interstitial fibrosis Current Visit: Yes Status: Acute Assessment and plan: End stage. Clinically, patient appearing more comfortable than yesterday. However, patient still only opens eyes. She does not follow commands. Patient currently on high-dose steroids. She is also on total peripheral nutrition return to PICC line. Patient appears more edematous on physical exam. We will give 40 mg of Lasix IV at this time. We will continue monitoring the patient's Is and Os. We will initiate digoxin loading dose. Continue Cardizem at this time. We will attempt to pull off Cardizem drip tomorrow. Blood pressures are stable. (2) Metabolic encephalopathy Current Visit: Yes Status: Acute (3) Atrial fibrillation with RVR Current Visit: Yes Status: Acute Assessment and plan: See above. Starting digoxin. (4) Hospital acquired PNA Current Visit: Yes Status: Suspected Assessment and plan: Currently on cefepime day 9. (5) Acute and chronic respiratory failure Current Visit: Yes Status: Acute Assessment and plan: See above. Qualifiers: Respiratory failure complication: hypoxia and hypercapnia Qualified Code(s) : J96.21 - Acute and chronic respiratory failure with hypoxia; J96.22 - Acute and chronic respiratory failure with hypercapnia; J96.22 - Acute and chronic respiratory failure with hypercapnia; J96.22 - Acute and chronic respiratory failure with hypercapnia (6) Hypothyroidism Current Visit: Yes Status: Acute Assessment and plan: April 03 shows a TSH of 2.023 which is within normal limits. Currently on 25 g IV Qualifiers: Hypothyroidism type: acquired Qualified Code(s): E03.9 - Hypothyroidism, unspecified (7) Counseling regarding advanced care planning and goals of care Current Visit: No Status: Acute Assessment and plan: See above regarding administration nutrition (8) DVT prophylaxis Current Visit: No Status: Acute Assessment and plan: Heparin 5000 units subcutaneous every 12 hours. - Subjective Interval history: Patient had no events overnight. Currently on oxygen. High flow oxygen at 5 L. Heart rate has been under control with Cardizem drip. Patient was reported to be more edematous and had rales on lung exam. Patient currently on TPN running through her PICC line. - Constitutional Vitals: Temp Pulse Resp BP Pulse Ox 97.6 F 80 32 154/67 95 05/11/17 07:15 05/11/17 07:15 05/11/17 07:15 05/11/17 07:15 05/11/17 07:15 General appearance: Present: A&O X 0 Exam: Patient currently appearing more comfortable than yesterday. Opens eyes to voice, but does not follow commands. - Head Head exam: Present: atraumatic, normal inspection - ENT ENT exam: Present: mucous membranes moist - Neck Neck exam general surgery: Present: supple, trachea midline - Respiratory Respiratory exam: Present: rales (Back diffuse) Additional comments: End inspiratory crackles. - Cardiovascular Cardiovascular exam: Present: RRR, +S1, +S2. Absent: JVD - Extremities Exam Additional comments: All extremities appear edematous. Internal Medicine: Result - Labs CBC & Chem 7: 05/10/17 04:00 05/11/17 05:10 Labs: BMP 05/10/17 05/10/17 05/11/17 04:00 17:00 05:10 Sodium 153 H 151 H 151 H Potassium 3.8 4.1 3.4 L Chloride 112 H 112 H 111 H Carbon Dioxide 32 H 34 H 31 H BUN 81 H 85 H 84 H Creatinine 1.77 H 1.86 H 1.72 H Glucose 127 H 244 H 207 H Calcium 10.6 H 10.0 9.9 - ABG Interpretation ABG results: ABG ABG pH 7.27 pH Units (7.32-7.45) L 05/03/17 05:59 ABG pCO2 77 mmHg (35-45) H* 05/03/17 05:59 ABG pO2 96 mmHg (85-104) 05/03/17 05:59 ABG O2 Saturation 96 % (95-98) 05/03/17 05:59 PT/INR, D-dimer PT 12.6 Seconds (9.4-12.1) H 05/03/17 04:00 - Impressions Impressions Chest X-Ray 05/10/17 11:14 IMPRESSION: Left PICC in superior vena cava. D/ / 05/10/2017 11:44:06 El Cox MD / [facility] Interpreting Provider: El Cox MD Consult Discharge Plan - Plan Referrals: Amirah Lizarraga [Primary Care Provider] - <ValentinRamirez - Last Filed: 05/11/17 15:07> Date of Encounter: 05/11/17 - Constitutional Vitals: Temp Pulse Resp BP Pulse Ox 97.4 F L 72 29 168/78 99 05/11/17 11:20 05/11/17 11:20 05/11/17 11:20 05/11/17 11:20 05/11/17 11:20 Internal Medicine: Result - Labs CBC & Chem 7: 05/10/17 04:00 05/11/17 05:10 Labs: BMP 05/10/17 05/11/17 17:00 05:10 Sodium 151 H 151 H Potassium 4.1 3.4 L Chloride 112 H 111 H Carbon Dioxide 34 H 31 H BUN 85 H 84 H Creatinine 1.86 H 1.72 H Glucose 244 H 207 H Calcium 10.0 9.9 - ABG Interpretation ABG results: ABG ABG pH 7.27 pH Units (7.32-7.45) L 05/03/17 05:59 ABG pCO2 77 mmHg (35-45) H* 05/03/17 05:59 ABG pO2 96 mmHg (85-104) 05/03/17 05:59 ABG O2 Saturation 96 % (95-98) 05/03/17 05:59 PT/INR, D-dimer PT 12.6 Seconds (9.4-12.1) H 05/03/17 04:00 - Attending Attestation I performed an independent interview and exam of this patient. I agree with the findings, assessment, and plan of Dr. Musa, internal medicine development intern. I discussed the case with him in detail and my input is reflected throughout his note. We did continue cefepime yesterday for concerns of ongoing pneumonia. Also due to needs for feeding, and no oral options appropriate at this time due to respiratory issues, a PICC line is placed and she is receiving TPN. Daily we would like to place a [place] feeding tube once her respiratory status stabilizes, if it ever does. We discussed her persistent atrial fibrillation with rapid ventricular response. She is on a Cardizem drip presently but we will attempt again to dig load her. I discussed with pharmacy the appropriate dosing for digoxin for this patient. Pt's prognosis remains poor. All else as outlined per the note
[2017-05-11] MEDS: Thiamine (B-1) 100 MG in D5% in Water 50 ML IVPB SCH (11:11)
--- NOTE | 2017-05-11 15:17 | Event Note ---
Date of Encounter: 05/11/17 Time of Encounter: 15:15 Patient remains tachypneic at rest with respirations in the high 30's. She is off bipap. Opens eyes when name called, and shakes head "yes" when asked if she can hear me, however, does not responds to any other commands and does not try to verbalize. Lungs rhonchorous throughout. Heart rate stable. Generalized 3+ edema to upper and lower extremities. Nurse reports that decub is worse with protruding bone - dressing has already been changed today. Daughter has left for an appointment and has been gone for a couple of hours. D /W Dr. Dia and Dr. Wills.
[2017-05-11] MEDS ORDERED: *HR* Digoxin 0.5 MG/2 ML AMPUL IVP ONE ×2 (17:00→23:00)
[2017-05-11] MEDS ORDERED: Clinimix E 5%-15% SOLUTION 2,000 ML with MVI, adult with vitamin K 10 ML IVC SCH (17:00)
[2017-05-11] MEDS: Cefepime HCl 2,000 MG in Water for inj. (sterile) 20 ML 20 ML IVP SCH (17:39)
[2017-05-11 18:32] LABS: Calcium 10.3 mg/dL (8.6-10.3)
[2017-05-11] MEDS: *HR* Morphine 2 MG/ML SYRINGE IVP PRN (21:10)
[2017-05-11] MEDS: Insulin DETEMIR 100 UNIT/ML X5UNITS SQ SCH (21:31)
[2017-05-12] MEDS: Insulin LISPRO 300 UNITS/3 ML VIAL SQ SCH ×6 (00:45→21:42)
[2017-05-12] MEDS: Levalbuterol Neb 1.25 MG/3 ML IH SCH ×4 (03:25→21:39)
[2017-05-12] MEDS ORDERED: *HR* Digoxin 0.5 MG/2 ML AMPUL IVP ONE (05:00)
[2017-05-12] MEDS: *HR* Heparin 5,000 UNIT/ML VIAL SQ SCH ×2 (05:22→17:01)
[2017-05-12 06:15] LABS: Basophils % 0.2 %; Eosinophils % 0.1 %; Lymphocytes # 0.5 K/mcL (0.6-4.6); Lymphocytes % 2.7 %; Mean Corpuscular HGB Conc 29.7 g/dL (31.6-35.5); Mean Corpuscular Hemoglobin 28.9 pg (28.0-33.3); Mean Corpuscular Volume 97.4 fL (83.0-100.0); Mean Platelet Volume 13.3 fL (9.4-12.4); Monocytes # 0.5 K/mcL (0.0-1.3); Monocytes % 2.4 %; Neutrophils # 18.6 K/mcL (1.6-8.9); Nucleated Red Blood Cells 0.1 /100 WBC (0); Platelet Count 128 K/mcL (140-400); Red Cell Distribution Width 15.9 % (11.5-14.5); Segmented Neutrophils % 93.6 %
[2017-05-12 06:39] LABS: Calcium 10.4 mg/dL (8.6-10.3); Magnesium 2.7 mg/dL (1.6-2.6); Phosphorous 3.2 mg/dL (2.7-4.5); Potassium 4.2 mEq/L (3.5-5.1)
--- NOTE | 2017-05-12 08:45 | Internal Med Progress Note ---
<Ramirez Hanson R - Last Filed: 05/12/17 13:38> Date of Encounter: 05/12/17 - Constitutional Vitals: Temp Pulse Resp BP Pulse Ox 96.1 F L 90 20 114/55 91 05/12/17 11:35 05/12/17 12:31 05/12/17 11:35 05/12/17 12:31 05/12/17 11:35 Internal Medicine: Result - Labs CBC & Chem 7: 05/12/17 04:00 05/12/17 04:00 Labs: Short CBC 05/12/17 Range/Units 04:00 WBC 19.9 H (4.3-11.1) K/mcL Hgb 11.0 L (11.5-15.4) g/dL Hct 37.0 (35.3-44.9) % Plt Count 128 L (140-400) K/mcL Neutrophils # 18.6 H (1.6-8.9) K/mcL BMP 05/11/17 05/12/17 18:08 04:00 Sodium 149 H 151 H Potassium 5.0 D 4.2 Chloride 112 H 111 H Carbon Dioxide 32 H 33 H BUN 88 H 87 H Creatinine 1.72 H 1.68 H Glucose 377 H 194 H Calcium 10.3 10.4 H - ABG Interpretation ABG results: ABG ABG pH 7.27 pH Units (7.32-7.45) L 05/03/17 05:59 ABG pCO2 77 mmHg (35-45) H* 05/03/17 05:59 ABG pO2 96 mmHg (85-104) 05/03/17 05:59 ABG O2 Saturation 96 % (95-98) 05/03/17 05:59 PT/INR, D-dimer PT 12.6 Seconds (9.4-12.1) H 05/03/17 04:00 Consult Discharge Plan - Plan Referrals: Amirah Lizarraga [Primary Care Provider] - - Attending Attestation I performed an independent interview and examine this patient. I agree with the findings, assessment, and plan of Dr. Musa, internal medicine supervisor international reservations. I discussed the case with him in detail and my input is reflected throughout his note. She is tolerating TPN thus far. Her respiratory status is improved and she is not requiring BiPAP around the clock. She is more alert but still confused and not following specific commands. She is now day 10 of cefepime for suspected pneumonia. We will hold on further antibiotics and observe. She is more hypernatremic today and we will attempt to adjust her TPN to account for this, with additional free water replacement as necessary. She is getting Lasix for suspected volume overload. We will repeat a chest x-ray in 2 days. Her white blood cell count did increase today and this may be related to her steroids. We are stopping her antibiotics today but will have a low threshold to restart. Also as outlined above. <Sergio Dia - Last Filed: 05/12/17 15:12> Date of Encounter: 05/12/17 Time of Encounter: 08:45 - Assessment and plan (1) Pulmonary interstitial fibrosis Current Visit: Yes Status: Acute Assessment and plan: End stage. Clinically, patient appearing more comfortable than yesterday. However, patient still only opens eyes and nods her head yes when asked a question. She does not follow commands. Patient currently on high-dose steroids. She is also on total peripheral nutrition return to PICC line. Patient appears edematous on physical exam but less than yesterday. We will give 40 mg of Lasix IV at this time twice today. We will continue monitoring the patient's Is and Os. Patient received loading dose of digoxin. We will obtain level tomorrow. We have taking patient off Cardizem. Blood pressures are stable. (2) Metabolic encephalopathy Current Visit: Yes Status: Acute Assessment and plan: Patient is hypercapnic due to her reduced pulmonary function. Patient currently on BiPAP. We will attempt BiPAP breaks when possible. Patient has improvement clinically. She opens her eyes and answers questions but does not follow commands. (3) Atrial fibrillation with RVR Current Visit: Yes Status: Acute Assessment and plan: See above. Received loading dose of digoxin is now on maintenance therapy. Digoxin level tomorrow.. Currently in sinus rhythm on telemetry. (4) Hospital acquired PNA Current Visit: Yes Status: Suspected Assessment and plan: Currently on cefepime day 10. We will stop today. Recommend repeat chest x- ray on Monday. (5) Acute and chronic respiratory failure Current Visit: Yes Status: Acute Assessment and plan: See above. Qualifiers: Respiratory failure complication: hypoxia and hypercapnia Qualified Code(s) : J96.21 - Acute and chronic respiratory failure with hypoxia; J96.22 - Acute and chronic respiratory failure with hypercapnia; J96.22 - Acute and chronic respiratory failure with hypercapnia; J96.22 - Acute and chronic respiratory failure with hypercapnia (6) Hypothyroidism Current Visit: Yes Status: Acute Assessment and plan: April 03 shows a TSH of 2.023 which is within normal limits. Currently on 25 g IV Qualifiers: Hypothyroidism type: acquired Qualified Code(s): E03.9 - Hypothyroidism, unspecified (7) Counseling regarding advanced care planning and goals of care Current Visit: No Status: Acute Assessment and plan: See above regarding administration nutrition (8) DVT prophylaxis Current Visit: No Status: Acute Assessment and plan: Heparin 5000 units subcutaneous every 12 hours. - Subjective Interval history: Patient had no events overnight. Was on BiPAP at times throughout the night. Currently on oxygen. High flow oxygen at 5 L. Heart rate has been under control with Cardizem drip. Patient was given a loading dose of digoxin yesterday. Patient was reported to be more edematous and had rales on lung exam. Patient currently on TPN running through her PICC line. Reports of sacral decubitus that is worsening. - Constitutional Vitals: Temp Pulse Resp BP Pulse Ox 97.6 F 105 20 132/67 96 05/12/17 07:38 05/12/17 08:00 05/12/17 07:38 05/12/17 07:38 05/12/17 07:38 General appearance: Present: A&O X 0 - Head Head exam: Present: atraumatic, normal inspection - Neck Neck exam general surgery: Present: supple, trachea midline - Respiratory Respiratory exam: Present: rales (Diffuse) Additional comments: And inspiratory Velcro crackles - Cardiovascular Cardiovascular exam: Present: RRR, +S1, +S2. Absent: systolic murmur Additional comments: Telemetry: Sinus rhythm with a rate in the 80s - GI/Abdominal GI/Abdominal exam: Present: soft, no peritoneal signs. Absent: distended, firm , rigid - Back Exam Additional comments: Patient has sacral decubiti stage III that tracks downward to the bone. No erythema surrounding it or any purulent drainage to suggest infection. Internal Medicine: Result - Labs CBC & Chem 7: 05/12/17 04:00 05/12/17 04:00 Labs: Short CBC 04/06/18 Range/Units 04:00 WBC 19.9 H (4.3-11.1) K/mcL Hgb 11.0 L (11.5-15.4) g/dL Hct 37.0 (35.3-44.9) % Plt Count 128 L (140-400) K/mcL Neutrophils # 18.6 H (1.6-8.9) K/mcL BMP 05/11/17 05/12/17 18:08 04:00 Sodium 149 H 151 H Potassium 5.0 D 4.2 Chloride 112 H 111 H Carbon Dioxide 32 H 33 H BUN 88 H 87 H Creatinine 1.72 H 1.68 H Glucose 377 H 194 H Calcium 10.3 10.4 H - ABG Interpretation ABG results: ABG ABG pH 7.27 pH Units (7.32-7.45) L 05/03/17 05:59 ABG pCO2 77 mmHg (35-45) H* 05/03/17 05:59 ABG pO2 96 mmHg (85-104) 05/03/17 05:59 ABG O2 Saturation 96 % (95-98) 05/03/17 05:59 PT/INR, D-dimer PT 12.6 Seconds (9.4-12.1) H 05/03/17 04:00 - VTE Documentation of Mechanical Device: Intermittent pneumatic compression device
[2017-05-12] MEDS ORDERED: Furosemide 40 MG/4 ML VIAL IVP ONE ×2 (09:10→16:05)
[2017-05-12] MEDS: Levothyroxine Sodium 100 MCG VIAL IVP SCH (09:50)
[2017-05-12] MEDS: *HR* Digoxin 0.5 MG/2 ML AMPUL IVP SCH (09:50)
[2017-05-12] MEDS: Leptospermum Honey Paste 44 ML TUBE TP SCH ×2 (09:51→21:43)
[2017-05-12] MEDS: Pantoprazole 40 MG VIAL IVP SCH (09:51)
[2017-05-12] MEDS: MethylPREDNISolone 40 MG/ML VIAL IVP SCH (09:51)
[2017-05-12] MEDS: Insulin DETEMIR 100 UNIT/ML X5UNITS SQ SCH ×2 (09:51→21:41)
[2017-05-12] MEDS: Thiamine (B-1) 100 MG in D5% in Water 50 ML IVPB SCH (09:53)
--- NOTE | 2017-05-12 10:13 | Event Note ---
Date of Encounter: 05/12/17 Time of Encounter: 10:05 Patient is awake and appears more alert, but will not answer any questions or follow commands. Remains on TPN/Cardizem/Cefipime. WBC and neutrophils continuing to increase. Daughter at bedside. Discussed again that I do not think she will improve to be discharged from hospital. Discussed her extreme weakness, impaired skin integrity with stage IV decubitus, end stage respiratory distress. Daughter lying on cough at bedside states , "well we will see, she is having a very good day, she is just tired". Palliative following from a distance. Unless pt improves over the next several days, may need care conference with daughter including all providers involved in her care.
[2017-05-12] MEDS ORDERED: Clinimix E 5%-15% SOLUTION 2,000 ML with MVI, adult with vitamin K 10 ML IVC SCH (17:00)
[2017-05-12] MEDS: Cefepime HCl 2,000 MG in Water for inj. (sterile) 20 ML 20 ML IVP SCH (17:02)
[2017-05-13] MEDS: Insulin LISPRO 300 UNITS/3 ML VIAL SQ SCH ×7 (01:07→23:56)
[2017-05-13] MEDS: Levalbuterol Neb 1.25 MG/3 ML IH SCH ×4 (03:49→22:20)
[2017-05-13] MEDS: *HR* Heparin 5,000 UNIT/ML VIAL SQ SCH ×2 (04:39→17:21)
[2017-05-13] MEDS: *HR* Morphine 2 MG/ML SYRINGE IVP PRN ×2 (04:40→20:27)
[2017-05-13 04:47] LABS: Basophils % 0.1 %; Eosinophils % 0.1 %; Hematocrit 37.8 % (35.3-44.9); Hemoglobin 11.6 g/dL (11.5-15.4); Immature Granulocytes % 0.9 % (0-4); Lymphocytes # 0.6 K/mcL (0.6-4.6); Lymphocytes % 3.2 %; Mean Corpuscular HGB Conc 30.7 g/dL (31.6-35.5); Mean Corpuscular Hemoglobin 29.4 pg (28.0-33.3); Mean Corpuscular Volume 95.7 fL (83.0-100.0); Mean Platelet Volume 13.3 fL (9.4-12.4); Monocytes # 0.5 K/mcL (0.0-1.3); Monocytes % 2.7 %; Neutrophils # 16.8 K/mcL (1.6-8.9); Nucleated Red Blood Cells 0.1 /100 WBC (0); Platelet Count 133 K/mcL (140-400); Red Blood Count 3.95 M/mcL (3.82-4.97); Red Cell Distribution Width 15.9 % (11.5-14.5)
[2017-05-13 05:10] LABS: Calcium 10.6 mg/dL (8.6-10.3); Phosphorous 3.3 mg/dL (2.7-4.5); Potassium 4.9 mEq/L (3.5-5.1)
[2017-05-13 06:27] LABS: Digoxin 2.7 ng/mL (0.8-2.0)
[2017-05-13] MEDS: *HR* Digoxin 0.5 MG/2 ML AMPUL IVP SCH (08:17)
[2017-05-13] MEDS: Levothyroxine Sodium 100 MCG VIAL IVP SCH (08:26)
[2017-05-13] MEDS: Insulin DETEMIR 100 UNIT/ML X5UNITS SQ SCH ×2 (08:26→20:30)
[2017-05-13] MEDS: Thiamine (B-1) 100 MG in D5% in Water 50 ML IVPB SCH (08:26)
[2017-05-13] MEDS: MethylPREDNISolone 40 MG/ML VIAL IVP SCH (08:26)
[2017-05-13] MEDS: Pantoprazole 40 MG VIAL IVP SCH (08:26)
[2017-05-13] MEDS: Furosemide 40 MG/4 ML VIAL IVP SCH (08:26)
--- NOTE | 2017-05-13 08:39 | Internal Med Progress Note ---
<Sergio Dia - Last Filed: 05/13/17 11:19> Date of Encounter: 05/13/17 Time of Encounter: 08:39 - Assessment and plan (1) Pulmonary interstitial fibrosis Current Visit: Yes Status: Acute Assessment and plan: End stage. Clinically, patient appearing more comfortable than yesterday. However, patient still only opens eyes and nods her head yes when asked a question. She does not fully follow commands. Patient currently on high-dose steroids. She is also on total peripheral nutrition return to PICC line. Patient appears edematous on physical exam but less than yesterday. Patient's Digoxin levels are elevated at 2.7. Telemetry reveals sinus rhythm with a rate in the low 80s. Blood pressures are stable. Patient has pus in Jett catheter bag. Irrigated the back to promote drainage. Glucose has been more elevated. We will increase Levemir dosing to 15 units subcutaneous twice daily. - We will give 40 mg of Lasix IV at this time twice today. -We will continue monitoring the patient's Is and Os. - hold digoxin today -Repeat digoxin level tomorrow morning. -Urinalysis will be obtained. We will start antibiotics if there is infection. -Increase Levemir 15 units subcutaneous twice daily - CBC, BMP -Obtain a repeat chest x-ray (2) Metabolic encephalopathy Current Visit: Yes Status: Acute Assessment and plan: Patient is hypercapnic due to her reduced pulmonary function. Patient currently on oxygen with BiPAP as needed. Patient has improvement clinically. She opens her eyes and answers questions but does not fully follow commands. (3) Atrial fibrillation with RVR Current Visit: Yes Status: Acute Assessment and plan: See above. Digoxin level is 2.7. (4) Hospital acquired PNA Current Visit: Yes Status: Suspected Assessment and plan: Resolved. Repeat chest x-ray as above. (5) Acute and chronic respiratory failure Current Visit: Yes Status: Acute Assessment and plan: See above. Qualifiers: Respiratory failure complication: hypoxia and hypercapnia Qualified Code(s) : J96.21 - Acute and chronic respiratory failure with hypoxia; J96.22 - Acute and chronic respiratory failure with hypercapnia; J96.22 - Acute and chronic respiratory failure with hypercapnia; J96.22 - Acute and chronic respiratory failure with hypercapnia (6) Hypothyroidism Current Visit: Yes Status: Acute Assessment and plan: April 03 shows a TSH of 2.023 which is within normal limits. Currently on 25 g IV Qualifiers: Hypothyroidism type: acquired Qualified Code(s): E03.9 - Hypothyroidism, unspecified (7) Counseling regarding advanced care planning and goals of care Current Visit: No Status: Acute Assessment and plan: Currently followed by palliative care team. Patient has had an extended visit with very little recovery clinically. Condition is poor and prognosis is poor. This has been explained to patient's daughter numerous times. (8) DVT prophylaxis Current Visit: No Status: Acute Assessment and plan: Heparin 5000 units subcutaneous every 12 hours. (9) Protein-calorie malnutrition, severe Current Visit: Yes Status: Acute Assessment and plan: Receiving total parenteral nutrition with PICC line. Continue per nutrition (10) Sacral decubitus ulcer, stage III Current Visit: No Status: Chronic Assessment and plan: Stable. - Subjective Interval history: Patient had no events overnight. He is currently on nasal cannula. Jett catheter seemed to have milky white pus draining. Blood glucose levels have been more elevated. Patient opening her eyes and answering questions with head nods. Does not fully follow commands. - Constitutional Vitals: Temp Pulse Resp BP Pulse Ox 97.2 F L 101 27 111/66 92 05/13/17 07:14 05/13/17 07:14 05/13/17 07:14 05/13/17 07:14 05/13/17 07:14 General appearance: Present: A&O X 0 - Head Head exam: Present: normal inspection, normocephalic - ENT ENT exam: Present: mucous membranes dry - Neck Neck exam general surgery: Present: supple, trachea midline - Respiratory Additional comments: End expiratory Velcro crackles. Some rales throughout. - Cardiovascular Cardiovascular exam: Present: RRR, +S1, +S2 Additional comments: Telemetry: Sinus rhythm with a ventricular rate in the 80s. - GI/Abdominal GI/Abdominal exam: Present: firm, no peritoneal signs. Absent: rebound, rigid, tenderness - Extremities Exam Additional comments: 1+ pitting edema. - Back Exam Additional comments: Sacral decubitus same as yesterday. No erythema, no purulent drainage. Tracking to what appears to be the bone - Neurological Exam Additional comments: Opens eyes and nods head. Does not fully follow commands. Internal Medicine: Result - Labs CBC & Chem 7: 05/13/17 04:00 04/07/18 04:00 Labs: Short CBC 05/13/17 Range/Units 04:00 WBC 18.1 H (4.3-11.1) K/mcL Hgb 11.6 (11.5-15.4) g/dL Hct 37.8 (35.3-44.9) % Plt Count 133 L (140-400) K/mcL Neutrophils # 16.8 H (1.6-8.9) K/mcL BMP 05/13/17 04:00 Sodium 148 H Potassium 4.9 Chloride 110 H Carbon Dioxide 32 H BUN 92 H Creatinine 1.62 H Glucose 358 H Calcium 10.6 H - ABG Interpretation ABG results: ABG ABG pH 7.27 pH Units (7.32-7.45) L 05/03/17 05:59 ABG pCO2 77 mmHg (35-45) H* 05/03/17 05:59 ABG pO2 96 mmHg (85-104) 05/03/17 05:59 ABG O2 Saturation 96 % (95-98) 05/03/17 05:59 PT/INR, D-dimer PT 12.6 Seconds (9.4-12.1) H 05/03/17 04:00 - VTE Documentation of Mechanical Device: Intermittent pneumatic compression device Consult Discharge Plan - Plan Referrals: Amirah Lizarraga [Primary Care Provider] - <Ramirez Hanson R - Last Filed: 05/13/17 14:22> Date of Encounter: 05/13/17 - Constitutional Vitals: Temp Pulse Resp BP Pulse Ox 97.2 F L 91 25 152/81 95 05/13/17 11:28 05/13/17 12:34 05/13/17 11:28 05/13/17 11:28 05/13/17 11:28 Internal Medicine: Result - Labs CBC & Chem 7: 05/13/17 04:00 05/13/17 04:00 Labs: Short CBC 05/13/17 Range/Units 04:00 WBC 18.1 H (4.3-11.1) K/mcL Hgb 11.6 (11.5-15.4) g/dL Hct 37.8 (35.3-44.9) % Plt Count 133 L (140-400) K/mcL Neutrophils # 16.8 H (1.6-8.9) K/mcL BMP 05/13/17 04:00 Sodium 148 H Potassium 4.9 Chloride 110 H Carbon Dioxide 32 H BUN 92 H Creatinine 1.62 H Glucose 358 H Calcium 10.6 H Urine 05/13/17 Range/Units 11:40 Urine Color Yellow (Yellow) Urine Clarity Cloudy A (Clear) Urine pH 6.0 (5.0-8.0) pH Units Ur Specific [place] 1.018 (1.010-1.025) Urine Protein Trace (Neg-Trace) mg/dL Urine Glucose (UA) 250 H (Normal) mg/dL - ABG Interpretation ABG results: ABG ABG pH 7.27 pH Units (7.32-7.45) L 05/03/17 05:59 ABG pCO2 77 mmHg (35-45) H* 05/03/17 05:59 ABG pO2 96 mmHg (85-104) 05/03/17 05:59 ABG O2 Saturation 96 % (95-98) 05/03/17 05:59 PT/INR, D-dimer PT 12.6 Seconds (9.4-12.1) H 05/03/17 04:00 - Attending Attestation I performed an independent interview and examine this patient. I agree with the findings, assessment, plan of Dr. Dia, internal medicine sales and marketing intern. Patient is slowly improving from a respiratory standpoint and she is not requiring BiPAP continuously. She is slightly more alert today although her best response will be to open eyes and nod her head when asked a question. Today patient was noted to have markedly abnormal urine consistent with catheter associated urinary tract infection. He did have her catheter changed. We did flush it. Patient was started back on antibiotics and now she is day 1 of Zosyn. Her white blood cell count remains elevated. Patient continues on TPN. Her insulin was increased due to persistent hyperglycemia. Her hypernatremia has improved. Our challenge will be when and if possible to give her a Corpak and/or PEG tube both of which are presently too risky given tenuous respiratory status. Her daughter who still wants to pursue aggressive care, has insisted we feed. We have had numerous discussions regarding hospice and comfort care but she is not ready to do this, and she states her mom would not want hospice. Pts prognosis is extremely poor given her advanced pulmonary fibrosis. All else as indicated per Dr. Dia's note. My input is reflected throughout his note.
[2017-05-13] MEDS ORDERED: *HR* Digoxin 0.5 MG/2 ML AMPUL IVP SCH (09:00)
[2017-05-13] MEDS ORDERED: Insulin DETEMIR 100 UNIT/ML X5UNITS SQ SCH (11:11)
[2017-05-13] MEDS ORDERED: Insulin DETEMIR 100 UNIT/ML X5UNITS SQ ONE (11:13)
[2017-05-13 11:57] LABS: Bilirubin,Urine Negative (Negative); Blood,Urine Small (Negative); Clarity,Urine Cloudy (Clear); Color,Urine Yellow (Yellow); Glucose,Urine (UA) 250 mg/dL (Normal); Ketones,Urine Negative (Negative); Leukocyte Esterase,Urine Large (Negative); Nitrite,Urine Negative (Negative); Protein,Urine Trace mg/dL (Neg-Trace); Specific Gravity,Urine 1.018 (1.010-1.025); Urobilinogen,Urine Normal (Normal)
[2017-05-13 11:58] LABS: Bacteria,Urine None Seen per hpf (None-Few); Squamous Epithelial Cell,Urine Moderate per lpf (None-Few); WBC,Urine TNTC per hpf (0-3)
[2017-05-13 12:14] LABS: RBC,Urine 15-30 per hpf (0-3); Yeast,Urine Many per hpf (None Seen)
[2017-05-13] MEDS: Leptospermum Honey Paste 44 ML TUBE TP SCH ×2 (15:58→20:29)
[2017-05-13] MEDS: Piperacillin/Tazobactam 3.375 GM in 0.9 % Sodium Chloride Mini Bag 100 ML IVPB SCH ×2 (16:18→23:46)
[2017-05-13] MEDS ORDERED: Clinimix E 5%-15% SOLUTION 2,000 ML with MVI, adult with vitamin K 10 ML IVC SCH (17:00)
[2017-05-13] MEDS ORDERED: Furosemide 40 MG/4 ML VIAL IVP ONE (17:51)
[2017-05-14 04:00] LABS: Basophils % 0.1 %; Eosinophils % 0.1 %; Hematocrit 37.7 % (35.3-44.9); Hemoglobin 11.3 g/dL (11.5-15.4); Lymphocytes # 0.3 K/mcL (0.6-4.6); Mean Corpuscular Volume 96.7 fL (83.0-100.0); Mean Platelet Volume 13.6 fL (9.4-12.4); Monocytes # 0.5 K/mcL (0.0-1.3); Neutrophils # 15.7 K/mcL (1.6-8.9); Platelet Count 132 K/mcL (140-400); Red Cell Distribution Width 15.9 % (11.5-14.5); Segmented Neutrophils % 93.8 %
[2017-05-14 04:12] LABS: Calcium 10.6 mg/dL (8.6-10.3); Digoxin 1.8 ng/mL (0.8-2.0); Magnesium 2.9 mg/dL (1.6-2.6); Phosphorous 4.3 mg/dL (2.7-4.5); Potassium 4.5 mEq/L (3.5-5.1)
[2017-05-14] MEDS: Levalbuterol Neb 1.25 MG/3 ML IH SCH ×4 (04:33→21:19)
[2017-05-14] MEDS: Insulin LISPRO 300 UNITS/3 ML VIAL SQ SCH ×5 (06:07→21:12)
[2017-05-14] MEDS: *HR* Heparin 5,000 UNIT/ML VIAL SQ SCH ×2 (06:07→17:04)
[2017-05-14] MEDS: Levothyroxine Sodium 100 MCG VIAL IVP SCH (08:05)
[2017-05-14] MEDS: Furosemide 40 MG/4 ML VIAL IVP SCH (08:06)
[2017-05-14] MEDS: Piperacillin/Tazobactam 3.375 GM in 0.9 % Sodium Chloride Mini Bag 100 ML IVPB SCH ×2 (08:06→15:37)
[2017-05-14] MEDS: MethylPREDNISolone 40 MG/ML VIAL IVP SCH (08:06)
[2017-05-14] MEDS: *HR* Digoxin 0.5 MG/2 ML AMPUL IVP SCH (08:07)
[2017-05-14] MEDS: Pantoprazole 40 MG VIAL IVP SCH (08:07)
[2017-05-14] MEDS: Leptospermum Honey Paste 44 ML TUBE TP SCH ×2 (08:08→21:12)
[2017-05-14] MEDS: Insulin DETEMIR 100 UNIT/ML X5UNITS SQ SCH ×2 (08:31→21:11)
[2017-05-14] MEDS ORDERED: Clinimix E 5%-15% SOLUTION 2,000 ML with MVI, adult with vitamin K 10 ML IVC SCH (17:00)
[2017-05-14] MEDS: *HR* Morphine 2 MG/ML SYRINGE IVP PRN ×2 (17:03→21:16)
--- NOTE | 2017-05-14 18:05 | Internal Med Progress Note ---
Date of Encounter: 05/14/17 Time of Encounter: 17:57 - Time Spent With Patient - Assessment and plan (1) Pulmonary interstitial fibrosis Current Visit: Yes Status: Acute Assessment and plan: End stage. Clinically, patient appearing more comfortable than yesterday. However, patient still only opens eyes and nods her head yes when asked a question. She does not fully follow commands. Patient currently on high-dose steroids. She is also on total peripheral nutrition return to PICC line. Patient appears edematous on physical exam but less than yesterday. Patient's Digoxin levels are elevated at 2.7. Telemetry reveals sinus rhythm with a rate in the low 80s. Blood pressures are stable. Patient has pus in Jett catheter bag. Irrigated the back to promote drainage. Glucose has been more elevated. We will increase Levemir dosing to 15 units subcutaneous twice daily. - We will give 40 mg of Lasix IV at this time twice today. -We will continue monitoring the patient's Is and Os. -Urinalysis will be obtained. We will start antibiotics if there is infection. -Increase Levemir 15 units subcutaneous twice daily - CBC, BMP -Obtain a repeat chest x-ray Consulting palliative care services to help with disposition. (2) Metabolic encephalopathy Current Visit: Yes Status: Acute Assessment and plan: Patient is hypercapnic due to her reduced pulmonary function. Patient currently on oxygen with BiPAP as needed. Patient has improvement clinically. She opens her eyes and answers questions but does not fully follow commands. 05/14: Pt was a little more responsive but not audible. She responds to questions by nodding. (3) Atrial fibrillation with RVR Current Visit: Yes Status: Acute Assessment and plan: See above. Digoxin level is 2.7 05/13/17. Held digoxin 05/13/17. -Repeat digoxin level this morning 1.8. Will consider restart Digoxin tomorrow 05/15/17. (4) Hospital acquired PNA Current Visit: Yes Status: Suspected Assessment and plan: Resolved. Repeat chest x-ray as above. (5) Acute and chronic respiratory failure Current Visit: Yes Status: Acute Assessment and plan: See above. Qualifiers: Respiratory failure complication: hypoxia and hypercapnia Qualified Code(s) : J96.21 - Acute and chronic respiratory failure with hypoxia; J96.22 - Acute and chronic respiratory failure with hypercapnia; J96.22 - Acute and chronic respiratory failure with hypercapnia; J96.22 - Acute and chronic respiratory failure with hypercapnia. Pt does not wish to be intubated again. DNR CCA/DNI. (6) Hypothyroidism Current Visit: Yes Status: Acute Assessment and plan: April 03 shows a TSH of 2.023 which is within normal limits. Currently on 25 g IV Qualifiers: Hypothyroidism type: acquired Qualified Code(s): E03.9 - Hypothyroidism, unspecified (7) Counseling regarding advanced care planning and goals of care Current Visit: No Status: Acute Assessment and plan: Currently followed by palliative care team. Patient has had an extended visit with very little recovery clinically. Condition is poor and prognosis is poor. This has been explained to patient's daughter numerous times. 05/14: Had lengthy discussion with daughter regarding palliative care, however she did not mention that she had already spoken with them. Concerned that daughter in denial about how much level of medical supportive care the pt will need following her discharge. She insist on taking pt home with home health care services. Pt does not have DPOA. Daughter and son are her next of kin. (8) DVT prophylaxis Current Visit: No Status: Acute Assessment and plan: Heparin 5000 units subcutaneous every 12 hours. (9) Protein-calorie malnutrition, severe Current Visit: Yes Status: Acute Assessment and plan: Receiving total parenteral nutrition with PICC line. Continue per nutrition (10) Sacral decubitus ulcer, stage III Current Visit: No Status: Chronic Assessment and plan: Stable. 25 - 35 minutes (Time spent educating daughter on palliative vs hospice care services and updating her on pt's prognosis.) - Subjective Interval history: Pt attempting to respond to questions verbally but still difficult to understand as she has conversational dyspnea and is not audible. She does respond yes or no appropriately by nodding. Daughter at bedside. Had lengthy discussion with daughter regarding pt's current medical status, while nurse was present. Pt's daughter states she is aware pt has pulmonary fibrosis and that she is not curable. She also acknowledges understanding that pt condition is worse. Daughter states pt is ADAMANT about not being under hospice care. Explained to daughter that palliative care is not Hospice care and that the goal is to help pt improve quality of life as much as pt is able to tolerate and that the also provide supportive care in terms of pain management and stress management. Daughter agreed to talk with palliative care to hear about the services they offer. Mere mention of hospice makes pt and family anxious. Upon further review of chart it appears that pt had been seen by palliative and they have had multiple discussions with her and family. Daughter states family wants to take pt home with home health care services and that she has good family support. - Constitutional Vitals: Temp Pulse Resp BP Pulse Ox 97.3 F L 81 28 133/76 98 05/14/17 16:51 05/14/17 16:51 05/14/17 16:51 05/14/17 16:51 05/14/17 16:51 General appearance: Present: A&O X 0 - Head Head exam: Present: atraumatic, normocephalic - Eye Eye exam: Present: PERRL, conjuntiva pink, sclera anicteric Pupils: Present: PERRL - Respiratory Respiratory exam: Present: decreased breath sounds, wheezes. Absent: accessory muscle use, CTAB, rales, rhonchi - Cardiovascular Cardiovascular exam: Present: RRR, +S1, +S2. Absent: diastolic murmur, gallop, rubs, systolic murmur Additional comments: conversational dyspnea. - GI/Abdominal GI/Abdominal exam: Present: normal bowel sounds, soft, no peritoneal signs. Absent: distended, tenderness - Extremities Exam Extremities exam: Present: warm, radial pulses palpable and symmetrical. Absent : calf tenderness, cyanotic, pedal edema - Neurological Exam Neurological exam: Present: CN II-XII intact, oriented X3, no focal deficits. Absent: pronater drift, facial droop, speech deficit - Psychiatric Psychiatric exam: Present: flat affect, normal mood - Skin Skin exam: Present: dry, intact Internal Medicine: Result - Labs CBC & Chem 7: 05/14/17 03:35 05/14/17 03:35 Labs: Short CBC 05/14/17 Range/Units 03:35 WBC 16.7 H (4.3-11.1) K/mcL Hgb 11.3 L (11.5-15.4) g/dL Hct 37.7 (35.3-44.9) % Plt Count 132 L (140-400) K/mcL Neutrophils # 15.7 H (1.6-8.9) K/mcL BMP 05/14/17 03:35 Sodium 148 H Potassium 4.5 Chloride 105 Carbon Dioxide 38 H BUN 95 H Creatinine 1.71 H Glucose 304 H Calcium 10.6 H - ABG Interpretation ABG results: ABG ABG pH 7.27 pH Units (7.32-7.45) L 05/03/17 05:59 ABG pCO2 77 mmHg (35-45) H* 05/03/17 05:59 ABG pO2 96 mmHg (85-104) 05/03/17 05:59 ABG O2 Saturation 96 % (95-98) 05/03/17 05:59 PT/INR, D-dimer PT 12.6 Seconds (9.4-12.1) H 05/03/17 04:00 - VTE Documentation of Mechanical Device: Intermittent pneumatic compression device Consult Discharge Plan - Plan Referrals: Amirah Lizarraga [Primary Care Provider] -
[2017-05-15] MEDS: Piperacillin/Tazobactam 3.375 GM in 0.9 % Sodium Chloride Mini Bag 100 ML IVPB SCH ×3 (00:25→17:40)
[2017-05-15] MEDS: Insulin LISPRO 300 UNITS/3 ML VIAL SQ SCH ×6 (00:26→21:32)
[2017-05-15] MEDS: Levalbuterol Neb 1.25 MG/3 ML IH SCH ×4 (04:32→23:33)
[2017-05-15] MEDS: *HR* Heparin 5,000 UNIT/ML VIAL SQ SCH ×2 (04:47→17:42)
[2017-05-15 05:39] LABS: Calcium 10.3 mg/dL (8.6-10.3); Magnesium 2.9 mg/dL (1.6-2.6); Potassium 4.9 mEq/L (3.5-5.1)
[2017-05-15] MEDS: MethylPREDNISolone 40 MG/ML VIAL IVP SCH (08:48)
[2017-05-15] MEDS: *HR* Digoxin 0.5 MG/2 ML AMPUL IVP SCH (08:48)
[2017-05-15] MEDS: Pantoprazole 40 MG VIAL IVP SCH (08:48)
[2017-05-15] MEDS: Levothyroxine Sodium 100 MCG VIAL IVP SCH (08:49)
[2017-05-15] MEDS: Insulin DETEMIR 100 UNIT/ML X5UNITS SQ SCH ×2 (08:50→21:31)
[2017-05-15] MEDS: Leptospermum Honey Paste 44 ML TUBE TP SCH ×2 (09:01→21:29)
[2017-05-15 10:11] LABS: ABG Base Excess 15 mEq/L (-2 to 3); ABG HCO3 46 mEq/L (21-27); ABG Oxygen Saturation 99 % (95-98); ABG PCO2 97 mmHg (35-45); ABG PH 7.28 pH Units (7.32-7.45); ABG PO2 192 mmHg (85-104); ABG TCO2 49 mEq/L (20-26)
--- NOTE | 2017-05-15 14:28 | Palliative Progress Note ---
Date of Encounter: 05/16/17 Time of Encounter: 14:25 - Assessment and plan (1) Dyspnea Current Visit: No Status: Acute Assessment and plan: Still utilizing bipap/high flow oxygen. Remains dependent upon these. She has continued on low dose Morphine, but this has been given Qualifiers: Dyspnea type: unspecified Qualified Code(s): R06.00 - Dyspnea, unspecified (2) Debility Current Visit: No Status: Acute Assessment and plan: Although more interactive today, however, still very weak and debilitated. Remains on TPN for nutrition, electrolytes are abnormal and liberal arts and humanities chair following closely. (3) Counseling regarding advanced care planning and goals of care Current Visit: No Status: Acute Assessment and plan: Daughter not present today to meet with and couldn't reach by phone. (4) Hospital acquired PNA Current Visit: Yes Status: Suspected (5) Acute and chronic respiratory failure Current Visit: Yes Status: Acute Qualifiers: Respiratory failure complication: hypoxia and hypercapnia Qualified Code(s) : J96.21 - Acute and chronic respiratory failure with hypoxia; J96.22 - Acute and chronic respiratory failure with hypercapnia; J96.22 - Acute and chronic respiratory failure with hypercapnia; J96.22 - Acute and chronic respiratory failure with hypercapnia (6) Pulmonary interstitial fibrosis Current Visit: Yes Status: Chronic - Time Spent With Patient Total time spent is greater than 50% in coordination of care (as documented) at patient's floor/unit and/or counseling patient: 25 - 35 minutes - Subjective Interval history: Patient awake and alert on arrival. More interactive than when I saw her last week. Able to shake head yes/no, but does not respond to all questions and appears too weak to verbalize or follow commands. Currently on bipap. Daughter is not present and has not been seen since last pm, although her phone , computer, glasses are in room. - Constitutional Vitals: Abnormal lab results WBC 16.7 K/mcL (4.3-11.1) H 05/14/17 03:35 Hgb 11.3 g/dL (11.5-15.4) L 05/14/17 03:35 MCHC 30.0 g/dL (31.6-35.5) L 05/14/17 03:35 RDW 15.9 % (11.5-14.5) H 05/14/17 03:35 Plt Count 132 K/mcL (140-400) L 05/14/17 03:35 MPV 13.6 fL (9.4-12.4) H 05/14/17 03:35 Neutrophils # 15.7 K/mcL (1.6-8.9) H 05/14/17 03:35 Lymphocytes # 0.3 K/mcL (0.6-4.6) L 05/14/17 03:35 Nucleated RBCs/100 WBC 0.1 /100 WBC (0) H 05/13/17 04:00 Hypochromasia Present (Not Present) A 05/06/17 03:15 PT 12.6 Seconds (9.4-12.1) H 05/03/17 04:00 ABG pH 7.28 pH Units (7.32-7.45) L 05/15/17 09:55 ABG pCO2 97 mmHg (35-45) H* 05/15/17 09:55 ABG pO2 192 mmHg (85-104) H 05/15/17 09:55 ABG HCO3 46 mEq/L (21-27) H 05/15/17 09:55 ABG Total CO2 49 mEq/L (20-26) H 05/15/17 09:55 ABG O2 Saturation 99 % (95-98) H 05/15/17 09:55 ABG Base Excess 15 mEq/L (-2 to 3) H 05/15/17 09:55 Sodium 151 mEq/L (136-145) H 05/15/17 04:00 Carbon Dioxide > 45 mEq/L (23-29) H* 05/15/17 04:00 BUN 95 mg/dL (8-23) H 05/15/17 04:00 Creatinine 1.80 mg/dL (0.60-1.20) H 05/15/17 04:00 Est GFR ( Amer) 34 (> 60) L 05/15/17 04:00 Est GFR (Non-Af Amer) 28 (> 60) L 05/15/17 04:00 BUN/Creatinine Ratio 53 (6-26) H 05/15/17 04:00 Glucose 291 mg/dL (70-105) H 05/15/17 04:00 POC Glucose 152 mg/dL (70-99) H 05/15/17 11:59 Calculated Osmolality 352 (280-300) H 05/15/17 04:00 Venous Ioniz Calcium 1.38 mmol/L (1.15-1.35) H 05/11/17 06:01 Phosphorus 5.0 mg/dL (2.7-4.5) H 05/15/17 04:00 Magnesium 2.9 mg/dL (1.6-2.6) H 05/15/17 04:00 Alkaline Phosphatase 161 Units/L (34-104) H 05/04/17 04:42 Troponin I 0.08 ng/mL (< 0.04) H* 05/03/17 12:30 B-Natriuretic Peptide 244 pg/mL (Less than 100) H 05/02/17 19:35 Albumin 3.0 g/dL (3.5-5.7) L 05/04/17 04:42 Albumin/Globulin Ratio 0.9 (1.1-2.2) L 05/04/17 04:42 Prealbumin 15.6 mg/dL (17.0-34.0) L 05/11/17 05:10 Triglycerides 211 mg/dL (< 150) H 05/11/17 05:10 Urine Clarity Cloudy (Clear) A 05/13/17 11:40 Urine Glucose (UA) 250 mg/dL (Normal) H 05/13/17 11:40 Urine Blood Small (Negative) H 05/13/17 11:40 Ur Leukocyte Esterase Large (Negative) H 05/13/17 11:40 Urine Microscopic RBC 15-30 per hpf (0-3) H 05/13/17 11:40 Urine Microscopic WBC TNTC per hpf (0-3) H 05/13/17 11:40 Ur Squamous Epith Cells Moderate per lpf (None-Few) H 05/13/17 11:40 Granular Casts Few per lpf (None Seen) H 05/03/17 15:10 Urine Yeast Many per hpf (None Seen) H 05/13/17 11:40 Ur Culture Indicated? YES (NO) A 05/13/17 11:40 Vancomycin Trough 25.4 mcg/mL (10-20) H* 05/05/17 04:00 General appearance: Present: no acute distress - Respiratory Additional comments: Breath sounds course with rhonchi throughout. - Cardiovascular Cardiovascular exam: Present: irregular rhythm - GI/Abdominal GI/Abdominal exam: Present: normal bowel sounds, soft Additional comments: Ostomy intact - Additional comments: Jett patent and draining yellow urine with pus - Extremities Exam Additional comments: Generalized edema to all extremities, upper greater than lower - Neurological Exam Neurological exam: Present: alert Additional comments: extreme weakness, unable to follow commands, but can shake head yes/no appropriately - Skin Skin exam: Present: dry, pallor, warm Additional comments: ecchymosis noted to bilateral arms/areas on abdomen as well Palliative Quality Palliative Quality: Screen for Code Status: Yes, Screen for Goals of Care: Yes, Screen for Pain: Yes, If Pain Regimen Started, Initiate Bowel Regimen: NA, Screen for Nausea/Vomitting: Yes Code Status: 05/02/17 19:39 Resuscitation Status: Active [RES] Routine Comment: Resuscitation Status: [id number] - Labs CBC & Chem 7: 05/14/17 03:35 05/16/17 04:00 Labs: Laboratory Results - last 24 hr 05/14/17 05/14/17 05/14/17 16:54 20:03 22:36 Sample Site ABG pH ABG pCO2 ABG pO2 ABG HCO3 ABG Total CO2 ABG O2 Saturation ABG Base Excess Tony Test O2 Delivery Device Inspired O2 Sodium Potassium Chloride Carbon Dioxide BUN Creatinine Est GFR ( Amer) Est GFR (Non-Af Amer) BUN/Creatinine Ratio Glucose POC Glucose 321 H 342 H 333 H Calculated Osmolality Calcium Phosphorus Magnesium 05/15/17 05/15/17 05/15/17 04:00 04:38 07:56 Sample Site ABG pH ABG pCO2 ABG pO2 ABG HCO3 ABG Total CO2 ABG O2 Saturation ABG Base Excess Tony Test O2 Delivery Device Inspired O2 Sodium 151 H Potassium 4.9 Chloride 105 Carbon Dioxide > 45 H* BUN 95 H Creatinine 1.80 H Est GFR ( Amer) 34 L Est GFR (Non-Af Amer) 28 L BUN/Creatinine Ratio 53 H Glucose 291 H POC Glucose 258 H 109 H Calculated Osmolality 352 H Calcium 10.3 Phosphorus 5.0 H Magnesium 2.9 H 05/15/17 05/15/17 09:55 11:59 Sample Site L Radial ABG pH 7.28 L ABG pCO2 97 H* ABG pO2 192 H ABG HCO3 46 H ABG Total CO2 49 H ABG O2 Saturation 99 H ABG Base Excess 15 H Tony Test N/A O2 Delivery Device Cannula Inspired O2 64.0 Sodium Potassium Chloride Carbon Dioxide BUN Creatinine Est GFR ( Amer) Est GFR (Non-Af Amer) BUN/Creatinine Ratio Glucose POC Glucose 152 H Calculated Osmolality Calcium Phosphorus Magnesium - ABG Interpretation ABG results: ABG ABG pH 7.28 pH Units (7.32-7.45) L 05/15/17 09:55 ABG pCO2 97 mmHg (35-45) H* 05/15/17 09:55 ABG pO2 192 mmHg (85-104) H 05/15/17 09:55 ABG O2 Saturation 99 % (95-98) H 05/15/17 09:55 PT/INR, D-dimer PT 12.6 Seconds (9.4-12.1) H 05/03/17 04:00 Consult Discharge Plan - Plan Referrals: Amirah Lizarraga [Primary Care Provider] -
--- NOTE | 2017-05-15 16:02 | Internal Med Progress Note ---
Date of Encounter: 05/15/17 Time of Encounter: 09:30 - Assessment and plan (1) Acute and chronic respiratory failure Current Visit: Yes Status: Acute Assessment and plan: Due to COPD and advanced pulmonary fibrosis. Noted to have significant metabolic alkalosis on BMP today. ABG done, shows respiratory acidosis with pH 7.28, PCO2 97, PaO2 192. Patient is placed back on BiPAP support. Likely dependent on this. Qualifiers: Respiratory failure complication: hypoxia and hypercapnia Qualified Code(s) : J96.21 - Acute and chronic respiratory failure with hypoxia; J96.22 - Acute and chronic respiratory failure with hypercapnia; J96.22 - Acute and chronic respiratory failure with hypercapnia; J96.22 - Acute and chronic respiratory failure with hypercapnia (2) Acute encephalopathy Current Visit: Yes Status: Acute Assessment and plan: Possibly due to chronic hypoxemia related to lung disease. Continue current management. (3) Atrial fibrillation with RVR Current Visit: Yes Status: Acute Assessment and plan: Has been on Cardizem and amiodarone drip initially, then started on digoxin. Digoxin level noted to be 2.7 on May 13, dose was held and restarted today. Digoxin level noted to be 1.8, dosing will be changed to alternating 0.125 and 0.25 mg dose due to renal dysfunction. (4) Goals of care, counseling/discussion Current Visit: Yes Status: Acute Assessment and plan: Palliative care team on board. Plan for discharge to ECF, while on TPN. Per previous notes, patient does have poor prognosis with end-stage pulmonary fibrosis, with no cure. Patient's daughter seems to be in denial, taking one day at a time, not ready to consider hospice care at this time. Patient has not shown any significant clinical improvement during her hospitalization. (5) Hypothyroidism Current Visit: Yes Status: Chronic Assessment and plan: Continue levothyroxine IV. Qualifiers: Hypothyroidism type: acquired Qualified Code(s): E03.9 - Hypothyroidism, unspecified (6) Pneumonia Current Visit: Yes Status: Suspected Assessment and plan: Has been on IV Zosyn for suspected pneumonia with a complement of aspiration. Discontinue after 14 days. One out of one blood cultures was negative. Continue supportive care. Qualifiers: Pneumonia type: due to unspecified organism Laterality: bilateral Lung location: unspecified part of lung Qualified Code(s): J18.9 - Pneumonia, unspecified organism (7) Protein-calorie malnutrition, severe Current Visit: Yes Status: Chronic Assessment and plan: Credit Negotiator on board. Patient is currently on TPN. Monitor electrolyte abnormalities. (8) Pulmonary interstitial fibrosis Current Visit: Yes Status: Chronic Assessment and plan: Patient was evaluated by pulmonology, recommended IV steroids, supplemental oxygen, breathing treatments, BiPAP support. Poor prognosis with a terminal condition. (9) Sacral decubitus ulcer, stage III Current Visit: Yes Status: Chronic Assessment and plan: local wound care; frequent repositioning; (10) KAREN (acute kidney injury) Current Visit: Yes Status: Acute Assessment and plan: Unclear etiology, but likely due to Lasix. Nonoliguric. Hold Lasix for now due to hypernatremia and worsening serum creatinine. Noted to have hypomagnesemia and hyperphosphatemia, these will be adjusted in the TPN. Avoid new nephrotoxic agents, monitor serum electrolytes and creatinine closely. (11) Hyperglycemia Current Visit: Yes Status: Acute Assessment and plan: Likely related to TPN. Check hemoglobin A1c. Discussed with religious education teacher, TPN mix will be adjusted and rate decreased. - Time Spent With Patient Total time spent is greater than 50% in coordination of care (as documented) at patient's floor/unit and/or counseling patient: - Subjective Interval history: Patient noted to be awake, but unable to provide any history; does not nod her head or answer in any way; no family at bedside; on TPN; - Constitutional Vitals: Temp Pulse Resp BP Pulse Ox 96.9 F L 80 30 137/71 98 05/15/17 11:28 05/15/17 11:28 05/15/17 15:58 05/15/17 11:28 05/15/17 15:58 General appearance: Present: A&O X 0. Absent: answers questions appropriately - Respiratory Respiratory exam: Present: CTAB (coarse breath sounds B/L, with dry crackles at bases). Absent: accessory muscle use, rales, rhonchi, wheezes - Cardiovascular Cardiovascular exam: Present: RRR, +S1, +S2. Absent: diastolic murmur, gallop, rubs, systolic murmur - GI/Abdominal GI/Abdominal exam: Present: normal bowel sounds, soft (colostomy in place), no peritoneal signs. Absent: distended, tenderness - Extremities Exam Extremities exam: Present: pedal edema (1+ dependent), warm, radial pulses palpable and symmetrical. Absent: calf tenderness, cyanotic - Neurological Exam Neurological exam: Present: altered, no focal deficits (further assessment cannot be completed due to patient's mental status). Absent: pronater drift, facial droop, speech deficit Internal Medicine: Result - Labs CBC & Chem 7: 05/14/17 03:35 05/15/17 04:00 Labs: BMP 05/15/17 04:00 Sodium 151 H Potassium 4.9 Chloride 105 Carbon Dioxide > 45 H* BUN 95 H Creatinine 1.80 H Glucose 291 H Calcium 10.3 - ABG Interpretation ABG results: ABG ABG pH 7.28 pH Units (7.32-7.45) L 05/15/17 09:55 ABG pCO2 97 mmHg (35-45) H* 05/15/17 09:55 ABG pO2 192 mmHg (85-104) H 05/15/17 09:55 ABG O2 Saturation 99 % (95-98) H 05/15/17 09:55 PT/INR, D-dimer PT 12.6 Seconds (9.4-12.1) H 05/03/17 04:00 - VTE Documentation of Mechanical Device: Intermittent pneumatic compression device Consult Discharge Plan - Plan Referrals: Amirah Lizarraga [Primary Care Provider] -
[2017-05-15] MEDS ORDERED: Clinimix E 5%-15% SOLUTION 2,000 ML with MVI, adult with vitamin K 10 ML IVC SCH (17:00)
[2017-05-15] MEDS: *HR* Morphine 2 MG/ML SYRINGE IVP PRN (17:37)
[2017-05-16] MEDS: Piperacillin/Tazobactam 3.375 GM in 0.9 % Sodium Chloride Mini Bag 100 ML IVPB SCH ×2 (01:49→10:05)
[2017-05-16] MEDS: Insulin LISPRO 300 UNITS/3 ML VIAL SQ SCH ×6 (01:50→21:15)
[2017-05-16] MEDS: Levalbuterol Neb 1.25 MG/3 ML IH SCH ×4 (04:11→21:26)
[2017-05-16] MEDS: *HR* Heparin 5,000 UNIT/ML VIAL SQ SCH ×2 (05:46→17:10)
[2017-05-16 05:55] LABS: VBG Ionized Calcium 1.28 mmol/L (1.15-1.35)
[2017-05-16 06:18] LABS: Calcium 10.4 mg/dL (8.6-10.3); Phosphorous 5.3 mg/dL (2.7-4.5); Potassium 4.9 mEq/L (3.5-5.1)
[2017-05-16] MEDS: Pantoprazole 40 MG VIAL IVP SCH (10:06)
[2017-05-16] MEDS: Levothyroxine Sodium 100 MCG VIAL IVP SCH (10:06)
[2017-05-16] MEDS: MethylPREDNISolone 40 MG/ML VIAL IVP SCH (10:06)
[2017-05-16] MEDS: Leptospermum Honey Paste 44 ML TUBE TP SCH ×2 (10:29→21:21)
[2017-05-16] MEDS: Insulin DETEMIR 100 UNIT/ML X5UNITS SQ SCH ×2 (10:46→21:15)
[2017-05-16] MEDS: *HR* Morphine 2 MG/ML SYRINGE IVP PRN ×3 (10:46→21:14)
[2017-05-16] MEDS: D5% in Water 1,000 ML IVC SCH (10:54)
--- NOTE | 2017-05-16 11:16 | Palliative Progress Note ---
Date of Encounter: 05/16/17 Time of Encounter: 11:00 - Assessment and plan (1) Protein-calorie malnutrition, severe Current Visit: Yes Status: Chronic Assessment and plan: TPN currently discontinued r/t electrolyte abnormalities. Will have to further address with daughter later this afternoon when she returns. (2) Dyspnea Current Visit: No Status: Acute Assessment and plan: Continues to alternate between bipap and high flow oxygen. Nursing staff utilizes Morphine occasional for dyspnea as well as for pain and prior to dressing changes. No changed at this time. Qualifiers: Dyspnea type: unspecified Qualified Code(s): R06.00 - Dyspnea, unspecified (3) Debility Current Visit: No Status: Acute (4) Counseling regarding advanced care planning and goals of care Current Visit: No Status: Acute Assessment and plan: collection systems worker able to reach daughter, who has been getting her home ready for her father to come home from rehab. She has dr slade around noon, but then will be returning to hospital. Will f/u this afternoon. (5) Hospital acquired PNA Current Visit: Yes Status: Suspected (6) Acute and chronic respiratory failure Current Visit: Yes Status: Acute Qualifiers: Respiratory failure complication: hypoxia and hypercapnia Qualified Code(s) : J96.21 - Acute and chronic respiratory failure with hypoxia; J96.22 - Acute and chronic respiratory failure with hypercapnia; J96.22 - Acute and chronic respiratory failure with hypercapnia; J96.22 - Acute and chronic respiratory failure with hypercapnia (7) Pulmonary interstitial fibrosis Current Visit: Yes Status: Chronic - Time Spent With Patient Total time spent is greater than 50% in coordination of care (as documented) at patient's floor/unit and/or counseling patient: - Subjective Interval history: Patient awake and alert on arrival. Able to shake head yes/no, but does not respond to all questions and appears too weak to verbalize or follow commands. Presently off bipap. TPN had to be discontinued r/t electrolyte abnormalities. Daughter not at bedside. - Constitutional Vitals: Abnormal lab results WBC 16.7 K/mcL (4.3-11.1) H 05/14/17 03:35 Hgb 11.3 g/dL (11.5-15.4) L 05/14/17 03:35 MCHC 30.0 g/dL (31.6-35.5) L 05/14/17 03:35 RDW 15.9 % (11.5-14.5) H 05/14/17 03:35 Plt Count 132 K/mcL (140-400) L 05/14/17 03:35 MPV 13.6 fL (9.4-12.4) H 05/14/17 03:35 Neutrophils # 15.7 K/mcL (1.6-8.9) H 05/14/17 03:35 Lymphocytes # 0.3 K/mcL (0.6-4.6) L 05/14/17 03:35 Nucleated RBCs/100 WBC 0.1 /100 WBC (0) H 05/13/17 04:00 Hypochromasia Present (Not Present) A 05/06/17 03:15 PT 12.6 Seconds (9.4-12.1) H 05/03/17 04:00 ABG pH 7.28 pH Units (7.32-7.45) L 05/15/17 09:55 ABG pCO2 97 mmHg (35-45) H* 05/15/17 09:55 ABG pO2 192 mmHg (85-104) H 05/15/17 09:55 ABG HCO3 46 mEq/L (21-27) H 05/15/17 09:55 ABG Total CO2 49 mEq/L (20-26) H 05/15/17 09:55 ABG O2 Saturation 99 % (95-98) H 05/15/17 09:55 ABG Base Excess 15 mEq/L (-2 to 3) H 05/15/17 09:55 Sodium 154 mEq/L (136-145) H 05/16/17 04:00 Chloride 111 mEq/L (98-107) H 05/16/17 04:00 Carbon Dioxide 37 mEq/L (23-29) H 05/16/17 04:00 BUN 95 mg/dL (8-23) H 05/16/17 04:00 Creatinine 1.81 mg/dL (0.60-1.20) H 05/16/17 04:00 Est GFR ( Amer) 33 (> 60) L 05/16/17 04:00 Est GFR (Non-Af Amer) 28 (> 60) L 05/16/17 04:00 BUN/Creatinine Ratio 52 (6-26) H 05/16/17 04:00 Glucose 165 mg/dL (70-105) H 05/16/17 04:00 POC Glucose 168 mg/dL (70-99) H 05/16/17 05:31 Calculated Osmolality 351 (280-300) H 05/16/17 04:00 Calcium 10.4 mg/dL (8.6-10.3) H 05/16/17 04:00 Phosphorus 5.3 mg/dL (2.7-4.5) H 05/16/17 04:00 Magnesium 3.0 mg/dL (1.6-2.6) H 05/16/17 04:00 Alkaline Phosphatase 161 Units/L (34-104) H 05/04/17 04:42 Troponin I 0.08 ng/mL (< 0.04) H* 05/03/17 12:30 B-Natriuretic Peptide 244 pg/mL (Less than 100) H 05/02/17 19:35 Albumin 3.0 g/dL (3.5-5.7) L 05/04/17 04:42 Albumin/Globulin Ratio 0.9 (1.1-2.2) L 05/04/17 04:42 Prealbumin 15.6 mg/dL (17.0-34.0) L 05/11/17 05:10 Triglycerides 245 mg/dL (< 150) H 05/16/17 04:00 Urine Clarity Cloudy (Clear) A 05/13/17 11:40 Urine Glucose (UA) 250 mg/dL (Normal) H 05/13/17 11:40 Urine Blood Small (Negative) H 05/13/17 11:40 Ur Leukocyte Esterase Large (Negative) H 05/13/17 11:40 Urine Microscopic RBC 15-30 per hpf (0-3) H 05/13/17 11:40 Urine Microscopic WBC TNTC per hpf (0-3) H 05/13/17 11:40 Ur Squamous Epith Cells Moderate per lpf (None-Few) H 05/13/17 11:40 Granular Casts Few per lpf (None Seen) H 05/03/17 15:10 Urine Yeast Many per hpf (None Seen) H 05/13/17 11:40 Ur Culture Indicated? YES (NO) A 05/13/17 11:40 Vancomycin Trough 25.4 mcg/mL (10-20) H* 05/05/17 04:00 General appearance: Present: no acute distress - Respiratory Additional comments: Breath sound course throughout with scattered rhonchi. - Cardiovascular Cardiovascular exam: Present: +S1, +S2 - GI/Abdominal GI/Abdominal exam: Present: normal bowel sounds, soft Additional comments: Ostomy with scant amount stool present - Extremities Exam Additional comments: Upper extremities edematous left greater than right. Dressing intact to left PICC line - allevyn to skin tears - Neurological Exam Neurological exam: Present: alert Additional comments: Can shake head yes/no to some questions. Does not follow commands. - Skin Skin exam: Present: dry, warm Palliative Quality Palliative Quality: Screen for Code Status: Yes, Screen for Goals of Care: Yes, Screen for Pain: Yes, If Pain Regimen Started, Initiate Bowel Regimen: NA, Screen for Nausea/Vomitting: Yes Code Status: 05/02/17 19:39 Resuscitation Status: Active [RES] Routine Comment: Resuscitation Status: [id number] - Labs CBC & Chem 7: 05/14/17 03:35 05/16/17 04:00 Labs: Laboratory Results - last 24 hr 05/15/17 05/15/17 05/15/17 04:00 04:38 07:56 Sodium Potassium Chloride Carbon Dioxide 35 H BUN Creatinine Est GFR ( Amer) Est GFR (Non-Af Amer) BUN/Creatinine Ratio Glucose POC Glucose 258 H 109 H Calculated Osmolality Calcium Venous Ioniz Calcium Phosphorus Magnesium Triglycerides 05/15/17 05/15/17 05/15/17 11:59 16:40 21:05 Sodium Potassium Chloride Carbon Dioxide BUN Creatinine Est GFR ( Amer) Est GFR (Non-Af Amer) BUN/Creatinine Ratio Glucose POC Glucose 152 H 227 H 273 H Calculated Osmolality Calcium Venous Ioniz Calcium Phosphorus Magnesium Triglycerides 05/16/17 05/16/17 05/16/17 00:33 04:00 04:00 Sodium 154 H Potassium 4.9 Chloride 111 H Carbon Dioxide 37 H BUN 95 H Creatinine 1.81 H Est GFR ( Amer) 33 L Est GFR (Non-Af Amer) 28 L BUN/Creatinine Ratio 52 H Glucose 165 H POC Glucose 208 H Calculated Osmolality 351 H Calcium 10.4 H Venous Ioniz Calcium Phosphorus 5.3 H Magnesium 3.0 H Triglycerides 245 H 04/11/2305/16/17 05/16/17 04:29 05:31 05:52 Sodium Potassium Chloride Carbon Dioxide BUN Creatinine Est GFR ( Amer) Est GFR (Non-Af Amer) BUN/Creatinine Ratio Glucose POC Glucose 167 H 168 H Calculated Osmolality Calcium Venous Ioniz Calcium 1.28 Phosphorus Magnesium Triglycerides - ABG Interpretation ABG results: ABG ABG pH 7.28 pH Units (7.32-7.45) L 05/15/17 09:55 ABG pCO2 97 mmHg (35-45) H* 05/15/17 09:55 ABG pO2 192 mmHg (85-104) H 05/15/17 09:55 ABG O2 Saturation 99 % (95-98) H 05/15/17 09:55 PT/INR, D-dimer PT 12.6 Seconds (9.4-12.1) H 05/03/17 04:00 Consult Discharge Plan - Plan Referrals: Amirah Lizarraga [Primary Care Provider] -
--- NOTE | 2017-05-16 15:36 | Event Note ---
Date of Encounter: 05/16/17 Time of Encounter: 15:30 Discussed goals of care at length with pt and daughter - Kirk Shaw ACCORDION MAKER also present. Discussed current clinical status including debility, electrolyte imbalances with TPN (this was discontinued today) and end stage pulmonary fibrosis. Daughter discussed desiring NG for feeding be tried again - discussed that last attempt went into pt lungs and with severe lung disease at high risk for pneumothorax, and also that NG feeding with bipap, is not a feasible cost estimating clerk option. Daughter states "she could eat if her tongue were not swollen and brown from the bipap". Discussed that even prior to oral changes, she failed swallow evaluations. Kirk Shaw discussed at length that the most reasonable options at this point were either to go to [facility] as a palliative patient and focus on symptom management, or take her home with hospice care and daughter care for her at home. Daughter requested time alone with pt to discuss and called us back to room. Stated that her mother indicated she wanted to go home. Discussed again that hospice would be best support and avenue to obtain equipment and comfort medications, and daughter stated she would have to discuss with her father prior to making a decision. D/ W Dr. Garcia.
[2017-05-16] MEDS ORDERED: Saliva Stimulant 100ml BOTTLE PO PRN (17:49)
--- NOTE | 2017-05-16 17:53 | Internal Med Progress Note ---
Date of Encounter: 05/16/17 Time of Encounter: 17:53 - Assessment and plan (1) Hypernatremia Current Visit: Yes Status: Acute Assessment and plan: Multiple electrolyte abnormalities including hyponatremia, hypomagnesemia, hyperphosphatemia. Hold TPN for now. 3.4 L free water deficit noted. Start D5W and continue to monitor electrolytes closely. Case discussed with dietitian and palliative care. (2) Acute and chronic respiratory failure Current Visit: Yes Status: Acute Assessment and plan: Due to COPD and advanced pulmonary fibrosis. Continue current management, no significant improvement; Qualifiers: Respiratory failure complication: hypoxia and hypercapnia Qualified Code(s) : J96.21 - Acute and chronic respiratory failure with hypoxia; J96.22 - Acute and chronic respiratory failure with hypercapnia; J96.22 - Acute and chronic respiratory failure with hypercapnia; J96.22 - Acute and chronic respiratory failure with hypercapnia (3) Acute encephalopathy Current Visit: Yes Status: Acute Assessment and plan: Possibly due to chronic hypoxemia related to lung disease. Continue current management. Patient was selectively verbal, only talking when she wanted to during her recent admission. However, she remains nonverbal and failed swallow evaluation during this entire hospitalization. (4) Atrial fibrillation with RVR Current Visit: Yes Status: Acute Assessment and plan: Has been on Cardizem and amiodarone drip initially, then started on digoxin. Continue renally dosed digoxin. Remains in sinus rhythm at this time. (5) Goals of care, counseling/discussion Current Visit: Yes Status: Acute Assessment and plan: Discussed extensively with palliative care team, who discussed with patient's daughter. Several medical staff members and previous hospitalist have had discussions with patient's daughter regarding goals of care and palliative/ hospice care. She seems to be in denial, not ready for hospice at this time. CODE STATUS remains DNR comfort care arrest/DNI. We will continue to follow. (6) Hypothyroidism Current Visit: Yes Status: Chronic Assessment and plan: Continue IV Synthroid as patient is unable to tolerate by mouth meds. Qualifiers: Hypothyroidism type: acquired Qualified Code(s): E03.9 - Hypothyroidism, unspecified (7) Pneumonia Current Visit: Yes Status: Suspected Assessment and plan: Has been on IV antibiotics for 14 days, we will discontinue Zosyn. One set of blood cultures remained negative. Continue supportive care and supplemental oxygen. Qualifiers: Pneumonia type: due to unspecified organism Laterality: bilateral Lung location: unspecified part of lung Qualified Code(s): J18.9 - Pneumonia, unspecified organism (8) Protein-calorie malnutrition, severe Current Visit: Yes Status: Chronic Assessment and plan: TPN to be held as above. (9) Pulmonary interstitial fibrosis Current Visit: Yes Status: Chronic (10) Sacral decubitus ulcer, stage III Current Visit: Yes Status: Chronic (11) KAREN (acute kidney injury) Current Visit: Yes Status: Acute Assessment and plan: Unclear etiology, but likely due to Lasix. Nonoliguric. Held Lasix due to hypernatremia and worsening serum creatinine. Avoid new nephrotoxic agents, monitor serum electrolytes and creatinine closely. (12) Hyperglycemia Current Visit: Yes Status: Acute Assessment and plan: Improving. - Time Spent With Patient Total time spent is greater than 50% in coordination of care (as documented) at patient's floor/unit and/or counseling patient: - Subjective Interval history: Awake but unable to provide history, nonverbal; nods head to a few questions but mostly remains silent and staring; - Constitutional Vitals: Temp Pulse Resp BP Pulse Ox 97.4 F L 73 20 140/63 100 05/16/17 16:11 05/16/17 16:11 05/16/17 16:28 05/16/17 16:11 05/16/17 16:28 General appearance: Present: A&O X 0. Absent: answers questions appropriately - Respiratory Respiratory exam: Present: CTAB (coarse breath sounds B/L, dry crackles at bases ). Absent: accessory muscle use, rales, rhonchi, wheezes - Cardiovascular Cardiovascular exam: Present: RRR, +S1, +S2. Absent: diastolic murmur, gallop, rubs, systolic murmur - GI/Abdominal GI/Abdominal exam: Present: normal bowel sounds, soft (obese), no peritoneal signs. Absent: distended, tenderness - Extremities Exam Extremities exam: Present: pedal edema (dependent B/L edema), warm, radial pulses palpable and symmetrical. Absent: calf tenderness, cyanotic - Neurological Exam Neurological exam: Present: altered, strengths equal and symetr throughout ( diffusely decreased motor power). Absent: pronater drift, facial droop, speech deficit Internal Medicine: Result - Labs CBC & Chem 7: 05/17/17 04:00 05/17/17 04:00 Labs: BMP 05/15/17 05/16/17 04:00 04:00 Sodium 154 H Potassium 4.9 Chloride 111 H Carbon Dioxide 35 H 37 H BUN 95 H Creatinine 1.81 H Glucose 165 H Calcium 10.4 H - ABG Interpretation ABG results: ABG ABG pH 7.28 pH Units (7.32-7.45) L 05/15/17 09:55 ABG pCO2 97 mmHg (35-45) H* 05/15/17 09:55 ABG pO2 192 mmHg (85-104) H 05/15/17 09:55 ABG O2 Saturation 99 % (95-98) H 05/15/17 09:55 PT/INR, D-dimer PT 12.6 Seconds (9.4-12.1) H 05/03/17 04:00 - VTE Documentation of Mechanical Device: Intermittent pneumatic compression device Consult Discharge Plan - Plan Additional Instructions: F/up with Hospice as scheduled Referrals: Amirah Lizarraga [Primary Care Provider] - Prescriptions: Hyoscyamine SL [Levsin SL] 0.125 mg SL Q4HR PRN #12 tab.subl PRN Reason: upper airway secretions Haloperidol Oral Conc [Haldol] 1 mg PO Q6H PRN #15 mls PRN Reason: Agitation Levalbuterol Neb [Xopenex Neb] 1.25 mg IH Q4H PRN #60 vial.neb PRN Reason: wheezing/shortness of breath LORazepam Oral Conc [Ativan Oral Conc] 1 mg PO Q4H PRN 4 Days #15 mls PRN Reason: anxiety/agitation MORPHINE SUL Oral CONC [Roxanol Oral Conc] 10 mg PO Q2H PRN 4 Days #15 oral.syg PRN Reason: pain/dyspnea Nystatin [Nystatin Suspension] 100,000 unit PO QID #60 oral.susp
[2017-05-16] MEDS: Nystatin SUSP 5 ML UD.LIQ PO SCH ×2 (19:31→21:14)
[2017-05-17] MEDS: D5% in Water 1,000 ML IVC SCH (00:23)
[2017-05-17] MEDS: Insulin LISPRO 300 UNITS/3 ML VIAL SQ SCH ×3 (00:44→07:19)
[2017-05-17] MEDS: Levalbuterol Neb 1.25 MG/3 ML IH SCH ×3 (04:52→15:47)
[2017-05-17 05:00] LABS: Eosinophils % 0.2 %; Mean Corpuscular HGB Conc 28.9 g/dL (31.6-35.5)
[2017-05-17 05:01] LABS: Basophils % 0.2 %
[2017-05-17 05:02] LABS: Hemoglobin 10.4 g/dL (11.5-15.4); Immature Granulocytes % 1.2 % (0-4); Lymphocytes # 0.5 K/mcL (0.6-4.6); Lymphocytes % 3.7 %; Mean Corpuscular Volume 100.3 fL (83.0-100.0); Mean Platelet Volume 13.6 fL (9.4-12.4); Monocytes # 0.7 K/mcL (0.0-1.3); Monocytes % 5.7 %; Nucleated Red Blood Cells 0.2 /100 WBC (0); Platelet Count 133 K/mcL (140-400); Red Blood Count 3.59 M/mcL (3.82-4.97)
[2017-05-17 05:08] LABS: Neutrophils # 11.3 K/mcL (1.6-8.9)
[2017-05-17 05:13] LABS: Calcium 10.2 mg/dL (8.6-10.3); Magnesium 2.8 mg/dL (1.6-2.6); Phosphorous 5.1 mg/dL (2.7-4.5); Potassium 5.1 mEq/L (3.5-5.1)
[2017-05-17 05:23] LABS: VBG Ionized Calcium 1.19 mmol/L (1.15-1.35)
[2017-05-17] MEDS: *HR* Heparin 5,000 UNIT/ML VIAL SQ SCH (06:12)
[2017-05-17 06:21] LABS: Hypochromasia Present (Not Present); Stomatocytes 1+ (Not Present)
[2017-05-17 06:22] LABS: Platelet Estimate Slight Decrease (Normal)
[2017-05-17] MEDS: Levothyroxine Sodium 100 MCG VIAL IVP SCH (07:48)
[2017-05-17] MEDS: Pantoprazole 40 MG VIAL IVP SCH (07:48)
[2017-05-17] MEDS: Nystatin SUSP 5 ML UD.LIQ PO SCH ×2 (07:48→11:48)
[2017-05-17] MEDS: MethylPREDNISolone 40 MG/ML VIAL IVP SCH (07:48)
[2017-05-17] MEDS: Insulin DETEMIR 100 UNIT/ML X5UNITS SQ SCH (07:49)
[2017-05-17] MEDS: Leptospermum Honey Paste 44 ML TUBE TP SCH (07:49)
[2017-05-17] MEDS ORDERED: *HR* Digoxin 0.5 MG/2 ML AMPUL IVP SCH (09:00)
[2017-05-17] MEDS: *HR* Morphine 2 MG/ML SYRINGE IVP PRN ×2 (09:47→13:04)
[2017-05-17 11:22] VITALS: BP 110/58
--- NOTE | 2017-05-17 12:13 | Discharge Summary ---
- NOTES TO OUTPATIENT PROVIDER Notes to Outpatient Provider: Home with Hospice due to terminal pulmonary fibrosis and COPD Date of Encounter: 05/17/17 Time of Encounter: 12:11 - Discharge Diagnosis (1) Acute and chronic respiratory failure Priority: Primary Status: Acute Qualifiers: Respiratory failure complication: hypoxia and hypercapnia Qualified Code(s) : J96.21 - Acute and chronic respiratory failure with hypoxia; J96.22 - Acute and chronic respiratory failure with hypercapnia; J96.22 - Acute and chronic respiratory failure with hypercapnia; J96.22 - Acute and chronic respiratory failure with hypercapnia (2) Acute encephalopathy Priority: Primary Status: Acute (3) Atrial fibrillation with RVR Priority: Primary Status: Acute (4) Goals of care, counseling/discussion Priority: Primary Status: Acute (5) Hypothyroidism Priority: Secondary Status: Chronic Qualifiers: Hypothyroidism type: acquired Qualified Code(s): E03.9 - Hypothyroidism, unspecified (6) Pneumonia Priority: Primary Status: Suspected Qualifiers: Pneumonia type: due to unspecified organism Laterality: bilateral Lung location: unspecified part of lung Qualified Code(s): J18.9 - Pneumonia, unspecified organism (7) Protein-calorie malnutrition, severe Priority: Secondary Status: Chronic (8) Pulmonary interstitial fibrosis Priority: Secondary Status: Chronic (9) Sacral decubitus ulcer, stage III Priority: Secondary Status: Chronic (10) KAREN (acute kidney injury) Priority: Primary Status: Acute (11) Hyperglycemia Priority: Primary Status: Acute (12) Hypernatremia Priority: Primary Status: Acute Hospital course: Ms. Benjamin is a 71 year old female with the above medical problems, who was admitted with worsening respiratory distress. She had a prolonged hospitalization of 15 days, with minimal improvement in her symptoms. I have seen this patient only during the last 3 days of her hospitalization. She was evaluated by Pulmonology, received maximum medical therapy for end stage COPD and pulmonary interstitial fibrosis, with IV steroids, breathing treatments, supplemental O2 and BiPAP support, with no further recommendations. SHe had acute on chronic hypercapnic and hypoxic respiratory failure. SHe was noted to be nonverbal during this hospitalization, using head-nodding to answer selective questions. BRICK VENEER MAKER evaluation was done and she was unsafe for oral diet, and received her meds via IV. Dubhoff tube was attempted during this admission, which was placed in left lung and had to be removed. TPN was subsequently started, however patient made no medical recovery and began to have significant electrolyte abnormalities including hypernatremia, hypermangesemia and hyperphosphatemia, could not be corrected with TPN, which had to be stopped. SHe received D5W with some improvement in Na. Urine output was appropriate. She was having KAREN, with slightly worsening creatinine, unclear etiology. She was also treated with IV Zosyn for suspected aspiration Pneumonia, and completed a 14-day course of antibiotics. After multiple long discussions by Palliative care team with patient's daughter , she was agreeable with taking patient home with Home Hospice care which has been arranged by Palliative care team, and she is being discharged today. Discharge discussed with: patient, family - Time Spent with Patient Total time spent providing and/or coordinating discharge services: Greater than 30 minutes (55 min) - Discharge Medications Prescriptions: Hyoscyamine SL [Levsin SL] 0.125 mg SL Q4HR PRN #12 tab.subl PRN Reason: upper airway secretions Haloperidol Oral Conc [Haldol] 1 mg PO Q6H PRN #15 mls PRN Reason: Agitation Levalbuterol Neb [Xopenex Neb] 1.25 mg IH Q4H PRN #60 vial.neb PRN Reason: wheezing/shortness of breath LORazepam Oral Conc [Ativan Oral Conc] 1 mg PO Q4H PRN 4 Days #15 mls PRN Reason: anxiety/agitation MORPHINE SUL Oral CONC [Roxanol Oral Conc] 10 mg PO Q2H PRN 4 Days #15 oral.syg PRN Reason: pain/dyspnea Nystatin [Nystatin Suspension] 100,000 unit PO QID #60 oral.susp Home Medications: Benzonatate [Tessalon] 100 mg PO TID PRN 03/23/17 [History] Cholecalciferol (D-3) [Vitamin D] 2,000 unit PO DAILY 03/23/17 [History] Fluticasone Propionate Nasal [Flonase] 2 spr NS DAILY 03/23/17 [History] Levothyroxine Sodium [Levoxyl] 50 mcg PO DAILY 03/23/17 [History] Loratadine [Allergy Relief] 10 mg PO DAILY 03/23/17 [History] Magnesium Oxide [Magnesium] 400 mg PO DAILY 03/23/17 [History] Omeprazole [PriLOSEC] 40 mg PO DAILY 03/23/17 [History] Pravastatin Sodium [Pravachol] 40 mg PO DAILY 03/23/17 [History] Tizanidine HCl 4 mg PO BID 03/23/17 [History] Ascorbic Acid [Vitamin C] 500 mg PO DAILY tablet 04/07/17 [Rx] Budesonide/Formoterol 160/4.5 [Symbicort 160/4.5] 2 puff IH BIDR inhaler [Rx] LORazepam [Ativan] 0.5 mg PO BID PRN 7 Days #14 tablet 04/07/17 [Rx] Zinc Sulfate 220 mg PO DAILY capsule 04/07/17 [Rx] Fluconazole [Diflucan] 100 mg PO DAILY #7 tablet 04/12/17 [Rx] Haloperidol Oral Conc [Haldol] 1 mg PO Q6H PRN #15 mls 05/17/17 [Rx] Hyoscyamine SL [Levsin SL] 0.125 mg SL Q4HR PRN #12 tab.subl 05/17/17 [Rx] LORazepam Oral Conc [Ativan Oral Conc] 1 mg PO Q4H PRN 4 Days #15 mls 05/17/17 [ Rx] Levalbuterol Neb [Xopenex Neb] 1.25 mg IH Q4H PRN #60 vial.neb 05/17/17 [Rx] MORPHINE SUL Oral CONC [Roxanol Oral Conc] 10 mg PO Q2H PRN 4 Days #15 oral.syg 05/17/17 [Rx] Nystatin [Nystatin Suspension] 100,000 unit PO QID #60 oral.susp 05/17/17 [Rx] Allergies/Adverse Reactions: 3 Allergy/AdvReac Type Severity Reaction Status Date / Time ciprofloxacin [From Cipro] Allergy Rash Verified 11/14/16 19:58 Hyoscyamine [From Urelle] Allergy Rash Verified 11/14/16 19:58 methenamine [From Urelle] Allergy Rash Verified 11/14/16 19:58 methylene blue [From Urelle] Allergy Rash Verified 11/14/16 19:58 phenazopyridine Allergy Rash Verified 11/14/16 19:58 [From Pyridium] salicylates [From Urelle] Allergy Rash Verified 11/14/16 19:58 Sodium Phosphate Allergy Rash Verified 11/14/16 19:58 [From Urelle] Date of admission: 05/02/17 19:26 Primary care physician: Amirah Lizarraga Consults: 05/02/17 19:49 Consult to Pulmonology [CONS] Routine Consulting Provider: [facility] Reason for Consult: Pulmonary fibrosis, pneumonia Call Completed: No 05/02/17 19:50 Consult to Palliative Care [CONS] Routine Comment: Consulting Provider: Palliative Care [place] Reason for Consult: End stage PF, consult for goal of care Call Completed: No 05/04/17 18:49 Consult to Speech Therapy [CONS] Routine Comment: Evaluate, develop and implement POC Reason for Consult: swallow eval Call Completed: Yes 05/07/17 18:05 Consult to Wound Care [CONS] Routine Reason for Consult: Coccyx wound. Unstageable Call Completed: No 05/08/17 15:23 Consult to Nutrition [CONS] Routine Comment: Consulting Provider: NUTRITION Reason for Dietary Consult: Tube Feed Start & Manage PO Supplementation 05/10/17 09:42 Consult to PICC team [Consult to Invasive Line Access Team] [CONS] Routine Reason for Consult: need PICC for TPN Line Type: PICC 05/10/17 10:50 Consult to Nutrition [CONS] Routine Comment: Consulting Provider: NUTRITION Reason for Dietary Consult: TPN Start and Manage 05/10/17 11:42 Consult to Invasive Line Access Team [CONS] Routine Reason for Consult: Picc Line Insertion Line Type: PICC 05/14/17 13:22 Consult to Palliative Care [CONS] Routine Comment: Consulting Provider: Palliative Care [place] Reason for Consult: Dx Pulmonary Fibrosis, family wants more information about Palliative care to transition pt. home to daughter's home. Time Notified: 13:24 Call Completed: Yes Discharging clinician: Veronica Garcia Anticipated date of discharge: 05/17/17 - Constitutional Vitals: Temp Pulse Resp BP Pulse Ox 98.2 F 86 25 110/58 96 05/17/17 11:18 05/17/17 11:18 05/17/17 11:18 05/17/17 11:18 05/17/17 11:18 General appearance: Present: A&O X 1. Absent: answers questions appropriately - Respiratory Respiratory exam: Present: CTAB (coarse breath sounds B/L, dry crackles). Absent: accessory muscle use, rales, rhonchi, wheezes - Patient Status Disposition: Hospice - Home Condition: Serious Functional capacity at discharge: bed bound Overall status at discharge: patient is not back to baseline - Discharge Instructions Follow Up With: Amirah Lizarraga [Primary Care Provider] - Additional Instructions: F/up with Hospice as scheduled - Diet and Activity Activity: wear oxygen at all times Diet: other (comfort meds only, not cleared for diet by BRICK VENEER MAKER) - VTE Documentation of Mechanical Device: Intermittent pneumatic compression device
--- NOTE | 2017-05-17 12:20 | Physician Discharge Referral ---
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 Tender - Diagnosis (1) Acute and chronic respiratory failure Priority: Primary Status: Acute (2) Acute encephalopathy Priority: Primary Status: Acute (3) Atrial fibrillation with RVR Priority: Primary Status: Acute (4) Goals of care, counseling/discussion Priority: Primary Status: Acute (5) Hypothyroidism Priority: Secondary Status: Chronic (6) Pneumonia Priority: Primary Status: Suspected (7) Protein-calorie malnutrition, severe Priority: Secondary Status: Chronic (8) Pulmonary interstitial fibrosis Priority: Secondary Status: Chronic (9) Sacral decubitus ulcer, stage III Priority: Secondary Status: Chronic (10) KAREN (acute kidney injury) Priority: Primary Status: Acute (11) Hyperglycemia Priority: Primary Status: Acute (12) Hypernatremia Priority: Primary Status: Acute - Respiratory Orders Oxygen / L per min (6L/min via NC with PRN BiPAP) Smoking Cessation: Smoking cessation has been advised. For more information, call the [place] Tobacco Quit Line at 5-966-SRGC-NOW. - Diet/Nutrition Diet/Nutrition: List: no safe oral diet; comfort meds only; - Activity Activity Orders: Bedrest - Services Needed Following services are medically necessary services: Nursing - Transfer Medications Prescriptions: Hyoscyamine SL [Levsin SL] 0.125 mg SL Q4HR PRN #12 tab.subl PRN Reason: upper airway secretions Haloperidol Oral Conc [Haldol] 1 mg PO Q6H PRN #15 mls PRN Reason: Agitation LORazepam Oral Conc [Ativan Oral Conc] 1 mg PO Q4H PRN 4 Days #15 mls PRN Reason: anxiety/agitation MORPHINE SUL Oral CONC [Roxanol Oral Conc] 10 mg PO Q2H PRN 4 Days #15 oral.syg PRN Reason: pain/dyspnea Nystatin [Nystatin Suspension] 100,000 unit PO QID #60 oral.susp Home Medications: Benzonatate [Tessalon] 100 mg PO TID PRN 03/23/17 [History] Cholecalciferol (D-3) [Vitamin D] 2,000 unit PO DAILY 03/23/17 [History] Fluticasone Propionate Nasal [Flonase] 2 spr NS DAILY 03/23/17 [History] Levothyroxine Sodium [Levoxyl] 50 mcg PO DAILY 03/23/17 [History] Loratadine [Allergy Relief] 10 mg PO DAILY 03/23/17 [History] Magnesium Oxide [Magnesium] 400 mg PO DAILY 03/23/17 [History] Omeprazole [PriLOSEC] 40 mg PO DAILY 03/23/17 [History] Pravastatin Sodium [Pravachol] 40 mg PO DAILY 03/23/17 [History] Tizanidine HCl 4 mg PO BID 03/23/17 [History] Ascorbic Acid [Vitamin C] 500 mg PO DAILY tablet 04/07/17 [Rx] Budesonide/Formoterol 160/4.5 [Symbicort 160/4.5] 2 puff IH BIDR inhaler [Rx] LORazepam [Ativan] 0.5 mg PO BID PRN 7 Days #14 tablet 04/07/17 [Rx] Zinc Sulfate 220 mg PO DAILY capsule 04/07/17 [Rx] Fluconazole [Diflucan] 100 mg PO DAILY #7 tablet 04/12/17 [Rx] Haloperidol Oral Conc [Haldol] 1 mg PO Q6H PRN #15 mls 05/17/17 [Rx] Hyoscyamine SL [Levsin SL] 0.125 mg SL Q4HR PRN #12 tab.subl 05/17/17 [Rx] LORazepam Oral Conc [Ativan Oral Conc] 1 mg PO Q4H PRN 4 Days #15 mls 05/17/17 [ Rx] MORPHINE SUL Oral CONC [Roxanol Oral Conc] 10 mg PO Q2H PRN 4 Days #15 oral.syg 05/17/17 [Rx] Nystatin [Nystatin Suspension] 100,000 unit PO QID #60 oral.susp 05/17/17 [Rx] Allergies/Adverse Reactions: 3 Allergy/AdvReac Type Severity Reaction Status Date / Time ciprofloxacin [From Cipro] Allergy Rash Verified 11/14/16 19:58 Hyoscyamine [From Urelle] Allergy Rash Verified 11/14/16 19:58 methenamine [From Urelle] Allergy Rash Verified 11/14/16 19:58 methylene blue [From Urelle] Allergy Rash Verified 11/14/16 19:58 phenazopyridine Allergy Rash Verified 11/14/16 19:58 [From Pyridium] salicylates [From Urelle] Allergy Rash Verified 11/14/16 19:58 Sodium Phosphate Allergy Rash Verified 11/14/16 19:58 [From Oli] Certification: Further, I certify that my clinical findings support that this patient is homebound (i.e. absences from home require considerable and taxing effort and are for medical reasons or rastafari services or infrequently or short duration when for other reasons) because: Homebound Reason: Patient requires assistance of a person or device to safely leave home, Leaving home requires considerable and taxing effort due to condition, Severity of cardiac or pulmonary status limits activity tolerance Attestation: My signature below is to certify that this patient is under my care and that I, or nurse practitioner, or a physician's library circulation assistant working with me, has a face-to -face encounter with this patient.
--- NOTE | 2017-05-17 14:15 | Event Note ---
Date of Encounter: 05/17/17 Time of Encounter: 14:13 Hospice medical services manager certification of terminal illness: Hospice benefit. Start: 05/17/2017 Hospice benefit. In: +90 days Palliative performance scale: 30% History: She was severe COPD times requiring BiPAP Ammann also unable to swallow has failed swallow evaluations and is no longer a candidate for TPN. Patient also cannot survive surgery have PEG tube placed. The patient and family have opted for home hospice care and no longer pursuing aggressive treatment therefore These findings support a life expectancy of 6 months or less. I attest that I have compose the above narrative based on my review of the patient's medical records, and or on my examination of the patient. Marcell Rudolph M.D. Associate remote medical coder. [facility]
== END 2017-05-17 17:25 | disposition hospice, home (50) | DRG 196 ==
LOC: 2NNU 19:26 → SUATTDRO 19:26
PROVIDERS: ADMIT Internal Medicine; ATTEND Internal Medicine